=== PATIENT | male | born 1950 | race African-American/Black ===

== ENCOUNTER 2016-06-22 07:46 | Emergency (ER) | payer OTHER, MEDICAID ==
[~2016-06-22] VITALS: Ht 175.3 cm; Wt 75.0 kg
[~2016-06-22 07:46] MED LIST: ADVAI100I PO; ALBU8I INH; ASPI81CH3 PO; FOLI1 PO; JANU50TA5 PO; LANTUS2P SC; MVI PO; PROT40TA PO; SIMV40 PO; THIA100T PO
[2016-06-22 07:48] VITALS: BP 148/78; PULSE 89; RESP 19; TEMP 97.5; O2SAT 97
[2016-06-22] MEDS ORDERED: SODIUM CHLOR 0.9% 1000 ML INJ 1,000 ML IV SCH (08:03)
[2016-06-22] MEDS ORDERED: ROXI15TA9 PO (08:07)
[2016-06-22] MEDS ORDERED: IPRASOL INH (08:07)
[2016-06-22] MEDS ORDERED: JANU50TA4 PO (08:07)
[2016-06-22] MEDS ORDERED: ZOLO50TA PO (08:07)
[2016-06-22] MEDS ORDERED: PANT20TA2 PO (08:07)
[2016-06-22] MEDS ORDERED: CIAL5TAB PO (08:07)
[2016-06-22] MEDS ORDERED: EXENINJ SQ (08:07)
[2016-06-22] MEDS ORDERED: FLUT1SPR5 EACH NARE (08:07)
[2016-06-22] MEDS ORDERED: ALBUAER3 INH (08:07)
--- NOTE | 2016-06-22 08:10 | PD ---
HPI Chief Complaint: Abdominal Pain Time Seen by Provider: 07:56 Travel History International Travel<30 days: No Contact w/Intl Traveler<30days: No Traveled to known affect area: No History of Present Illness HPI 66yo M with PMH of IDDM, chronic pancreatitis, former ETOH abuse, emphysema presents to the ED with c/o abdominal pain for 3 days. Pain is constant, periumbilical and epigastric. +NBNB vomiting. Last BM yesterday. Denies any fever, chest pain, sob, black stool, urinary complaints. Pt is on morphine for chronic pain but did not take it for days. Pt also did not take her insulin for 2 days because he does not feel like injecting himself. Pt was hospitalized in 09/2015 for DKA and YANCI. 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) Cancer: No Cardiac Catheterization: Yes Cardiovascular Problems: Yes High Cholesterol: No Chemotherapy: No Chest Pain: Yes (anibal states that he some times has chest pain) Congestive Heart Failure: No COPD: Yes Cerebrovascular Accident: No Diabetes: Yes Patient Takes Glucophage: No Diminished Hearing: No Endocrine: Yes Gastrointestinal Disorders: Yes (PANCREATITIS) GERD: Yes Glaucoma: No Genitourinary: Yes Headaches: No Hepatitis: No Hiatal Hernia: No Hypertension: Yes Immune Disorder: No Implanted Vascular Access Dvce: Yes Kidney Stones: Yes Musculoskeletal: No Neurologic: No Psychiatric: No Reproductive: No Respiratory: Yes Immunizations Current: Yes Migraines: No Myocardial Infarction: No Pancreatitis: Yes Pneumonia: Yes Radiation Therapy: No Renal Failure: Yes Seizures: No Sickle Cell Disease: No Sleep Apnea: No Thyroid Disease: No Ulcer: No PNEUMOCCOCAL Vaccine (Year): 2 Past Surgical History Abdominal Surgery: Yes (Gallbladder removed 1996. repair for same surgery) AICD: No Arteriovenous Shunt: No Body Medical Devices: PACEMAKER Cardiac Surgery: Yes (Pace maker 1996) Cholecystectomy: Yes Ear Surgery: No Endocrine Surgery: No Eye Surgery: No Genitourinary Surgery: No Gynecologic Surgery: No Insulin Pump: No Joint Replacement: No Neurologic Surgery: Yes (LAMINECTOMY L4/5) Oral Surgery: No Pacemaker: Yes (Biotronik) Thoracic Surgery: No Other Surgery: Yes (HAND SURGERY -RIGHT TENDON REPAIR) Social History Alcohol Use: Yes (STATES QUIT) Tobacco Use: No (QUIT 2011) Substance Use: Yes (Cocaine, pt states that last time used is unknown) Allergies-Medications (Allergen,Severity, Reaction): Coded Allergies: MRI PRECAUTION (Verified Adverse Reaction, Severe, PACEMAKER, 06/22/16) PT HAS PACEMAKER PER NURSE JAYLENE/HEMANT *MDRO Multi-Drug Resistant Organism (Verified Adverse Reaction, Unknown, ) MRSA PCR (nares) negative - 10/04/15 & 10/07/15 Cleared per Infection Control MRSA (blood and urine) - 06/2012 Reported Meds & Prescriptions Reported Meds & Active Scripts Active Reported Roxicodone (Oxycodone HCl) 15 Mg Tab 15 Mg PO Q8H PRN Zoloft (Sertraline HCl) 50 Mg Tab 50 Mg PO DAILY Bydureon Inj (Exenatide) 2 Mg Vial 2 Mg SQ Q7D Flonase Allergy Relief Nasal [place] (Fluticasone Nasal [place]) 50 Mcg/Act [place] 50 Mcg EACH NARE BID Duoneb (Ipratropium-Albuterol Neb) 0.5-2.5 Mg/3 Ml Neb 1 Nebule INH Q4HR NEB Pantoprazole (Pantoprazole Sodium) 20 Mg Tab 20 Mg PO DAILY Proair Hfa 8.5 GM Inh (Albuterol Sulfate) 90 Mcg/Act Aer 2 Puff INH Q4-6H PRN 108 mcg/actuation Janumet (Sitagliptin-Metformin) 50-500 Mg Tab 1 Tab PO BID Cialis (Tadalafil) 5 Mg Tab 5 Mg PO DAILY Do not exceed 1 dose/day. Review of Systems Except as stated in HPI: all other systems reviewed are Neg Physical Exam Narrative GENERAL: 66yo M not in distress. SKIN: Warm and dry. HEAD: Atraumatic. Normocephalic. NECK: Trachea midline. No JVD. CARDIOVASCULAR: Regular rate and rhythm. No murmur appreciated. RESPIRATORY: No accessory muscle use. Clear to auscultation. Breath sounds equal bilaterally. GASTROINTESTINAL: Abdomen soft, Mild periumbilical ttp. No rebound tenderness or guarding. Midline surgical scar noted. MUSCULOSKELETAL: No obvious deformities. No clubbing. No cyanosis. No edema. NEUROLOGICAL: Awake and alert. No obvious cranial nerve deficits. Motor grossly within normal limits. Normal speech. PSYCHIATRIC: Appropriate mood and affect; insight and judgment normal. Data Data Last Documented VS Vital Signs Date Time Temp Pulse Resp B/P Pulse Ox O2 Delivery O2 Flow Rate FiO2 06/22/16 14:06 71 18 119/74 98 Room Air 06/22/16 07:48 97.5 Orders Complete Blood Count With Diff (06/22/16 08:03) Comprehensive Metabolic Panel (06/22/16 08:03) Lipase (06/22/16 08:03) Prothrombin Time / Inr (Pt) (06/22/16 08:03) Act Partial Throm Time (Ptt) (06/22/16 08:03) Urinalysis - C+S If Indicated (06/22/16 08:03) Iv Access Insert/Monitor (06/22/16 08:03) Ecg Monitoring (06/22/16 08:03) Oximetry (06/22/16 08:03) Ondansetron Inj (Zofran Inj) (06/22/16 08:15) Sodium Chlor 0.9% 1000 Ml Inj (Ns 1000 M (06/22/16 08:03) Sodium Chloride 0.9% Flush (Ns Flush) (06/22/16 08:15) Electrocardiogram (06/22/16 08:03) Beta Hydroxybutyrate (Acetone) (06/22/16 08:03) Magnesium (Mg) (06/22/16 08:05) Chest, Single Ap (06/22/16 ) Troponin I (06/22/16 08:10) Ct Abd/Pel W Iv Contrast(Rout) (06/22/16 ) Consult Vascular Access Team (06/22/16 ) Vascular Poc Ultrasound (06/22/16 ) Sodium Chlor 0.9% 1000 Ml Inj (Ns 1000 M (06/22/16 13:00) Insulin Human Regular Inj (Novolin R Inj (06/22/16 13:00) Iohexol 350 Inj (Omnipaque 350 Inj) (06/22/16 12:55) Ketorolac Inj (Toradol Inj) (06/22/16 13:00) Morphine Inj (Morphine Inj) (06/22/16 13:45) Blood Glucose (06/22/16 13:39) Labs Laboratory Tests Test 06/22/16 06/22/16 06/22/16 08:10 09:41 11:23 White Blood Count 8.4 TH/MM3 Red Blood Count 5.36 MIL/MM3 Hemoglobin 17.1 GM/DL Hematocrit 49.7 % Mean Corpuscular Volume 92.7 FL Mean Corpuscular Hemoglobin 31.9 PG Mean Corpuscular Hemoglobin 34.4 % Concent Red Cell Distribution Width 12.5 % Platelet Count 177 TH/MM3 Mean Platelet Volume 10.2 FL Neutrophils (%) (Auto) 49.2 % Lymphocytes (%) (Auto) 34.4 % Monocytes (%) (Auto) 11.6 % Eosinophils (%) (Auto) 4.3 % Basophils (%) (Auto) 0.5 % Neutrophils # (Auto) 4.1 TH/MM3 Lymphocytes # (Auto) 2.9 TH/MM3 Monocytes # (Auto) 1.0 TH/MM3 Eosinophils # (Auto) 0.4 TH/MM3 Basophils # (Auto) 0.0 TH/MM3 CBC Comment AUTO DIFF Differential Comment AUTO DIFF CONFIRMED Platelet Estimate NORMAL Platelet Morphology Comment NORMAL Prothrombin Time 10.6 SEC Prothromb Time International 1.0 RATIO Ratio Activated Partial 25.3 SEC Thromboplast Time Urine Color YELLOW Urine Turbidity CLEAR Urine pH 5.5 Urine Specific [place] 1.030 Urine Protein NEG mg/dL Urine Glucose (UA) 1000 mg/dL Urine Ketones NEG mg/dL Urine Occult Blood NEG Urine Nitrite NEG Urine Bilirubin NEG Urine Urobilinogen LESS THAN 2.0 MG/DL Urine Leukocyte Esterase NEG Urine RBC 1 /hpf Urine WBC 3 /hpf Urine Squamous Epithelial <1 /hpf Cells Microscopic Urinalysis Comment CULT NOT INDICATED Sodium Level 134 MEQ/L Potassium Level 4.2 MEQ/L Chloride Level 100 MEQ/L Carbon Dioxide Level 26.2 MEQ/L Anion Gap 8 MEQ/L Blood Urea Nitrogen 15 MG/DL Creatinine 1.33 MG/DL Estimat Glomerular Filtration 65 ML/MIN Rate Random Glucose 372 MG/DL Calcium Level 8.3 MG/DL Magnesium Level 1.8 MG/DL Total Bilirubin 0.8 MG/DL Aspartate Amino Transf 8 U/L (AST/SGOT) Alanine Aminotransferase 12 U/L (ALT/SGPT) Alkaline Phosphatase 92 U/L Troponin I LESS THAN 0.02 NG/ML Total Protein 6.7 GM/DL Albumin 3.3 GM/DL Lipase 316 U/L B-Hydroxybutyrate 0.39 MMOL/L [facility] Medical Decision Making Medical Screen Exam Complete: Yes Emergency Medical Condition: Yes Interpretation(s) EKG: NSR 84bpm. LAD. No ST segment elevation or depression. Differential Diagnosis Acute on chronic pancreatitis vs. colitis vs. gastritis vs. DKA vs. electrolyte abnormalities vs. UTI Narrative Course 66yo M with abdominal pain and chronic pancreatitis. Pt is not in distress and has not been compliant with medications. States he has his insulin at home. Labs reviewed, no leukocytosis. Creatinine mildly elevated at 1.33. Glucose is elevated at 372. No increased anion gap. K: 4.2. Troponin negative. Lipase 316. b-Hydroxybutrate normal. UA negative. Pt given NS IVF x2 and zofran and toradol. Pt is no longer nauseous, tolerating PO. Given 5 units of regular insulin. CXR negative. CTa/p showed dilatation of pancreatic duct measuring up to 7-8mm increase from 6mm from prior. Discussed with GI Dr. Miner and states this is progression of his chronic pancreatitis and he can follow up as outpatient. Pt still with some pain, morphine 2mg IV given with improvement of pain and return precautions given. Repeat blood glucose is 250. Diagnosis Primary Impression: Chronic pancreatitis Qualified Code: K86.0 - Alcohol-induced chronic pancreatitis Patient Instructions: General Instructions Departure Forms: Tests/Procedures Additional Instructions: Please follow up with GI as outpatient in 3-7 days. Return to the ED if symptoms worsen. Please take your insulin at home. Med/Other Pt SpecificInfo: No Change to Meds Disposition: 01 DISCHARGE HOME Condition: Stable Amarilys Topete DO Jun 22, 2016 08:10
[2016-06-22] MEDS ORDERED: ONDANSETRON HCL 4 MG/2 ML VIAL IVP ONE (08:15)
[2016-06-22] MEDS ORDERED: SODIUM CHLORIDE 0.9% FLUSH 5 ML FLUSH IVF PRN (08:15)
[2016-06-22 08:49] LABS: AUTOMATED NEUTROPHIL # 4.1 TH/MM3 (1.8-7.7); BASOPHIL % 0.5 % (0.0-2.0); EOSINOPHIL # 0.4 TH/MM3 (0-0.4); EOSINOPHIL % 4.3 % (0.0-4.0); HEMATOCRIT 49.7 % (39.0-51.0); LYMPH % 34.4 % (9.0-44.0); LYMPHOCYTE # 2.9 TH/MM3 (1.0-4.8); MEAN CELL VOLUME 92.7 FL (80.0-100.0); MEAN CORPUSCULAR HEMOGLOBIN 31.9 PG (27.0-34.0); MEAN CORPUSCULAR HGB CONC 34.4 % (32.0-36.0); MONO % 11.6 % (0.0-8.0); NEUT % 49.2 % (16.0-70.0); PLATELET COUNT 177 TH/MM3 (150-450); RED BLOOD COUNT 5.36 MIL/MM3 (4.50-5.90); RED CELL DISTRIBUTION WIDTH 12.5 % (11.6-17.2); WHITE BLOOD COUNT 8.4 TH/MM3 (4.0-11.0)
[2016-06-22 08:50] LABS: HEMO FLAGS AUTO DIFF
[2016-06-22 09:19] LABS: PLATELET ESTIMATE SMEAR NORMAL (NORMAL); SCAN/DIFF AUTO DIFF CONFIRMED
[2016-06-22 09:20] LABS: PLATELET MORPHOLOGY NORMAL (NORMAL)
--- NOTE | 2016-06-22 09:28 | RADRPT ---
EXAM DATE/TIME: 06/22/2016 08:11 [facility] COMPARISON: CHEST SINGLE AP, October 06, 2015, 11:47. INDICATIONS: Short of breath, pain in upper abdomen MEDICAL HISTORY: Chronic obstructive pulmonary disease. Diabetes mellitus type II. Cardiovascular disease. Pancrea titis SURGICAL HISTORY: Pacemaker. Cholecystectomy. ENCOUNTER: Initial ACUITY: 1 day PAIN SCORE: 0/10 LOCATION: Bilateral chest FINDINGS: A left subclavian dual lead pacemaker has its tip is in the right atrium and right ventricle. There is no pneumothorax. Bibasilar fibrotic scarring is stable. The pulmonary vascular pattern is normal . The heart and mediastinal structures are normal. The lungs are clear without acute focal pulmonar y infiltrate. CONCLUSION: 1. No acute focal pulmonary infiltrate or pulmonary vascular congestion. 2. Bibasilar fibrotic scarring. Kennedy Henry MD on June 22, 2016 at 9:11 Board Certified Radiologist. This report was verified electronically.
[2016-06-22 09:59] LABS: BLOOD, URINE NEG (NEG); GLUCOSE,URINE 1000 mg/dL (NEG); KETONE, URINE NEG (NEG); NITRITE,URINE NEG (NEG); PH, URINE 5.5 (5.0-8.5); SQUAMOUS EPITHELIAL CELL URINE <1 /hpf (0-5); URINE COLOR YELLOW (YELLW/STRAW)
[2016-06-22 10:11] LABS: APTT (PATIENT) 25.3 SEC (24.3-30.1); PROTHROMBIN TIME - PATIENT 10.6 SEC (9.8-11.6)
[2016-06-22 10:24] LABS: COMMENT (UR) CULT NOT INDICATED; CULTURE IF INDICATED CULT NOT INDICATED
[2016-06-22 11:00] VITALS: BP 99/67; PULSE 83; RESP 20; O2SAT 97
[2016-06-22 11:55] LABS: ALT (GPT) 12 U/L (12-78); ANION GAP 8 MEQ/L (5-15); AST (GOT) 8 U/L (15-37); BICARBONATE 26.2 MEQ/L (21.0-32.0); BLOOD UREA NITROGEN 15 MG/DL (7-18); CHLORIDE 100 MEQ/L (98-107); GLOMERULAR FILTRATION RATE 65 ML/MIN (>89); POTASSIUM 4.2 MEQ/L (3.5-5.1); SODIUM (NA) 134 MEQ/L (136-145)
[2016-06-22 11:57] LABS: ALKALINE PHOSPHATASE 92 U/L (45-117); BETA-HYDROXYBUTYRATE 0.39 MMOL/L (0.00-0.39); TOTAL BILIRUBIN ADULT 0.8 MG/DL (0.2-1.0)
[2016-06-22 12:43] VITALS: BP 101/64; PULSE 85; RESP 18; O2SAT 97
[2016-06-22] MEDS ORDERED: IOHEXOL 350 MG/ML 10 ML VIAL (for RAD DIAG) IV ONE (12:55)
[2016-06-22] MEDS ORDERED: INSULIN HUMAN REGULAR 1,000 UNITS/10 ML VIAL SQ ONE (13:00)
[2016-06-22] MEDS ORDERED: KETOROLAC TROMETHAMINE 30 MG/ML (IVP) VIAL IV PUSH ONE (13:00)
[2016-06-22] MEDS ORDERED: SODIUM CHLOR 0.9% 1000 ML INJ 1,000 ML IV ONE (13:00)
--- NOTE | 2016-06-22 13:07 | RADRPT ---
EXAM DATE/TIME: 06/22/2016 12:47 [facility] COMPARISON: CT ABDOMEN & PELVIS W CONTRAST, October 10, 2015, 19:29. INDICATIONS : Epigastric pain, prior history of pancreatitis IV CONTRAST: 90 cc Omnipaque 350 (iohexol) IV ORAL CONTRAST: No oral contrast ingested. RADIATION DOSE: 6.19 CTDIvol (mGy) MEDICAL HISTORY : Hypertension. Diabetes mellitus type 1. Chronic obstructive pulmonary disease. SURGICAL HISTORY : Cholecystectomy. ENCOUNTER: Initial ACUITY: 1 day PAIN SCALE: 5/10 LOCATION: epigastric TECHNIQUE: Volumetric scanning of the abdomen and pelvis was performed. Using automated exposure control and ad justment of the mA and/or kV according to patient size, radiation dose was kept as low as reasonably achievable to obtain optimal diagnostic quality images. FINDINGS: LOWER LUNGS: Chronic scarring is present at the lung bases. LIVER: Homogeneous density without lesion. The patient is again noted to be status post cholecystectomy. Pne umobilia remains in the left lobe. There is diffuse fatty infiltration with no focal mass. SPLEEN: Normal size without lesion. PANCREAS: The pancreatic duct is dilated measuring up to 7-8 mm in greatest diameter. On the prior study this m easured approximately 6 mm in diameter. There is no distinct focal pancreatic mass or inflammatory ch chapin. The pancreas is stable in size. There is a small calcification in the pancreatic head. KIDNEYS: Normal in size and shape. There is no mass, stone or hydronephrosis. ADRENAL GLANDS: Within normal limits. VASCULAR: There is no aortic aneurysm. BOWEL/MESENTERY: The stomach, small bowel, and colon demonstrate no acute abnormality. There is no free intraperitone al air or fluid. There is a normal appendix. ABDOMINAL WALL: Within normal limits. RETROPERITONEUM: There is no lymphadenopathy. BLADDER: No wall thickening or mass. REPRODUCTIVE: Within normal limits. INGUINAL: There is no lymphadenopathy or hernia. MUSCULOSKELETAL: Within normal limits for patient age. CONCLUSION: 1. Dilatation of the pancreatic duct measuring up to 7-8 mm which is increased in size compared to e prior study. There is no distinct pancreatic mass. There is a small calcification which may be rela jose to chronic pancreatitis. There is no acute acute inflammatory change. 2. Status post cholecystectomy with no evidence of biliary obstruction. Pneumobilia remains in the le ft lobe. 3. Fatty infiltration of the liver. 4. Unremarkable bowel gas pattern. Rodolfo Tom MD on June 22, 2016 at 12:58 Board Certified Radiologist. This report was verified electronically.
[2016-06-22] MEDS ORDERED: MORPHINE SULFATE 4 MG/ML INJ IV PUSH ONE (13:45)
[2016-06-22 14:06] VITALS: BP 119/74; PULSE 71; RESP 18; O2SAT 98
[2016-06-22 15:32] VITALS: RESP 18
--- NOTE | 2016-06-22 17:25 | EKG ---
Date Performed: 06/22/2016 Time Performed: 08:13:03 PTAGE: 66 years EKG: Sinus rhythm MARKED LEFT AXIS DEVIATION Since previous tracing, no significant change noted ABNORMAL ECG PREVIOUS TRACING : 10/04/2015 10.48 DOCTOR: Aston Slade Interpretating Date/Time 06/22/2016 17:23:16
== END 2016-06-22 15:38 | disposition home or self-care (01) ==
LOC: NEPE 07:46
DX: K86.1 Other chronic pancreatitis (principal); J45.909 Unspecified asthma, uncomplicated; J44.9 Chronic obstructive pulmonary disease, unspecified; E11.9 Type 2 diabetes mellitus without complications; K21.9 Gastro-esophageal reflux disease without esophagitis; I10 Essential (primary) hypertension; R94.31 Abnormal electrocardiogram [ECG] [EKG]; Z79.4 Long term (current) use of insulin; Z87.442 Personal history of urinary calculi; Z95.0 Presence of cardiac pacemaker
CPT/HCPCS: 71010; 74177; 80053; 81001; 82010; 83690; 83735; 84484; 85025; 85610; 85730; 93005; 96361; 96372; 96374; 96375; 99284; J1815; J1885; J2270; J2405; J7030; Q9967

== ENCOUNTER 2016-11-11 12:27 | Emergency (ER) | payer OTHER, MEDICAID ==
[~2016-11-11] VITALS: Ht 175.3 cm; Wt 70.0 kg
[~2016-11-11 12:27] MED LIST changes: -ADVAI100I PO; -ALBU8I INH; +ALBUAER3 INH; -ASPI81CH3 PO; +CIAL5TAB PO; +EXENINJ SQ; +FLUT1SPR5 EACH NARE; -FOLI1 PO; +IPRASOL INH; +JANU50TA4 PO; -JANU50TA5 PO; -LANTUS2P SC; -MVI PO; +PANT20TA2 PO; -PROT40TA PO; +ROXI15TA9 PO; -SIMV40 PO; -THIA100T PO; +ZOLO50TA PO
[2016-11-11 12:29] VITALS: BP 156/96; PULSE 90; RESP 18; TEMP 98.4; O2SAT 98
[2016-11-11 12:48] VITALS: BP 155/93; PULSE 93; RESP 14; TEMP 98.4
[2016-11-11] MEDS ORDERED: SODIUM CHLOR 0.9% 1000 ML INJ 1,000 ML IV SCH ×2 (12:51→14:28)
--- NOTE | 2016-11-11 12:55 | PD ---
HPI Chief Complaint: Abdominal Pain Time Seen by Provider: 12:45 Travel History International Travel<30 days: No Contact w/Intl Traveler<30days: No Traveled to known affect area: No History of Present Illness HPI This is a 66 year old male with a history of recurrent pancreatitis who presents for evaluation of epigastric abdominal pain. He reports that 5 days ago he went on a drinking binge for a birthday alliance party. He reports that the next day developed epigastric abdominal pain. The pain is a burning sensation which is constant, consistent with previous episodes of pancreatitis. He reports occasional intermittent vomiting. He has been tolerating oral food, for example this morning he ate conn, eggs and grits. He denies any fevers, diarrhea, upper respiratory symptoms, chest pain or shortness of breath, rash, flank pain, testicular or scrotal pain. He has no other complaints. 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) Cancer: No Cardiac Catheterization: Yes Cardiovascular Problems: Yes High Cholesterol: No Chemotherapy: No Chest Pain: Yes (anibal states that he some times has chest pain) Congestive Heart Failure: No COPD: Yes Cerebrovascular Accident: No Diabetes: Yes Diminished Hearing: No Endocrine: Yes Gastrointestinal Disorders: Yes (PANCREATITIS) GERD: Yes Glaucoma: No Genitourinary: Yes Headaches: No Hepatitis: No Hiatal Hernia: No Hypertension: Yes Immune Disorder: No Implanted Vascular Access Dvce: Yes Kidney Stones: Yes Musculoskeletal: No Neurologic: No Psychiatric: No Reproductive: No Respiratory: Yes Immunizations Current: Yes Migraines: No Myocardial Infarction: No Pancreatitis: Yes Pneumonia: Yes Radiation Therapy: No Renal Failure: Yes Seizures: No Sickle Cell Disease: No Sleep Apnea: No Thyroid Disease: No Ulcer: No PNEUMOCCOCAL Vaccine (Year): 2 Past Surgical History Abdominal Surgery: Yes (Gallbladder removed 1996. repair for same surgery) AICD: No Arteriovenous Shunt: No Body Medical Devices: PACEMAKER Cardiac Surgery: Yes (Pace maker 1996) Cholecystectomy: Yes Ear Surgery: No Endocrine Surgery: No Eye Surgery: No Genitourinary Surgery: No Gynecologic Surgery: No Insulin Pump: No Joint Replacement: No Neurologic Surgery: Yes (LAMINECTOMY L4/5) Oral Surgery: No Pacemaker: Yes (Biotronik) Thoracic Surgery: No Other Surgery: Yes (HAND SURGERY -RIGHT TENDON REPAIR) Social History Alcohol Use: Yes (STATES QUIT) Tobacco Use: No (QUIT 2011) Substance Use: Yes (Cocaine, pt states that last time used is unknown) Allergies-Medications (Allergen,Severity, Reaction): Coded Allergies: MRI PRECAUTION (Verified Adverse Reaction, Severe, PACEMAKER, 11/11/16) PT HAS PACEMAKER PER NURSE JAYLENE/HEMANT *MDRO Multi-Drug Resistant Organism (Verified Adverse Reaction, Unknown, ) MRSA PCR (nares) negative - 10/04/15 & 10/07/15 Cleared per Infection Control MRSA (blood and urine) - 06/2012 Reported Meds & Prescriptions Reported Meds & Active Scripts Active Zofran Odt (Ondansetron Odt) 4 Mg Tab 4 Mg SL Q6HR PRN Reported Roxicodone (Oxycodone HCl) 15 Mg Tab 15 Mg PO Q8H PRN Flonase Nasal [place] (Fluticasone Nasal [place]) 50 Mcg/Act [place] 50 Mcg EACH NARE BID Duoneb (Ipratropium-Albuterol Neb) 0.5-2.5 Mg/3 Ml Neb 1 Nebule INH Q4HR NEB Pantoprazole (Pantoprazole Sodium) 20 Mg Tab 20 Mg PO DAILY Proair Hfa 8.5 GM Inh (Albuterol Sulfate) 90 Mcg/Act Aer 2 Puff INH Q4-6H PRN 108 mcg/actuation Janumet (Sitagliptin-Metformin) 50-500 Mg Tab 1 Tab PO BID Cialis (Tadalafil) 5 Mg Tab 5 Mg PO DAILY Do not exceed 1 dose/day. Review of Systems Except as stated in HPI: all other systems reviewed are Neg Physical Exam Narrative GENERAL: Well-developed well-nourished male in no acute distress, ambulatory in the ED. SKIN: Warm and dry. HEAD: Atraumatic. Normocephalic. EYES: Pupils equal and round. No scleral icterus. No injection or drainage. ENT: No nasal bleeding or discharge. Mucous membranes pink and moist. NECK: Trachea midline. No JVD. CARDIOVASCULAR: Regular rate and rhythm. No murmur appreciated. RESPIRATORY: No accessory muscle use. Clear to auscultation. Breath sounds equal bilaterally. GASTROINTESTINAL: Abdomen soft, mild epigastric tenderness without guarding. No CVA tenderness. MUSCULOSKELETAL: No obvious deformities. No edema. NEUROLOGICAL: Awake and alert. No obvious cranial nerve deficits. Motor grossly within normal limits. Normal speech. PSYCHIATRIC: Appropriate mood and affect; insight and judgment normal. Data Data Last Documented VS Vital Signs Date Time Temp Pulse Resp B/P Pulse Ox O2 Delivery O2 Flow Rate FiO2 11/11/16 12:48 98.4 93 14 155/93 Room Air 11/11/16 12:29 98 Orders Complete Blood Count With Diff (11/11/16 12:51) Comprehensive Metabolic Panel (11/11/16 12:51) Lipase (11/11/16 12:51) Urinalysis - C+S If Indicated (11/11/16 12:51) Iv Access Insert/Monitor (11/11/16 12:51) Morphine Inj (Morphine Inj) (11/11/16 13:00) Ondansetron Inj (Zofran Inj) (11/11/16 13:00) Sodium Chlor 0.9% 1000 Ml Inj (Ns 1000 M (11/11/16 12:51) Sodium Chlor 0.9% 1000 Ml Inj (Ns 1000 M (11/11/16 14:28) Morphine Inj (Morphine Inj) (11/11/16 14:30) Labs Laboratory Tests Test 11/11/16 11/11/16 11/11/16 12:55 13:46 14:35 White Blood Count 7.5 TH/MM3 Red Blood Count 5.18 MIL/MM3 Hemoglobin 16.5 GM/DL Hematocrit 48.3 % Mean Corpuscular Volume 93.3 FL Mean Corpuscular Hemoglobin 31.8 PG Mean Corpuscular Hemoglobin 34.1 % Concent Red Cell Distribution Width 12.4 % Platelet Count 177 TH/MM3 Mean Platelet Volume 9.2 FL Neutrophils (%) (Auto) 64.4 % Lymphocytes (%) (Auto) 21.3 % Monocytes (%) (Auto) 11.9 % Eosinophils (%) (Auto) 2.1 % Basophils (%) (Auto) 0.3 % Neutrophils # (Auto) 4.8 TH/MM3 Lymphocytes # (Auto) 1.6 TH/MM3 Monocytes # (Auto) 0.9 TH/MM3 Eosinophils # (Auto) 0.2 TH/MM3 Basophils # (Auto) 0.0 TH/MM3 CBC Comment DIFF FINAL Differential Comment Urine Color YELLOW Urine Turbidity CLEAR Urine pH 7.5 Urine Specific [place] 1.015 Urine Protein TRACE mg/dL Urine Glucose (UA) 1000 mg/dL Urine Ketones NEG mg/dL Urine Occult Blood NEG Urine Nitrite NEG Urine Bilirubin NEG Urine Urobilinogen 2.0 MG/DL Urine Leukocyte Esterase NEG Urine RBC LESS THAN 1 /hpf Urine WBC 1 /hpf Urine Squamous Epithelial <1 /hpf Cells Urine Transitional Epithelial <1 /hpf Cells Microscopic Urinalysis Comment CULT NOT INDICATED Sodium Level 138 MEQ/L Potassium Level 3.9 MEQ/L Chloride Level 102 MEQ/L Carbon Dioxide Level 28.8 MEQ/L Anion Gap 7 MEQ/L Blood Urea Nitrogen 9 MG/DL Creatinine 1.06 MG/DL Estimat Glomerular Filtration 85 ML/MIN Rate Random Glucose 213 MG/DL Calcium Level 8.3 MG/DL Total Bilirubin 1.2 MG/DL Aspartate Amino Transf 17 U/L (AST/SGOT) Alanine Aminotransferase 19 U/L (ALT/SGPT) Alkaline Phosphatase 103 U/L Total Protein 7.9 GM/DL Albumin 3.3 GM/DL Lipase 521 U/L MDM Medical Decision Making Medical Screen Exam Complete: Yes Emergency Medical Condition: Yes Medical Record Reviewed: Yes Differential Diagnosis Acute exacerbation of chronic pancreatitis, pancreatic hemorrhage, abscess, gastritis, perforated viscus, AAA Narrative Course 66-year-old male with history of frequent exacerbations of alcohol-induced pancreatitis presents for evaluation of 4 days of epigastric abdominal pain which started after a drinking binge. His pain is consistent with previous episodes of pancreatitis. He has been seen here multiple times in the past with similar pain. On examination he has mild epigastric tenderness to palpation. Plan is for basic lab work, IV fluids, morphine, Zofran. Lab work is been reviewed. The lipase is mildly elevated in the mid 500s. He feels improvement after the second dose of IV fluids and morphine. He is stable for discharge. Diagnosis Primary Impression: Pancreatitis Qualified Code: K85.20 - Alcohol-induced acute pancreatitis, unspecified complication status Additional Instructions: Liquid diet over the next 3-4 days. Zofran for nausea. Avoid alcohol use. Follow-up with primary care physician. Return for any emergent medical conditions. Med/Other Pt SpecificInfo: Prescription(s) given Scripts Ondansetron Odt (Zofran Odt)4 Mg Tab4 Mg SL Q6HR PRN (Nausea/Vomiting) #20 TAB Ref 0 Prov:Raghavendra Johnson MD 11/11/16 Disposition: 01 DISCHARGE HOME Condition: Stable Leo Goodwin Nov 11, 2016 12:55
[2016-11-11] MEDS ORDERED: MORPHINE SULFATE 4 MG/ML INJ IV PUSH ONE ×2 (13:00→14:30)
[2016-11-11] MEDS ORDERED: ONDANSETRON HCL 4 MG/2 ML VIAL IVP ONE (13:00)
[2016-11-11 13:21] LABS: AUTOMATED NEUTROPHIL # 4.8 TH/MM3 (1.8-7.7); BASOPHIL % 0.3 % (0.0-2.0); EOSINOPHIL # 0.2 TH/MM3 (0-0.4); EOSINOPHIL % 2.1 % (0.0-4.0); HEMATOCRIT 48.3 % (39.0-51.0); HEMO FLAGS DIFF FINAL; LYMPH % 21.3 % (9.0-44.0); LYMPHOCYTE # 1.6 TH/MM3 (1.0-4.8); MEAN CELL VOLUME 93.3 FL (80.0-100.0); MEAN CORPUSCULAR HEMOGLOBIN 31.8 PG (27.0-34.0); MEAN CORPUSCULAR HGB CONC 34.1 % (32.0-36.0); MONO % 11.9 % (0.0-8.0); NEUT % 64.4 % (16.0-70.0); PLATELET COUNT 177 TH/MM3 (150-450); RED BLOOD COUNT 5.18 MIL/MM3 (4.50-5.90); RED CELL DISTRIBUTION WIDTH 12.4 % (11.6-17.2); WHITE BLOOD COUNT 7.5 TH/MM3 (4.0-11.0)
[2016-11-11 13:41] LABS: ALKALINE PHOSPHATASE 103 U/L (45-117); TOTAL BILIRUBIN ADULT 1.2 MG/DL (0.2-1.0)
[2016-11-11 14:02] LABS: BLOOD, URINE NEG (NEG); GLUCOSE,URINE 1000 mg/dL (NEG); KETONE, URINE NEG (NEG); NITRITE,URINE NEG (NEG); PH, URINE 7.5 (5.0-8.5); SQUAMOUS EPITHELIAL CELL URINE <1 /hpf (0-5); TRANSITIONAL EPI CELLS, URINE <1 /hpf; URINE COLOR YELLOW (YELLW/STRAW)
[2016-11-11 14:03] LABS: COMMENT (UR) CULT NOT INDICATED; CULTURE IF INDICATED CULT NOT INDICATED
[2016-11-11 15:12] LABS: ALT (GPT) 19 U/L (12-78); ANION GAP 7 MEQ/L (5-15); AST (GOT) 17 U/L (15-37); BICARBONATE 28.8 MEQ/L (21.0-32.0); BLOOD UREA NITROGEN 9 MG/DL (7-18); CHLORIDE 102 MEQ/L (98-107); GLOMERULAR FILTRATION RATE 85 ML/MIN (>89); POTASSIUM 3.9 MEQ/L (3.5-5.1); SODIUM (NA) 138 MEQ/L (136-145)
[2016-11-11] MEDS ORDERED: ZOFR4TAB3 SL (15:19)
== END 2016-11-11 17:22 | disposition home or self-care (01) ==
LOC: NEPE 12:27
DX: K85.20 Alcohol induced acute pancreatitis without necrosis or infection (principal); I10 Essential (primary) hypertension; K21.9 Gastro-esophageal reflux disease without esophagitis; E11.9 Type 2 diabetes mellitus without complications; J44.9 Chronic obstructive pulmonary disease, unspecified; F41.9 Anxiety disorder, unspecified; F32.9 Major depressive disorder, single episode, unspecified; J45.909 Unspecified asthma, uncomplicated; Z87.442 Personal history of urinary calculi
CPT/HCPCS: 80053; 81001; 83690; 85025; 96361; 96374; 96375; 96376; 99284; J2270; J2405; J7030

== ENCOUNTER 2016-12-12 11:47 | Inpatient (IN) | payer OTHER, MEDICARE ==
[~2016-12-12] VITALS: Ht 175.3 cm; Wt 72.2 kg
[~2016-12-12 11:47] MED LIST changes: -EXENINJ SQ; +ZOFR4TAB3 SL; -ZOLO50TA PO
[2016-12-12 11:57] VITALS: BP 157/100; PULSE 65; RESP 23; TEMP 98.3; O2SAT 100
[2016-12-12] MEDS ORDERED: SODIUM CHLOR 0.9% 1000 ML INJ 1,000 ML IV SCH (12:11)
--- NOTE | 2016-12-12 12:14 | PD ---
HPI Chief Complaint: Abdominal Pain Time Seen by Provider: 12:05 Travel History International Travel<30 days: No Contact w/Intl Traveler<30days: No Traveled to known affect area: No History of Present Illness HPI 66-year-old male presents for evaluation of epigastric abdominal pain. Symptoms started yesterday evening after drinking 4 beers. The pain is a sharp pain, constant, associated with some nausea and vomiting this morning. The pain is consistent with previous episodes of pancreatitis. He denies chest pain , fevers or chills, flank pain, dysuria. He has no other complaints at this time. 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) Cancer: No Cardiac Catheterization: Yes Cardiovascular Problems: Yes (PACER) High Cholesterol: No Chemotherapy: No Chest Pain: Yes (gonzaloen states that he some times has chest pain) Congestive Heart Failure: No COPD: Yes Cerebrovascular Accident: No Diabetes: Yes (TYPE II ) Patient Takes Glucophage: Yes (PT STATES HE TAKES A PILL FOR HIS TYPE II DIABETIS ) Diminished Hearing: No Endocrine: Yes Gastrointestinal Disorders: Yes (PANCREATITIS) GERD: Yes Glaucoma: No Genitourinary: Yes Headaches: No Hepatitis: No Hiatal Hernia: No Heparin Induced Thrombocytopen: No Hypertension: Yes Immune Disorder: No Implanted Vascular Access Dvce: Yes Kidney Stones: Yes Musculoskeletal: No Neurologic: No Psychiatric: No Reproductive: No Respiratory: Yes Immunizations Current: Yes Migraines: No Myocardial Infarction: No Pancreatitis: Yes Pneumonia: Yes Radiation Therapy: No Renal Failure: Yes Seizures: No Sickle Cell Disease: No Sleep Apnea: No Thyroid Disease: No Ulcer: No PNEUMOCCOCAL Vaccine (Year): 2 Past Surgical History Abdominal Surgery: Yes (Gallbladder removed 1996. repair for same surgery) AICD: No Arteriovenous Shunt: No Body Medical Devices: PACEMAKER Cardiac Surgery: Yes (Pace maker 1996) Cholecystectomy: Yes Ear Surgery: No Endocrine Surgery: No Eye Surgery: No Genitourinary Surgery: No Gynecologic Surgery: No Insulin Pump: No Joint Replacement: No Neurologic Surgery: Yes (LAMINECTOMY L4/5) Oral Surgery: No Pacemaker: Yes (Biotronik) Thoracic Surgery: No Other Surgery: Yes (HAND SURGERY -RIGHT TENDON REPAIR) Social History Alcohol Use: Yes (STATES QUIT) Tobacco Use: No (QUIT 2011) Substance Use: Yes (Cocaine, pt states that last time used is unknown) Allergies-Medications (Allergen,Severity, Reaction): Coded Allergies: MRI PRECAUTION (Verified Adverse Reaction, Severe, PACEMAKER, 11/11/16) PT HAS PACEMAKER PER NURSE JAYLENE/HEMANT *MDRO Multi-Drug Resistant Organism (Verified Adverse Reaction, Unknown, ) MRSA PCR (nares) negative - 10/04/15 & 10/07/15 Cleared per Infection Control MRSA (blood and urine) - 06/2012 Reported Meds & Prescriptions Reported Meds & Active Scripts Active Zofran Odt (Ondansetron Odt) 4 Mg Tab 4 Mg SL Q6HR PRN Reported Roxicodone (Oxycodone HCl) 15 Mg Tab 15 Mg PO Q8H PRN Flonase Nasal [place] (Fluticasone Nasal [place]) 50 Mcg/Act [place] 50 Mcg EACH NARE BID Duoneb (Ipratropium-Albuterol Neb) 0.5-2.5 Mg/3 Ml Neb 1 Nebule INH Q4HR NEB Pantoprazole (Pantoprazole Sodium) 20 Mg Tab 20 Mg PO DAILY Proair Hfa 8.5 GM Inh (Albuterol Sulfate) 90 Mcg/Act Aer 2 Puff INH Q4-6H PRN 108 mcg/actuation Janumet (Sitagliptin-Metformin) 50-500 Mg Tab 1 Tab PO BID Cialis (Tadalafil) 5 Mg Tab 5 Mg PO DAILY Do not exceed 1 dose/day. Review of Systems Except as stated in HPI: all other systems reviewed are Neg Physical Exam Narrative GENERAL: Well-developed well-nourished male who appears uncomfortable on initial examination SKIN: Warm and dry. HEAD: Atraumatic. Normocephalic. EYES: Pupils equal and round. No scleral icterus. No injection or drainage. ENT: No nasal bleeding or discharge. Mucous membranes pink and moist. NECK: Trachea midline. No JVD. CARDIOVASCULAR: Regular rate and rhythm. No murmur appreciated. RESPIRATORY: No accessory muscle use. Clear to auscultation. Breath sounds equal bilaterally. GASTROINTESTINAL: Abdomen soft, tender to palpation in the epigastrium without guarding MUSCULOSKELETAL: No obvious deformities. No edema. NEUROLOGICAL: Awake and alert. No obvious cranial nerve deficits. Motor grossly within normal limits. Normal speech. PSYCHIATRIC: Appropriate mood and affect; insight and judgment normal. Data Data Last Documented VS Vital Signs Date Time Temp Pulse Resp B/P Pulse Ox O2 Delivery O2 Flow Rate FiO2 12/12/16 12:22 98 12/12/16 11:57 98.3 65 23 157/100 Orders Complete Blood Count With Diff (12/12/16 12:11) Comprehensive Metabolic Panel (12/12/16 12:11) Lipase (12/12/16 12:11) Iv Access Insert/Monitor (12/12/16 12:11) Ecg Monitoring (12/12/16 12:11) Oximetry (12/12/16 12:11) Morphine Inj (Morphine Inj) (12/12/16 12:15) Ondansetron Inj (Zofran Inj) (12/12/16 12:15) Sodium Chlor 0.9% 1000 Ml Inj (Ns 1000 M (12/12/16 12:11) Sodium Chloride 0.9% Flush (Ns Flush) (12/12/16 12:15) Electrocardiogram (12/12/16 12:11) Creatine Kinase (Cpk) (12/12/16 12:11) Troponin I (12/12/16 12:11) Vascular Access Team Consult/P PRN (12/12/16 12:57) Potassium Chloride (Kcl) (12/12/16 14:15) Labs Laboratory Tests Test 12/12/16 13:15 White Blood Count 5.9 TH/MM3 Red Blood Count 4.59 MIL/MM3 Hemoglobin 14.8 GM/DL Hematocrit 42.8 % Mean Corpuscular Volume 93.4 FL Mean Corpuscular Hemoglobin 32.2 PG Mean Corpuscular Hemoglobin 34.4 % Concent Red Cell Distribution Width 12.3 % Platelet Count 144 TH/MM3 Mean Platelet Volume 8.6 FL Neutrophils (%) (Auto) 66.7 % Lymphocytes (%) (Auto) 21.7 % Monocytes (%) (Auto) 10.7 % Eosinophils (%) (Auto) 0.5 % Basophils (%) (Auto) 0.4 % Neutrophils # (Auto) 4.0 TH/MM3 Lymphocytes # (Auto) 1.3 TH/MM3 Monocytes # (Auto) 0.6 TH/MM3 Eosinophils # (Auto) 0.0 TH/MM3 Basophils # (Auto) 0.0 TH/MM3 CBC Comment DIFF FINAL Differential Comment Sodium Level 139 MEQ/L Potassium Level 3.4 MEQ/L Chloride Level 100 MEQ/L Carbon Dioxide Level 27.3 MEQ/L Anion Gap 12 MEQ/L Blood Urea Nitrogen 13 MG/DL Creatinine 1.29 MG/DL Estimat Glomerular Filtration 68 ML/MIN Rate Random Glucose 292 MG/DL Calcium Level 8.1 MG/DL Total Bilirubin 1.2 MG/DL Aspartate Amino Transf 31 U/L (AST/SGOT) Alanine Aminotransferase 17 U/L (ALT/SGPT) Alkaline Phosphatase 76 U/L Total Creatine Kinase 225 U/L Troponin I LESS THAN 0.02 NG/ML Total Protein 6.5 GM/DL Albumin 3.2 GM/DL Lipase 4577 U/L MDM Medical Decision Making Medical Screen Exam Complete: Yes Emergency Medical Condition: Yes Medical Record Reviewed: Yes Differential Diagnosis Pancreatitis, acute coronary syndrome, aortic dissection, cholecystitis, ascending cholangitis, mesenteric ischemia, colitis, bowel obstruction Narrative Course 66-year-old male presents with epigastric abdominal pain, nausea and vomiting started yesterday evening after drinking beer. He has been seen here several times in the past for similar symptoms, diagnosed with pancreatitis, this feels similar. Plan is for basic lab work, EKG, ECG monitor and pulse oximetry. He will be given IV fluid, Zofran and morphine. Upon reexamination he continues to have significant pain. His lipase is 4500 which is much higher than any of his previous visits. At this point; be to admit the patient for pain control, hydration. Discussed with Dr. Valles who is agreeable. Diagnosis Primary Impression: Acute pancreatitis Qualified Code: K85.20 - Alcohol-induced acute pancreatitis, unspecified complication status Admitting Information Admitting Physician Requests: it Leo Goodwin Dec 12, 2016 12:14
[2016-12-12] MEDS ORDERED: ONDANSETRON HCL 4 MG/2 ML VIAL IVP ONE (12:15)
[2016-12-12] MEDS ORDERED: SODIUM CHLORIDE 0.9% FLUSH 10 ML FLUSH IV FLUSH PRN ×3 (12:15→14:30)
[2016-12-12] MEDS ORDERED: MORPHINE SULFATE 4 MG/ML INJ IV PUSH ONE ×2 (12:15→14:30)
[2016-12-12 12:22] VITALS: O2SAT 98
[2016-12-12 13:33] LABS: BASOPHIL % 0.4 % (0.0-2.0); EOSINOPHIL % 0.5 % (0.0-4.0); HEMATOCRIT 42.8 % (39.0-51.0); HEMO FLAGS DIFF FINAL; LYMPH % 21.7 % (9.0-44.0); LYMPHOCYTE # 1.3 TH/MM3 (1.0-4.8); MEAN CELL VOLUME 93.4 FL (80.0-100.0); MEAN CORPUSCULAR HEMOGLOBIN 32.2 PG (27.0-34.0); MEAN CORPUSCULAR HGB CONC 34.4 % (32.0-36.0); MONO % 10.7 % (0.0-8.0); NEUT % 66.7 % (16.0-70.0); PLATELET COUNT 144 TH/MM3 (150-450); RED BLOOD COUNT 4.59 MIL/MM3 (4.50-5.90); RED CELL DISTRIBUTION WIDTH 12.3 % (11.6-17.2); WHITE BLOOD COUNT 5.9 TH/MM3 (4.0-11.0)
[2016-12-12 13:51] LABS: ALKALINE PHOSPHATASE 76 U/L (45-117); CREATINE KINASE 225 U/L (39-308); TOTAL BILIRUBIN ADULT 1.2 MG/DL (0.2-1.0)
[2016-12-12 13:54] LABS: ALT (GPT) 17 U/L (12-78); ANION GAP 12 MEQ/L (5-15); AST (GOT) 31 U/L (15-37); BICARBONATE 27.3 MEQ/L (21.0-32.0); BLOOD UREA NITROGEN 13 MG/DL (7-18); CHLORIDE 100 MEQ/L (98-107); GLOMERULAR FILTRATION RATE 68 ML/MIN (>89); POTASSIUM 3.4 MEQ/L (3.5-5.1); SODIUM (NA) 139 MEQ/L (136-145)
[2016-12-12] MEDS ORDERED: POTASSIUM CHLORIDE 20 MEQ CONTROLLED RELEASE TAB PO ONE (14:15)
[2016-12-12] MEDS ORDERED: BISACODYL 10 MG SUPP RECTAL PRN (14:30)
[2016-12-12] MEDS ORDERED: LACTULOSE SYRUP 20 GM/30 ML CUP PO PRN (14:30)
[2016-12-12] MEDS ORDERED: ACETAMINOPHEN/HYDROcodone 325 MG/5 MG TAB PO PRN (14:30)
[2016-12-12] MEDS ORDERED: ACETAMINOPHEN 325 MG TAB PO PRN (14:30)
[2016-12-12] MEDS ORDERED: FLUMAZENIL 0.5 MG/5 ML VIAL IV PUSH PRN (14:30)
[2016-12-12] MEDS ORDERED: NALOXONE HCL 0.4 MG/ML AMP IV PRN (14:30)
[2016-12-12] MEDS ORDERED: ACETAMINOPHEN/HYDROcodone 325 MG/10 MG TAB PO PRN (14:30)
[2016-12-12] MEDS ORDERED: LORazepam 2 MG TAB PO PRN (14:30)
[2016-12-12] MEDS ORDERED: MAGNESIUM HYDROXIDE SUSP 30 ML CUP PO PRN (14:30)
[2016-12-12] MEDS ORDERED: SENNOSIDES 8.6 MG TAB PO PRN (14:30)
[2016-12-12] MEDS ORDERED: LORazepam 2 MG/ML VIAL IV PUSH PRN ×4 (14:30)
[2016-12-12] MEDS ORDERED: LORazepam 1 MG TAB PO PRN (14:30)
--- NOTE | 2016-12-12 15:07 | HHI.HP ---
[facility] Primary Care Physician VERO Rolon Admission Diagnosis acute pancreatitis Diagnoses: Travel History International Travel<30 Days: No Contact w/Intl Traveler <30 Da: No Traveled to Known Affected Are: No History of Present Illness Mr. Whitehead is a 66 year old male. He has a history of alcohol abuse in the past, but has recently only been using alcohol occasionally. He has a past history of pancreatitis, which has motivated him to drink less. He was at a birthday [employer] and had a few drinks of alcohol yesterday. Starting last night he has been having abdominal pain and nausea/vomiting. He was concerned as it felt like pancreatitis, and indeed he has pancreatitis on testing today. Blood sugars are elevated also and potassium is low. No other complaints. No fevers. No diarrhea. Review of Systems Constitutional: DENIES: Fever, Chills, Change in appetite Endocrine: DENIES: Heat/cold intolerance Eyes: DENIES: Blurred vision, Eye pain Ears, nose, mouth, throat: DENIES: Hearing loss, Vertigo, Throat pain Respiratory: DENIES: Cough, Wheezing, Sputum production Cardiovascular: DENIES: Chest pain, Palpitations, Syncope Gastrointestinal: COMPLAINS OF: Abdominal pain, Nausea, Vomiting Musculoskeletal: DENIES: Joint pain, Muscle aches, Stiffness Integumentary: DENIES: Abnormal pigmentation Hematologic/lymphatic: DENIES: Bruising Immunologic/allergic: DENIES: Eczema Neurologic: DENIES: Abnormal gait Psychiatric: DENIES: Anxiety, Confusion, Hallucinations Past Family Social History Past Medical History DM2 COPD CKD3 HTN Chronic Pancreatitis Chronic Back Pain Hx of Bradycardia Past Surgical History Lumbar Spine surgery Cholecystectomy Right hand laceration repair Reported Medications Reported Meds & Active Scripts Active Zofran Odt (Ondansetron Odt) 4 Mg Tab 4 Mg SL Q6HR PRN Reported Roxicodone (Oxycodone HCl) 15 Mg Tab 15 Mg PO Q8H PRN Flonase Nasal [place] (Fluticasone Nasal [place]) 50 Mcg/Act [place] 50 Mcg EACH NARE BID Duoneb (Ipratropium-Albuterol Neb) 0.5-2.5 Mg/3 Ml Neb 1 Nebule INH Q4HR NEB Pantoprazole (Pantoprazole Sodium) 20 Mg Tab 20 Mg PO DAILY Proair Hfa 8.5 GM Inh (Albuterol Sulfate) 90 Mcg/Act Aer 2 Puff INH Q4-6H PRN 108 mcg/actuation Janumet (Sitagliptin-Metformin) 50-500 Mg Tab 1 Tab PO BID Cialis (Tadalafil) 5 Mg Tab 5 Mg PO DAILY Do not exceed 1 dose/day. Allergies: Coded Allergies: MRI PRECAUTION (Verified Adverse Reaction, Severe, PACEMAKER, 11/11/16) PT HAS PACEMAKER PER NURSE JAYLENE/HEMANT *MDRO Multi-Drug Resistant Organism (Verified Adverse Reaction, Unknown, ) MRSA PCR (nares) negative - 10/04/15 & 10/07/15 Cleared per Infection Control MRSA (blood and urine) - 06/2012 Family History DM2 in both parents HTN and COPD in mother Social History Past history of smoking, no smoking for 10 years Past history of alcohol abuse, presently drinks occasionally No drug abuse Physical Exam Vital Signs Vital Signs Date Time Temp Pulse Resp B/P Pulse Ox O2 Delivery O2 Flow Rate FiO2 12/12/16 12:22 98 12/12/16 11:57 98.3 65 23 157/100 100 Physical Exam GENERAL: NAD, A&Ox3 SKIN: Warm and dry. HEAD: Normocephalic. EYES: No scleral icterus. No injection or drainage. NECK: Supple, trachea midline. No JVD or lymphadenopathy. CARDIOVASCULAR: Regular rate and rhythm without murmurs, gallops, or rubs. RESPIRATORY: Breath sounds equal bilaterally. No accessory muscle use. GASTROINTESTINAL: Abdomen soft. Tenderness at upper abdomen. MUSCULOSKELETAL: No cyanosis, or edema. BACK: Nontender without obvious deformity. No CVA tenderness. Laboratory Laboratory Tests Test 12/12/16 13:15 White Blood Count 5.9 Red Blood Count 4.59 Hemoglobin 14.8 Hematocrit 42.8 Mean Corpuscular Volume 93.4 Mean Corpuscular Hemoglobin 32.2 Mean Corpuscular Hemoglobin 34.4 Concent Red Cell Distribution Width 12.3 Platelet Count 144 Mean Platelet Volume 8.6 Neutrophils (%) (Auto) 66.7 Lymphocytes (%) (Auto) 21.7 Monocytes (%) (Auto) 10.7 Eosinophils (%) (Auto) 0.5 Basophils (%) (Auto) 0.4 Neutrophils # (Auto) 4.0 Lymphocytes # (Auto) 1.3 Monocytes # (Auto) 0.6 Eosinophils # (Auto) 0.0 Basophils # (Auto) 0.0 CBC Comment DIFF FINAL Differential Comment Sodium Level 139 Potassium Level 3.4 Chloride Level 100 Carbon Dioxide Level 27.3 Anion Gap 12 Blood Urea Nitrogen 13 Creatinine 1.29 Estimat Glomerular Filtration 68 Rate Random Glucose 292 Calcium Level 8.1 Total Bilirubin 1.2 Aspartate Amino Transf 31 (AST/SGOT) Alanine Aminotransferase 17 (ALT/SGPT) Alkaline Phosphatase 76 Total Creatine Kinase 225 Troponin I LESS THAN 0.02 Total Protein 6.5 Albumin 3.2 Lipase 4577 Result Diagram: 12/12/16 1315 12/12/16 1315 Assessment and Plan Problem List: (1) Acute pancreatitis ICD Code: K85.90 Status: Acute (2) Chronic pancreatitis ICD Code: K86.1 Status: Acute Assessment and Plan Assessment and Plan 66 year old male admitted with acute pancreatitis Acute Pancreatitis Hx of Chronic Pancreatitis IV Hydration with NS at 150ml/hr PRN pain treatments Follow lipase level monitor vital signs Follow for fevers DM2 Hyperglycemia Follow blood sugars Diabetic Diet Insulin Sliding Scale COPD No exacerbation Follow clinically CKD3 Follow renal function IV Hydration HTN Continue baseline treatments Follow blood pressures Chronic Back Pain Narcotics are continued Hx of Bradycardia Follow on telemetry DVT Prophylaxis Lovenox Discharge Planning Needs improvement in pancreatitis prior to discharge Physician Certification 2 Midnight Certification Type: Admission for Inpatient Services Order for Inpatient Services The services are ordered in accordance with Medicare regulations or non- Medicare payer requirements, as applicable. In the case of services not specified as inpatient-only, they are appropriately provided as inpatient services in accordance with the 2-midnight benchmark. Estimated LOS (days): 3 days is the estimated time the patient will need to remain in the hospital, assuming treatment plan goals are met and no additional complications. Post-Hospital Plan: Home Problem Qualifiers (1) Acute pancreatitis: Qualified Code: K85.20 - Alcohol-induced acute pancreatitis, unspecified complication status Lonnie Valles MD Dec 12, 2016 15:07
[2016-12-12] MEDS ORDERED: ONDANSETRON ODT 4 MG TAB SL PRN (15:15)
[2016-12-12] MEDS ORDERED: DEXTROSE 50% IN WATER 50 ML VIAL(D50) IV PRN (15:15)
[2016-12-12] MEDS ORDERED: MORPHINE SULFATE 8 MG/ML INJ IV PUSH ONE (15:15)
[2016-12-12] MEDS ORDERED: GLUCAGON 1 MG/ML VIAL OTHER PRN (15:15)
[2016-12-12] MEDS ORDERED: ALBUTEROL SULFATE 90 MCG/ACT HFA 8 GM INHALER INH PRN (15:15)
[2016-12-12] MEDS: SODIUM CHLOR 0.9% 1000 ML INJ 1,000 ML IV SCH ×2 (15:20→21:25)
[2016-12-12] MEDS: INSULIN ASPART SUPPLEMENTAL SCALE SQ SCH ×2 (17:20→20:31)
[2016-12-12 17:32] VITALS: BP 151/95; PULSE 60; RESP 19; O2SAT 96
[2016-12-12 18:10] VITALS: BP 197/113; PULSE 62; RESP 20; TEMP 96.9; O2SAT 99
[2016-12-12] MEDS: HYDROmorphone HCL PF 1 MG/ML VIAL IV PUSH PRN ×2 (18:14→22:59)
[2016-12-12] MEDS: cloNIDine HCL 0.1 MG TAB PO PRN (18:48)
[2016-12-12 20:00] VITALS: BP 186/99; PULSE 61; PULSE 73; RESP 22; TEMP 96.4; O2SAT 98
[2016-12-12] MEDS: MORPHINE SULFATE 8 MG/ML INJ IV PUSH PRN (20:15)
[2016-12-12] MEDS: SODIUM CHLORIDE 0.9% FLUSH 10 ML FLUSH IV FLUSH SCH ×2 (20:16)
[2016-12-12] MEDS: DOCUSATE SODIUM 50 MG/SENNA 8.6 MG TAB PO SCH (20:17)
[2016-12-12] MEDS: RESP: ALBUTEROL 2.5 MG/IPRATROPIUM 0.5 MG NEB (SCH) INH (22:11)
[2016-12-13] VITALS (10 sets, daily range): BP systolic 133–164; BP diastolic 79–102; PULSE 61–85; RESP 16–21; TEMP 96–98.1; O2SAT 94–97
[2016-12-13] MEDS: ONDANSETRON HCL 4 MG/2 ML VIAL IVP PRN ×2 (00:28→08:01)
[2016-12-13] MEDS: RESP: ALBUTEROL 2.5 MG/IPRATROPIUM 0.5 MG NEB (SCH) INH ×4 (00:37→23:19)
[2016-12-13] MEDS: MORPHINE SULFATE 8 MG/ML INJ IV PUSH PRN ×4 (01:05→20:23)
[2016-12-13] MEDS: SODIUM CHLOR 0.9% 1000 ML INJ 1,000 ML IV SCH ×3 (04:00→20:23)
[2016-12-13] MEDS: HYDROmorphone HCL PF 1 MG/ML VIAL IV PUSH PRN ×3 (04:01→10:09)
[2016-12-13] MEDS: cloNIDine HCL 0.1 MG TAB PO PRN ×3 (04:05→16:43)
[2016-12-13] MEDS: INSULIN ASPART SUPPLEMENTAL SCALE SQ SCH ×4 (06:06→20:28)
[2016-12-13 07:05] LABS: AUTOMATED NEUTROPHIL # 8.8 TH/MM3 (1.8-7.7); BASOPHIL % 0.2 % (0.0-2.0); EOSINOPHIL % 0.1 % (0.0-4.0); HEMATOCRIT 42.6 % (39.0-51.0); HEMO FLAGS DIFF FINAL; LYMPH % 7.5 % (9.0-44.0); LYMPHOCYTE # 0.8 TH/MM3 (1.0-4.8); MEAN CELL VOLUME 93.5 FL (80.0-100.0); MEAN CORPUSCULAR HEMOGLOBIN 33.1 PG (27.0-34.0); MEAN CORPUSCULAR HGB CONC 35.4 % (32.0-36.0); MONO % 7.6 % (0.0-8.0); NEUT % 84.6 % (16.0-70.0); PLATELET COUNT 107 TH/MM3 (150-450); RED BLOOD COUNT 4.56 MIL/MM3 (4.50-5.90); RED CELL DISTRIBUTION WIDTH 12.3 % (11.6-17.2); WHITE BLOOD COUNT 10.4 TH/MM3 (4.0-11.0)
[2016-12-13 07:32] LABS: BICARBONATE 25.3 MEQ/L (21.0-32.0); POTASSIUM 3.4 MEQ/L (3.5-5.1)
[2016-12-13 07:37] LABS: CALCIUM-PROTEIN CORRECTED 7.8 MG/DL (8.5-10.1); TOTAL BILIRUBIN ADULT 2.3 MG/DL (0.2-1.0)
[2016-12-13] MEDS: DOCUSATE SODIUM 50 MG/SENNA 8.6 MG TAB PO SCH ×2 (08:00→20:23)
[2016-12-13] MEDS: ENOXAPARIN SODIUM 40 MG/0.4 ML SYRINGE SQ SCH (08:00)
[2016-12-13] MEDS: PANTOPRAZOLE SOD 20 MG DELAYED RELEASE TAB PO SCH (08:00)
--- NOTE | 2016-12-13 08:57 | HHI.PR ---
Subjective Remarks Follow-up for acute pancreatitis secondary to alcoholism Patient stated that he continues to have abdominal pain but that has improved. Continues to feel nauseous and he stated that he had episodes of emesis last night with fluid intake. Otherwise he remains afebrile. Objective Vitals Vital Signs Date Time Temp Pulse Resp B/P Pulse Ox O2 Delivery O2 Flow Rate FiO2 12/13/16 08:00 96.5 62 16 164/102 94 12/13/16 06:33 79 146/96 12/13/16 04:00 83 12/13/16 04:00 96.7 71 21 163/97 95 12/13/16 00:00 96.6 78 19 155/91 94 12/13/16 00:00 85 12/12/16 20:00 96.4 61 22 186/99 98 12/12/16 20:00 73 12/12/16 18:49 18 12/12/16 18:10 96.9 62 20 197/113 99 12/12/16 17:32 60 19 151/95 96 Room Air 12/12/16 12:22 98 12/12/16 11:57 98.3 65 23 157/100 100 I/O 12/12/16 12/12/16 12/12/16 12/13/16 12/13/16 12/13/16 06:59 14:59 22:59 06:59 14:59 22:59 Intake Total 1430 ml 1227 ml Output Total 200 ml Balance 1430 ml 1027 ml Intake Oral 480 ml 240 ml IV Total 950 ml 987 ml Output Urine Total 200 ml # Voids 1 Result Diagram: 12/13/1643 12/13/1643 Objective Remarks GENERAL: in NAD SKIN: Warm and dry. HEAD: Normocephalic. EYES: No scleral icterus. No injection or drainage. NECK: Supple, trachea midline. No JVD or lymphadenopathy. CARDIOVASCULAR: Regular rate and rhythm without murmurs, gallops, or rubs. RESPIRATORY: Breath sounds equal bilaterally. No accessory muscle use. GASTROINTESTINAL: Abdomen soft, + TTP in epigastric area. nondistended. Negative for any peritoneal signs. Medications and IVs Current Medications Morphine Sulfate (Morphine Inj) 4 mg ONCE ONCE IV PUSH Last administered on t 13:00; Start 12/12/16 at 12:15; Stop 12/12/16 at 12:16; Status DC Ondansetron HCl 4 mg 4 mg ONCE ONCE IVP Last administered on 12/12/16 13:00; Start 12/12/16 at 12:15; Stop 12/12/16 at 12:16; Status DC Sodium Chloride (NS 1000 ml Inj) 1,000 ml @ 1,000 mls/hr Q1H IV Last administered on 12/12/16 13:00; Start 12/12/16 at 12:11; Stop 12/12/16 at 13:10 ; Status DC Sodium Chloride (NS Flush) 2 ml UNSCH PRN IV FLUSH FLUSH AFTER USING IV ACCESS ; Start 12/12/16 at 12:15 Potassium Chloride (KCl) 20 meq ONCE ONCE PO Last administered on 12/12/16 14 :15; Start 12/12/16 at 14:15; Stop 12/12/16 at 14:16; Status DC Morphine Sulfate 4 mg 4 mg ONCE ONCE IV PUSH Last administered on 12/12/16 15 :20; Start 12/12/16 at 14:30; Stop 12/12/16 at 14:31; Status DC Sodium Chloride (NS 1000 ml Inj) 1,000 ml @ 150 mls/hr Q6H40M IV Last administered on 12/13/16 04:00; Start 12/12/16 at 14:28 Sodium Chloride (NS Flush) 2 ml UNSCH PRN IV FLUSH FLUSH AFTER USING IV ACCESS ; Start 12/12/16 at 14:30 Sodium Chloride (NS Flush) 2 ml BID IV FLUSH Last administered on 12/12/16 20: 16; Start 12/12/16 at 21:00 Ondansetron HCl (Zofran Inj) 4 mg Q6H PRN IVP NAUSEA OR VOMITING Last administered on 12/13/16 08:01; Start 12/12/16 at 14:30 Acetaminophen (Tylenol) 650 mg Q6H PRN PO PAIN SCALE 1 TO 2; Start 12/12/16 at 14:30 Acetaminophen/ Hydrocodone Bitart ([place] 5-325 Mg) 1 tab Q4H PRN PO PAIN SCALE 3 TO 5; Start 12/12/16 at 14:30; Stop 12/12/16 at 14:52; Status DC Acetaminophen/ Hydrocodone Bitart ([place] 10-325 Mg) 1 tab Q4H PRN PO PAIN SCALE 6 TO 10; Start 12/12/16 at 14:30; Stop 12/12/16 at 14:52; Status DC Naloxone HCl (Narcan Inj) 0.4 mg UNSCH PRN IV SEE LABEL COMMENTS; Start at 14:30 Senna/Docusate Sodium ([place]-Colace) 1 tab BID PO Last administered on t 08:00; Start 12/12/16 at 21:00 Magnesium Hydroxide (Milk Of Magnesia Liq) 30 ml Q12H PRN PO MILD - MODERATE CONSTIPATION; Start 12/12/16 at 14:30 Sennosides (Senokot) 17.2 mg Q12H PRN PO MODERATE - SEVERE CONSTIPATION; Start 12/12/16 at 14:30 Bisacodyl (Dulcolax Supp) 10 mg DAILY PRN RECTAL SEVERE CONSITIPATION; Start at 14:30 Lactulose (Lactulose Liq) 30 ml DAILY PRN PO SEVERE CONSITIPATION; Start at 14:30 Sodium Chloride (NS Flush) 2 ml UNSCH PRN IV FLUSH FLUSH AFTER USING IV ACCESS ; Start 12/12/16 at 14:30 Sodium Chloride (NS Flush) 2 ml BID IV FLUSH ; Start 12/12/16 at 21:00 Folic Acid (Folate) 1 mg DAILY PO ; Start 12/13/16 at 09:00; Stop 12/18/16 at 08: 59 Thiamine HCl (Vitamin B1) 100 mg DAILY PO ; Start 12/13/16 at 09:00 Multivitamins/ Minerals Therapeutic (Theragran M Tab) 1 tab DAILY PO ; Start at 09:00; Stop 12/18/16 at 08:59 Flumazenil (Romazicon Inj) 0.2 mg Q1M PRN IV PUSH SEE LABEL COMMENTS; Start at 14:30 Lorazepam (Ativan) 1 mg Q4H PRN PO CIWA 8 - 10; Start 12/12/16 at 14:30 Lorazepam (Ativan Inj) 1 mg Q4H PRN IV PUSH CIWA 8 - 10; Start 12/12/16 at 14: 30 Lorazepam (Ativan) 2 mg Q2H PRN PO CIWA 11-14; Start 12/12/16 at 14:30 Lorazepam (Ativan Inj) 2 mg Q2H PRN IV PUSH CIWA 11-14; Start 12/12/16 at 14:30 Lorazepam (Ativan Inj) 2 mg Q1H PRN IV PUSH CIWA 15-20; Start 12/12/16 at 14:30 Lorazepam (Ativan Inj) 2 mg Q15M PRN IV PUSH CIWA > 20; Start 12/12/16 at 14:30 Morphine Sulfate (Morphine Inj) 5 mg Q4H PRN IV PUSH Pain 3 to 10 Last administered on 12/13/16 08:21; Start 12/12/16 at 15:00 Hydromorphone HCl (Dilaudid Pf Inj) 1 mg Q4H PRN IV PUSH Breakthrough Pain Last administered on 12/13/16 06:00; Start 12/12/16 at 15:00 Dextrose (D50w (Vial) Inj) 50 ml UNSCH PRN IV HYPOGLYCEMIA-SEE COMMENTS; Start 12/12/16 at 15:15 Glucagon (Glucagon Inj) 1 mg UNSCH PRN OTHER HYPOGLYCEMIA-SEE COMMENTS; Start 12/12/16 at 15:15 Insulin Aspart (NovoLOG SUPPLEMENTAL SCALE) 1 ACHS SLIDING SCALE SQ Last administered on 12/13/16 06:06; Start 12/12/16 at 16:00 Enoxaparin Sodium (Lovenox Inj) 40 mg Q24H SQ Last administered on 12/13/16 08 :00; Start 12/13/16 at 09:00 Albuterol Sulfate (Proair Hfa Inh) 2 puff Q4HR PRN INH SHORTNESS OF BREATH; Start 12/12/16 at 15:15 Albuterol/ Ipratropium (Duoneb Neb) 1 ampule Q8HR NEB INH Last administered on 12/13/16 08:12; Start 12/12/16 at 22:00 Ondansetron HCl (Zofran Odt) 4 mg Q6HR PRN SL Nausea/Vomiting; Start 12/12/16 at 15:15 Pantoprazole Sodium (Protonix) 20 mg DAILY PO Last administered on 12/13/16 08 :00; Start 12/13/16 at 09:00 Non-Formulary Medication 5 mg DAILY PO ERECTILE DYSFUNCTION; Start 12/13/16 at 09:00; Stop 12/13/16 at 09:00; Status DC Clonidine (Catapres) 0.1 mg Q6H PRN PO SBP>160, DBP>90 Last administered on t 04:05; Start 12/12/16 at 15:15 Morphine Sulfate (Morphine Inj) 5 mg ONCE ONCE IV PUSH ; Start 12/12/16 at 15: 15; Stop 12/12/16 at 15:16; Status DC Pneumococcal Polyvalent Vaccine (Pneumovax-23 Inj) 25 mcg ONCE ONCE IM ; Start 12/13/16 at 10:00; Stop 12/13/16 at 10:01; Status Cancel A/P Problem List: (1) Acute pancreatitis ICD Code: K85.90 Status: Acute (2) Chronic pancreatitis ICD Code: K86.1 Status: Acute Assessment and Plan 66 year old male admitted with acute pancreatitis Acute Pancreatitis secondary to alcoholism Hx of Chronic Pancreatitis Patient continued to be symptomatic but has improved. Continue with supportive care with antiemetics, IV fluids, and pain control. Encourage patient not to drink alcohol anymore. DM2 Patient on insulin sliding scale. COPD No exacerbation Follow clinically HTN Continue with home medication. Chronic Back Pain Narcotics are continued Hx of Bradycardia Follow on telemetry DVT Prophylaxis Lovenox Discharge Planning Patient continues to be symptomatic so will need to continue with supportive care. Problem Qualifiers (1) Acute pancreatitis: Qualified Code: K85.20 - Alcohol-induced acute pancreatitis, unspecified complication status Laura Marmolejo MD Dec 13, 2016 08:57
[2016-12-13] MEDS: SODIUM CHLORIDE 0.9% FLUSH 10 ML FLUSH IV FLUSH SCH ×4 (09:00→20:23)
[2016-12-13] MEDS ORDERED: NON-FORMULARY DRUG (Tadalafil (Cialis) 5 MG) PO SCH (09:00)
[2016-12-13] MEDS ORDERED: PNEUMOCOCCAL POLYVALENT INJ 25 MCG/0.5 ML SYR IM ONE (10:00)
[2016-12-13] MEDS: MULTIVITAMINS/MINERALS THERAPEUTIC TAB PO SCH (10:08)
[2016-12-13] MEDS: THIAMINE HCL 100 MG TAB PO SCH (10:09)
[2016-12-13] MEDS: FOLIC ACID 1 MG TAB PO SCH (10:09)
--- NOTE | 2016-12-13 14:11 | EKG ---
Date Performed: 12/12/2016 Time Performed: 12:00:03 PTAGE: 66 years EKG: Sinus rhythm WITH OCCASIONAL SUPRAVENTRICULAR PREMATURE COMPLEXES BORDERLINE LEFT AXIS DEVIATION NONSPECIFIC T-WA VE ABNORMALITY BORDERLINE ECG Compared to prior tracing no significant change PREVIOUS TRACING : 06/22/2016 08.13 DOCTOR: Martin Tomas Interpretating Date/Time 12/13/2016 14:10:21
[2016-12-13] MEDS: amLODIPine BESYLATE 5 MG TAB PO SCH (14:13)
[2016-12-14] VITALS: BP 142/86; PULSE 75; PULSE 76; RESP 18; TEMP 98.5; O2SAT 95
[2016-12-14] MEDS: MORPHINE SULFATE 8 MG/ML INJ IV PUSH PRN ×2 (00:40→05:46)
[2016-12-14] MEDS: SODIUM CHLOR 0.9% 1000 ML INJ 1,000 ML IV SCH ×2 (00:40→05:16)
[2016-12-14 04:00] VITALS: BP 138/79; PULSE 59; PULSE 73; RESP 16; TEMP 98.1; O2SAT 93
[2016-12-14] MEDS: INSULIN ASPART SUPPLEMENTAL SCALE SQ SCH ×2 (05:50→11:50)
[2016-12-14] MEDS: RESP: ALBUTEROL 2.5 MG/IPRATROPIUM 0.5 MG NEB (SCH) INH (07:49)
[2016-12-14 08:00] VITALS: BP 125/70; PULSE 71; PULSE 79; RESP 18; TEMP 97.9; O2SAT 96
[2016-12-14] MEDS: SODIUM CHLORIDE 0.9% FLUSH 10 ML FLUSH IV FLUSH SCH ×2 (08:46→09:09)
[2016-12-14] MEDS: PANTOPRAZOLE SOD 20 MG DELAYED RELEASE TAB PO SCH (09:08)
[2016-12-14] MEDS: MULTIVITAMINS/MINERALS THERAPEUTIC TAB PO SCH (09:08)
[2016-12-14] MEDS: FOLIC ACID 1 MG TAB PO SCH (09:08)
[2016-12-14] MEDS: THIAMINE HCL 100 MG TAB PO SCH (09:08)
[2016-12-14] MEDS: DOCUSATE SODIUM 50 MG/SENNA 8.6 MG TAB PO SCH (09:09)
[2016-12-14] MEDS: ENOXAPARIN SODIUM 40 MG/0.4 ML SYRINGE SQ SCH (09:09)
[2016-12-14] MEDS: amLODIPine BESYLATE 5 MG TAB PO SCH (09:09)
[2016-12-14] MEDS: HYDROmorphone HCL PF 1 MG/ML VIAL IV PUSH PRN (09:13)
[2016-12-14] MEDS ORDERED: ACETAMINOPHEN/HYDROcodone 325 MG/7.5 MG TAB PO PRN (09:15)
[2016-12-14] MEDS ORDERED: ACETAMINOPHEN/HYDROcodone 325 MG/5 MG TAB PO PRN (09:15)
--- NOTE | 2016-12-14 09:19 | HHI.PR ---
Subjective Remarks Patient tells me that his abdominal pain is a 5 out of 10. He ordered some fruits, yogurt, banana for breakfast and hoping he can eat it and keep it down. Apparently last night he ate some salmon and broccoli and that made him throw up. He is afraid to go home and then has to come back to worsening pain. However, he is hopeful that he can go home soon. Objective Vitals Vital Signs Date Time Temp Pulse Resp B/P Pulse Ox O2 Delivery O2 Flow Rate FiO2 12/14/16 04:00 59 12/14/16 04:00 98.1 73 16 138/79 93 12/14/16 00:00 75 12/14/16 00:00 98.5 76 18 142/86 95 12/13/16 20:00 72 12/13/16 20:00 98.1 73 18 133/79 97 12/13/16 16:11 65 12/13/16 16:00 75 18 148/102 95 12/13/16 12:35 18 12/13/16 12:02 64 12/13/16 12:00 96.0 61 16 164/98 97 12/13/16 10:45 18 I/O 12/13/16 12/13/16 12/13/16 12/14/16 12/14/16 12/14/16 07:00 15:00 23:00 07:00 15:00 23:00 Intake Total 1227 ml 540 ml 2457 ml 1900 ml Output Total 200 ml 500 ml 400 ml 800 ml Balance 1027 ml 40 ml 2057 ml 1100 ml Intake Oral 240 ml 540 ml 120 ml 900 ml IV Total 987 ml 2337 ml 1000 ml Output Urine Total 200 ml 500 ml 400 ml 800 ml # Voids 2 # Bowel Movements 0 Result Diagram: 12/13/16 0643 12/13/16 0643 Objective Remarks GENERAL: Sitting up in bed and appears comfortable SKIN: Warm and dry. HEAD: Normocephalic. EYES: Extraocular motion intact.. NECK: Supple, trachea midline. CARDIOVASCULAR: Regular rate and rhythm without murmurs RESPIRATORY: Breath sounds equal bilaterally. No accessory muscle use. GASTROINTESTINAL: Abdomen soft, some discomfort with deep palpation in epigastric area. nondistended. Negative for any peritoneal signs. A/P Problem List: (1) Acute pancreatitis ICD Code: K85.90 Status: Acute (2) Chronic pancreatitis ICD Code: K86.1 Status: Acute Assessment and Plan Acute Pancreatitis secondary to alcoholism Hx of Chronic Pancreatitis Patient continued to be symptomatic but has improved. Ordering breakfast. Feels hungry. Continue with supportive care with antiemetics, IV fluids, and pain control. DC IV morphine and Dilaudid and will switch to pills. Encourage patient not to drink alcohol anymore. He states he will quit drinking. DM2 Patient on insulin sliding scale. COPD No exacerbation Follow clinically HTN Continue with home medication. Chronic Back Pain Narcotics are continued Hx of Bradycardia Follow on telemetry DVT Prophylaxis Lovenox Discharge Planning If patient tolerating breakfast and lunch and pain is better controlled with pills, will discharge later today. Problem Qualifiers (1) Acute pancreatitis: Qualified Code: K85.20 - Alcohol-induced acute pancreatitis, unspecified complication status Yamilex Vinson MD Dec 14, 2016 09:19
[2016-12-14] MEDS ORDERED: HYDR-3580 PO (09:20)
[2016-12-14 12:00] VITALS: BP 134/79; PULSE 70; RESP 18; TEMP 97.7; O2SAT 97
[2016-12-14 12:08] VITALS: PULSE 86
== END 2016-12-14 14:13 | disposition home or self-care (01) | DRG 440 ==
LOC: NEPC 11:47 → NEDA 14:30 → HOCB 17:58
PROVIDERS: ADMIT Hospitalist; ATTEND Hospitalist
DX: K85.20 Alcohol induced acute pancreatitis without necrosis or infection (principal); E11.22 Type 2 diabetes mellitus with diabetic chronic kidney disease; J44.9 Chronic obstructive pulmonary disease, unspecified; N18.3 Chronic kidney disease, stage 3 (moderate); I12.9 Hypertensive chronic kidney disease with stage 1 through stage 4 chronic kidney disease, or unspecified chronic kidney disease; F32.9 Major depressive disorder, single episode, unspecified; F41.9 Anxiety disorder, unspecified; E11.65 Type 2 diabetes mellitus with hyperglycemia; Z79.84 Long term (current) use of oral hypoglycemic drugs; K21.9 Gastro-esophageal reflux disease without esophagitis; Z87.442 Personal history of urinary calculi; Z95.0 Presence of cardiac pacemaker; K86.1 Other chronic pancreatitis; G89.29 Other chronic pain; Z87.891 Personal history of nicotine dependence; F10.20 Alcohol dependence, uncomplicated
CPT/HCPCS: 80053; 82550; 82948; 83690; 84484; 85025; 93005; 94640; 94664; 96374; 96375; J1170; J1650; J1815; J2270; J2405; J7030

== ENCOUNTER → 2017-04-01 | Outpatient (CLI) | payer OTHER ==
[~2017-04-01] MED LIST changes: +ASPI81TA23 PO; +CHLORHEXIDINE GLUCONATE 2 % 1 PACK (2 CLOTHS) TOPICAL PRN; +CLON0.1T PO; +DILA8TAB4 PO; +LACTATED RINGER'S 1000 ML IV PRN; +LANTINJ SQ; +LIDOCAINE HCL 1% PF 5 ML SYRINGE OTHER ONE; +LISI-515 PO; +METO10TA PO; +METOPROLOL TARTRATE 25 MG TAB PO PRN; +POVIDONE IODINE 5% (ANTISEPSIS KIT) 4 APPLICATIONS EACH NARE PRN; +PROPOFOL 200 MG/20 ML AMP IV ONE; -ROXI15TA9 PO; +SODIUM CHLORID 0.9% 500 ML IV PRN; -ZOFR4TAB3 SL
[2017-04-01 11:50] VITALS: BP 147/80; PULSE 80; RESP 16; TEMP 97; O2SAT 97
== END ==
LOC: PHSDC 07:54
PROVIDERS: ATTEND Internal Medicine Gastroenterology
DX: Z12.11 Encounter for screening for malignant neoplasm of colon (principal); K57.30 Diverticulosis of large intestine without perforation or abscess without bleeding; K64.8 Other hemorrhoids; K86.1 Other chronic pancreatitis; K29.50 Unspecified chronic gastritis without bleeding; K21.0 Gastro-esophageal reflux disease with esophagitis; I10 Essential (primary) hypertension; E11.9 Type 2 diabetes mellitus without complications; Z95.0 Presence of cardiac pacemaker
CPT/HCPCS: 00810; 43242; 45378; 82948; 88305; 88312; J7120; 43259

== ENCOUNTER 2017-09-04 20:59 | Emergency (ER) | payer MEDICAID, OTHER ==
[~2017-09-04] VITALS: Ht 175.3 cm; Wt 75.0 kg
[~2017-09-04 20:59] MED LIST changes: -CHLORHEXIDINE GLUCONATE 2 % 1 PACK (2 CLOTHS) TOPICAL PRN; -LACTATED RINGER'S 1000 ML IV PRN; -LIDOCAINE HCL 1% PF 5 ML SYRINGE OTHER ONE; -METO10TA PO; -METOPROLOL TARTRATE 25 MG TAB PO PRN; -PANT20TA2 PO; -POVIDONE IODINE 5% (ANTISEPSIS KIT) 4 APPLICATIONS EACH NARE PRN; -PROPOFOL 200 MG/20 ML AMP IV ONE; -SODIUM CHLORID 0.9% 500 ML IV PRN
[2017-09-04 21:07] VITALS: BP 112/70; PULSE 102; RESP 16; TEMP 97.9; O2SAT 98
[2017-09-04] MEDS ORDERED: SODIUM CHLOR 0.9% 1000 ML INJ 1,000 ML IV SCH ×2 (21:40→23:02)
--- NOTE | 2017-09-04 21:44 | PD ---
HPI Chief Complaint: Diabetic Time Seen by Provider: 21:25 Travel History International Travel<30 days: No Contact w/Intl Traveler<30days: No Traveled to known affect area: No History of Present Illness HPI 67-year-old male with history of type 2 diabetes presents for evaluation of elevated blood sugar and abdominal pain. He reports that 3 days ago he went to a birthday constitution party and admits to some cocaine use. He has not been checking his blood sugar since then. Today he did check his blood sugar and it was elevated at 566. He has not been using his prescribed Lantus, Janumet or bydurion for the past 3 days. He reports polyuria and polydipsia. He reports abdominal pain which started this morning. He describes it as a sharp periumbilical pain which is constant with associated nausea and decreased energy level. He reports that he has not had normal bowel movements. He denies dysuria, testicular scrotal pain, flank pain, chest pain or shortness of breath. He reports a history of cholecystectomy and per chart review he has been seen here several times in the past with pancreatitis. He has no other complaints at this time. 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) Cancer: No Cardiac Catheterization: Yes Cardiovascular Problems: Yes (PACER) High Cholesterol: No Chemotherapy: No Chest Pain: Yes (anibal states that he some times has chest pain) Congestive Heart Failure: No COPD: Yes Cerebrovascular Accident: No Diabetes: Yes Diminished Hearing: No Endocrine: Yes Gastrointestinal Disorders: Yes (PANCREATITIS) GERD: Yes Glaucoma: No Genitourinary: No Headaches: No Hepatitis: No Hiatal Hernia: No Heparin Induced Thrombocytopen: No Hypertension: Yes Immune Disorder: No Implanted Vascular Access Dvce: Yes Kidney Stones: Yes Musculoskeletal: Yes (OA, L4-L5 HERNIATED DISC REMOVED) Neurologic: No Psychiatric: No Reproductive: No Respiratory: Yes Immunizations Current: Yes Migraines: No Myocardial Infarction: No Pancreatitis: Yes Pneumonia: Yes Radiation Therapy: No Renal Failure: Yes Seizures: No Sickle Cell Disease: No Sleep Apnea: No Thyroid Disease: No Ulcer: No PNEUMOCCOCAL Vaccine (Year): 2 Past Surgical History Abdominal Surgery: Yes (Gallbladder removed 1996) AICD: No Arteriovenous Shunt: No Body Medical Devices: PACEMAKER, Cardiac Surgery: Yes (Pace maker 1996) Cholecystectomy: Yes Ear Surgery: No Endocrine Surgery: No Eye Surgery: No Genitourinary Surgery: No Gynecologic Surgery: No Insulin Pump: No Joint Replacement: No Neurologic Surgery: Yes (LAMINECTOMY L4/5) Oral Surgery: No Pacemaker: Yes (Biotronik ) Thoracic Surgery: No Other Surgery: Yes (HAND SURGERY -RIGHT TENDON REPAIR) Social History Alcohol Use: Yes (STATES QUIT) Tobacco Use: No (QUIT 2011) Substance Use: No Allergies-Medications (Allergen,Severity, Reaction): Coded Allergies: No Known Drug Allergies (Verified Allergy, Unknown, 09/04/17) MRI PRECAUTION (Verified Adverse Reaction, Severe, PACEMAKER, 03/31/17) PT HAS PACEMAKER PER NURSE JAYLENE/HEMANT *[facility] Multi-Drug Resistant Organism (Verified Adverse Reaction, Unknown, Cleared - 10/07/15, 03/31/17) MRSA PCR (nares) negative - 10/04/15 & 10/07/15 Cleared per Infection Control MRSA (blood and urine) - 06/2012 Reported Meds & Prescriptions Reported Meds & Active Scripts Active Reported Aspirin EC (Aspirin) 81 Mg Tabdr 81 Mg PO DAILY Dilaudid (Hydromorphone HCl) 8 Mg Tab 8 Mg PO TID PRN Lantus Solostar Pen Inj (Insulin Glargine) 300 Unit/3 Ml Pen 24 Units SQ BID Lisinopril 20 Mg Tab 20 Mg PO BID Clonidine (Clonidine HCl) 0.1 Mg Tab 0.1 Mg PO DAILY Flonase Nasal [place] (Fluticasone Nasal [place]) 50 Mcg/Act [place] 50 Mcg EACH NARE BID Duoneb (Ipratropium-Albuterol Neb) 0.5-2.5 Mg/3 Ml Neb 1 Nebule INH Q4HR NEB Proair Hfa 8.5 GM Inh (Albuterol Sulfate) 90 Mcg/Act Aer 2 Puff INH Q4-6H PRN 108 mcg/actuation Janumet (Sitagliptin-Metformin) 50-500 Mg Tab 1 Tab PO BID Cialis (Tadalafil) 5 Mg Tab 5 Mg PO DAILY Do not exceed 1 dose/day. Review of Systems Except as stated in HPI: all other systems reviewed are Neg Physical Exam Narrative GENERAL: Well-developed well-nourished male in no acute distress. SKIN: Warm and dry. HEAD: Atraumatic. Normocephalic. EYES: Pupils equal and round. No scleral icterus. No injection or drainage. ENT: No nasal bleeding or discharge. Mucous membranes pink and moist. NECK: Trachea midline. No JVD. CARDIOVASCULAR: Regular rate and rhythm. No murmur appreciated. RESPIRATORY: No accessory muscle use. Clear to auscultation. Breath sounds equal bilaterally. GASTROINTESTINAL: Abdomen soft, there is mild generalized tenderness without guarding. There is a midline abdominal scar noted. MUSCULOSKELETAL: No obvious deformities. No clubbing. No cyanosis. No edema. NEUROLOGICAL: Awake and alert. No obvious cranial nerve deficits. Motor grossly within normal limits. Normal speech. PSYCHIATRIC: Appropriate mood and affect; insight and judgment normal. Data Data Last Documented VS Vital Signs Date Time Temp Pulse Resp B/P (MAP) Pulse Ox O2 Delivery O2 Flow Rate FiO2 09/05/17 02:10 89 161/90 (113) 96 09/04/17 21:07 97.9 16 Room Air Orders Orders Complete Blood Count With Diff (09/04/17 21:40) Comprehensive Metabolic Panel (09/04/17 21:40) Lipase (09/04/17 21:40) Urinalysis - C+S If Indicated (09/04/17 21:40) Iv Access Insert/Monitor (09/04/17 21:40) Ecg Monitoring (09/04/17 21:40) Oximetry (09/04/17 21:40) Ondansetron Inj (Zofran Inj) (09/04/17 21:45) Sodium Chlor 0.9% 1000 Ml Inj (Ns 1000 M (09/04/17 21:40) Sodium Chloride 0.9% Flush (Ns Flush) (09/04/17 21:45) Electrocardiogram (09/04/17 21:40) Blood Glucose (09/04/17 21:40) Beta Hydroxybutyrate (Acetone) (09/04/17 21:40) Insulin Human Regular Inj (Novolin R Inj (09/04/17 22:45) Morphine Inj (Morphine Inj) (09/04/17 23:00) Sodium Chlor 0.9% 1000 Ml Inj (Ns 1000 M (09/04/17 23:02) Ct Abd/Pel W/O Iv Contrast (09/04/17 21:40) Blood Glucose (09/05/17 01:33) Ed Discharge Order (09/05/17 02:45) Labs Laboratory Tests Test 09/04/17 21:55 White Blood Count 6.7 TH/MM3 Red Blood Count 5.82 MIL/MM3 Hemoglobin 17.8 GM/DL Hematocrit 52.3 % Mean Corpuscular Volume 89.8 FL Mean Corpuscular Hemoglobin 30.5 PG Mean Corpuscular Hemoglobin Concent 34.0 % Red Cell Distribution Width 13.3 % Platelet Count 146 TH/MM3 Mean Platelet Volume 10.2 FL Neutrophils (%) (Auto) 62.0 % Lymphocytes (%) (Auto) 25.4 % Monocytes (%) (Auto) 9.3 % Eosinophils (%) (Auto) 2.6 % Basophils (%) (Auto) 0.7 % Neutrophils # (Auto) 4.2 TH/MM3 Lymphocytes # (Auto) 1.7 TH/MM3 Monocytes # (Auto) 0.6 TH/MM3 Eosinophils # (Auto) 0.2 TH/MM3 Basophils # (Auto) 0.0 TH/MM3 CBC Comment DIFF FINAL Differential Comment Urine Color LIGHT-YELLOW Urine Turbidity CLEAR Urine pH 5.5 Urine Specific [place] 1.026 Urine Protein NEG mg/dL Urine Glucose (UA) 1000 mg/dL Urine Ketones NEG mg/dL Urine Occult Blood NEG Urine Nitrite NEG Urine Bilirubin NEG Urine Urobilinogen LESS THAN 2.0 MG/DL Urine Leukocyte Esterase NEG Urine WBC 1 /hpf Microscopic Urinalysis Comment CULT NOT INDICATED Blood Urea Nitrogen 29 MG/DL Creatinine 1.84 MG/DL Random Glucose 570 MG/DL Total Protein 8.3 GM/DL Albumin 3.9 GM/DL Calcium Level 8.8 MG/DL Alkaline Phosphatase 106 U/L Aspartate Amino Transf (AST/SGOT) 11 U/L Alanine Aminotransferase (ALT/SGPT) 12 U/L Total Bilirubin 0.7 MG/DL Sodium Level 129 MEQ/L Potassium Level 4.9 MEQ/L Chloride Level 95 MEQ/L Carbon Dioxide Level 23.9 MEQ/L Anion Gap 10 MEQ/L Estimat Glomerular Filtration Rate 45 ML/MIN Lipase 436 U/L B-Hydroxybutyrate 0.15 MMOL/L MDM Medical Decision Making Medical Screen Exam Complete: Yes Emergency Medical Condition: Yes Medical Record Reviewed: Yes Differential Diagnosis Medication noncompliance, hyperglycemia, DKA, pancreatitis, colitis, diverticulitis Narrative Course Patient was placed on ECG monitoring and pulse oximetry. 12-lead EKG was obtained revealing sinus rhythm with rate of 89, lab work, urinalysis, CT abdomen and pelvis has been ordered. CBC reveals a hemoglobin of 7.8, platelet count 146 otherwise unremarkable. CMP reveals a glucose of 570, GFR of 45, pseudohyponatremia with a sodium of 129 , chloride 95, beta hydroxybutyrate is 0.15, anion gap is normal. Urinalysis reveals glucose 1000. The patient will be given insulin bolus. At the end of my shift the patient was signed out to Dr. Soares pending CT imaging and lipase. IV morphine administered. Additional liter fluid bolus administered. Leo Goodwin Sep 04, 2017 21:44
[2017-09-04] MEDS ORDERED: ONDANSETRON HCL 4 MG/2 ML VIAL IVP ONE (21:45)
[2017-09-04] MEDS: SODIUM CHLORIDE 0.9% FLUSH 10 ML FLUSH IV FLUSH PRN ×2 (22:06→22:59)
[2017-09-04 22:11] LABS: AUTOMATED NEUTROPHIL # 4.2 TH/MM3 (1.8-7.7); BASOPHIL % 0.7 % (0.0-2.0); EOSINOPHIL # 0.2 TH/MM3 (0-0.4); EOSINOPHIL % 2.6 % (0.0-4.0); HEMATOCRIT 52.3 % (39.0-51.0); HEMOGLOBIN 17.8 GM/DL (13.0-17.0); LYMPH % 25.4 % (9.0-44.0); LYMPHOCYTE # 1.7 TH/MM3 (1.0-4.8); MEAN CELL VOLUME 89.8 FL (80.0-100.0); MEAN CORPUSCULAR HEMOGLOBIN 30.5 PG (27.0-34.0); MEAN PLATELET VOLUME 10.2 FL (7.0-11.0); MONO % 9.3 % (0.0-8.0); MONOCYTE # 0.6 TH/MM3 (0-0.9); PLATELET COUNT 146 TH/MM3 (150-450); RED BLOOD COUNT 5.82 MIL/MM3 (4.50-5.90); RED CELL DISTRIBUTION WIDTH 13.3 % (11.6-17.2); WHITE BLOOD COUNT 6.7 TH/MM3 (4.0-11.0)
[2017-09-04 22:13] LABS: BILIRUBIN, URINE NEG (NEG); BLOOD, URINE NEG (NEG); GLUCOSE,URINE 1000 mg/dL (NEG); KETONE, URINE NEG (NEG); NITRITE,URINE NEG (NEG); PH, URINE 5.5 (5.0-8.5); URINE COLOR LIGHT-YELLOW (YELLW/STRAW); URINE LEUKOCYTE ESTERASE NEG (NEG)
[2017-09-04 22:30] LABS: ALBUMIN 3.9 GM/DL (3.4-5.0); ALKALINE PHOSPHATASE 106 U/L (45-117); ALT (GPT) 12 U/L (12-78); AST (GOT) 11 U/L (15-37); BICARBONATE 23.9 MEQ/L (21.0-32.0); BLOOD UREA NITROGEN 29 MG/DL (7-18); CALCIUM 8.8 MG/DL (8.5-10.1); CHLORIDE 95 MEQ/L (98-107); CREATININE 1.84 MG/DL (0.60-1.30); GLOMERULAR FILTRATION RATE 45 ML/MIN (>89); SODIUM (NA) 129 MEQ/L (136-145); TOTAL BILIRUBIN ADULT 0.7 MG/DL (0.2-1.0); TOTAL PROTEIN 8.3 GM/DL (6.4-8.2)
[2017-09-04 22:32] LABS: GLUCOSE,RANDOM 570 MG/DL (74-106)
[2017-09-04] MEDS ORDERED: INSULIN HUMAN REGULAR 1,000 UNITS/10 ML VIAL IV PUSH ONE (22:45)
[2017-09-04] MEDS ORDERED: MORPHINE SULFATE 4 MG/ML INJ IV PUSH ONE (23:00)
--- NOTE | 2017-09-05 00:35 | RADRPT ---
EXAM DATE/TIME: 09/05/2017 00:20 [facility] COMPARISON: CT ABDOMEN & PELVIS W CONTRAST, June 22, 2016, 12:47. INDICATIONS : Abdomen pain past 2 days. ORAL CONTRAST: No oral contrast ingested. RADIATION DOSE: 6.93 CTDIvol (mGy) MEDICAL HISTORY : Cardiovascular disease. Hypertension. Diabetes mellitus type 2.Pancreatitis COPD Renal failure SURGICAL HISTORY : Cholecystectomy. Pacemaker.Discectomy, lumbar. ENCOUNTER: Initial ACUITY: 2 days PAIN SCALE: 6/10 LOCATION: Bilateral abdomen TECHNIQUE: Volumetric scanning of the abdomen and pelvis was performed. Using automated exposure control and ad justment of the mA and/or kV according to patient size, radiation dose was kept as low as reasonably achievable to obtain optimal diagnostic quality images. DICOM format image data is available electro nically for review and comparison. FINDINGS: Compare June 22, 2016. There is basilar pulmonary fibrosis with some traction bronchiectasis. Find ings have progressed slightly since June 2016. Pacer lead tip in right ventricle. Upper abdomen again reveals cholecystectomy. Stable pneumobilia. No acute findings in the spleen, candice ma adrenals or pancreas. There is dilatation of the pancreatic duct to about 7 mm similar to prior ex amination. His previous bowel anastomosis. No obstruction. Extensive colonic diverticulosis without evidence for diverticulitis. CONCLUSION: 1. Slight progression in basilar pulmonary fibrosis since June 2016. Traction bronchiectasis pres ent. 2. Previous bowel anastomosis without obstruction, free fluid or free air. Extensive colonic diverticulosis. Previous cholecystectomy with pneumobilia, stable. Stable pancreatic ductal dilatation to about 7 mm. Richard Angeles MD on September 05, 2017 at 0:27 Board Certified Radiologist. This report was verified electronically.
--- NOTE | 2017-09-05 01:39 | PD ---
Data Data Last Documented VS Vital Signs Date Time Temp Pulse Resp B/P (MAP) Pulse Ox O2 Delivery O2 Flow Rate FiO2 09/05/17 02:10 89 161/90 (113) 96 09/04/17 21:07 97.9 16 Room Air Orders Orders Complete Blood Count With Diff (09/04/17 21:40) Comprehensive Metabolic Panel (09/04/17 21:40) Lipase (09/04/17 21:40) Urinalysis - C+S If Indicated (09/04/17 21:40) Iv Access Insert/Monitor (09/04/17 21:40) Ecg Monitoring (09/04/17 21:40) Oximetry (09/04/17 21:40) Ondansetron Inj (Zofran Inj) (09/04/17 21:45) Sodium Chlor 0.9% 1000 Ml Inj (Ns 1000 M (09/04/17 21:40) Sodium Chloride 0.9% Flush (Ns Flush) (09/04/17 21:45) Electrocardiogram (09/04/17 21:40) Blood Glucose (09/04/17 21:40) Beta Hydroxybutyrate (Acetone) (09/04/17 21:40) Insulin Human Regular Inj (Novolin R Inj (09/04/17 22:45) Morphine Inj (Morphine Inj) (09/04/17 23:00) Sodium Chlor 0.9% 1000 Ml Inj (Ns 1000 M (09/04/17 23:02) Ct Abd/Pel W/O Iv Contrast (09/04/17 21:40) Blood Glucose (09/05/17 01:33) Ed Discharge Order (09/05/17 02:45) Labs Laboratory Tests Test 09/04/17 21:55 White Blood Count 6.7 TH/MM3 Red Blood Count 5.82 MIL/MM3 Hemoglobin 17.8 GM/DL Hematocrit 52.3 % Mean Corpuscular Volume 89.8 FL Mean Corpuscular Hemoglobin 30.5 PG Mean Corpuscular Hemoglobin Concent 34.0 % Red Cell Distribution Width 13.3 % Platelet Count 146 TH/MM3 Mean Platelet Volume 10.2 FL Neutrophils (%) (Auto) 62.0 % Lymphocytes (%) (Auto) 25.4 % Monocytes (%) (Auto) 9.3 % Eosinophils (%) (Auto) 2.6 % Basophils (%) (Auto) 0.7 % Neutrophils # (Auto) 4.2 TH/MM3 Lymphocytes # (Auto) 1.7 TH/MM3 Monocytes # (Auto) 0.6 TH/MM3 Eosinophils # (Auto) 0.2 TH/MM3 Basophils # (Auto) 0.0 TH/MM3 CBC Comment DIFF FINAL Differential Comment Urine Color LIGHT-YELLOW Urine Turbidity CLEAR Urine pH 5.5 Urine Specific [place] 1.026 Urine Protein NEG mg/dL Urine Glucose (UA) 1000 mg/dL Urine Ketones NEG mg/dL Urine Occult Blood NEG Urine Nitrite NEG Urine Bilirubin NEG Urine Urobilinogen LESS THAN 2.0 MG/DL Urine Leukocyte Esterase NEG Urine WBC 1 /hpf Microscopic Urinalysis Comment CULT NOT INDICATED Blood Urea Nitrogen 29 MG/DL Creatinine 1.84 MG/DL Random Glucose 570 MG/DL Total Protein 8.3 GM/DL Albumin 3.9 GM/DL Calcium Level 8.8 MG/DL Alkaline Phosphatase 106 U/L Aspartate Amino Transf (AST/SGOT) 11 U/L Alanine Aminotransferase (ALT/SGPT) 12 U/L Total Bilirubin 0.7 MG/DL Sodium Level 129 MEQ/L Potassium Level 4.9 MEQ/L Chloride Level 95 MEQ/L Carbon Dioxide Level 23.9 MEQ/L Anion Gap 10 MEQ/L Estimat Glomerular Filtration Rate 45 ML/MIN Lipase 436 U/L B-Hydroxybutyrate 0.15 MMOL/L [facility] Medical Record Reviewed: Yes Supervised Visit with EREN: No Interpretation(s) Last Impressions Abdomen/Pelvis CT 09/04/17 2140 Signed Impressions: Service Date/Time: Tuesday, September 05, 2017 00:20 - CONCLUSION: 1. Slight progression in basilar pulmonary fibrosis since June 2016. Traction bronchiectasis present. 2. Previous bowel anastomosis without obstruction, free fluid or free air. Extensive colonic diverticulosis. Previous cholecystectomy with pneumobilia, stable. Stable pancreatic ductal dilatation to about 7 mm. Richard Angeles MD Differential Diagnosis DKA, versus hyperglycemic hyperosmolality, versus poorly controlled blood sugar related to medication noncompliance Narrative Course During the course of the patient's emergency department visit, the patient's history, examination, and differential diagnosis were reviewed with the patient. The patient was placed on a cardiac/vascular sonographer with oximetry and frequent blood pressure monitoring. The patient had IV access obtained and blood work sent for analysis. The patient's case was checked out to me by Leo, the physician assistant golf coach at the conclusion of his shift. The patient was pending CT scan reading and lipase result. The patient had presented with a history of celebrating a birthday recently and medication noncompliance with an elevated blood sugar prior to arrival. The patient was initially provided normal saline IV fluids. The patient was given morphine for pain, Zofran for nausea. The patient was given insulin for improvement of his blood sugar. These medications were ordered to be administered by Leo the physician assistant golf coach. The patient's laboratory studies were reviewed and remarkable for white count of 6.7, hemoglobin 17.8, platelets 146 with 9.3- monocytes, CMP is remarkable for sodium of 129, chloride 95, BUN 29, creatinine 1.84, glucose 570, AST 11, total protein 8.3, lipase 436, improved compared to her prior level of 1364 on December 13, 2016, beta hydroxybutyrate 0.15, urinalysis showed 1000 glucose otherwise unremarkable. Radiology studies were reviewed and remarkable for a CT scan of the abdomen and pelvis that showed slight progression and basilar pulmonary fibrosis since June 2016, traction bronchiectasis present, previous bowel anastomosis without obstruction, free fluid, or free air. Extensive colonic diverticulosis. Previous cholecystectomy with pneumobilia that is stable, stable pancreatic ductal dilatation to about 7 mm. There is no suggestion of pancreatitis on CT. The patient's repeat blood sugar was 322. The patient was given in total 2 L of normal saline IV fluids. The patient is encouraged to take his medications as previously prescribed. The patient is resting comfortably and feels better, is alert and in no distress. The patient's results and examination findings were discussed with the patient. The repeat examination is unremarkable and benign. The history, exam, diagnostic testing, and current condition do not suggest any significant pathology to warrant further testing, continued ED treatment, admission, or surgical evaluation at this point. The vital signs have been stable. The patient does not have uncontrollable pain, intractable vomiting, or other significant symptoms. The patient's condition is stable and appropriate for discharge. The patient will pursue further outpatient evaluation with a primary care physician or other designated or consulting physician as indicated in the discharge instructions. The patient expressed understanding and was agreeable with this plan. Diagnosis Primary Impression: Hyperglycemia due to type 2 diabetes mellitus Qualified Codes: E11.65 - Type 2 diabetes mellitus with hyperglycemia; Z79.4 - snf (current) use of insulin Additional Impression: Noncompliance with medication regimen Referrals: Primary Care Physician 2 days Patient Instructions: Diabetic Hyperglycemia (ED), General Instructions Med/Other Pt SpecificInfo: No Change to Meds Disposition: 01 DISCHARGE HOME Condition: Stable Ju Soares MD Sep 05, 2017 01:39
[2017-09-05 02:10] VITALS: BP 161/90
--- NOTE | 2017-09-06 00:18 | EKG ---
Date Performed: 09/04/2017 Time Performed: 22:04:15 PTAGE: 67 years EKG: Sinus rhythm MARKED LEFT AXIS DEVIATION NONSPECIFIC T-WAVE ABNORMALITY ABNORMAL ECG Since the PREVIOUS TRACING , no significant change noted DOCTOR: Praveen Gonzales Interpretating Date/Time 09/06/2017 00:16:33
== END 2017-09-05 02:10 | disposition home or self-care (01) ==
LOC: NEPC 20:59
DX: E11.65 Type 2 diabetes mellitus with hyperglycemia (principal); R10.9 Unspecified abdominal pain; R94.31 Abnormal electrocardiogram [ECG] [EKG]; R00.1 Bradycardia, unspecified; J84.10 Pulmonary fibrosis, unspecified; J44.9 Chronic obstructive pulmonary disease, unspecified; K21.9 Gastro-esophageal reflux disease without esophagitis; I10 Essential (primary) hypertension; Z79.4 Long term (current) use of insulin; Z87.442 Personal history of urinary calculi; Z95.0 Presence of cardiac pacemaker; Z90.49 Acquired absence of other specified parts of digestive tract; Z87.891 Personal history of nicotine dependence; Z91.14 Patient's other noncompliance with medication regimen
CPT/HCPCS: 74176; 80053; 81001; 82010; 83690; 85025; 93005; 96361; 96374; 96375; 99285; J1815; J2270; J2405; J7030

== ENCOUNTER 2017-10-04 07:35 | Inpatient (IN) | payer OTHER, MEDICARE ==
[~2017-10-04] VITALS: Ht 175.3 cm; Wt 71.0 kg
[2017-10-04] VITALS (17 sets, daily range): BP systolic 105–144; BP diastolic 66–92; PULSE 79–114; RESP 16–28; TEMP 98.6–98.7; O2SAT 92–100
[2017-10-04] MEDS ORDERED: SODIUM CHLOR 0.9% 1000 ML INJ 1,000 ML IV SCH (07:57)
--- NOTE | 2017-10-04 07:58 | PD ---
HPI Chief Complaint: Respiratory Symptoms Time Seen by Provider: 07:45 Travel History International Travel<30 days: No Contact w/Intl Traveler<30days: No Traveled to known affect area: No History of Present Illness HPI Patient is a 67-year-old male with history of hypertension, hyperlipidemia, diabetes, asthma, COPD, pacemaker, pancreatitis, presents the emergency room for evaluation of chest pain and shortness of breath. Patient reports that he has chronic pain, reports that yesterday around noontime, he was at his pain management doctor began to have right sided chest pain with shortness of breath. Patient reports that chest pain feels like a sharp and stabbing sensation along with a pressure to his chest, reports that chest pain is located to the right side of his chest.. Patient reports that nothing makes pain better or worse. Patient denies any diaphoresis, denies any nausea or vomiting with this. Patient denies any cough or congestion. Patient reports that he does see a nuclear medicine chief technologist which is Dr. Sharda Maddox, his pulmonary doctor is Dr. Min. Patient denies any history of cardiac stents 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) Cancer: No Cardiac Catheterization: Yes Cardiovascular Problems: Yes (PACER) High Cholesterol: No Chemotherapy: No Chest Pain: Yes (gonzaloen states that he some times has chest pain) Congestive Heart Failure: No COPD: Yes Cerebrovascular Accident: No Diabetes: Yes Diminished Hearing: No Endocrine: Yes Gastrointestinal Disorders: Yes (PANCREATITIS) GERD: Yes Glaucoma: No Genitourinary: No Headaches: No Hepatitis: No Hiatal Hernia: No Heparin Induced Thrombocytopen: No Hypertension: Yes Immune Disorder: No Implanted Vascular Access Dvce: Yes Kidney Stones: Yes Musculoskeletal: Yes (OA, L4-L5 HERNIATED DISC REMOVED) Neurologic: No Psychiatric: No Reproductive: No Respiratory: Yes Immunizations Current: Yes Migraines: No Myocardial Infarction: No Pancreatitis: Yes Pneumonia: Yes Radiation Therapy: No Renal Failure: Yes Seizures: No Sickle Cell Disease: No Sleep Apnea: No Thyroid Disease: No Ulcer: No PNEUMOCCOCAL Vaccine (Year): 2 Past Surgical History Abdominal Surgery: Yes (Gallbladder removed 1996) AICD: No Arteriovenous Shunt: No Body Medical Devices: PACEMAKER, Cardiac Surgery: Yes (Pace maker 1996) Cholecystectomy: Yes Ear Surgery: No Endocrine Surgery: No Eye Surgery: No Genitourinary Surgery: No Gynecologic Surgery: No Insulin Pump: No Joint Replacement: No Neurologic Surgery: Yes (LAMINECTOMY L4/5) Oral Surgery: No Pacemaker: Yes (Biotronik ) Thoracic Surgery: No Other Surgery: Yes (HAND SURGERY -RIGHT TENDON REPAIR) Social History Alcohol Use: Yes (STATES QUIT) Tobacco Use: No (QUIT 2011) Substance Use: No Allergies-Medications (Allergen,Severity, Reaction): Coded Allergies: No Known Drug Allergies (Verified Allergy, Unknown, 10/04/17) MRI PRECAUTION (Verified Adverse Reaction, Severe, PACEMAKER, 10/04/17) PT HAS PACEMAKER PER NURSE JAYLENE/HEMANT *[facility] Multi-Drug Resistant Organism (Verified Adverse Reaction, Unknown, Cleared - 10/07/15, 10/04/17) MRSA PCR (nares) negative - 10/04/15 & 10/07/15 Cleared per Infection Control MRSA (blood and urine) - 06/2012 Reported Meds & Prescriptions Reported Meds & Active Scripts Active Reported Roxicodone (Oxycodone HCl) 15 Mg Tab 15 Mg PO Q8H PRN Zoloft (Sertraline HCl) 50 Mg Tab 50 Mg PO DAILY Bydureon Pen Inj (Exenatide) 2 Mg Pfpen 2 Mg SQ Q7D Pantoprazole (Pantoprazole Sodium) 20 Mg Tab 20 Mg PO DAILY Proair Hfa 8.5 GM Inh (Albuterol Sulfate) 90 Mcg/Act Aer 1 Puff INH Q4H PRN 108 mcg/actuation Clonidine (Clonidine HCl) 0.2 Mg Tab 0.05 Tab PO DAILY Ativan (Lorazepam) 0.5 Mg Tab 0.5 Mg PO Q8H PRN Reglan (Metoclopramide HCl) 10 Mg Tab 10 Mg PO DAILY Creon (Amylase/Lipase/Protease) 12,000-38,000-60,000 Units Cap 1 Cap PO TIDPC Aspirin EC (Aspirin) 81 Mg Tabdr 81 Mg PO DAILY Lisinopril 20 Mg Tab 20 Mg PO BID Duoneb (Ipratropium-Albuterol Neb) 0.5-2.5 Mg/3 Ml Neb 1 Nebule INH Q4HR NEB Proair Hfa 8.5 GM Inh (Albuterol Sulfate) 90 Mcg/Act Aer 2 Puff INH Q4-6H PRN 108 mcg/actuation Janumet (Sitagliptin-Metformin) 50-500 Mg Tab 1 Tab PO BID Cialis (Tadalafil) 5 Mg Tab 5 Mg PO DAILY Do not exceed 1 dose/day. Review of Systems General / Constitutional: No: Fever Eyes: No: Visual changes HENT: No: Headaches Cardiovascular: Positive: Chest Pain or Discomfort, Tachycardia, No: Diaphoresis Respiratory: Positive: Shortness of Breath, Wheezing Gastrointestinal: No: Abdominal Pain Genitourinary: No: Dysuria Musculoskeletal: No: Pain Skin: No Rash Neurologic: No: Weakness Psychiatric: No: Depression Endocrine: No: Polydipsia Hematologic/Lymphatic: No: Easy Bruising Physical Exam Narrative GENERAL: Moderate distress SKIN: Focused skin assessment warm/dry. HEAD: Atraumatic. Normocephalic. EYES: Pupils equal and round. No scleral icterus. No injection or drainage. ENT: No nasal bleeding or discharge. Mucous membranes pink and moist. NECK: Trachea midline. No JVD. CARDIOVASCULAR: Tachycardia. No murmur appreciated. RESPIRATORY: No accessory muscle use. Clear to auscultation. Breath sounds equal bilaterally. GASTROINTESTINAL: Abdomen soft, non-tender, nondistended. Hepatic and splenic margins not palpable. MUSCULOSKELETAL: No obvious deformities. No clubbing. No cyanosis. No edema. NEUROLOGICAL: Awake and alert. No obvious cranial nerve deficits. Motor grossly within normal limits. Normal speech. PSYCHIATRIC: Appropriate mood and affect; insight and judgment normal. Data Data Last Documented VS Vital Signs Date Time Temp Pulse Resp B/P (MAP) Pulse Ox O2 Delivery O2 Flow Rate FiO2 10/04/17 10:22 98 Nasal Cannula 2.00 10/04/17 10:00 97 20 105/66 (79) 10/04/17 07:37 98.7 Orders Orders Electrocardiogram (10/04/17 07:53) B-Type Natriuretic Peptide (10/04/17 07:53) Ckmb (Isoenzyme) Profile (10/04/17 07:53) Complete Blood Count With Diff (10/04/17 07:53) Comprehensive Metabolic Panel (10/04/17 07:53) D-Dimer (10/04/17 07:53) Magnesium (Mg) (10/04/17 07:53) Prothrombin Time / Inr (Pt) (10/04/17 07:53) Act Partial Throm Time (Ptt) (10/04/17 07:53) Troponin I (10/04/17 07:53) Lipase (10/04/17 07:53) Ecg Monitoring (10/04/17 07:53) Bilateral Bp Monitoring (10/04/17 07:53) Iv Access Insert/Monitor (10/04/17 07:53) Oximetry (10/04/17 07:53) Aspirin Chew (Aspirin Chew) (10/04/17 08:00) Sodium Chloride 0.9% Flush (Ns Flush) (10/04/17 08:00) Nitroglycerin Sl (Nitrostat Sl) (10/04/17 08:00) Chest, Pa & Lat (10/04/17 07:53) Drug Screen, Random Urine (10/04/17 07:57) Sodium Chlor 0.9% 1000 Ml Inj (Ns 1000 M (10/04/17 07:57) Vascular Access Team Consult/P PRN (10/04/17 08:20) Vascular Poc Ultrasound (10/04/17 ) Sepsis Workup Initiated (10/04/17 ) Lactic Acid Sepsis Protocol (10/04/17 09:48) Influenzae A/B Antigen (10/04/17 09:48) Blood Culture (10/04/17 09:48) Ventilation & Perfusion Scan (10/04/17 ) Us Leg Venous Doppler Bilat (10/04/17 ) Sodium Chlor 0.9% 1000 Ml Inj (Ns 1000 M (10/04/17 10:00) Ceftriaxone Inj (Rocephin Inj) (10/04/17 10:00) Azithromycin Inj (Zithromax Inj) (10/04/17 10:00) Sodium Chlor 0.9% 250 Ml Inj (Ns 250 Ml (10/04/17 10:00) Insulin Human Regular Inj (Novolin R Inj (10/04/17 10:00) Arterial Blood Gas (Abg) (10/04/17 ) Blood Glucose (10/04/17 10:06) Blood Glucose (10/04/17 11:06) Admit Order (Ed Use Only) (10/04/17 12:01) Labs Laboratory Tests Test 10/04/17 08:45 10/04/17 10:06 10/04/17 10:07 White Blood Count 15.4 TH/MM3 Red Blood Count 5.05 MIL/MM3 Hemoglobin 15.2 GM/DL Hematocrit 45.3 % Mean Corpuscular Volume 89.8 FL Mean Corpuscular Hemoglobin 30.1 PG Mean Corpuscular Hemoglobin Concent 33.6 % Red Cell Distribution Width 13.2 % Platelet Count 173 TH/MM3 Mean Platelet Volume 9.4 FL Neutrophils (%) (Auto) 87.8 % Lymphocytes (%) (Auto) 3.9 % Monocytes (%) (Auto) 7.9 % Eosinophils (%) (Auto) 0.0 % Basophils (%) (Auto) 0.4 % Neutrophils # (Auto) 13.5 TH/MM3 Lymphocytes # (Auto) 0.6 TH/MM3 Monocytes # (Auto) 1.2 TH/MM3 Eosinophils # (Auto) 0.0 TH/MM3 Basophils # (Auto) 0.1 TH/MM3 CBC Comment AUTO DIFF Differential Total Cells Counted 100 Neutrophils % (Manual) 75 % Band Neutrophils % 15 % Lymphocytes % 2 % Monocytes % 8 % Neutrophils # (Manual) 13.9 TH/MM3 Differential Comment FINAL DIFF MANUAL Toxic Vacuolation PRESENT Platelet Estimate NORMAL Platelet Morphology Comment NORMAL Prothrombin Time 10.6 SEC Prothromb Time International Ratio 1.0 RATIO Activated Partial Thromboplast Time 27.5 SEC D-Dimer Quantitative (PE/DVT) 2.28 MG/L FEU Blood Urea Nitrogen 21 MG/DL Creatinine 1.99 MG/DL Random Glucose 495 MG/DL Total Protein 8.1 GM/DL Albumin 3.8 GM/DL Calcium Level 9.7 MG/DL Magnesium Level 1.5 MG/DL Alkaline Phosphatase 115 U/L Aspartate Amino Transf (AST/SGOT) 11 U/L Alanine Aminotransferase (ALT/SGPT) 18 U/L Total Bilirubin 1.9 MG/DL Sodium Level 130 MEQ/L Potassium Level 4.4 MEQ/L Chloride Level 91 MEQ/L Carbon Dioxide Level 24.2 MEQ/L Anion Gap 15 MEQ/L Estimat Glomerular Filtration Rate 41 ML/MIN Total Creatine Kinase 74 U/L Troponin I LESS THAN 0.02 NG/ML B-Type Natriuretic Peptide 7 PG/ML Lipase 330 U/L Lactic Acid Level 4.1 mmol/L Blood Gas Puncture Site RT RADIAL Blood Gas Patient Temperature 98.6 Blood Gas HCO3 22 mmol/L Blood Gas Base Excess -2.0 mmol/L Blood Gas Oxygen Saturation 87 % Arterial Blood pH 7.41 Arterial Blood Partial Pressure CO2 35 mmHg Arterial Blood Partial Pressure O2 59 mmHG Arterial Blood Oxygen Content 16.9 Vol % Arterial Blood Carboxyhemoglobin 1.8 % Arterial Blood Methemoglobin 0.7 % Blood Gas Hemoglobin 13.9 G/DL Oxygen Delivery Device ROOM AIR Blood Gas Inspired Oxygen 21 % [facility] Medical Decision Making Medical Screen Exam Complete: Yes Emergency Medical Condition: Yes Medical Record Reviewed: Yes Interpretation(s) EKG at 0750: Sinus tach at 111bpm, qt/qtc: 314/379, no acute st or t wave changes Vital Signs Date Time Temp Pulse Resp B/P (MAP) Pulse Ox O2 Delivery O2 Flow Rate FiO2 10/04/17 07:37 98.7 112 26 120/77 (91) 92 Differential Diagnosis ACS, arrhythmia, pneumonia, PE, COPD, pneumothorax Narrative Course Patient is a 67-year-old male who presents the emergency room with complaints of chest pain or shortness of breath which has been ongoing and persistent since 12 PM yesterday afternoon. During the course of the patients emergency department visit, the patients history, examination, and differential diagnosis were reviewed with the patient. The patient was placed on a grocery checker with oximetry and frequent blood pressure monitoring. The patient had an IV access obtained and blood work sent for analysis. The patient was initially provided 162 mg of aspirin as well as sublingual nitroglycerin. The patients laboratory studies were reviewed and remarkable for CBC & BMP Diagram 10/04/17 08:45 Total Protein 8.1, Albumin 3.8, Calcium Level 9.7, Magnesium Level 1.5, Alkaline Phosphatase 115, Aspartate Amino Transf (AST/SGOT) 11 L, Alanine Aminotransferase (ALT/SGPT) 18, Total Bilirubin 1.9 H Radiology studies were reviewed and remarkable for Last Impressions Chest X-Ray 10/04/17 0753 Signed Impressions: CONCLUSION: No acute abnormality or significant interval change Patient with a white blood cell count of 15.4, patient with a bandemia with band neutrophils of 15%, patient is tachycardic with increased respiratory rate with pulse ox 92% on room air -blood cultures ordered including lactic acid. Given patient's bandemia and patient's cardiopulmonary complaints, will start patient on azithromycin as well as Rocephin for presumed. Patient was given is 30 cc/kg bolus of fluids. Patient's blood sugar is 495, will give 8 units of subq insulin. Patient's d-dimer is elevated at 2.28 -patient's BUN/creatinine is elevated -I cannot perform a CTA to rule out PE, a VQ scan as well as Doppler ultrasound was ordered Patient will require admission to the hospital at this time. Lactate 4.1 patient septic, septic workup was initiated - IVF as well as antibiotics have been administered Last Impressions Chest X-Ray 10/04/17 0753 Signed Impressions: CONCLUSION: No acute abnormality or significant interval change Lower Extremity Ultrasound 10/04/17 0000 Signed Impressions: CONCLUSION: VQ scan pending Case reviewed with Dr. Decker who accepts pt to service Critical Care Narrative Aggregate critical care time was 30 minutes. Time to perform other separately billable procedures was not included in the critical care time. My time did not include minutes spent treating any other patients simultaneously or on activities that did not directly contribute to the patient's treatment. The services I provided to this patient were to treat and/or prevent clinically significant deterioration that could result in: , decompensation, deterioration I provided critical care services requiring my management, as noted below: Chart data review, documentation time, medication orders and management, vital sign assessments/reviewing monitor data, ordering and reviewing lab tests, ordering and interpreting/reviewing x-rays and diagnostic studies, care of the patient and discussion of the patient with the admitting physicians. Sepsis Criteria SIRS Criteria (2 or more): Heart rate over 90, RR > 20 or PaCO2 < 32, WBC > 69619, < 4000 or > 10% bands Criteria Outcome: Meets SIRS criteria Diagnosis Primary Impression: Sepsis Qualified Codes: A41.9 - Sepsis, unspecified organism Additional Impressions: Hyperglycemia Hypoxia Admitting Information Admitting Physician Requests: Sherry Norman DO October 04, 2017 07:58
[2017-10-04] MEDS ORDERED: ASPIRIN 81 MG CHEW TAB PO ONE (08:00)
[2017-10-04] MEDS ORDERED: CREON12 PO (08:04)
[2017-10-04] MEDS ORDERED: EXEN1INJ SQ (08:04)
[2017-10-04] MEDS ORDERED: CLON0.2T PO (08:04)
[2017-10-04] MEDS ORDERED: ZOLO50TA PO (08:04)
[2017-10-04] MEDS ORDERED: PANT20TA2 PO (08:04)
[2017-10-04] MEDS ORDERED: ALBUAER3 INH (08:04)
[2017-10-04] MEDS ORDERED: ROXI15TA9 PO (08:04)
[2017-10-04] MEDS ORDERED: LORA-392 PO (08:04)
[2017-10-04] MEDS ORDERED: REGL10TA5 PO (08:04)
[2017-10-04] MEDS: NITROGLYCERIN 0.4 MG SL 25 TABS/BTL SL SCH ×2 (08:10→08:29)
[2017-10-04 09:00] LABS: AUTOMATED NEUTROPHIL # 13.5 TH/MM3 (1.8-7.7); BASOPHIL # 0.1 TH/MM3 (0-0.2); BASOPHIL % 0.4 % (0.0-2.0); HEMATOCRIT 45.3 % (39.0-51.0); HEMOGLOBIN 15.2 GM/DL (13.0-17.0); LYMPH % 3.9 % (9.0-44.0); LYMPHOCYTE # 0.6 TH/MM3 (1.0-4.8); MEAN CELL VOLUME 89.8 FL (80.0-100.0); MEAN CORPUSCULAR HEMOGLOBIN 30.1 PG (27.0-34.0); MEAN CORPUSCULAR HGB CONC 33.6 % (32.0-36.0); MEAN PLATELET VOLUME 9.4 FL (7.0-11.0); MONO % 7.9 % (0.0-8.0); MONOCYTE # 1.2 TH/MM3 (0-0.9); NEUT % 87.8 % (16.0-70.0); PLATELET COUNT 173 TH/MM3 (150-450); RED BLOOD COUNT 5.05 MIL/MM3 (4.50-5.90); RED CELL DISTRIBUTION WIDTH 13.2 % (11.6-17.2); WHITE BLOOD COUNT 15.4 TH/MM3 (4.0-11.0)
--- NOTE | 2017-10-04 09:14 | RADRPT ---
EXAM DATE: 10/04/2017 8:57 AM EDT AGE/SEX: 67 years / Male INDICATIONS: Cough, congestion, and chest pain. CLINICAL DATA: This is the patient's initial encounter. Patient reports that signs and symptoms have been present for 2 days and indicates a pain score of 4/10. MEDICAL/SURGICAL HISTORY: None. Pacemaker. COMPARISON: [facility] [place], CHEST PA & LAT, 10/09/2015. . FINDINGS: Redemonstration of diffuse chronic interstitial prominence. Persistent fibrosis primarily in the left lower lung zone. No new focal pleural or parenchymal opacities are noted. Cardiomediastin al contours are stable with stable dual lead pacemaker in place. Bony thorax is intact. . CONCLUSION: No acute abnormality or significant interval change Electronically signed by: Dylon Pitts MD 10/04/2017 9:12 AM EDT
[2017-10-04 09:16] LABS: PROTHROMBIN TIME - PATIENT 10.6 SEC (9.8-11.6)
[2017-10-04 09:18] LABS: D-DIMER 2.28 MG/L FEU (0.00-0.50)
[2017-10-04 09:22] LABS: ALBUMIN 3.8 GM/DL (3.4-5.0); ALKALINE PHOSPHATASE 115 U/L (45-117); ALT (GPT) 18 U/L (12-78); AST (GOT) 11 U/L (15-37); BICARBONATE 24.2 MEQ/L (21.0-32.0); BLOOD UREA NITROGEN 21 MG/DL (7-18); CALCIUM 9.7 MG/DL (8.5-10.1); CHLORIDE 91 MEQ/L (98-107); CREATININE 1.99 MG/DL (0.60-1.30); GLOMERULAR FILTRATION RATE 41 ML/MIN (>89); MAGNESIUM 1.5 MG/DL (1.5-2.5); SODIUM (NA) 130 MEQ/L (136-145); TOTAL BILIRUBIN ADULT 1.9 MG/DL (0.2-1.0); TOTAL PROTEIN 8.1 GM/DL (6.4-8.2); TROPONIN I LESS THAN 0.02 NG/ML (0.02-0.05)
[2017-10-04 09:25] LABS: GLUCOSE,RANDOM 495 MG/DL (74-106)
[2017-10-04 09:37] LABS: BANDS 15 % (0-6); LYMPHOCYTES 2 % (9-44); MONOCYTES 8 % (0-8); NEUTROPHIL # MANUAL DIFF 13.9 TH/MM3 (1.8-7.7); POLYS (SEG NEUTROPHILS) 75 % (16-70); TOXIC VACUOLATION PRESENT (NONE SEEN)
[2017-10-04] MEDS ORDERED: SODIUM CHLOR 0.9% 250 ML INJ 250 ML IV ONE (10:00)
[2017-10-04] MEDS ORDERED: AZITHROMYCIN INJ 500 MG in SODIUM CHLOR 0.9% 250 ML INJ 250 ML IV ONE (10:00)
[2017-10-04] MEDS ORDERED: cefTRIAXone INJ 1,000 MG in SODIUM CHLORIDE 0.9% INJ 100 ML IV ONE (10:00)
[2017-10-04] MEDS ORDERED: SODIUM CHLOR 0.9% 1000 ML INJ 1,000 ML IV ONE (10:00)
[2017-10-04] MEDS ORDERED: INSULIN HUMAN REGULAR 1,000 UNITS/10 ML VIAL SQ ONE (10:00)
--- NOTE | 2017-10-04 11:09 | RADRPT ---
EXAM DATE: 10/04/2017 11:03 AM EDT AGE/SEX: 67 years / Male INDICATIONS: Bilateral leg pain. CLINICAL DATA: This is the patient's initial encounter. Patient reports that signs and symptoms have been present for 1 day and indicates a pain score of 8/10. MEDICAL/SURGICAL HISTORY: Hypertension. Chronic obstructive pulmonary disease. Gastroesophage al reflux disease. Bradycardia. Pneumonia. Pancreatitis. Renal failure. Kidney stones. Diabetes.Meth icillin-resistant Staph Aureus. Cholecystectomy. Laminectomy L4/5. Pacemaker implanted. Cardiac cath eterization. Circumcision. right hand tendon repair. COMPARISON: [facility] [place], US LEG BILATERAL VENOUS DOPPLER, 08/17/2012. . TECHNIQUE: Venous ultrasound of both lower extremities was performed from the inguinal ligament to t he proximal calf. Real-time, color Doppler and spectral tracing, compression and augmentation techni ques were used. FINDINGS: Right Leg: There is normal compressibility of the deep venous system from the inguinal region to the proximal calf. No echogenic clot is seen in the lumen of the common femoral, femoral, popliteal, an d posterior tibial veins. There is a normal response of the venous system to proximal and distal aug mentation and respiration. Left Leg: There is normal compressibility of the deep venous system from the inguinal region to the proximal calf. No echogenic clot is seen in the lumen of the common femoral, femoral, popliteal, and posterior tibial veins. There is a normal response of the venous system to proximal and distal augm entation and respiration. CONCLUSION: 1. No evidence of DVT. Electronically signed by: Armando Pérez MD 10/04/2017 11:08 AM EDT
[2017-10-04 11:31] LABS: LACTIC ACID SEPSIS PROTOCOL 4.1 mmol/L (0.4-2.0)
--- NOTE | 2017-10-04 12:23 | HHI.HP ---
[facility] Primary [facility] Physician Edmund Meyers DO Admission Diagnosis Sepsis, hypoxia, chest pain Diagnoses: (1) Sepsis Diagnosis: Principal Chief Complaint: shortness of breath Travel History International Travel<30 Days: No Contact w/Intl Traveler <30 Da: No Traveled to Known Affected Are: No Sepsis Criteria SIRS Criteria (2 or more): Heart rate over 90, WBC > 99000, < 4000 or > 10% bands Sepsis Criteria (SIRS+source): Infect source susp/known Severe Sepsis (+one): Lactate >2 Criteria Outcome: Meets sepsis criteria History of Present Illness patient is a 67 y/o male with history of COPD, diabetes mellitus,hypertension, chronic pancreatitis, who presented to ER with sob. he says that his sob started two days ago. this was associated with dry cough. he's not sure if he had any fever at home. he says that he used his inhalers at home with no significant improvement. he has some upper abdominal pain which he says is worse with the cough. he says that his blood sugar is in 300 range at home. Review of Systems Constitutional: DENIES: Fever, Weight loss, Chills, Night Sweats Eyes: DENIES: Blurred vision, Diplopia, Vision loss, Double Vision Ears, nose, mouth, throat: DENIES: Tinnitus, Vertigo, Throat pain, Epistaxis Respiratory: COMPLAINS OF: Cough, Shortness of breath, DENIES: Apneas, Snoring , Wheezing, Hemoptysis, Sputum production Cardiovascular: DENIES: Chest pain, Palpitations, Syncope, Dyspnea on Exertion , PND, Lower Extremity Edema, Orthopnea, Claudication Gastrointestinal: DENIES: Abdominal pain, Black stools, Bloody stools, Constipation, Diarrhea, Nausea, Vomiting, Difficulty Swallowing, Anorexia Genitourinary: DENIES: Urinary frequency, Urgency, Hematuria, Dysuria Musculoskeletal: DENIES: Joint pain, Muscle aches, Stiffness, Joint Swelling Integumentary: DENIES: Rash Neurologic: DENIES: Abnormal gait, Headache, Localized weakness, Paresthesias, Seizures, Speech Problems, Tremor, Poor Balance Psychiatric: DENIES: Anxiety, Confusion, Mood changes, Depression, Hallucinations, Agitation, Suicidal Ideation, Homicidal Ideation, Delusions Past Family Social History Past Medical History DM2 COPD CKD3 HTN Chronic Pancreatitis Chronic Back Pain Hx of Bradycardia Past Surgical History Past Surgical History Lumbar Spine surgery Cholecystectomy Right hand laceration repair Reported Medications Reported Medications Reported Meds & Active Scripts Active Zofran Odt (Ondansetron Odt) 4 Mg Tab 4 Mg SL Q6HR PRN Reported Roxicodone (Oxycodone HCl) 15 Mg Tab 15 Mg PO Q8H PRN Flonase Nasal [place] (Fluticasone Nasal [place]) 50 Mcg/Act [place] 50 Mcg EACH NARE BID Duoneb (Ipratropium-Albuterol Neb) 0.5-2.5 Mg/3 Ml Neb 1 Nebule INH Q4HR NEB Pantoprazole (Pantoprazole Sodium) 20 Mg Tab 20 Mg PO DAILY Proair Hfa 8.5 GM Inh (Albuterol Sulfate) 90 Mcg/Act Aer 2 Puff INH Q4-6H PRN 108 mcg/actuation Janumet (Sitagliptin-Metformin) 50-500 Mg Tab 1 Tab PO BID Cialis (Tadalafil) 5 Mg Tab 5 Mg PO DAILY Do not exceed 1 dose/day. Allergies: Coded Allergies: No Known Drug Allergies (Verified Allergy, Unknown, 10/04/17) MRI PRECAUTION (Verified Adverse Reaction, Severe, PACEMAKER, 10/04/17) PT HAS PACEMAKER PER NURSE JAYLENE/HEMANT *MDRO Multi-Drug Resistant Organism (Verified Adverse Reaction, Unknown, Cleared - 10/07/15, 10/04/17) MRSA PCR (nares) negative - 10/04/15 & 10/07/15 Cleared per Infection Control MRSA (blood and urine) - 06/2012 Active Ordered Medications Inpatient Medications Aspirin (Aspirin Chew) 162 mg ONCE ONCE PO Last administered on 10/04/17at 08: 09; Start 10/04/17 at 08:00; Stop 10/04/17 at 08:01; Status DC Azithromycin 500 mg/Sodium Chloride 250 ml @ 250 mls/hr ONCE ONCE IV Last administered on 10/04/17at 10:30; Start 10/04/17 at 10:00; Stop 10/04/17 at 10:59 ; Status DC Ceftriaxone Sodium 1000 mg/ Sodium Chloride 100 ml @ 200 mls/hr ONCE ONCE IV Last administered on 10/04/17at 09:56; Start 10/04/17 at 10:00; Stop 10/04/17 at 10:29; Status DC Insulin Human Regular (NovoLIN R INJ) 8 units ONCE ONCE SQ Last administered on 10/04/17at 10:04; Start 10/04/17 at 10:00; Stop 10/04/17 at 10:03; Status DC Nitroglycerin (Nitrostat Sl) 0.4 mg Q5M SL Last administered on 10/04/17at 08:29 ; Start 10/04/17 at 08:00; Stop 10/04/17 at 08:11; Status DC Oxycodone HCl (Roxicodone) 15 mg Q8H PRN PO PAIN 4-10; Start 10/04/17 at 12:15 Sodium Chloride 250 ml @ 250 mls/hr BOLUS ONCE IV Last administered on at 10:05; Start 10/04/17 at 10:00; Stop 10/04/17 at 10:59; Status DC Sodium Chloride (NS Flush) 2 ml UNSCH PRN IVF FLUSH AFTER USING IV ACCESS; Start 10/04/17 at 08:00 Social History ex-smoker. Physical Exam Vital Signs Vital Signs Date Time Temp Pulse Resp B/P (MAP) Pulse Ox O2 Delivery O2 Flow Rate FiO2 10/04/17 10:22 98 Nasal Cannula 2.00 10/04/17 10:00 97 20 105/66 (79) 94 Room Air 10/04/17 08:18 114 28 144/72 (96) 97 Room Air 10/04/17 07:37 98.7 112 26 120/77 (91) 92 Physical Exam GENERAL: with some sob/ on oxygen via N/C. SKIN: No rashes, ecchymoses or lesions. Cool and dry. HEAD: Atraumatic. Normocephalic. No temporal or scalp tenderness. EYES: Pupils equal round and reactive. Extraocular motions intact. No scleral icterus. No injection or drainage. ENT: Nose without bleeding, purulent drainage or septal hematoma. Throat without erythema, tonsillar hypertrophy or exudate. Uvula midline. Airway patent. NECK: Trachea midline. No JVD or lymphadenopathy. Supple, nontender, no meningeal signs. CARDIOVASCULAR: Regular rate and rhythm without murmurs, gallops, or rubs. RESPIRATORY: bilateral wheezing/ diminished air entry in bases. GASTROINTESTINAL: Abdomen soft, non-tender, nondistended. No hepato-splenomegaly , or palpable masses. No guarding. MUSCULOSKELETAL: Extremities without clubbing, cyanosis, or edema. No joint tenderness, effusion, or edema noted. No calf tenderness. Negative Homans sign bilaterally. NEUROLOGICAL: Awake and alert. Cranial nerves II through XII intact. Motor and sensory grossly within normal limits. Five out of 5 muscle strength in all muscle groups. Normal speech. Laboratory Laboratory Tests Test 10/04/17 08:45 10/04/17 10:06 10/04/17 10:07 White Blood Count 15.4 Red Blood Count 5.05 Hemoglobin 15.2 Hematocrit 45.3 Mean Corpuscular Volume 89.8 Mean Corpuscular Hemoglobin 30.1 Mean Corpuscular Hemoglobin Concent 33.6 Red Cell Distribution Width 13.2 Platelet Count 173 Mean Platelet Volume 9.4 Neutrophils (%) (Auto) 87.8 Lymphocytes (%) (Auto) 3.9 Monocytes (%) (Auto) 7.9 Eosinophils (%) (Auto) 0.0 Basophils (%) (Auto) 0.4 Neutrophils # (Auto) 13.5 Lymphocytes # (Auto) 0.6 Monocytes # (Auto) 1.2 Eosinophils # (Auto) 0.0 Basophils # (Auto) 0.1 CBC Comment AUTO DIFF Differential Total Cells Counted 100 Neutrophils % (Manual) 75 Band Neutrophils % 15 Lymphocytes % 2 Monocytes % 8 Neutrophils # (Manual) 13.9 Differential Comment FINAL DIFF MANUAL Toxic Vacuolation PRESENT Platelet Estimate NORMAL Platelet Morphology Comment NORMAL Prothrombin Time 10.6 Prothromb Time International Ratio 1.0 Activated Partial Thromboplast Time 27.5 D-Dimer Quantitative (PE/DVT) 2.28 Blood Urea Nitrogen 21 Creatinine 1.99 Random Glucose 495 Total Protein 8.1 Albumin 3.8 Calcium Level 9.7 Magnesium Level 1.5 Alkaline Phosphatase 115 Aspartate Amino Transf (AST/SGOT) 11 Alanine Aminotransferase (ALT/SGPT) 18 Total Bilirubin 1.9 Sodium Level 130 Potassium Level 4.4 Chloride Level 91 Carbon Dioxide Level 24.2 Anion Gap 15 Estimat Glomerular Filtration Rate 41 Total Creatine Kinase 74 Troponin I LESS THAN 0.02 B-Type Natriuretic Peptide 7 Lipase 330 Lactic Acid Level 4.1 Blood Gas Puncture Site RT RADIAL Blood Gas Patient Temperature 98.6 Blood Gas HCO3 22 Blood Gas Base Excess -2.0 Blood Gas Oxygen Saturation 87 Arterial Blood pH 7.41 Arterial Blood Partial Pressure CO2 35 Arterial Blood Partial Pressure O2 59 Arterial Blood Oxygen Content 16.9 Arterial Blood Carboxyhemoglobin 1.8 Arterial Blood Methemoglobin 0.7 Blood Gas Hemoglobin 13.9 Oxygen Delivery Device ROOM AIR Blood Gas Inspired Oxygen 21 Date/Time Source Procedure Growth Status 10/04/17 10:06 Blood Peripheral Aerobic Blood Culture Pending Received 10/04/17 10:06 Blood Peripheral Anaerobic Blood Culture Pending Received 10/04/17 10:00 Nasal Aspirate Influenza Types A,B Antigen (BOBBI) - Final NEGATIVE FOR FLU A AND B ANTIGEN.... Complete Result Diagram: 10/04/17 0845 10/04/17 0845 Imaging Last Impressions Chest X-Ray 10/04/17 0753 Signed Impressions: CONCLUSION: No acute abnormality or significant interval change Lower Extremity Ultrasound 10/04/17 0000 Signed Impressions: CONCLUSION: Caprini VTE Risk Assessment Caprini VTE Risk Assessment: Mod/High Risk (score >= 2) Caprini Risk Assessment Model Point Value = 1 Point Value = 2 Point Value = 3 Point Value = 5 Age 41-60 Minor surgery BMI > 25 kg/m2 Swollen legs Varicose veins or History of unexplained or recurrent spontaneous Oral contraceptives or hormone replacement Sepsis (< 1 month) Serious lung disease, including pneumonia (< 1 month) Abnormal pulmonary function Acute myocardial infarction Congestive heart failure (< 1 month) History of inflammatory bowel disease Medical patient at bed rest Age 61-74 Arthroscopic surgery Major open surgery (> 45 min) Laparoscopic surgery (> 45 min) Malignancy Confined to bed (> 72 hours) Immobilizing plaster cast Central venous access Age >= 75 History of VTE Family history of VTE Factor V Leiden Prothrombin [id number] Lupus anticoagulant Anticardiolipin antibodies Elevated serum homocysteine Heparin-induced thrombocytopenia Other congenital or acquired thrombophilia Stroke (< 1 month) Elective arthroplasty Hip, pelvis, or leg fracture Acute spinal cord injury (< 1 month) Prophylaxis Regimen Total Risk Factor Score Risk Level Prophylaxis Regimen 0-1 Low Early ambulation 2 Moderate Order ONE of the following: *Sequential Compression Device (SCD) *Heparin 5000 units SQ BID 3-4 Higher Order ONE of the following medications: *Heparin 5000 units SQ TID *Enoxaparin/Lovenox 40 mg SQ daily (WT < 150 kg, CrCl > 30 mL/min) *Enoxaparin/Lovenox 30 mg SQ daily (WT < 150 kg, CrCl > 10-29 mL/min) *Enoxaparin/Lovenox 30 mg SQ BID (WT < 150 kg, CrCl > 30 mL/min) AND/OR *Sequential Compression Device (SCD) 5 or more Highest Order ONE of the following medications: *Heparin 5000 units SQ TID (Preferred with Epidurals) *Enoxaparin/Lovenox 40 mg SQ daily (WT < 150 kg, CrCl > 30 mL/min) *Enoxaparin/Lovenox 30 mg SQ daily (WT < 150 kg, CrCl > 10-29 mL/min) *Enoxaparin/Lovenox 30 mg SQ BID (WT < 150 kg, CrCl > 30 mL/min) AND *Sequential Compression Device (SCD) Assessment and Plan Assessment and Plan A/P - acute hypoxemic respiratory failure due to COPD exacerbation/ possible pneumonia keep on oxygen to keep O2 sat >90%- continue with neb treatment; scheduled and prn.start on IV steroids. V/Q scan pending. -severe sepsis- suspect pneumonia continue with IV antibiotics- follow the cultures. -diabetes mellitus; uncontrolled- start on levemir and accu-check with SSI. -hypertension; hold clonidine- continue lisinopril. -CKD- will monitor the renal function. -chronic pancreatitis/ chronic back pain; resume home meds. -DVT prophylaxis with subq heparin Discussed Condition With ER physician and the patient/ RN. Physician Certification 2 Midnight Certification Type: Admission for Inpatient Services Order for Inpatient Services The services are ordered in accordance with Medicare regulations or non- Medicare payer requirements, as applicable. In the case of services not specified as inpatient-only, they are appropriately provided as inpatient services in accordance with the 2-midnight benchmark. Estimated LOS (days): 2 days is the estimated time the patient will need to remain in the hospital, assuming treatment plan goals are met and no additional complications. Post-Hospital Plan: Home Problem Qualifiers (1) Sepsis: Qualified Codes: A41.9 - Sepsis, unspecified organism Lyndsay Lopez MD October 04, 2017 12:23
[2017-10-04] MEDS ORDERED: GLUCAGON 1 MG/ML VIAL OTHER PRN (12:30)
[2017-10-04] MEDS ORDERED: PILL SPLITTER OTHER PRN (12:30)
[2017-10-04] MEDS ORDERED: DEXTROSE 50% IN WATER 50 ML VIAL(D50) IV PUSH PRN (12:30)
--- NOTE | 2017-10-04 12:46 | RADRPT ---
EXAM DATE: 10/04/2017 12:38 PM EDT AGE/SEX: 67 years / Male INDICATIONS: Dyspnea. CLINICAL DATA: This is the patient's initial encounter. Patient reports that signs and symptoms have been present for 1 day and indicates a pain score of 0/10. MEDICAL/SURGICAL HISTORY: Hypertension. Chronic obstructive pulmonary disease. Gastroesophage al reflux disease. Ex-smoker. Pacemaker. Hysterectomy. Cardiac catherization. COMPARISON: No prior [facility] exams available for comparison. DOSE: 1.2 mCi Tc99m DTPA aerosol 8.4 mCi Tc99m MAA IV TECHNIQUE: Following five minutes of tidal breathing of DTPA aerosol, planar images of the lungs wer e performed in eight projections. The patient was then injected with MAA, and eight-view perfusion s can was performed. FINDINGS: There is a patchy uptake of tracer activity throughout both lung pitt on the ventilation portion of the examination. This suggests airspace disease. The perfusion lung scan demonstrates a homogenous pattern of uptake in both lungs. No segmental or s ubsegmental defects are seen. CONCLUSION: 1. Low probability for PE. 2. Patchy uptake of tracer activity on the ventilation study suggestive of airspace disease. Electronically signed by: Armando Pérez MD 10/04/2017 12:44 PM EDT
[2017-10-04] MEDS ORDERED: ACETAMINOPHEN 325 MG TAB PO PRN (13:30)
[2017-10-04] MEDS: RESP: ALBUTEROL 1.25 MG/3 ML NEB (PRN) NEB (13:58)
[2017-10-04] MEDS: RESP: ALBUTEROL 2.5 MG/IPRATROPIUM 0.5 MG NEB (SCH) NEB ×2 (16:18→19:39)
[2017-10-04] MEDS: methylPREDNISolone SOD SUCC 40 MG/1 ML VIAL IV PUSH SCH ×2 (16:19→20:33)
[2017-10-04] MEDS: LIPASE/PROTEASE/AMYLASE (12,000/38,000/60,000) CAP PO SCH ×2 (16:19→18:01)
[2017-10-04] MEDS: ONDANSETRON ODT 4 MG TAB PO PRN (16:58)
[2017-10-04] MEDS: INSULIN ASPART SUPPLEMENTAL SCALE SQ SCH ×2 (17:00→20:39)
--- NOTE | 2017-10-04 17:01 | EKG ---
Date Performed: 10/04/2017 Time Performed: 07:50:50 PTAGE: 67 years EKG: SINUS TACHYCARDIA POSSIBLE LEFT ATRIAL ENLARGEMENT MARKED LEFT AXIS DEVIATION NONSPECIFIC T -WAVE ABNORMALITY ABNORMAL ECG PREVIOUS TRACING : 09/04/2017 22.04 Since the previous tracing, no significant change noted DOCTOR: Carlos Domínguez Interpretating Date/Time 10/04/2017 16:59:51
[2017-10-04] MEDS ORDERED: MORPHINE SULFATE 4 MG/ML INJ IV PRN (18:30)
[2017-10-04] MEDS: guaiFENesin SOLUTION 200 MG/10 ML CUP PO PRN (20:31)
[2017-10-04] MEDS: SODIUM CHLORIDE 0.9% FLUSH 10 ML FLUSH IVF PRN (20:33)
[2017-10-04] MEDS: HEPARIN SODIUM - SQ 10,000 UNITS/ML VIAL SQ SCH (20:33)
[2017-10-04] MEDS ORDERED: INSULIN DETEMIR 100 UNITS/ML VIAL SQ SCH (21:00)
[2017-10-05] VITALS (26 sets, daily range): BP systolic 116–139; BP diastolic 75–88; PULSE 82–104; RESP 16–24; TEMP 97.6–98.3; O2SAT 95–98
[2017-10-05] MEDS: RESP: ALBUTEROL 2.5 MG/IPRATROPIUM 0.5 MG NEB (SCH) NEB ×7 (00:14→22:53)
[2017-10-05] MEDS: guaiFENesin SOLUTION 200 MG/10 ML CUP PO PRN ×3 (00:47→20:17)
[2017-10-05] MEDS: methylPREDNISolone SOD SUCC 40 MG/1 ML VIAL IV PUSH SCH (06:33)
[2017-10-05 07:45] LABS: AUTOMATED NEUTROPHIL # 16.2 TH/MM3 (1.8-7.7); BASOPHIL % 0.3 % (0.0-2.0); HEMATOCRIT 40.7 % (39.0-51.0); HEMOGLOBIN 13.6 GM/DL (13.0-17.0); LYMPH % 4.1 % (9.0-44.0); LYMPHOCYTE # 0.7 TH/MM3 (1.0-4.8); MEAN CORPUSCULAR HEMOGLOBIN 30.4 PG (27.0-34.0); MEAN CORPUSCULAR HGB CONC 33.4 % (32.0-36.0); MEAN PLATELET VOLUME 9.8 FL (7.0-11.0); MONO % 3.5 % (0.0-8.0); MONOCYTE # 0.6 TH/MM3 (0-0.9); NEUT % 92.1 % (16.0-70.0); PLATELET COUNT 141 TH/MM3 (150-450); RED BLOOD COUNT 4.47 MIL/MM3 (4.50-5.90); RED CELL DISTRIBUTION WIDTH 13.2 % (11.6-17.2); WHITE BLOOD COUNT 17.6 TH/MM3 (4.0-11.0)
[2017-10-05] MEDS: INSULIN ASPART SUPPLEMENTAL SCALE SQ SCH ×2 (08:00→12:00)
[2017-10-05 08:58] LABS: BICARBONATE 23.7 MEQ/L (21.0-32.0); CALCIUM 8.7 MG/DL (8.5-10.1); CREATININE 1.29 MG/DL (0.60-1.30)
[2017-10-05] MEDS ORDERED: cefTRIAXone INJ 1,000 MG in SODIUM CHLORIDE 0.9% INJ 100 ML IV SCH (09:00)
[2017-10-05] MEDS: LIPASE/PROTEASE/AMYLASE (12,000/38,000/60,000) CAP PO SCH ×3 (09:45→17:39)
[2017-10-05] MEDS: METOCLOPRAMIDE HCL 10 MG TAB PO SCH (09:46)
[2017-10-05] MEDS: PANTOPRAZOLE SOD 20 MG DELAYED RELEASE TAB PO SCH (09:46)
[2017-10-05] MEDS: SERTRALINE HCL 50 MG TAB PO SCH (09:46)
[2017-10-05] MEDS: LISINOPRIL 10 MG TAB PO SCH (09:46)
[2017-10-05] MEDS: ASPIRIN EC 81 MG TABEC PO SCH (09:46)
[2017-10-05] MEDS: HEPARIN SODIUM - SQ 10,000 UNITS/ML VIAL SQ SCH ×2 (09:47→20:17)
[2017-10-05] MEDS ORDERED: VANCOMYCIN INJ 1,000 MG in SODIUM CHLOR 0.9% 250 ML INJ 250 ML IV SCH (10:00)
[2017-10-05] MEDS ORDERED: Vancomycin Consult Pharmacy 1 EA OTHER SCH (10:00)
[2017-10-05] MEDS ORDERED: AZITHROMYCIN INJ 500 MG in SODIUM CHLOR 0.9% 250 ML INJ 250 ML IV SCH (10:00)
--- NOTE | 2017-10-05 10:12 | HHI.PR ---
Subjective Remarks feeling much better now bringing up sputum- did not look at the color- discussed with staff to send specimen good po no nausea no abdominal pain, no diarrhea no urinary symptoms up on the chair Objective Vitals Vital Signs Date Time Temp Pulse Resp B/P (MAP) Pulse Ox O2 Delivery O2 Flow Rate FiO2 10/05/17 07:27 98 Nasal Cannula 2.00 10/05/17 07:00 97.9 90 24 139/88 (105) 95 10/05/17 04:42 88 10/05/17 03:42 95 Nasal Cannula 2.00 10/05/17 02:45 82 10/05/17 01:53 16 10/05/17 01:00 82 10/05/17 00:44 98.3 91 20 138/86 (103) 96 116/75 (89) 10/05/17 00:15 95 Nasal Cannula 2.00 10/05/17 00:00 85 10/05/17 00:00 88 10/04/17 23:00 79 10/04/17 22:00 85 10/04/17 21:00 91 10/04/17 20:55 16 10/04/17 20:10 91 10/04/17 20:00 94 10/04/17 19:54 96 16 141/80 (100) 96 10/04/17 19:51 100 Nasal Cannula 2.00 10/04/17 19:00 96 10/04/17 18:00 95 10/04/17 17:00 105 10/04/17 16:00 102 10/04/17 15:00 100 10/04/17 15:00 98.6 99 24 139/92 (108) 93 10/04/17 13:19 10/04/17 13:00 94 20 132/78 (96) 94 Nasal Cannula 2.00 10/04/17 10:22 98 Nasal Cannula 2.00 I/O 10/04/17 10/04/17 10/04/17 10/05/17 10/05/17 10/05/17 07:00 15:00 23:00 07:00 15:00 23:00 Intake Total 1100 ml 480 ml Output Total 620 ml 1300 ml Balance 1100 ml -140 ml -1300 ml Intake Oral 480 ml IV Total 1100 ml Output Urine Total 620 ml 1300 ml Result Diagram: 10/05/1752210/05/17522 Imaging Last Impressions Chest X-Ray 10/04/17 0753 Signed Impressions: CONCLUSION: No acute abnormality or significant interval change Lung Scan-VQ Nuclear Medicine 10/04/17 0000 Signed Impressions: CONCLUSION: Lower Extremity Ultrasound 10/04/17 0000 Signed Impressions: CONCLUSION: Objective Remarks awake and alert, no acute distress anicteric no nuchal rigidity lungs + rales left base, no wheezes regular rhtyhm abdomen-soft good bwoel sounds extremities no edema neuro exam- non focal A/P Problem List: (1) Sepsis ICD Code: A41.9 - Sepsis, unspecified organism Status: Acute Assessment and Plan 67 years old male Gram Positive Severe sepsis secodnary to clinical Pneumonia - start IV Vancomycin - continue on current antibiotics - ID consult for recommendation - repeat blood cultures - no skin lesions/thorpe- no history of IVDU- admits to smoking cocaine - ff CBC- expect WBC to be high - on steroids Acute hypoxemic respiratory failure due to COPD exacerbation- improved clinically - heavy smoker in the past - lungs- no wheezes, + rales left base keep on oxygen to keep O2 sat >90%- continue with neb treatment; scheduled V/Q scan negative - change to po steroids- prednisone 20 mg po bid cotninue home inhalers - diabetes mellitus; uncontrolled- - expect to be high on steroids start on levemir - increase dose to bid - change to medium sliding scale Novolog -while here and accu-check with SSI. nd adjust- expect to be high on steroids( at home was on lantus bid) hypertension History fo AICD in place ; hold clonidine- continue lisinopril. Acute kidney injury on top CKD- - continue Fluids 75 cc/hr -ff creatinine- trending down History of chornic pancreatitis- on creon and reglan daily History of AICD chronic pancreatitis/ chronic back pain; resume home meds. -DVT prophylaxis with subq heparin d/w patient Problem Qualifiers (1) Sepsis: Qualified Codes: A41.9 - Sepsis, unspecified organism Abner Gonzales MD October 05, 2017 10:12
[2017-10-05] MEDS ORDERED: VANCOMYCIN INJ 1,250 MG in SODIUM CHLOR 0.9% 250 ML INJ 250 ML IV SCH (12:00)
[2017-10-05 13:07] LABS: BILIRUBIN, URINE NEG (NEG); BLOOD, URINE NEG (NEG); GLUCOSE,URINE 1000 mg/dL (NEG); KETONE, URINE NEG (NEG); NITRITE,URINE NEG (NEG); PH, URINE 5.5 (5.0-8.5); URINE COLOR YELLOW (YELLW/STRAW); URINE LEUKOCYTE ESTERASE NEG (NEG)
[2017-10-05] MEDS ORDERED: GLUCAGON 1 MG/ML VIAL OTHER PRN (13:45)
[2017-10-05] MEDS ORDERED: DEXTROSE 50% IN WATER 50 ML VIAL(D50) IV PUSH PRN (13:45)
[2017-10-05] MEDS: SODIUM CHLOR 0.9% 1000 ML INJ 1,000 ML IV SCH ×2 (14:31→23:53)
[2017-10-05] MEDS: INSULIN NovoLIN REGULAR SUPPLEMENTAL SCALE SQ SCH ×2 (17:30→20:22)
--- NOTE | 2017-10-05 18:04 | PD.ID.CON ---
History of Present Illness Service ID Consult Requested By Dr Gonzales Reason for Consult GPC bacteremia Primary Care Physician Edmund Meyers, Diagnoses: History of Present Illness Patient is a 67-year-old male with history of hypertension, hyperlipidemia, diabetes, asthma, COPD, pacemaker, pancreatitis, presents the emergency room for evaluation of chest pain and shortness of breath. Pt was admitted with sharp chest pain, cough and blood sugar of 300 Pt has leukocytosis of 15-17 K and bandemia of 15% Bacteremia 4/4 with Gram positive cocci, ID'd as GBS He was started on broad spectrum abx He has a pacemaker put in 10 yrs ago co chest pain, pleuritic, + cough Review of Systems Except as stated in HPI: all other systems reviewed are Neg Past Family Social History Allergies: Coded Allergies: No Known Drug Allergies (Verified Allergy, Unknown, 10/04/17) MRI PRECAUTION (Verified Adverse Reaction, Severe, PACEMAKER, 10/04/17) PT HAS PACEMAKER PER NURSE JAYLENE/HEMANT *MDRO Multi-Drug Resistant Organism (Verified Adverse Reaction, Unknown, Cleared - 10/07/15, 10/04/17) MRSA PCR (nares) negative - 10/04/15 & 10/07/15 Cleared per Infection Control MRSA (blood and urine) - 06/2012 Past Medical History DM2 COPD CKD3 HTN Chronic Pancreatitis Chronic Back Pain Hx of Bradycardia Past Surgical History Past Surgical History Past Surgical History Lumbar Spine surgery Cholecystectomy Right hand laceration repair Active Ordered Medications Medications where reviewed in EMR Antibiotics Include: vanco CFTX azithro Family History reviewed Social History ex-smoker. Physical Exam Vital Signs Vital Signs Date Time Temp Pulse Resp B/P (MAP) Pulse Ox O2 Delivery O2 Flow Rate FiO2 10/05/17 16:00 86 10/05/17 15:00 84 10/05/17 15:00 97.7 97 22 132/83 (99) 96 10/05/17 14:00 97 10/05/17 13:00 104 10/05/17 12:00 93 10/05/17 11:00 97.6 93 24 122/86 (98) 96 10/05/17 11:00 92 10/05/17 10:00 86 10/05/17 09:00 90 10/05/17 08:00 94 10/05/17 07:27 98 Nasal Cannula 2.00 10/05/17 07:00 97.9 90 24 139/88 (105) 95 10/05/17 07:00 90 10/05/17 04:42 88 10/05/17 03:42 95 Nasal Cannula 2.00 10/05/17 02:45 82 10/05/17 01:53 16 10/05/17 01:00 82 10/05/17 00:44 98.3 91 20 138/86 (103) 96 116/75 (89) 10/05/17 00:15 95 Nasal Cannula 2.00 10/05/17 00:00 85 10/05/17 00:00 88 10/04/17 23:00 79 10/04/17 22:00 85 10/04/17 21:00 91 10/04/17 20:55 16 10/04/17 20:10 91 10/04/17 20:00 94 10/04/17 19:54 96 16 141/80 (100) 96 10/04/17 19:51 100 Nasal Cannula 2.00 10/04/17 19:00 96 10/04/17 18:00 95 Physical Exam CONSTITUTIONAL/GENERAL: This is an adequately nourished patient, in no apparent distress. TUBES/LINES/DRAINS: SKIN: No jaundice, rashes, or lesions. Skin temperature appropriate. Not diaphoretic. HEAD: Atraumatic. Normocephalic. EYES: Pupils equal and round and reactive. Extraocular motions intact. No scleral icterus. No injection or drainage. Fundi not examined. ENT: Hearing grossly normal. Nose without bleeding or purulent drainage. Throat without visible erythema, exudates, masses, or lesions. NECK: Trachea midline. Supple, nontender. No palpable thyroid enlargement or nodularity. CARDIOVASCULAR: Regular rate and rhythm without murmurs, gallops, or rubs. No JVD. Peripheral pulses symmetric. Pacer in place L chest RESPIRATORY/CHEST: Symmetric, unlabored respirations. Clear to auscultation. Breath sounds equal bilaterally. No wheezes, rales, or rhonchi. GASTROINTESTINAL: Abdomen soft, non-tender, nondistended. No hepato-splenomegaly , or palpable masses. No guarding. Bowel sounds present. GENITOURINARY: Without palpable bladder distension. MUSCULOSKELETAL: Extremities without clubbing, cyanosis, or edema. No joint tenderness or effusion noted. No calf tenderness. No mottling or clubbing. LYMPHATICS: No palpable cervical or supraclavicular adenopathy. NEUROLOGICAL: Awake and alert. Motor and sensory grossly within normal limits. Follows commands. Clear speech Moves all extremities. PSYCHIATRIC: No obvious anxiety/depression. no apparent hallucinations or other psychotic thought process. Laboratory Laboratory Tests Test 10/04/17 20:20 10/05/17 05:23 10/05/17 11:00 Lactic Acid Level 4.5 White Blood Count 17.6 Red Blood Count 4.47 Hemoglobin 13.6 Hematocrit 40.7 Mean Corpuscular Volume 91.0 Mean Corpuscular Hemoglobin 30.4 Mean Corpuscular Hemoglobin Concent 33.4 Red Cell Distribution Width 13.2 Platelet Count 141 Mean Platelet Volume 9.8 Neutrophils (%) (Auto) 92.1 Lymphocytes (%) (Auto) 4.1 Monocytes (%) (Auto) 3.5 Eosinophils (%) (Auto) 0.0 Basophils (%) (Auto) 0.3 Neutrophils # (Auto) 16.2 Lymphocytes # (Auto) 0.7 Monocytes # (Auto) 0.6 Eosinophils # (Auto) 0.0 Basophils # (Auto) 0.0 CBC Comment DIFF FINAL Differential Comment Blood Urea Nitrogen 20 Creatinine 1.29 Random Glucose 345 Calcium Level 8.7 Sodium Level 133 Potassium Level 4.5 Chloride Level 97 Carbon Dioxide Level 23.7 Anion Gap 12 Estimat Glomerular Filtration Rate 67 Urine Color YELLOW Urine Turbidity CLEAR Urine pH 5.5 Urine Specific Wheeler 1.024 Urine Protein NEG Urine Glucose (UA) 1000 Urine Ketones NEG Urine Occult Blood NEG Urine Nitrite NEG Urine Bilirubin NEG Urine Urobilinogen LESS THAN 2.0 Urine Leukocyte Esterase NEG Urine WBC LESS THAN 1 Microscopic Urinalysis Comment CULT NOT INDICATED Date/Time Source Procedure Growth Status 10/04/17 10:06 Blood Peripheral Aerobic Blood Culture - Preliminary Gram Positive Cocci Resulted 10/04/17 10:06 Anaerobic Blood Culture - Preliminary Gram Positive Cocci Resulted 10/05/17 11:00 Sputum Expectorated Sputum Gram Stain - Final Resulted 10/05/17 11:00 Sputum Expectorated Sputum Sputum Culture Pending Resulted Result Diagram: 10/05/17 0523 10/05/17 0523 Imaging Last Impressions Chest X-Ray 10/04/17 8297 Signed Impressions: CONCLUSION: No acute abnormality or significant interval change Lung Scan-VQ Nuclear Medicine 10/04/17 0000 Signed Impressions: CONCLUSION: 1. Low probability for PE. 2. Patchy uptake of tracer activity on the ventilation study suggestive of air space disease. Lower Extremity Ultrasound 10/04/17 0000 Signed Impressions: CONCLUSION: 1. No evidence of DVT. Assessment and Plan Assessment and Plan HIgh grade GBS sepsis in the settings of pacemaker r/o pacer infection dc azithromycin cont CFTX 2 gm daily dc vancomycin repeat BC Cecilia Slade MD October 05, 2017 18:04
[2017-10-05] MEDS: predniSONE 20 MG TAB PO SCH (20:18)
[2017-10-05] MEDS: INSULIN DETEMIR 100 UNITS/ML VIAL SQ SCH (20:22)
[2017-10-05] MEDS: MELATONIN 5 MG TAB PO PRN (23:53)
[2017-10-06] VITALS (30 sets, daily range): BP systolic 123–144; BP diastolic 71–89; PULSE 72–94; RESP 16–20; TEMP 97.7–98.6; O2SAT 91–96
[2017-10-06] MEDS: guaiFENesin SOLUTION 200 MG/10 ML CUP PO PRN ×2 (03:24→21:48)
[2017-10-06] MEDS: RESP: ALBUTEROL 2.5 MG/IPRATROPIUM 0.5 MG NEB (SCH) NEB ×6 (04:14→23:49)
[2017-10-06 06:37] LABS: AUTOMATED NEUTROPHIL # 13.3 TH/MM3 (1.8-7.7); BASOPHIL % 0.1 % (0.0-2.0); HEMATOCRIT 38.3 % (39.0-51.0); HEMOGLOBIN 12.8 GM/DL (13.0-17.0); LYMPH % 4.3 % (9.0-44.0); LYMPHOCYTE # 0.6 TH/MM3 (1.0-4.8); MEAN CELL VOLUME 89.9 FL (80.0-100.0); MEAN CORPUSCULAR HGB CONC 33.3 % (32.0-36.0); MEAN PLATELET VOLUME 9.1 FL (7.0-11.0); MONO % 7.1 % (0.0-8.0); MONOCYTE # 1.1 TH/MM3 (0-0.9); NEUT % 88.5 % (16.0-70.0); PLATELET COUNT 132 TH/MM3 (150-450); RED BLOOD COUNT 4.26 MIL/MM3 (4.50-5.90); RED CELL DISTRIBUTION WIDTH 13.5 % (11.6-17.2); WHITE BLOOD COUNT 15.1 TH/MM3 (4.0-11.0)
[2017-10-06 07:16] LABS: ALBUMIN 2.8 GM/DL (3.4-5.0); ALKALINE PHOSPHATASE 100 U/L (45-117); ALT (GPT) 13 U/L (12-78); AST (GOT) 11 U/L (15-37); BICARBONATE 23.9 MEQ/L (21.0-32.0); BLOOD UREA NITROGEN 23 MG/DL (7-18); CALCIUM 8.2 MG/DL (8.5-10.1); CHLORIDE 100 MEQ/L (98-107); CREATININE 1.12 MG/DL (0.60-1.30); GLOMERULAR FILTRATION RATE 79 ML/MIN (>89); GLUCOSE,RANDOM 334 MG/DL (74-106); SODIUM (NA) 134 MEQ/L (136-145); TOTAL BILIRUBIN ADULT 0.4 MG/DL (0.2-1.0); TOTAL PROTEIN 6.5 GM/DL (6.4-8.2)
[2017-10-06] MEDS: INSULIN NovoLIN REGULAR SUPPLEMENTAL SCALE SQ SCH ×4 (08:50→22:02)
[2017-10-06] MEDS: ASPIRIN EC 81 MG TABEC PO SCH (08:52)
[2017-10-06] MEDS: HEPARIN SODIUM - SQ 10,000 UNITS/ML VIAL SQ SCH ×2 (08:52→21:52)
[2017-10-06] MEDS: METOCLOPRAMIDE HCL 10 MG TAB PO SCH (08:52)
[2017-10-06] MEDS: SERTRALINE HCL 50 MG TAB PO SCH (08:52)
[2017-10-06] MEDS: PANTOPRAZOLE SOD 20 MG DELAYED RELEASE TAB PO SCH (08:52)
[2017-10-06] MEDS: INSULIN DETEMIR 100 UNITS/ML VIAL SQ SCH ×2 (08:53→21:53)
[2017-10-06] MEDS: predniSONE 20 MG TAB PO SCH (08:53)
[2017-10-06] MEDS: LISINOPRIL 10 MG TAB PO SCH (08:53)
[2017-10-06] MEDS: LIPASE/PROTEASE/AMYLASE (12,000/38,000/60,000) CAP PO SCH ×3 (08:53→17:51)
[2017-10-06] MEDS ORDERED: cefTRIAXone INJ 2,000 MG in SODIUM CHLORIDE 0.9% INJ 100 ML IV SCH (09:00)
[2017-10-06] MEDS: cefTRIAXone INJ 2,000 MG in SODIUM CHLORIDE 0.9% INJ 100 ML IV SCH (09:21)
[2017-10-06] MEDS: SODIUM CHLOR 0.9% 1000 ML INJ 1,000 ML IV SCH ×2 (12:29→22:45)
--- NOTE | 2017-10-06 12:58 | HHI.PR ---
Subjective Remarks less sputum production no nausea or vomiting afebrile, no chills Objective Vitals Vital Signs Date Time Temp Pulse Resp B/P (MAP) Pulse Ox O2 Delivery O2 Flow Rate FiO2 10/06/17 11:00 79 10/06/17 11:00 97.7 82 20 126/83 (97) 96 10/06/17 10:00 84 10/06/17 09:00 84 10/06/17 08:00 74 10/06/17 07:54 95 21 10/06/17 07:28 98.0 76 18 126/84 (98) 93 10/06/17 07:00 72 10/06/17 06:00 74 10/06/17 05:00 76 10/06/17 04:00 98.3 80 16 137/89 (105) 92 10/06/17 04:00 74 10/06/17 03:00 80 10/06/17 02:00 94 10/06/17 01:00 84 10/06/17 00:00 98.6 91 17 123/71 (88) 91 10/06/17 00:00 86 10/05/17 23:00 84 10/05/17 22:00 86 10/05/17 21:05 96 Nasal Cannula 2.00 10/05/17 21:00 92 10/05/17 20:00 101 10/05/17 20:00 98.1 86 16 133/81 (98) 97 10/05/17 19:00 82 10/05/17 18:00 84 10/05/17 17:00 82 10/05/17 16:00 86 10/05/17 15:00 84 10/05/17 15:00 97.7 97 22 132/83 (99) 96 10/05/17 14:00 97 10/05/17 13:00 104 I/O 10/05/17 10/05/17 10/05/17 10/06/17 10/06/17 10/06/17 07:00 15:00 23:00 07:00 15:00 23:00 Intake Total 1424 ml 680 ml Output Total 1300 ml 550 ml 625 ml Balance -1300 ml 874 ml 55 ml Intake Oral 1424 ml 680 ml Output Urine Total 1300 ml 550 ml 625 ml # Voids 4 Result Diagram: 10/06/17 0616 10/06/17 0616 Imaging Last Impressions Chest X-Ray 10/04/17 0753 Signed Impressions: CONCLUSION: No acute abnormality or significant interval change Lung Scan-VQ Nuclear Medicine 10/04/17 0000 Signed Impressions: CONCLUSION: 1. Low probability for PE. 2. Patchy uptake of tracer activity on the ventilation study suggestive of air space disease. Lower Extremity Ultrasound 10/04/17 0000 Signed Impressions: CONCLUSION: 1. No evidence of DVT. Objective Remarks awake and alert, no acute distress anicteric no nuchal rigidity lungs + rales left base, no wheezes on exam regular rhythm abdomen-soft good bowel sounds extremities no edema neuro exam- non focal A/P Problem List: (1) Sepsis ICD Code: A41.9 - Sepsis, unspecified organism Status: Acute Assessment and Plan 67 years old male Gram Positive Severe sepsis secondary to clinical Pneumonia- - started on Ceftriaxone 2 gm daily 10/05 - ID ff - repeat blood cultures to ensure clearance - no skin lesions/thorpe- no history of IVDU- admits to smoking cocaine - ff CBC- expect WBC to be high - on steroids Acute hypoxemic respiratory failure due to COPD exacerbation- improved clinically - heavy smoker in the past - lungs- no wheezes, + rales left base keep on oxygen to keep O2 sat >90%- continue with neb treatment; scheduled V/Q scan negative - change to po steroids- prednisone 20 mg po bid- taper off cotninue home inhalers - diabetes mellitus; uncontrolled- - expect to be high on steroids start on levemir - increase dose to bid - change to medium sliding scale Novolog -while here and accu-check with SSI. nd adjust- expect to be high on steroids( at home was on lantus bid) hypertension History of AICD - hold clonidine- continue lisinopril. Acute kidney injury on top CKD- - continue Fluids 75 cc/hr -ff creatinine- trending down History of chornic pancreatitis- on creon and reglan daily chronic pancreatitis/ chronic back pain; resume home meds. -DVT prophylaxis with subq heparin d/w patient - up and ambualting Problem Qualifiers (1) Sepsis: Qualified Codes: A41.9 - Sepsis, unspecified organism Abner Gonzales MD October 06, 2017 12:58
[2017-10-06] MEDS ORDERED: Vancomycin Consult Pharmacy 1 EA OTHER SCH (14:15)
[2017-10-06 17:18] LABS: HEMOGLOBIN A1C 11.7 % (4.3-6.0)
[2017-10-06] MEDS: VANCOMYCIN INJ 1,250 MG in SODIUM CHLOR 0.9% 250 ML INJ 250 ML IV SCH (17:52)
[2017-10-06] MEDS: predniSONE 10 MG TAB PO SCH (21:48)
[2017-10-06] MEDS: MELATONIN 5 MG TAB PO PRN (21:49)
[2017-10-07] VITALS (25 sets, daily range): BP systolic 134–154; BP diastolic 78–94; PULSE 63–90; RESP 16–30; TEMP 97.7–98.3; O2SAT 93–98
[2017-10-07] MEDS: RESP: ALBUTEROL 2.5 MG/IPRATROPIUM 0.5 MG NEB (SCH) NEB ×6 (03:18→23:59)
[2017-10-07] MEDS: VANCOMYCIN INJ 1,250 MG in SODIUM CHLOR 0.9% 250 ML INJ 250 ML IV SCH ×2 (05:00→17:36)
[2017-10-07] MEDS: INSULIN NovoLIN REGULAR SUPPLEMENTAL SCALE SQ SCH ×4 (08:00→20:24)
--- NOTE | 2017-10-07 08:00 | HHI.PR ---
Subjective Remarks states cough sputum less productive and loose complains of epigastric discomfort no nausea or vomiting Objective Vitals Vital Signs Date Time Temp Pulse Resp B/P (MAP) Pulse Ox O2 Delivery O2 Flow Rate FiO2 10/07/17 07:46 94 21 10/07/17 07:15 97.7 64 30 149/94 (112) 96 10/07/17 04:28 77 16 142/78 (99) 93 10/07/17 04:24 72 10/07/17 03:00 72 10/07/17 02:00 68 10/07/17 01:00 76 10/07/17 00:00 80 10/07/17 00:00 80 10/06/17 23:00 82 10/06/17 22:00 82 10/06/17 21:45 98.5 84 18 144/83 (103) 95 10/06/17 21:00 84 10/06/17 20:00 80 10/06/17 20:00 86 10/06/17 19:43 95 10/06/17 19:00 76 10/06/17 18:00 80 10/06/17 17:00 80 10/06/17 16:00 84 10/06/17 15:30 95 10/06/17 15:25 97.7 80 18 128/78 (95) 95 10/06/17 15:00 82 10/06/17 14:00 86 10/06/17 13:00 80 10/06/17 12:00 82 10/06/17 11:00 79 10/06/17 11:00 97.7 82 20 126/83 (97) 96 10/06/17 10:00 84 10/06/17 09:00 84 10/06/17 08:00 74 I/O 10/06/17 10/06/17 10/06/17 10/07/17 10/07/17 10/07/17 07:00 15:00 23:00 07:00 15:00 23:00 Intake Total 680 ml 680 ml 240 ml Output Total 625 ml 1360 ml 875 ml Balance 55 ml -680 ml -635 ml Intake Oral 680 ml 680 ml 240 ml Output Urine Total 625 ml 1360 ml 875 ml Result Diagram: 10/06/17 0616 10/06/17 0616 Imaging Last Impressions Chest X-Ray 10/04/17 0753 Signed Impressions: CONCLUSION: No acute abnormality or significant interval change Lung Scan-VQ Nuclear Medicine 10/04/17 0000 Signed Impressions: CONCLUSION: 1. Low probability for PE. 2. Patchy uptake of tracer activity on the ventilation study suggestive of air space disease. Lower Extremity Ultrasound 10/04/17 0000 Signed Impressions: CONCLUSION: 1. No evidence of DVT. Objective Remarks awake and alert, no acute distress anicteric no nuchal rigidity lungs + rales left base, no wheezes on exam, regular rhythm abdomen-soft good bowel sounds, + mild epigastric tenderness extremities no edema neuro exam- non focal A/P Problem List: (1) Sepsis ICD Code: A41.9 - Sepsis, unspecified organism Status: Acute Assessment and Plan 67 years old male Group B strep sepsis secondary to clinical Pneumonia-- sputum MRSA - started on Ceftriaxone 2 gm daily 10/05 - Vancomycin added 10/06 - ID ff - repeat blood cultures - ff - no skin lesions/thorpe- no history of IVDU- admits to smoking cocaine - ff CBC- expect WBC to be high - on steroids Acute hypoxemic respiratory failure due to COPD exacerbation- improved clinically - heavy smoker in the past - lungs- no wheezes, + rales left base keep on oxygen to keep O2 sat >90%- continue with neb treatment; scheduled V/Q scan negative - change to po steroids- prednisone 20 mg po bid- taper off - continue home inhalers - diabetes mellitus; uncontrolled-a1C 11.7 - expect to be high on steroids start on levemir - increase dose to bid 20 - medium sliding scale Novolog -while here and accu-check with SSI. nd adjust- expect to be high on steroids( at home was on lantus bid) - continue to adjust hypertension History of AICD -continue lisinopril- increase to 20 mg daily. some elevated readings- - clonidine prn Acute kidney injury on top CKD- - continue Fluids 75 cc/hr -ff creatinine- trending down History of chronic pancreatitis- now with epigastric discopmfort- check lipase on creon and reglan daily chronic back pain; resume home meds. -DVT prophylaxis with subq heparin d/w patient - up and increase activity Problem Qualifiers (1) Sepsis: Qualified Codes: A41.9 - Sepsis, unspecified organism Abner Gonzales MD October 07, 2017 08:00
[2017-10-07] MEDS ORDERED: cloNIDine HCL 0.1 MG TAB PO PRN (08:15)
[2017-10-07] MEDS: LIPASE/PROTEASE/AMYLASE (12,000/38,000/60,000) CAP PO SCH ×3 (09:55→17:34)
[2017-10-07] MEDS: predniSONE 10 MG TAB PO SCH ×2 (09:55→20:12)
[2017-10-07] MEDS: SERTRALINE HCL 50 MG TAB PO SCH (09:55)
[2017-10-07] MEDS: HEPARIN SODIUM - SQ 10,000 UNITS/ML VIAL SQ SCH ×2 (09:56→20:12)
[2017-10-07] MEDS: cefTRIAXone INJ 2,000 MG in SODIUM CHLORIDE 0.9% INJ 100 ML IV SCH (09:57)
[2017-10-07] MEDS: ASPIRIN EC 81 MG TABEC PO SCH (09:57)
[2017-10-07] MEDS: METOCLOPRAMIDE HCL 10 MG TAB PO SCH (09:57)
[2017-10-07] MEDS: INSULIN DETEMIR 100 UNITS/ML VIAL SQ SCH ×2 (09:57→20:12)
[2017-10-07] MEDS: LISINOPRIL 20 MG TAB PO SCH (09:58)
[2017-10-07] MEDS: PANTOPRAZOLE SOD 20 MG DELAYED RELEASE TAB PO SCH (09:58)
[2017-10-07 12:31] LABS: AUTOMATED NEUTROPHIL # 6.9 TH/MM3 (1.8-7.7); BASOPHIL % 0.2 % (0.0-2.0); EOSINOPHIL # 0.1 TH/MM3 (0-0.4); EOSINOPHIL % 0.8 % (0.0-4.0); HEMOGLOBIN 13.1 GM/DL (13.0-17.0); LYMPH % 14.6 % (9.0-44.0); LYMPHOCYTE # 1.3 TH/MM3 (1.0-4.8); MEAN CELL VOLUME 90.1 FL (80.0-100.0); MEAN CORPUSCULAR HEMOGLOBIN 29.4 PG (27.0-34.0); MEAN CORPUSCULAR HGB CONC 32.7 % (32.0-36.0); MEAN PLATELET VOLUME 9.1 FL (7.0-11.0); MONO % 9.4 % (0.0-8.0); MONOCYTE # 0.9 TH/MM3 (0-0.9); PLATELET COUNT 155 TH/MM3 (150-450); RED BLOOD COUNT 4.44 MIL/MM3 (4.50-5.90); RED CELL DISTRIBUTION WIDTH 13.6 % (11.6-17.2); WHITE BLOOD COUNT 9.2 TH/MM3 (4.0-11.0)
[2017-10-07 12:53] LABS: BICARBONATE 23.6 MEQ/L (21.0-32.0); CALCIUM 8.1 MG/DL (8.5-10.1); CREATININE 1.01 MG/DL (0.60-1.30)
[2017-10-07] MEDS: TIOTROPIUM BROMIDE 18 MCG INH INH SCH (13:47)
[2017-10-07] MEDS: SODIUM CHLOR 0.9% 1000 ML INJ 1,000 ML IV SCH ×2 (13:51→17:35)
[2017-10-07] MEDS ORDERED: PHARMACY ORDERED LAB ONE (17:45)
[2017-10-08] VITALS (25 sets, daily range): BP systolic 129–161; BP diastolic 79–97; PULSE 60–82; RESP 20–24; TEMP 96.9–98.4; O2SAT 95–99
[2017-10-08] MEDS: MELATONIN 5 MG TAB PO PRN ×2 (01:35→20:13)
[2017-10-08] MEDS: guaiFENesin SOLUTION 200 MG/10 ML CUP PO PRN ×3 (01:36→20:29)
[2017-10-08] MEDS: LORazepam 0.5 MG TAB PO PRN ×2 (01:36→20:13)
[2017-10-08] MEDS: RESP: ALBUTEROL 2.5 MG/IPRATROPIUM 0.5 MG NEB (SCH) NEB ×3 (03:42→11:40)
[2017-10-08] MEDS ORDERED: PHARMACY ORDERED LAB ONE (04:45)
[2017-10-08] MEDS: VANCOMYCIN INJ 1,250 MG in SODIUM CHLOR 0.9% 250 ML INJ 250 ML IV SCH ×2 (05:33→17:26)
[2017-10-08] MEDS: INSULIN NovoLIN REGULAR SUPPLEMENTAL SCALE SQ SCH ×4 (08:00→20:29)
[2017-10-08] MEDS: INSULIN DETEMIR 100 UNITS/ML VIAL SQ SCH ×2 (10:30→20:28)
[2017-10-08] MEDS: HEPARIN SODIUM - SQ 10,000 UNITS/ML VIAL SQ SCH ×2 (10:32→20:13)
[2017-10-08] MEDS: PANTOPRAZOLE SOD 20 MG DELAYED RELEASE TAB PO SCH (10:33)
[2017-10-08] MEDS: LIPASE/PROTEASE/AMYLASE (12,000/38,000/60,000) CAP PO SCH ×3 (10:33→17:26)
[2017-10-08] MEDS: SERTRALINE HCL 50 MG TAB PO SCH (10:34)
[2017-10-08] MEDS: METOCLOPRAMIDE HCL 10 MG TAB PO SCH (10:34)
[2017-10-08] MEDS: ASPIRIN EC 81 MG TABEC PO SCH (10:34)
[2017-10-08] MEDS: LISINOPRIL 20 MG TAB PO SCH (10:34)
[2017-10-08] MEDS: predniSONE 10 MG TAB PO SCH (10:34)
[2017-10-08] MEDS: TIOTROPIUM BROMIDE 18 MCG INH INH SCH (10:35)
--- NOTE | 2017-10-08 11:13 | HHI.PR ---
Subjective Remarks patient bringing up thick sputum greenish breathing better no diarrhea Objective Vitals Vital Signs Date Time Temp Pulse Resp B/P (MAP) Pulse Ox O2 Delivery O2 Flow Rate FiO2 10/08/17 06:00 63 10/08/17 05:00 66 10/08/17 04:00 72 10/08/17 04:00 98.2 72 22 141/79 (99) 95 10/08/17 03:00 69 10/08/17 02:00 71 10/08/17 01:00 68 10/08/17 00:00 Room Air 10/08/17 00:00 74 10/08/17 00:00 98.4 70 22 147/88 (107) 95 10/07/17 23:00 63 10/07/17 22:00 68 10/07/17 21:00 79 10/07/17 20:58 95 21 10/07/17 20:00 98.3 77 20 154/91 (112) 96 10/07/17 20:00 72 10/07/17 18:00 90 10/07/17 17:00 82 10/07/17 16:00 64 10/07/17 15:00 97.7 64 24 143/89 (107) 98 10/07/17 15:00 82 10/07/17 14:00 76 10/07/17 13:00 76 10/07/17 12:00 72 I/O 10/07/17 10/07/17 10/07/17 10/08/17 10/08/17 10/08/17 07:00 15:00 23:00 07:00 15:00 23:00 Intake Total 240 ml 740 ml 480 ml Output Total 875 ml 880 ml 900 ml Balance -635 ml -140 ml -420 ml Intake Oral 240 ml 740 ml 480 ml Output Urine Total 875 ml 880 ml 900 ml # Bowel Movements 1 Result Diagram: 10/07/17 1210 10/07/17 1210 Imaging Last Impressions Chest X-Ray 10/04/17 8723 Signed Impressions: CONCLUSION: No acute abnormality or significant interval change Lung Scan-VQ Nuclear Medicine 10/04/17 0000 Signed Impressions: CONCLUSION: 1. Low probability for PE. 2. Patchy uptake of tracer activity on the ventilation study suggestive of air space disease. Lower Extremity Ultrasound 10/04/17 0000 Signed Impressions: CONCLUSION: 1. No evidence of DVT. Objective Remarks awake and alert, no acute distress anicteric no nuchal rigidity lungs + rales left base- improved , no wheezes on exam, no rhonchi regular rhythm abdomen-soft good bowel sounds, nontender extremities no edema neuro exam- non focal A/P Problem List: (1) Sepsis ICD Code: A41.9 - Sepsis, unspecified organism Status: Acute Assessment and Plan 67 years old male Group B strept sepsis secondary to clinical Pneumonia-- sputum MRSA - started on Ceftriaxone 2 gm daily 10/05 - Vancomycin added 10/06 - ID ff - repeat blood cultures - negative so far- ff - no skin lesions/thorpe- no history of IVDU- admits to smoking cocaine - ff CBC- expect WBC to be high - on steroids Acute hypoxemic respiratory failure due to COPD exacerbation- improved clinically - heavy smoker in the past - lungs- no wheezes, + rales left base keep on oxygen to keep O2 sat >90%- continue with neb treatment; scheduled V/Q scan negative - change to po steroids- prednisone 20 mg po bid- taper off - decreasd to once daily tstarting today 10/08 - continue home inhalers - diabetes mellitus; uncontrolled-a1C 11.7 - expect to be high on steroids start on levemir - increase dose to bid 20 - medium sliding scale Novolog -while here and accu-check with SSI. nd adjust- expect to be high on steroids( at home was on lantus bid) - continue to adjust hypertension History of AICD - continue lisinopril- increase to 20 mg daily. some elevated readings- Clonidine prn Acute kidney injury on top CKD- Improved - continue Fluids 75 cc/hr- DC -ff creatinine- improved- will monitor off fluids- patient states good po intake History of chronic pancreatitis- on creon and reglan daily chronic back pain; resume home meds. -DVT prophylaxis with subq heparin d/w patient - up and increase activity Problem Qualifiers (1) Sepsis: Qualified Codes: A41.9 - Sepsis, unspecified organism Abner Gonzales MD October 08, 2017 11:13
--- NOTE | 2017-10-08 11:21 | HHI.IDPN ---
Subjective Subjective Remarks pt has no fever no c/o 2 D echo results are P Antibiotics CFTX vanco Allergies: Coded Allergies: No Known Drug Allergies (Verified Allergy, Unknown, 10/04/17) MRI PRECAUTION (Verified Adverse Reaction, Severe, PACEMAKER, 10/04/17) PT HAS PACEMAKER PER NURSE JAYLENE/HEMANT *[facility] Multi-Drug Resistant Organism (Verified Adverse Reaction, Unknown, Cleared - 10/07/15, 10/04/17) MRSA PCR (nares) negative - 10/04/15 & 10/07/15 Cleared per Infection Control MRSA (blood and urine) - 06/2012 Objective . Vital Signs Date Time Temp Pulse Resp B/P (MAP) Pulse Ox O2 Delivery O2 Flow Rate FiO2 10/08/17 06:00 63 10/08/17 05:00 66 10/08/17 04:00 72 10/08/17 04:00 98.2 72 22 141/79 (99) 95 10/08/17 03:00 69 10/08/17 02:00 71 10/08/17 01:00 68 10/08/17 00:00 Room Air 10/08/17 00:00 74 10/08/17 00:00 98.4 70 22 147/88 (107) 95 10/07/17 23:00 63 10/07/17 22:00 68 10/07/17 21:00 79 10/07/17 20:58 95 21 10/07/17 20:00 98.3 77 20 154/91 (112) 96 10/07/17 20:00 72 10/07/17 18:00 90 10/07/17 17:00 82 10/07/17 16:00 64 10/07/17 15:00 97.7 64 24 143/89 (107) 98 10/07/17 15:00 82 10/07/17 14:00 76 10/07/17 13:00 76 10/07/17 12:00 72 10/07/17 11:00 86 10/07/17 11:00 90 10/07/17 11:00 97.7 76 22 134/83 (100) 96 . Laboratory Tests Test 10/07/17 12:10 White Blood Count 9.2 TH/MM3 Red Blood Count 4.44 MIL/MM3 Hemoglobin 13.1 GM/DL Hematocrit 40.0 % Mean Corpuscular Volume 90.1 FL Mean Corpuscular Hemoglobin 29.4 PG Mean Corpuscular Hemoglobin Concent 32.7 % Red Cell Distribution Width 13.6 % Platelet Count 155 TH/MM3 Mean Platelet Volume 9.1 FL Neutrophils (%) (Auto) 75.0 % Lymphocytes (%) (Auto) 14.6 % Monocytes (%) (Auto) 9.4 % Eosinophils (%) (Auto) 0.8 % Basophils (%) (Auto) 0.2 % Neutrophils # (Auto) 6.9 TH/MM3 Lymphocytes # (Auto) 1.3 TH/MM3 Monocytes # (Auto) 0.9 TH/MM3 Eosinophils # (Auto) 0.1 TH/MM3 Basophils # (Auto) 0.0 TH/MM3 CBC Comment DIFF FINAL Differential Comment Laboratory Tests Test 10/07/17 12:10 Blood Urea Nitrogen 16 MG/DL Creatinine 1.01 MG/DL Random Glucose 273 MG/DL Calcium Level 8.1 MG/DL Sodium Level 135 MEQ/L Potassium Level 3.8 MEQ/L Chloride Level 101 MEQ/L Carbon Dioxide Level 23.6 MEQ/L Anion Gap 10 MEQ/L Estimat Glomerular Filtration Rate 89 ML/MIN Lipase 137 U/L Microbiology Date/Time Source Procedure Growth Status 10/06/17 07:10 Blood Peripheral Aerobic Blood Culture - Preliminary NO GROWTH IN 1 DAY Resulted 10/06/17 07:10 Blood Peripheral Anaerobic Blood Culture - Preliminary NO GROWTH IN 1 DAY Resulted 10/06/17 06:16 Blood Peripheral Aerobic Blood Culture - Preliminary NO GROWTH IN 1 DAY Resulted 10/06/17 06:16 Blood Peripheral Anaerobic Blood Culture - Preliminary NO GROWTH IN 1 DAY Resulted 10/05/17 11:00 Sputum Expectorated Sputum Gram Stain - Final Complete 10/05/17 11:00 Sputum Culture - Final S. Aureus Mrsa Complete Imaging Last Impressions Chest X-Ray 10/04/17 0753 Signed Impressions: CONCLUSION: No acute abnormality or significant interval change Lung Scan-VQ Nuclear Medicine 10/04/17 0000 Signed Impressions: CONCLUSION: 1. Low probability for PE. 2. Patchy uptake of tracer activity on the ventilation study suggestive of air space disease. Lower Extremity Ultrasound 10/04/17 0000 Signed Impressions: CONCLUSION: 1. No evidence of DVT. Physical Exam CONSTITUTIONAL/GENERAL: This is an adequately nourished patient, in no apparent distress. TUBES/LINES/DRAINS: SKIN: No jaundice, rashes, or lesions. Skin temperature appropriate. Not diaphoretic. CARDIOVASCULAR: Regular rate and rhythm without murmurs, gallops, or rubs. No JVD. Peripheral pulses symmetric. Pacer in place L chest RESPIRATORY/CHEST: Symmetric, unlabored respirations. Clear to auscultation. Breath sounds equal bilaterally. No wheezes, rales, or rhonchi. GASTROINTESTINAL: Abdomen soft, non-tender, nondistended. No hepato-splenomegaly , or palpable masses. No guarding. Bowel sounds present. MUSCULOSKELETAL: Extremities without clubbing, cyanosis, or edema. No joint tenderness or effusion noted. No calf tenderness. No mottling or clubbing. NEUROLOGICAL: Awake and alert. Motor and sensory grossly within normal limits. Follows commands. Clear speech Moves all extremities. PSYCHIATRIC: No obvious anxiety/depression. no apparent hallucinations or other psychotic thought process. Assessment & Plan Remarks HIgh grade GBS sepsis in the settings of pacemaker r/o pacer infection ? PNA - CXR likely to reflect IPF - MRSA in sputum - / colonised cont CFTX 2 gm daily cont vancomycin repeat BC awaiting [address] [facility] [address] chest cardiology consult - Cecilia Bonilla MD October 08, 2017 11:21
[2017-10-08] MEDS: cefTRIAXone INJ 2,000 MG in SODIUM CHLORIDE 0.9% INJ 100 ML IV SCH (11:57)
[2017-10-08] MEDS: RESP: ALBUTEROL 1.25 MG/3 ML NEB (PRN) NEB ×2 (16:36→21:16)
--- NOTE | 2017-10-08 23:40 | RADRPT ---
EXAM DATE: 10/08/2017 11:30 PM EDT AGE/SEX: 67 years / Male INDICATIONS: Evaluate for pneumonia. CLINICAL DATA: This is the patient's initial encounter. Patient reports that signs and symptoms have been present for 1 day and indicates a pain score of 0/10. MEDICAL/SURGICAL HISTORY: Cardiovascular disease. Pancreatitis. Renal failure, chronic. Diabetes Cholecystectomy. RADIATION DOSE: 8.19 CTDI (mGy) COMPARISON: [facility], CT CHEST W/O CONTRAST, 01/26/2017. . TECHNIQUE: Multiple contiguous axial images were obtained through the chest without contrast. Image s were obtained in suspended respiration using multiple row detector helical technique. Using automa jose exposure control and adjustment of the mA and/or kV according to patient size, radiation dose was kept as low as reasonably achievable to obtain optimal diagnostic quality images. FINDINGS: Mild chronic emphysema and interstitial changes are again noted. There is mild bibasilar consolidatio n and very small bilateral pleural effusions. No evidence of a pneumonic infiltrate. The 1 cm nodule in the right middle lobe is unchanged. Scattered calcified pleural plaques are unchanged. Prominent caliber thoracic aorta with the descending portion measuring approximately 4.1 cm. This is stable. No abrupt caliber changes are demonstrated. Atherosclerosis again noted. There is mild bivent ricular enlargement of the heart. Patient has a cardiac pacer. No acute bony abnormality demonstrated. CONCLUSION: 1. Trace compressive/dependent atelectasis of both bases and tiny bilateral pleural effusions. A sli ght degree of failure is conceivable. No pneumonic infiltrate demonstrated. 2. Mild emphysema and mild chronic interstitial changes are again noted. Stable, benign nodule in th e right mid lung. 3. Stable diffuse prominent caliber of the thoracic aorta up to 4.1 cm. Electronically signed by: Lester Weiss MD 10/08/2017 11:39 PM EDT
[2017-10-09] VITALS (24 sets, daily range): BP systolic 138–159; BP diastolic 83–96; PULSE 60–87; RESP 18–26; TEMP 97.6–98.7; O2SAT 95–97
[2017-10-09] MEDS: VANCOMYCIN INJ 1,250 MG in SODIUM CHLOR 0.9% 250 ML INJ 250 ML IV SCH ×2 (04:42→18:11)
[2017-10-09] MEDS: LIPASE/PROTEASE/AMYLASE (12,000/38,000/60,000) CAP PO SCH ×3 (10:26→18:12)
[2017-10-09] MEDS: cefTRIAXone INJ 2,000 MG in SODIUM CHLORIDE 0.9% INJ 100 ML IV SCH (10:26)
[2017-10-09] MEDS: ASPIRIN EC 81 MG TABEC PO SCH (10:27)
[2017-10-09] MEDS: SERTRALINE HCL 50 MG TAB PO SCH (10:27)
[2017-10-09] MEDS: LISINOPRIL 20 MG TAB PO SCH ×2 (10:27→20:15)
[2017-10-09] MEDS: PANTOPRAZOLE SOD 20 MG DELAYED RELEASE TAB PO SCH (10:27)
[2017-10-09] MEDS: HEPARIN SODIUM - SQ 10,000 UNITS/ML VIAL SQ SCH ×2 (10:28→20:16)
[2017-10-09] MEDS: TIOTROPIUM BROMIDE 18 MCG INH INH SCH (10:28)
[2017-10-09] MEDS: predniSONE 10 MG TAB PO SCH (10:29)
[2017-10-09] MEDS: METOCLOPRAMIDE HCL 10 MG TAB PO SCH (10:29)
--- NOTE | 2017-10-09 10:29 | HHI.PR ---
Subjective Remarks no complains of pain, shortness of breath, chest pain/abdominal pain Had a good BM last evening BS better- 180, 190 Objective Vitals Vital Signs Date Time Temp Pulse Resp B/P (MAP) Pulse Ox O2 Delivery O2 Flow Rate FiO2 10/09/17 08:25 97.7 79 24 151/96 (114) 95 10/09/17 06:00 69 10/09/17 05:00 65 10/09/17 04:00 98.7 66 18 159/94 (115) 97 10/09/17 04:00 Nasal Cannula 2.00 10/09/17 04:00 66 10/09/17 03:00 69 10/09/17 02:00 70 10/09/17 01:00 71 10/09/17 00:00 65 10/09/17 00:00 Nasal Cannula 2.00 10/09/17 00:00 98.3 65 20 138/95 (109) 97 10/08/17 23:00 68 10/08/17 22:00 67 10/08/17 21:22 99 21 10/08/17 21:00 73 10/08/17 20:00 70 10/08/17 20:00 98.0 70 22 145/93 (110) 96 10/08/17 20:00 Nasal Cannula 2.00 10/08/17 18:00 76 10/08/17 17:00 76 10/08/17 16:00 97.7 60 24 139/83 (101) 96 10/08/17 16:00 60 10/08/17 15:00 64 10/08/17 14:00 74 10/08/17 13:00 82 10/08/17 12:00 76 10/08/17 12:00 96.9 76 24 129/87 (101) 96 10/08/17 11:15 95 10/08/17 11:00 60 I/O 10/08/17 10/08/17 10/08/17 10/09/17 10/09/17 10/09/17 07:00 15:00 23:00 07:00 15:00 23:00 Intake Total 480 ml 600 ml 480 ml Output Total 900 ml 750 ml 800 ml Balance -420 ml -150 ml -320 ml Intake Oral 480 ml 600 ml 480 ml Output Urine Total 900 ml 750 ml 800 ml # Bowel Movements 1 0 0 Result Diagram: 10/07/17 1210 10/07/17 1210 Imaging Last Impressions Chest CT 10/08/17 0000 Signed Impressions: CONCLUSION: 1. Trace compressive/dependent atelectasis of both bases and tiny bilateral pl eural effusions. A slight degree of failure is conceivable. No pneumonic infilt rate demonstrated. 2. Mild emphysema and mild chronic interstitial changes are again noted. Stabl e, benign nodule in the right mid lung. 3. Stable diffuse prominent caliber of the thoracic aorta up to 4.1 cm. Chest X-Ray 10/04/17 0753 Signed Impressions: CONCLUSION: No acute abnormality or significant interval change Lung Scan-VQ Nuclear Medicine 10/04/17 0000 Signed Impressions: CONCLUSION: 1. Low probability for PE. 2. Patchy uptake of tracer activity on the ventilation study suggestive of air space disease. Lower Extremity Ultrasound 10/04/17 0000 Signed Impressions: CONCLUSION: 1. No evidence of DVT. Objective Remarks awake and alert, no acute distress anicteric no nuchal rigidity lungs no rales , no wheezes on exam, no rhonchi regular rhythm abdomen-soft good bowel sounds, nontender extremities no edema neuro exam- non focal A/P Problem List: (1) Sepsis ICD Code: A41.9 - Sepsis, unspecified organism Status: Acute Assessment and Plan 67 years old male Group B strep sepsis secondary to clinical Pneumonia-- sputum MRSA - started on Ceftriaxone 2 gm daily 10/05 - Vancomycin added 10/06 - ID ff - repeat blood cultures - negative so far- ff - no skin lesions/thorpe- denies history of IVDU- admits to smoking cocaine - ff CBC- expect WBC to be high - on steroids echo pending - may need ANNALISE Acute hypoxemic respiratory failure due to COPD exacerbation- improved clinically - heavy smoker in the past - lungs- no wheezes, + rales left base keep on oxygen to keep O2 sat >90%- continue with neb treatment; scheduled V/Q scan negative - change to po steroids- prednisone 20 mg po bid- taper off - decreased to once daily starting today 10/08 - continue home inhalers - diabetes mellitus; uncontrolled-a1C 11.7 - expect to be high on steroids start on levemir - increase dose to bid 20 - medium sliding scale Novolog -while here and accu-check with SSI. nd adjust- expect to be high on steroids( at home was on lantus bid) - continue to adjust hypertension History of AICD - continue lisinopril- increase to 20 mg daily. Increae to 20 mg po bid (now states he was on 40 mg po bid) Clonidine prn Acute kidney injury on top CKD- Improved - off IVF -ff creatinine- improved- will monitor off fluids- patient states good po intake History of chronic pancreatitis- on creon and reglan daily chronic back pain; resume home meds. -DVT prophylaxis with subq heparin d/w patient - up and increase activity Problem Qualifiers (1) Sepsis: Qualified Codes: A41.9 - Sepsis, unspecified organism Abner Gonzales MD October 09, 2017 10:29
[2017-10-09] MEDS: INSULIN DETEMIR 100 UNITS/ML VIAL SQ SCH ×2 (10:30→20:16)
[2017-10-09] MEDS: INSULIN NovoLIN REGULAR SUPPLEMENTAL SCALE SQ SCH ×4 (11:36→20:17)
--- NOTE | 2017-10-09 17:53 | ECHRPT ---
Indication: Bacteremia CONCLUSIONS Normal left ventricular size. Mild concentric left ventricular hypertrophy. The left ventricular systolic function is mildly reduced with an estimated ejection fraction in the range of 45- 50%. A pacemaker wire is noted. There is a pacemaker wire present in the right atrial cavity. [id number] mitral valve regurgitation. There is moderate to severe tricuspid valve regurgitation. The estimated pulmonary arterial pressure is 52.8 mmHg. Mild pulmonary valve regurgitation. BP: / HR: 61 Rhythm: Sinus MEASUREMENTS (Male / Female) Normal Values Technical Quality:Fair 2D ECHO LV Diastolic Diameter PLAX 4.8 cm 4.2 - 5.9 / 3.9 - 5.3 cm LV Systolic Diameter PLAX 4.0 cm IVS Diastolic Thickness 1.2 cm 0.6 - 1.0 / 0.6 - 0.9 cm LVPW Diastolic Thickness 0.8 cm 0.6 - 1.0 / 0.6 - 0.9 cm LV Relative Wall Thickness 0.4 RV Internal Dim ED PLAX 3.0 cm LA Systolic Diameter LX 2.8 cm 3.0 - 4.0 / 2.7 - 3.8 cm DOPPLER TR Peak Velocity 327.0 cm/s TR Peak Gradient 42.8 mmHg Right Atrial Pressure 10.0 mmHg Pulmonary Artery Systolic Pressu 52.8 mmHg Right Ventricular Systolic Press 52.8 mmHg FINDINGS LEFT VENTRICLE Normal left ventricular size. Mild concentric left ventricular hypertrophy. The left ventricular systolic function is mildly reduced with an estimated ejection fraction in the range of 45- 50%. RIGHT VENTRICLE A pacemaker wire is noted. RIGHT ATRIUM There is a pacemaker wire present in the right atrial cavity. MITRAL VALVE [id number] mitral valve regurgitation. AORTIC VALVE Trileaflet aortic valve. No aortic valve stenosis or regurgitation. TRICUSPID VALVE Structurally normal tricuspid valve. There is moderate to severe tricuspid valve regurgitation. The estimated pulmonary arterial pressure is 52.8 mmHg. PULMONARY VALVE Mild pulmonary valve regurgitation. Jan Herrera MD, FACC (Electronically Signed) Final Date:09 Oct 2017 17:52
[2017-10-09] MEDS: MELATONIN 5 MG TAB PO PRN (20:15)
[2017-10-09 20:27] LABS: BICARBONATE 28.7 MEQ/L (21.0-32.0); CALCIUM 9.2 MG/DL (8.5-10.1); CREATININE 1.24 MG/DL (0.60-1.30)
[2017-10-09] MEDS: guaiFENesin SOLUTION 200 MG/10 ML CUP PO PRN (20:27)
[2017-10-10] VITALS (28 sets, daily range): BP systolic 110–144; BP diastolic 72–96; PULSE 60–98; RESP 16–20; TEMP 98–98.7; O2SAT 96–98
[2017-10-10] MEDS: VANCOMYCIN INJ 1,250 MG in SODIUM CHLOR 0.9% 250 ML INJ 250 ML IV SCH (05:05)
[2017-10-10] MEDS: INSULIN NovoLIN REGULAR SUPPLEMENTAL SCALE SQ SCH ×4 (08:00→21:12)
[2017-10-10] MEDS: PANTOPRAZOLE SOD 20 MG DELAYED RELEASE TAB PO SCH (08:34)
[2017-10-10] MEDS: LIPASE/PROTEASE/AMYLASE (12,000/38,000/60,000) CAP PO SCH ×3 (08:34→18:29)
[2017-10-10] MEDS: predniSONE 10 MG TAB PO SCH (08:34)
[2017-10-10] MEDS: ASPIRIN EC 81 MG TABEC PO SCH (08:34)
[2017-10-10] MEDS: SERTRALINE HCL 50 MG TAB PO SCH (08:35)
[2017-10-10] MEDS: SODIUM POLYSTYRENE SULFONATE SUSP 15 GM/60 ML CUP PO SCH ×2 (08:35→11:32)
[2017-10-10] MEDS: METOCLOPRAMIDE HCL 10 MG TAB PO SCH (08:36)
[2017-10-10] MEDS: HEPARIN SODIUM - SQ 10,000 UNITS/ML VIAL SQ SCH ×2 (08:36→21:13)
[2017-10-10] MEDS: TIOTROPIUM BROMIDE 18 MCG INH INH SCH (08:36)
[2017-10-10] MEDS: LISINOPRIL 20 MG TAB PO SCH (09:00)
[2017-10-10] MEDS: INSULIN DETEMIR 100 UNITS/ML VIAL SQ SCH ×2 (09:00→21:12)
[2017-10-10] MEDS: cefTRIAXone INJ 2,000 MG in SODIUM CHLORIDE 0.9% INJ 100 ML IV SCH (11:32)
--- NOTE | 2017-10-10 15:15 | HHI.IDPN ---
Subjective Subjective Remarks pt has no fever c/o R pleuritic CP CT w/o e/o PNA 2 D echo results w/o e/o endocarditis Antibiotics CFTX Allergies: Coded Allergies: No Known Drug Allergies (Verified Allergy, Unknown, 10/04/17) MRI PRECAUTION (Verified Adverse Reaction, Severe, PACEMAKER, 10/04/17) PT HAS PACEMAKER PER NURSE JAYLENE/HEMANT *[facility] Multi-Drug Resistant Organism (Verified Adverse Reaction, Unknown, Cleared - 10/07/15, 10/04/17) MRSA PCR (nares) negative - 10/04/15 & 10/07/15 Cleared per Infection Control MRSA (blood and urine) - 06/2012 Objective . Vital Signs Date Time Temp Pulse Resp B/P (MAP) Pulse Ox O2 Delivery O2 Flow Rate FiO2 10/10/17 10:00 18 10/10/17 06:00 62 10/10/17 05:00 66 10/10/17 04:00 63 10/10/17 03:52 Room Air 10/10/17 03:52 98.4 66 18 122/81 (95) 96 10/10/17 03:00 64 10/10/17 02:00 61 10/10/17 01:00 60 10/10/17 00:00 98.2 65 18 144/96 (112) 98 10/10/17 00:00 65 10/10/17 00:00 Room Air 10/09/17 23:00 63 10/09/17 22:00 69 10/09/17 21:00 76 10/09/17 20:00 80 10/09/17 20:00 98.6 80 18 140/83 (102) 97 10/09/17 20:00 Room Air 10/09/17 18:00 86 10/09/17 17:00 76 10/09/17 16:00 84 . Laboratory Tests Test 10/09/17 19:36 Blood Urea Nitrogen 18 MG/DL Creatinine 1.24 MG/DL Random Glucose 252 MG/DL Calcium Level 9.2 MG/DL Sodium Level 130 MEQ/L Potassium Level 5.8 MEQ/L Chloride Level 95 MEQ/L Carbon Dioxide Level 28.7 MEQ/L Anion Gap 6 MEQ/L Estimat Glomerular Filtration Rate 70 ML/MIN Imaging Last Impressions Chest CT 10/08/17 0000 Signed Impressions: CONCLUSION: 1. Trace compressive/dependent atelectasis of both bases and tiny bilateral pl eural effusions. A slight degree of failure is conceivable. No pneumonic infilt rate demonstrated. 2. Mild emphysema and mild chronic interstitial changes are again noted. Stabl e, benign nodule in the right mid lung. 3. Stable diffuse prominent caliber of the thoracic aorta up to 4.1 cm. Chest X-Ray 10/04/17 0753 Signed Impressions: CONCLUSION: No acute abnormality or significant interval change Lung Scan-VQ Nuclear Medicine 10/04/17 0000 Signed Impressions: CONCLUSION: 1. Low probability for PE. 2. Patchy uptake of tracer activity on the ventilation study suggestive of air space disease. Lower Extremity Ultrasound 10/04/17 0000 Signed Impressions: CONCLUSION: 1. No evidence of DVT. Physical Exam CONSTITUTIONAL/GENERAL: This is an adequately nourished patient, in no apparent distress. TUBES/LINES/DRAINS: SKIN: No jaundice, rashes, or lesions. Skin temperature appropriate. Not diaphoretic. CARDIOVASCULAR: Regular rate and rhythm without murmurs, gallops, or rubs. No JVD. Peripheral pulses symmetric. Pacer in place L chest RESPIRATORY/CHEST: Symmetric, unlabored respirations. Clear to auscultation. Breath sounds equal bilaterally. No wheezes, rales, or rhonchi. GASTROINTESTINAL: Abdomen soft, non-tender, nondistended. No hepato-splenomegaly , or palpable masses. No guarding. Bowel sounds present. MUSCULOSKELETAL: Extremities without clubbing, cyanosis, or edema. No joint tenderness or effusion noted. No calf tenderness. No mottling or clubbing. NEUROLOGICAL: Awake and alert. Motor and sensory grossly within normal limits. Follows commands. Clear speech Moves all extremities. PSYCHIATRIC: No obvious anxiety/depression. no apparent hallucinations or other psychotic thought process. 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
--- NOTE | 2017-10-10 16:29 | HHI.PR ---
Subjective Remarks afebrile minimal cough, no shortness of breath no abdominal pain/chest pain complains Objective Vitals Vital Signs Date Time Temp Pulse Resp B/P (MAP) Pulse Ox O2 Delivery O2 Flow Rate FiO2 10/10/17 10:00 18 10/10/17 06:00 62 10/10/17 05:00 66 10/10/17 04:00 63 10/10/17 03:52 Room Air 10/10/17 03:52 98.4 66 18 122/81 (95) 96 10/10/17 03:00 64 10/10/17 02:00 61 10/10/17 01:00 60 10/10/17 00:00 98.2 65 18 144/96 (112) 98 10/10/17 00:00 65 10/10/17 00:00 Room Air 10/09/17 23:00 63 10/09/17 22:00 69 10/09/17 21:00 76 10/09/17 20:00 80 10/09/17 20:00 98.6 80 18 140/83 (102) 97 10/09/17 20:00 Room Air 10/09/17 18:00 86 10/09/17 17:00 76 I/O 10/09/17 10/09/17 10/09/17 10/10/17 10/10/17 10/10/17 07:00 15:00 23:00 07:00 15:00 23:00 Intake Total 480 ml 800 ml 480 ml Output Total 800 ml 1470 ml 1300 ml Balance -320 ml -670 ml -820 ml Intake Oral 480 ml 700 ml 480 ml IV Total 100 ml Output Urine Total 800 ml 1470 ml 1300 ml # Bowel Movements 0 1 0 Result Diagram: 10/07/17 1210 10/09/17 1936 Imaging Last Impressions Chest CT 10/08/17 0000 Signed Impressions: CONCLUSION: 1. Trace compressive/dependent atelectasis of both bases and tiny bilateral pl eural effusions. A slight degree of failure is conceivable. No pneumonic infilt rate demonstrated. 2. Mild emphysema and mild chronic interstitial changes are again noted. Stabl e, benign nodule in the right mid lung. 3. Stable diffuse prominent caliber of the thoracic aorta up to 4.1 cm. Chest X-Ray 10/04/17 0753 Signed Impressions: CONCLUSION: No acute abnormality or significant interval change Lung Scan-VQ Nuclear Medicine 10/04/17 0000 Signed Impressions: CONCLUSION: 1. Low probability for PE. 2. Patchy uptake of tracer activity on the ventilation study suggestive of air space disease. Lower Extremity Ultrasound 10/04/17 0000 Signed Impressions: CONCLUSION: 1. No evidence of DVT. Objective Remarks awake and alert, no acute distress anicteric no nuchal rigidity lungs no rales , no wheezes on exam, no rhonchi regular rhythm abdomen-soft good bowel sounds, nontender extremities no edema neuro exam- non focal A/P Problem List: (1) Sepsis ICD Code: A41.9 - Sepsis, unspecified organism Status: Acute Assessment and Plan 67 years old male Group B Stres sepsis secondary to clinical Pneumonia-- sputum MRSA - started on Ceftriaxone 2 gm daily 10/05 - Vancomycin added 10/06 - ID ff - repeat blood cultures - negative so far- x 4 days - no skin lesions/[place]- denies history of IVDU- admits to smoking cocaine - ff CBC- expect WBC to be high - on steroids - echo unremarkable - Cardiology consult for ANNALISE- per ID recommendations - patient also has a PM placed in 2004- per patient he followed with Dr. Maddox Acute hypoxemic respiratory failure due to COPD exacerbation- improved clinically - heavy smoker in the past - lungs- no wheezes, + rales left base keep on oxygen to keep O2 sat >90%- continue with neb treatment; scheduled V/Q scan negative - change to po steroids- prednisone taper. DC prednisone today - continue home inhalers hypertension History of AICD - on lisinopril 20 mg po bid states he was on 40 mg po bid as OP- - will DC with elevated Potassium - Clonidine prn - consider restarting at a lower dose once K improved or use CCB- amlodipine diabetes mellitus; uncontrolled-a1C 11.7 - expect to be high on steroids- completed course today 10/10 started on levemir - increased dose to 24 untis bid 24 - continue to adjust and monitor - medium sliding scale Novolog - monitor - Prednisone- DC today 10/10 - reinforced diabetes education Acute kidney injury on top CKD- Improved - off IVF - patient with good po intake Hyperkalemia- on BMP today 10/10 - patient on Lisinorpil 20 mg po bid (home was on 40 mg po bid) - HOld Lisinopril - restart at a lower dose if K level improved or switch to amlodipine for HTN if K is going to be an chronic problem - given kayexalate 30 gm po x 2 - NS 50 cc/hr - 500 cc - BMP in am History of chronic pancreatitis- on creon and reglan daily chronic back pain; resume home meds. -DVT prophylaxis with subq heparin d/w patient - up and increase activity Problem Qualifiers (1) Sepsis: Qualified Codes: A41.9 - Sepsis, unspecified organism Abner Gonzales MD October 10, 2017 16:29
[2017-10-10] MEDS ORDERED: SODIUM CHLORID 0.9% 500 ML INJ 500 ML IV SCH (16:45)
[2017-10-11] VITALS (29 sets, daily range): BP systolic 121–137; BP diastolic 81–95; PULSE 72–96; RESP 16–22; TEMP 97.2–98.4; O2SAT 93–98
[2017-10-11] MEDS: LORazepam 0.5 MG TAB PO PRN (03:12)
[2017-10-11 06:54] LABS: BICARBONATE 31.3 MEQ/L (21.0-32.0); CALCIUM 8.6 MG/DL (8.5-10.1); CREATININE 1.16 MG/DL (0.60-1.30)
[2017-10-11] MEDS ORDERED: LISINOPRIL 20 MG TAB PO SCH (09:00)
[2017-10-11] MEDS: INSULIN NovoLIN REGULAR SUPPLEMENTAL SCALE SQ SCH ×4 (09:33→20:29)
[2017-10-11] MEDS: PANTOPRAZOLE SOD 20 MG DELAYED RELEASE TAB PO SCH (09:34)
[2017-10-11] MEDS: INSULIN DETEMIR 100 UNITS/ML VIAL SQ SCH ×2 (09:34→20:28)
[2017-10-11] MEDS: LIPASE/PROTEASE/AMYLASE (12,000/38,000/60,000) CAP PO SCH ×3 (09:34→18:34)
[2017-10-11] MEDS: METOCLOPRAMIDE HCL 10 MG TAB PO SCH (09:34)
[2017-10-11] MEDS: ASPIRIN EC 81 MG TABEC PO SCH (09:34)
[2017-10-11] MEDS: SERTRALINE HCL 50 MG TAB PO SCH (09:34)
[2017-10-11] MEDS: SODIUM CHLORIDE 0.9% FLUSH 10 ML FLUSH IVF PRN (09:34)
[2017-10-11] MEDS: TIOTROPIUM BROMIDE 18 MCG INH INH SCH (09:35)
[2017-10-11] MEDS: HEPARIN SODIUM - SQ 10,000 UNITS/ML VIAL SQ SCH ×2 (09:35→20:28)
[2017-10-11] MEDS: cefTRIAXone INJ 2,000 MG in SODIUM CHLORIDE 0.9% INJ 100 ML IV SCH (09:36)
--- NOTE | 2017-10-11 11:38 | HHI.PR ---
Subjective Remarks We will consult content administrator cardiology for ANNALISE since has not seen Dr. Maddox in a very long time and she states that he is not her patient Await cardiac evaluation for ANNALISE Discussed with patient and RN Patient has already ate today so no procedures would be done until tomorrow at the earliest Objective Vitals Vital Signs Date Time Temp Pulse Resp B/P (MAP) Pulse Ox O2 Delivery O2 Flow Rate FiO2 10/11/17 07:15 96 Room Air 10/11/17 07:15 96 10/11/17 07:00 97.8 80 22 134/87 (103) 93 10/11/17 06:00 76 10/11/17 05:00 78 10/11/17 04:56 20 10/11/17 04:00 90 10/11/17 03:48 98.4 84 20 137/81 (99) 94 10/11/17 03:00 82 10/11/17 02:00 76 10/11/17 01:00 78 10/11/17 00:00 83 10/10/17 23:32 98.7 78 20 115/84 (94) 96 10/10/17 23:32 78 10/10/17 22:00 82 10/10/17 21:00 86 10/10/17 20:00 98.6 76 20 132/88 (103) 97 10/10/17 20:00 78 10/10/17 19:00 Room Air 10/10/17 19:00 91 10/10/17 18:00 78 10/10/17 17:00 84 10/10/17 16:00 84 10/10/17 15:15 98.7 89 16 114/72 (86) 97 10/10/17 15:00 87 10/10/17 14:00 98 10/10/17 13:00 98 10/10/17 12:00 70 I/O 10/10/17 10/10/17 10/10/17 10/11/17 10/11/17 10/11/17 07:00 15:00 23:00 07:00 15:00 23:00 Intake Total 480 ml 1440 ml 680 ml Output Total 1300 ml 1200 ml 1450 ml Balance -820 ml 240 ml -770 ml Intake Oral 480 ml 1440 ml 680 ml Output Urine Total 1300 ml 1200 ml 1450 ml # Bowel Movements 0 0 Result Diagram: 10/07/17 1210 10/11/17 0519 Other Results Laboratory Tests Test 10/09/17 19:36 10/11/17 05:19 Blood Urea Nitrogen 18 MG/DL 23 MG/DL Creatinine 1.24 MG/DL 1.16 MG/DL Random Glucose 252 MG/DL 120 MG/DL Calcium Level 9.2 MG/DL 8.6 MG/DL Sodium Level 130 MEQ/L 136 MEQ/L Potassium Level 5.8 MEQ/L 3.9 MEQ/L Chloride Level 95 MEQ/L 95 MEQ/L Carbon Dioxide Level 28.7 MEQ/L 31.3 MEQ/L Anion Gap 6 MEQ/L 10 MEQ/L Estimat Glomerular Filtration Rate 70 ML/MIN 76 ML/MIN Imaging Last Impressions Chest CT 10/08/17 0000 Signed Impressions: CONCLUSION: 1. Trace compressive/dependent atelectasis of both bases and tiny bilateral pl eural effusions. A slight degree of failure is conceivable. No pneumonic infilt rate demonstrated. 2. Mild emphysema and mild chronic interstitial changes are again noted. Stabl e, benign nodule in the right mid lung. 3. Stable diffuse prominent caliber of the thoracic aorta up to 4.1 cm. Chest X-Ray 10/04/17 0753 Signed Impressions: CONCLUSION: No acute abnormality or significant interval change Lung Scan-V Nuclear Medicine 10/04/17 0000 Signed Impressions: CONCLUSION: 1. Low probability for PE. 2. Patchy uptake of tracer activity on the ventilation study suggestive of air space disease. Lower Extremity Ultrasound 10/04/17 0000 Signed Impressions: CONCLUSION: 1. No evidence of DVT. Objective Remarks GENERAL: Awake alert and oriented 3 talkative and cooperative SKIN: Warm and dry. HEAD: Atraumatic. Normocephalic. EYES: Pupils equal and round. No scleral icterus. No injection or drainage. Extraocular muscles intact ENT: No nasal bleeding or discharge. Mucous membranes pink and moist. Tongue is midline NECK: Trachea midline. No JVD. Supple CARDIOVASCULAR: Regular rate and rhythm. S1-S2 no S3 or S4 RESPIRATORY: No accessory muscle use. Few scattered rhonchi. Breath sounds equal bilaterally. GASTROINTESTINAL: Abdomen soft, non-tender, nondistended. Hepatic and splenic margins not palpable. MUSCULOSKELETAL: Extremities without clubbing, cyanosis, or edema. No obvious deformities. NEUROLOGICAL: Awake and alert. No obvious cranial nerve deficits. Motor grossly within normal limits. Five out of 5 muscle strength in the arms and legs. Normal speech. PSYCHIATRIC: Appropriate mood and affect; insight and judgment normal. Medications and IVs Current Medications Aspirin (Aspirin Chew) 162 mg ONCE ONCE PO Last administered on 10/04/17 08: 09; Start 10/04/17 at 08:00; Stop 10/04/17 at 08:01; Status DC Sodium Chloride (NS Flush) 2 ml UNSCH PRN IVF FLUSH AFTER USING IV ACCESS Last administered on 10/11/17at 09:34; Start 10/04/17 at 08:00 Nitroglycerin (Nitrostat Sl) 0.4 mg Q5M SL Last administered on 10/04/17at 08:29 ; Start 10/04/17 at 08:00; Stop 10/04/17 at 08:11; Status DC Sodium Chloride 1,000 ml @ 1,000 mls/hr Q1H IV Last administered on 10/04/17at 08:50; Start 10/04/17 at 07:57; Stop 10/04/17 at 08:56; Status DC Sodium Chloride 1,000 ml @ 999 mls/hr BOLUS ONCE IV Last administered on 10/04at 09:57; Start 10/04/17 at 10:00; Stop 10/04/17 at 11:00; Status DC Ceftriaxone Sodium 1000 mg/ Sodium Chloride 100 ml @ 200 mls/hr ONCE ONCE IV Last administered on 10/04/17at 09:56; Start 10/04/17 at 10:00; Stop 10/04/17 at 10:29; Status DC Azithromycin 500 mg/Sodium Chloride 250 ml @ 250 mls/hr ONCE ONCE IV Last administered on 10/04/17at 10:30; Start 10/04/17 at 10:00; Stop 10/04/17 at 10:59 ; Status DC Sodium Chloride 250 ml @ 250 mls/hr BOLUS ONCE IV Last administered on at 10:05; Start 10/04/17 at 10:00; Stop 10/04/17 at 10:59; Status DC Insulin Human Regular (NovoLIN R INJ) 8 units ONCE ONCE SQ Last administered on 10/04/17at 10:04; Start 10/04/17 at 10:00; Stop 10/04/17 at 10:03; Status DC Oxycodone HCl (Roxicodone) 15 mg Q8H PRN PO PAIN 4-10; Start 10/04/17 at 12:15 ; Stop 10/04/17 at 12:25; Status DC Dextrose (D50w (Vial) Inj) 50 ml UNSCH PRN IV PUSH HYPOGLYCEMIA-SEE COMMENTS; Start 10/04/17 at 12:30; Stop 10/07/17 at 08:36; Status DC Glucagon (Glucagon Inj) 1 mg UNSCH PRN OTHER HYPOGLYCEMIA-SEE COMMENTS; Start 10/04/17 at 12:30; Stop 10/07/17 at 08:36; Status DC Insulin Aspart (NovoLOG SUPPLEMENTAL SCALE) 1 ACHS SLIDING SCALE SQ Last administered on 10/05/17at 12:00; Start 10/04/17 at 17:00; Stop 10/05/17 at 13:46 ; Status DC Aspirin (Ecotrin Ec) 81 mg DAILY PO Last administered on 10/11/17at 09:34; Start 10/05/17 at 09:00 Lorazepam (Ativan) 0.5 mg Q8H PRN PO ANXIETY AND/OR AGITATION Last administered on 10/11/17at 03:12; Start 10/04/17 at 12:30 Metoclopramide HCl (Reglan) 10 mg DAILY PO Last administered on 10/11/17at 09:34 ; Start 10/05/17 at 09:00 Amylase/Lipase/ Protease (Creon 12-38-60) 1 cap TIDPC PO Last administered on at 09:34; Start 10/04/17 at 13:30 Pantoprazole Sodium (Protonix) 20 mg DAILY PO Last administered on 10/11/17at 09 :34; Start 10/05/17 at 09:00 Sertraline HCl (Zoloft) 50 mg DAILY PO Last administered on 10/11/17at 09:34; Start 10/05/17 at 09:00 Oxycodone HCl (Roxicodone) 15 mg Q8H PRN PO PAIN 4-10; Start 10/04/17 at 12:30 ; Stop 10/04/17 at 12:30; Status DC Miscellaneous (Pill Splitter) 1 ea UNSCH PRN OTHER SEE LABEL COMMENTS; Start at 12:30 Oxycodone HCl (Roxicodone) 15 mg Q8H PRN PO PAIN 4-10 Last administered on 10/11 03:56; Start 10/04/17 at 12:30 Albuterol/ Ipratropium (Duoneb Neb) 1 ampule Q4HR NEB NEB Last administered on 10/08/17at 03:42; Start 10/04/17 at 16:00; Stop 10/08/17 at 15:59; Status DC Albuterol Sulfate (Albuterol Neb) 1.25 mg Q2HR NEB PRN NEB SHORTNESS OF BREATH Last administered on 10/08/17at 21:16; Start 10/04/17 at 12:45 Methylprednisolone Sodium Succinate (SoluMEDROL INJ) 40 mg Q8HR IV PUSH Last administered on 10/05/17at 06:33; Start 10/04/17 at 14:00; Stop 10/05/17 at 10:16 ; Status DC Insulin Detemir (Levemir Inj) 15 units HS SQ Last administered on 10/04/17at 20: 33; Start 10/04/17 at 21:00; Stop 10/05/17 at 13:46; Status DC Heparin Sodium (Porcine) (Heparin Inj) 5,000 units Q12HR SQ Last administered on 10/11/17at 09:35; Start 10/04/17 at 21:00 Lisinopril (Prinivil) 10 mg DAILY PO Last administered on 10/06/17at 08:53; Start 10/05/17 at 09:00; Stop 10/07/17 at 08:07; Status DC Ceftriaxone Sodium 1000 mg/ Sodium Chloride 100 ml @ 200 mls/hr Q24H IV Last administered on 10/05/17at 09:45; Start 10/05/17 at 09:00; Stop 10/05/17 at 19:58 ; Status DC Azithromycin 500 mg/Sodium Chloride 250 ml @ 250 mls/hr Q24H IV Last administered on 10/05/17at 12:01; Start 10/05/17 at 10:00; Stop 10/05/17 at 19:58 ; Status DC Acetaminophen (Tylenol) 650 mg Q4H PRN PO FEVER/PAIN 1-3; Start 10/04/17 at 13: 30 Ondansetron HCl (Zofran Odt) 4 mg Q8HR PRN PO NAUSEA Last administered on 10/04at 16:58; Start 10/04/17 at 13:30 Guaifenesin (Robitussin Liq) 200 mg Q4H PRN PO COUGH Last administered on at 20:27; Start 10/04/17 at 18:30 Morphine Sulfate (Morphine Inj) 2 mg Q4H PRN IV SEE LABEL COMMENTS Last administered on 10/04/17at 20:32; Start 10/04/17 at 18:30; Stop 10/05/17 at 10:23 ; Status DC Vancomycin HCl 1000 mg/Sodium Chloride 250 ml @ 250 mls/hr Q12H IV ; Start at 10:00; Status UNV Pharmacy Profile Note 0 ml @ 0 mls/hr UNSCH OTHER ; Start 10/05/17 at 10:00; Stop 10/05/17 at 19:58; Status DC Prednisone (Deltasone) 20 mg BID PO Last administered on 10/06/17at 08:53; Start 10/05/17 at 21:00; Stop 10/06/17 at 13:03; Status DC Sodium Chloride 1,000 ml @ 84 mls/hr [id number] IV Last administered on at 17:35; Start 10/05/17 at 11:00; Stop 10/08/17 at 11:17; Status DC Vancomycin HCl 1250 mg/Sodium Chloride 262.5 ml @ 250 mls/hr Q18H IV Last administered on 10/05/17at 13:38; Start 10/05/17 at 12:00; Stop 10/05/17 at 19:58 ; Status DC Morphine Sulfate (Morphine Inj) 0.5 mg Q4H PRN IV BREAKTHROUGH PAIN; Start at 10:30 Melatonin (Melatonin) 5 mg HS PRN PO sleep aid Last administered on 10/09/17at 20:15; Start 10/05/17 at 21:00 Miscellaneous Information ([facility] Ordered Lab Info) [id number] LAB TO BE DRAWN:VANCOMY... ONCE ONCE .XX ; Start 10/07/17 at 17:45; Stop 10/07/17 at 17:45; Status DC Insulin Detemir (Levemir Inj) 15 units BID SQ Last administered on 10/06/17at 08 :53; Start 10/05/17 at 21:00; Stop 10/06/17 at 13:01; Status DC Dextrose (D50w (Vial) Inj) 50 ml UNSCH PRN IV PUSH HYPOGLYCEMIA-SEE COMMENTS; Start 10/05/17 at 13:45 Glucagon (Glucagon Inj) 1 mg UNSCH PRN OTHER HYPOGLYCEMIA-SEE COMMENTS; Start 10/05/17 at 13:45 Insulin Human Regular (NovoLIN R SUPPLEMENTAL SCALE) 1 ACHS SLIDING SCALE SQ Last administered on 10/11/17at 09:33; Start 10/05/17 at 17:00 Ceftriaxone Sodium 2000 mg/ Sodium Chloride 100 ml @ 200 mls/hr Q24H IV ; Start 10/06/17 at 09:00; Stop 10/06/17 at 09:07; Status DC Ceftriaxone Sodium 2000 mg/ Sodium Chloride 100 ml @ 200 mls/hr Q24H IV Last administered on 10/11/17at 09:36; Start 10/06/17 at 10:00 Insulin Detemir (Levemir Inj) 20 units BID SQ Last administered on 10/10/17at 09 :00; Start 10/06/17 at 21:00; Stop 10/10/17 at 17:17; Status DC Prednisone (Deltasone) 10 mg BID PO Last administered on 10/08/17at 10:34; Start 10/06/17 at 21:00; Stop 10/08/17 at 11:15; Status DC Pharmacy Profile Note 0 ml @ 0 mls/hr UNSCH OTHER ; Start 10/06/17 at 14:15; Stop 10/10/17 at 11:24; Status DC Vancomycin HCl 1250 mg/Sodium Chloride 262.5 ml @ 250 mls/hr Q12H IV Last administered on 10/10/17at 05:05; Start 10/06/17 at 17:00; Stop 10/10/17 at 11:24 ; Status DC Miscellaneous Information ([facility] Ordered Lab Info) SPECIFIC LAB TO BE DRAWN:VANCOMYCIN TROUGH DATE TO... ONCE ONCE .XX Last administered on at 05:00; Start 10/08/17 at 04:45; Stop 10/08/17 at 04:46; Status DC Tiotropium [place] (Spiriva Inh) 18 mcg DAILY INH Last administered on at 09:35; Start 10/07/17 at 09:30 Clonidine (Catapres) 0.1 mg Q6H PRN PO SBP>160, DBP>90; Start 10/07/17 at 08:15 Lisinopril (Prinivil) 20 mg DAILY PO Last administered on 10/09/17at 10:27; Start 10/07/17 at 09:00; Stop 10/09/17 at 10:36; Status DC Prednisone (Deltasone) 10 mg DAILY PO Last administered on 10/10/17at 08:34; Start 10/09/17 at 09:00; Stop 10/10/17 at 17:03; Status DC Lisinopril (Prinivil) 20 mg BID PO Last administered on 10/09/17at 20:15; Start 10/09/17 at 21:00; Stop 10/10/17 at 16:31; Status DC Sodium Polystyrene Sulfonate (Kayexalate Liq) 15 gm QID PO Last administered on 10/10/17at 11:32; Start 10/10/17 at 09:00; Stop 10/10/17 at 17:11; Status DC Lisinopril (Prinivil) 20 mg DAILY PO ; Start 10/11/17 at 09:00; Status Cancel Sodium Chloride 500 ml @ 50 mls/hr Q10H IV Last administered on 10/10/17at 16: 45; Start 10/10/17 at 16:45; Stop 10/11/17 at 02:44; Status DC Insulin Detemir (Levemir Inj) 24 units BID SQ Last administered on 10/11/17at 09 :34; Start 10/10/17 at 21:00 A/P Problem List: (1) Sepsis ICD Code: A41.9 - Sepsis, unspecified organism Status: Acute Assessment and Plan Assessment and Plan 67 years old male Group B Stres sepsis secondary to clinical Pneumonia-- sputum MRSA - started on Ceftriaxone 2 gm daily 10/05 - Vancomycin added 10/06 - ID ff - repeat blood cultures - negative so far- x 4 days - no skin lesions/[place]- denies history of IVDU- admits to smoking cocaine - ff CBC- expect WBC to be high - on steroids - echo unremarkable - Cardiology consult for ANNALISE- per ID recommendations - patient also has a PM placed in 2004- per patient has not followed with Dr. Maddox in a very long time we will consult on-call for ANNALISE Acute hypoxemic respiratory failure due to COPD exacerbation- improved clinically - heavy smoker in the past - lungs- no wheezes, + rales left base keep on oxygen to keep O2 sat >90%- continue with neb treatment; scheduled V/Q scan negative - change to po steroids- prednisone taper. DC prednisone today - continue home inhalers hypertension History of AICD - on lisinopril 20 mg po bid states he was on 40 mg po bid as OP- - will DC with elevated Potassium - Clonidine prn - consider restarting at a lower dose once K improved or use CCB- amlodipine diabetes mellitus; uncontrolled-a1C 11.7 - expect to be high on steroids- completed course today 10/10 started on levemir - increased dose to 24 untis bid 24 - continue to adjust and monitor - medium sliding scale Novolog - monitor - Prednisone- DC today 10/10 - reinforced diabetes education Acute kidney injury on top CKD- Improved - off IVF - patient with good po intake Hyperkalemia- on BMP today 10/10 - patient on Lisinorpil 20 mg po bid (home was on 40 mg po bid) - HOld Lisinopril - restart at a lower dose if K level improved or switch to amlodipine for HTN if K is going to be an chronic problem - given kayexalate 30 gm po x 2 - NS 50 cc/hr - 500 cc - BMP in am History of chronic pancreatitis- on creon and reglan daily chronic back pain; resume home meds. -DVT prophylaxis with subq heparin d/w patient - up and increase activity Discharge Planning Pending ID clearance and cardiac Problem Qualifiers (1) Sepsis: Qualified Codes: A41.9 - Sepsis, unspecified organism Rahat Vitale DO October 11, 2017 11:38
--- NOTE | 2017-10-11 14:36 | MB ---
cc: Praveen Gonzales DO DATE: 10/11/2017 REASON FOR CONSULTATION: Consideration of ANNALISE. HISTORY OF PRESENT ILLNESS: Tyrese Whitehead is a pleasant 68-year-old male who previously saw Dr. Maddox a number of years ago, but has not been seen recently, and presented to [facility] on 10/04/2017 due to shortness of breath with a cough. He states that the shortness of breath had been coming on a little more significant. It did not seem to be associated with anything. He just felt like he could not catch his breath when he was taking a deep breath. He would get a sharp, stabbing sensation on his right side when he would take a deep breath. Nothing seemed to make it worse other than taking the deep breath. Nothing seemed to make it better and so he presented to the hospital. Troponins were checked and were negative. He had an elevated white count and blood cultures were checked and he ended up with 4 aerobic bottles of Group B Beta Strep. Infectious Disease asked that I see him for consideration of ANNALISE as he does have a history of a pacemaker with Group B Strep noted in his blood. In seeing him, he states that he has no chest pain, shortness of breath, fevers or chills. PAST MEDICAL HISTORY: 1. Diabetes mellitus. 2. Chronic obstructive pulmonary disease. 3. Chronic kidney disease, stage III. 4. Hypertension. 5. Chronic pancreatitis. 6. Chronic back pain. 7. History of bradycardia. PAST SURGICAL HISTORY: 1. Biotronik Cylos pacemaker (serial #[id number], placed 04/08/2010 for symptomatic bradycardia). 3. Incision and drainage of metacarpophalangeal joint and repair of extensor tendon of right finger (09/29/2014). 4. Cardiac catheterization (06/05/2015): Left main normal, LAD normal, left circumflex and 3 obtuse marginals normal, RCA small but dominant with no significant disease. 5. Lumbar spine surgery. 6. Cholecystectomy. ALLERGIES: NO KNOWN DRUG ALLERGIES. MEDICATIONS: 1. DuoNeb every 4 hours as needed for shortness of breath. 2. ProAir 2 puffs every 4-6 hours as needed for shortness of breath. 3. Clonidine 0.05 mg daily. 4. Cialis 5 mg daily. 5. Lisinopril 20 mg b.i.d. 6. Aspirin 81 mg daily. 7. Roxicodone 15 mg every 8 hours as needed for pain. 8. Zoloft 50 mg daily. 9. Ativan 0.5 mg every 8 hours as needed for anxiety. 10. Creon 1 cap t.i.d. 11. Protonix 20 mg daily. 12. Reglan 10 mg daily. 13. Janumet 50/500 b.i.d. 14. Bydureon 2 mg weekly. FAMILY HISTORY: Denies premature coronary artery disease or sudden cardiac within the family. SOCIAL HISTORY: The patient is a previous smoker, but quit around 10 years ago. Denies alcohol abuse. Originally denies drug abuse, but states that he did use cocaine at a democr[employer] with a friend recently. He snorts cocaine, but states that this was a rare occasion even though in his previous hospitalizations he has been positive for cocaine on each drug test. REVIEW OF SYSTEMS: Fourteen systems were reviewed including osteopathic pertinent positives and negatives above, otherwise negative. PHYSICAL EXAMINATION: VITAL SIGNS: Temperature 97.2, heart rate 76, blood pressure 122/89, respirations 18, pulse oximetry 95% on room air. GENERAL: The patient appears well in no acute distress, alert, awake and oriented x3. HEENT: Extraocular muscles intact. Mucous membranes moist. NECK: Supple. No JVD at 45 degrees. No carotid bruits heard bilaterally. Carotid upstroke is brisk in nature. HEART: Regular rate and rhythm. Positive first and second heart sounds with no noted murmurs, gallops or rubs. LUNGS: Clear to auscultation bilaterally. No wheezes, rales or rhonchi. ABDOMEN: Soft, nontender, nondistended. No organomegaly noted. EXTREMITIES: Show no clubbing, cyanosis or edema. Femoral and distal pulses are intact bilaterally. NEUROLOGIC: No focal deficits. SKIN: Warm, dry and intact. OSTEOPATHIC: No kyphoscoliosis, lordosis or paraspinal tender points. LABORATORY DATA: Hemoglobin 13.1, hematocrit 40.0, platelets 155. Potassium 3.9, BUN 23, creatinine 1.16. Troponin negative x2. Electrocardiogram (10/04/2017 at 07:50): Sinus tachycardia, possible left atrial enlargement, nonspecific ST-T wave changes. ASSESSMENT: 1. Group B Streptococcus bacteremia. 2. Possible pneumonia with sputum positive for methicillin-resistant staphylococcus aureus. 3. Hypoxemic respiratory failure. 4. Hypertension. 5. History of pacemaker placed for bradycardia. 6. Atypical chest pain. 7. Stable thoracic descending aneurysm of 4.1 cm. 8. Cocaine abuse. 9. Remote tobacco abuse. RECOMMENDATIONS: 1. Mr. Whitehead appears to have presented with bacteremia with 4 positive bottles of Group B Strep. As this is higher risk for endocarditis, especially with his pacemaker, I agree with infectious disease that a ANNALISE should be done. 2. We will plan to keep him n.p.o. after midnight and plan for a possible procedure tomorrow. 3. He did present with chest pain, but overall, this was atypical in presentation, troponins have been negative and believed to be more towards due to his pneumonia. 4. He has had a pacemaker placed for previous history of bradycardia. Unsure the last time this has been evaluated, but at this time shows no dysfunction and this can be followed up in the outpatient setting. 5. Further recommendations will be made based on hospital course. Thank you for allowing me to see Tyrese Whitehead. If there are any questions, please do not hesitate to call. DO CHERYL Brambila/NADEEM , 01:52 PM , 02:35 PM
[2017-10-12] VITALS (30 sets, daily range): BP systolic 119–139; BP diastolic 73–90; PULSE 64–96; RESP 16–18; TEMP 97.4–98.4; O2SAT 96–98
[2017-10-12 06:33] LABS: AUTOMATED NEUTROPHIL # 4.9 TH/MM3 (1.8-7.7); BASOPHIL % 0.4 % (0.0-2.0); EOSINOPHIL # 0.6 TH/MM3 (0-0.4); EOSINOPHIL % 6.2 % (0.0-4.0); HEMATOCRIT 48.2 % (39.0-51.0); HEMOGLOBIN 16.2 GM/DL (13.0-17.0); LYMPH % 30.6 % (9.0-44.0); LYMPHOCYTE # 3.1 TH/MM3 (1.0-4.8); MEAN CELL VOLUME 89.9 FL (80.0-100.0); MEAN CORPUSCULAR HEMOGLOBIN 30.3 PG (27.0-34.0); MEAN CORPUSCULAR HGB CONC 33.7 % (32.0-36.0); MEAN PLATELET VOLUME 8.8 FL (7.0-11.0); MONO % 14.3 % (0.0-8.0); MONOCYTE # 1.5 TH/MM3 (0-0.9); NEUT % 48.5 % (16.0-70.0); PLATELET COUNT 267 TH/MM3 (150-450); RED BLOOD COUNT 5.36 MIL/MM3 (4.50-5.90); RED CELL DISTRIBUTION WIDTH 13.5 % (11.6-17.2); WHITE BLOOD COUNT 10.2 TH/MM3 (4.0-11.0)
[2017-10-12 06:56] LABS: ALBUMIN 3.5 GM/DL (3.4-5.0); AST (GOT) 24 U/L (15-37); BICARBONATE 30.7 MEQ/L (21.0-32.0); BLOOD UREA NITROGEN 19 MG/DL (7-18); CALCIUM 9.5 MG/DL (8.5-10.1); CHLORIDE 93 MEQ/L (98-107); CREATININE 1.12 MG/DL (0.60-1.30); GLOMERULAR FILTRATION RATE 79 ML/MIN (>89); GLUCOSE,RANDOM 77 MG/DL (74-106); SODIUM (NA) 134 MEQ/L (136-145)
[2017-10-12 07:09] LABS: ALKALINE PHOSPHATASE 114 U/L (45-117); ALT (GPT) 29 U/L (12-78); PHOSPHORUS 3.6 MG/DL (2.5-4.9); TOTAL BILIRUBIN ADULT 0.6 MG/DL (0.2-1.0); TOTAL PROTEIN 8.2 GM/DL (6.4-8.2)
[2017-10-12] MEDS: INSULIN NovoLIN REGULAR SUPPLEMENTAL SCALE SQ SCH ×4 (08:00→20:34)
[2017-10-12] MEDS: INSULIN DETEMIR 100 UNITS/ML VIAL SQ SCH ×2 (09:00→20:31)
[2017-10-12] MEDS: TIOTROPIUM BROMIDE 18 MCG INH INH SCH (11:49)
[2017-10-12] MEDS: LIPASE/PROTEASE/AMYLASE (12,000/38,000/60,000) CAP PO SCH ×3 (11:49→17:33)
[2017-10-12] MEDS: METOCLOPRAMIDE HCL 10 MG TAB PO SCH (11:50)
[2017-10-12] MEDS: HEPARIN SODIUM - SQ 10,000 UNITS/ML VIAL SQ SCH ×2 (11:50→20:31)
[2017-10-12] MEDS: SERTRALINE HCL 50 MG TAB PO SCH (11:50)
[2017-10-12] MEDS: ASPIRIN EC 81 MG TABEC PO SCH (11:50)
[2017-10-12] MEDS: PANTOPRAZOLE SOD 20 MG DELAYED RELEASE TAB PO SCH (11:50)
[2017-10-12] MEDS: cefTRIAXone INJ 2,000 MG in SODIUM CHLORIDE 0.9% INJ 100 ML IV SCH (11:55)
--- NOTE | 2017-10-12 15:46 | HHI.PR ---
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 Maddox in a very long time and she states that he is not her patient Await cardiac evaluation for ANNALISE Discussed with patient and RN Patient has already ate today so no procedures would be done until tomorrow at the earliest 10-12 HAD ANNALISE POSITIVE FOR ENDOCARDITIS WILL NEED ANTIBIOTICS AND WILL NEED PACEMAKER REMOVED PER DISCUSSION WITH ID AND CARDIOLOGY DW RN AND PT AND CM ANTIBIOTICS PER ID Objective Vitals Vital Signs Date Time Temp Pulse Resp B/P (MAP) Pulse Ox O2 Delivery O2 Flow Rate FiO2 10/12/17 12:28 97.8 69 18 126/84 (98) 96 10/12/17 08:50 97.6 86 16 126/73 (90) 96 10/12/17 08:50 96 Room Air 10/12/17 08:00 84 10/12/17 07:00 65 10/12/17 06:00 76 10/12/17 05:00 78 10/12/17 04:01 65 10/12/17 04:00 97.7 65 18 119/89 (99) 98 10/12/17 03:00 67 10/12/17 02:00 70 10/12/17 01:00 76 10/12/17 00:23 97.4 64 18 136/90 (105) 98 10/12/17 00:11 64 10/11/17 22:00 76 10/11/17 21:27 96 10/11/17 21:00 72 10/11/17 20:27 97.7 74 16 121/82 (95) 97 10/11/17 20:25 76 10/11/17 20:00 96 Room Air 10/11/17 19:00 76 10/11/17 18:00 78 10/11/17 17:00 78 10/11/17 16:00 76 I/O 10/11/17 10/11/17 10/11/17 10/12/17 10/12/17 10/12/17 07:00 15:00 23:00 07:00 15:00 23:00 Intake Total 680 ml 100 ml 700 ml 240 ml Output Total 1450 ml 1720 ml 850 ml Balance -770 ml 100 ml -1020 ml -610 ml Intake Oral 680 ml 700 ml 240 ml IV Total 100 ml Output Urine Total 1450 ml 1720 ml 850 ml # Bowel Movements 0 Result Diagram: 10/12/17 0507 10/12/17 0501 Other Results Laboratory Tests Test 10/09/17 19:36 10/11/17 05:19 10/12/17 05:01 10/12/17 05:07 Blood Urea Nitrogen 18 MG/DL 23 MG/DL 19 MG/DL Creatinine 1.24 MG/DL 1.16 MG/DL 1.12 MG/DL Random Glucose 252 MG/DL 120 MG/DL 77 MG/DL Calcium Level 9.2 MG/DL 8.6 MG/DL 9.5 MG/DL Sodium Level 130 MEQ/L 136 MEQ/L 134 MEQ/L Potassium Level 5.8 MEQ/L 3.9 MEQ/L 4.1 MEQ/L Chloride Level 95 MEQ/L 95 MEQ/L 93 MEQ/L Carbon Dioxide Level 28.7 MEQ/L 31.3 MEQ/L 30.7 MEQ/L Anion Gap 6 MEQ/L 10 MEQ/L 10 MEQ/L Estimat Glomerular Filtration Rate 70 ML/MIN 76 ML/MIN 79 ML/MIN Total Protein 8.2 GM/DL Albumin 3.5 GM/DL Phosphorus Level 3.6 MG/DL Magnesium Level 2.0 MG/DL Alkaline Phosphatase 114 U/L Aspartate Amino Transf (AST/SGOT) 24 U/L Alanine Aminotransferase (ALT/SGPT) 29 U/L Total Bilirubin 0.6 MG/DL Free Thyroxine 1.40 NG/DL Thyroid Stimulating Hormone 3rd Gen 3.260 uIU/ML White Blood Count 10.2 TH/MM3 Red Blood Count 5.36 MIL/MM3 Hemoglobin 16.2 GM/DL Hematocrit 48.2 % Mean Corpuscular Volume 89.9 FL Mean Corpuscular Hemoglobin 30.3 PG Mean Corpuscular Hemoglobin Concent 33.7 % Red Cell Distribution Width 13.5 % Platelet Count 267 TH/MM3 Mean Platelet Volume 8.8 FL Neutrophils (%) (Auto) 48.5 % Lymphocytes (%) (Auto) 30.6 % Monocytes (%) (Auto) 14.3 % Eosinophils (%) (Auto) 6.2 % Basophils (%) (Auto) 0.4 % Neutrophils # (Auto) 4.9 TH/MM3 Lymphocytes # (Auto) 3.1 TH/MM3 Monocytes # (Auto) 1.5 TH/MM3 Eosinophils # (Auto) 0.6 TH/MM3 Basophils # (Auto) 0.0 TH/MM3 CBC Comment DIFF FINAL Differential Comment Imaging Last Impressions Chest CT 10/08/17 0000 Signed Impressions: CONCLUSION: 1. Trace compressive/dependent atelectasis of both bases and tiny bilateral pl eural effusions. A slight degree of failure is conceivable. No pneumonic infilt rate demonstrated. 2. Mild emphysema and mild chronic interstitial changes are again noted. Stabl e, benign nodule in the right mid lung. 3. Stable diffuse prominent caliber of the thoracic aorta up to 4.1 cm. Chest X-Ray 10/04/17 0753 Signed Impressions: CONCLUSION: No acute abnormality or significant interval change Lung Scan-VQ Nuclear Medicine 10/04/17 0000 Signed Impressions: CONCLUSION: 1. Low probability for PE. 2. Patchy uptake of tracer activity on the ventilation study suggestive of air space disease. Lower Extremity Ultrasound 10/04/17 0000 Signed Impressions: CONCLUSION: 1. No evidence of DVT. Objective Remarks GENERAL: Awake alert and oriented 3 talkative and cooperative SKIN: Warm and dry. HEAD: Atraumatic. Normocephalic. EYES: Pupils equal and round. No scleral icterus. No injection or drainage. Extraocular muscles intact ENT: No nasal bleeding or discharge. Mucous membranes pink and moist. Tongue is midline NECK: Trachea midline. No JVD. Supple CARDIOVASCULAR: Regular rate and rhythm. S1-S2 no S3 or S4 RESPIRATORY: No accessory muscle use. Few scattered rhonchi. Breath sounds equal bilaterally. GASTROINTESTINAL: Abdomen soft, non-tender, nondistended. Hepatic and splenic margins not palpable. MUSCULOSKELETAL: Extremities without clubbing, cyanosis, or edema. No obvious deformities. NEUROLOGICAL: Awake and alert. No obvious cranial nerve deficits. Motor grossly within normal limits. Five out of 5 muscle strength in the arms and legs. Normal speech. PSYCHIATRIC: Appropriate mood and affect; insight and judgment normal. Procedures ANNALISE 10-12 SHOWED ENDOCARDITIS Medications and IVs Current Medications Aspirin (Aspirin Chew) 162 mg ONCE ONCE PO Last administered on 10/04/17at 08: 09; Start 10/04/17 at 08:00; Stop 10/04/17 at 08:01; Status DC Sodium Chloride (NS Flush) 2 ml UNSCH PRN IVF FLUSH AFTER USING IV ACCESS Last administered on 10/11/17at 09:34; Start 10/04/17 at 08:00 Nitroglycerin (Nitrostat Sl) 0.4 mg Q5M SL Last administered on 10/04/17at 08:29 ; Start 10/04/17 at 08:00; Stop 10/04/17 at 08:11; Status DC Sodium Chloride 1,000 ml @ 1,000 mls/hr Q1H IV Last administered on 10/04/17at 08:50; Start 10/04/17 at 07:57; Stop 10/04/17 at 08:56; Status DC Sodium Chloride 1,000 ml @ 999 mls/hr BOLUS ONCE IV Last administered on 10/04at 09:57; Start 10/04/17 at 10:00; Stop 10/04/17 at 11:00; Status DC Ceftriaxone Sodium 1000 mg/ Sodium Chloride 100 ml @ 200 mls/hr ONCE ONCE IV Last administered on 10/04/17at 09:56; Start 10/04/17 at 10:00; Stop 10/04/17 at 10:29; Status DC Azithromycin 500 mg/Sodium Chloride 250 ml @ 250 mls/hr ONCE ONCE IV Last administered on 10/04/17at 10:30; Start 10/04/17 at 10:00; Stop 10/04/17 at 10:59 ; Status DC Sodium Chloride 250 ml @ 250 mls/hr BOLUS ONCE IV Last administered on at 10:05; Start 10/04/17 at 10:00; Stop 10/04/17 at 10:59; Status DC Insulin Human Regular (NovoLIN R INJ) 8 units ONCE ONCE SQ Last administered on 10/04/17at 10:04; Start 10/04/17 at 10:00; Stop 10/04/17 at 10:03; Status DC Oxycodone HCl (Roxicodone) 15 mg Q8H PRN PO PAIN 4-10; Start 10/04/17 at 12:15 ; Stop 10/04/17 at 12:25; Status DC Dextrose (D50w (Vial) Inj) 50 ml UNSCH PRN IV PUSH HYPOGLYCEMIA-SEE COMMENTS; Start 10/04/17 at 12:30; Stop 10/07/17 at 08:36; Status DC Glucagon (Glucagon Inj) 1 mg UNSCH PRN OTHER HYPOGLYCEMIA-SEE COMMENTS; Start 10/04/17 at 12:30; Stop 10/07/17 at 08:36; Status DC Insulin Aspart (NovoLOG SUPPLEMENTAL SCALE) 1 ACHS SLIDING SCALE SQ Last administered on 10/05/17at 12:00; Start 10/04/17 at 17:00; Stop 10/05/17 at 13:46 ; Status DC Aspirin (Ecotrin Ec) 81 mg DAILY PO Last administered on 10/12/17 11:50; Start 10/05/17 at 09:00 Lorazepam (Ativan) 0.5 mg Q8H PRN PO ANXIETY AND/OR AGITATION Last administered on 10/11/17 03:12; Start 10/04/17 at 12:30 Metoclopramide HCl (Reglan) 10 mg DAILY PO Last administered on 10/12/17 11:50 ; Start 10/05/17 at 09:00 Amylase/Lipase/ Protease (Creon 12-38-60) 1 cap TIDPC PO Last administered on 15:26; Start 10/04/17 at 13:30 Pantoprazole Sodium (Protonix) 20 mg DAILY PO Last administered on 10/12/17 11 :50; Start 10/05/17 at 09:00 Sertraline HCl (Zoloft) 50 mg DAILY PO Last administered on 10/12/17 11:50; Start 10/05/17 at 09:00 Oxycodone HCl (Roxicodone) 15 mg Q8H PRN PO PAIN 4-10; Start 10/04/17 at 12:30 ; Stop 10/04/17 at 12:30; Status DC Miscellaneous (Pill Splitter) 1 ea UNSCH PRN OTHER SEE LABEL COMMENTS; Start at 12:30 Oxycodone HCl (Roxicodone) 15 mg Q8H PRN PO PAIN 4-10 Last administered on 10/11at 20:40; Start 10/04/17 at 12:30 Albuterol/ Ipratropium (Duoneb Neb) 1 ampule Q4HR NEB NEB Last administered on 10/08/17at 03:42; Start 10/04/17 at 16:00; Stop 10/08/17 at 15:59; Status DC Albuterol Sulfate (Albuterol Neb) 1.25 mg Q2HR NEB PRN NEB SHORTNESS OF BREATH Last administered on 10/08/17at 21:16; Start 10/04/17 at 12:45 Methylprednisolone Sodium Succinate (SoluMEDROL INJ) 40 mg Q8HR IV PUSH Last administered on 10/05/17 06:33; Start 10/04/17 at 14:00; Stop 10/05/17 at 10:16 ; Status DC Insulin Detemir (Levemir Inj) 15 units HS SQ Last administered on 10/04/17at 20: 33; Start 10/04/17 at 21:00; Stop 10/05/17 at 13:46; Status DC Heparin Sodium (Porcine) (Heparin Inj) 5,000 units Q12HR SQ Last administered on 10/12/17 11:50; Start 10/04/17 at 21:00 Lisinopril (Prinivil) 10 mg DAILY PO Last administered on 10/06/17at 08:53; Start 10/05/17 at 09:00; Stop 10/07/17 at 08:07; Status DC Ceftriaxone Sodium 1000 mg/ Sodium Chloride 100 ml @ 200 mls/hr Q24H IV Last administered on 10/05/17at 09:45; Start 10/05/17 at 09:00; Stop 10/05/17 at 19:58 ; Status DC Azithromycin 500 mg/Sodium Chloride 250 ml @ 250 mls/hr Q24H IV Last administered on 10/05/17at 12:01; Start 10/05/17 at 10:00; Stop 10/05/17 at 19:58 ; Status DC Acetaminophen (Tylenol) 650 mg Q4H PRN PO FEVER/PAIN 1-3; Start 10/04/17 at 13: 30 Ondansetron HCl (Zofran Odt) 4 mg Q8HR PRN PO NAUSEA Last administered on 10/04at 16:58; Start 10/04/17 at 13:30 Guaifenesin (Robitussin Liq) 200 mg Q4H PRN PO COUGH Last administered on 20:27; Start 10/04/17 at 18:30 Morphine Sulfate (Morphine Inj) 2 mg Q4H PRN IV SEE LABEL COMMENTS Last administered on 10/04/17at 20:32; Start 10/04/17 at 18:30; Stop 10/05/17 at 10:23 ; Status DC Vancomycin HCl 1000 mg/Sodium Chloride 250 ml @ 250 mls/hr Q12H IV ; Start at 10:00; Status UNV Pharmacy Profile Note 0 ml @ 0 mls/hr UNSCH OTHER ; Start 10/05/17 at 10:00; Stop 10/05/17 at 19:58; Status DC Prednisone (Deltasone) 20 mg BID PO Last administered on 10/06/17at 08:53; Start 10/05/17 at 21:00; Stop 10/06/17 at 13:03; Status DC Sodium Chloride 1,000 ml @ 84 mls/hr [id number] IV Last administered on at 17:35; Start 10/05/17 at 11:00; Stop 10/08/17 at 11:17; Status DC Vancomycin HCl 1250 mg/Sodium Chloride 262.5 ml @ 250 mls/hr Q18H IV Last administered on 10/05/17at 13:38; Start 10/05/17 at 12:00; Stop 10/05/17 at 19:58 ; Status DC Morphine Sulfate (Morphine Inj) 0.5 mg Q4H PRN IV BREAKTHROUGH PAIN; Start at 10:30 Melatonin (Melatonin) 5 mg HS PRN PO sleep aid Last administered on 10/09/17at 20:15; Start 10/05/17 at 21:00 Miscellaneous Information ([facility] Ordered Lab Info) [id number] LAB TO BE DRAWN:VANCOMY... ONCE ONCE .XX ; Start 10/07/17 at 17:45; Stop 10/07/17 at 17:45; Status DC Insulin Detemir (Levemir Inj) 15 units BID SQ Last administered on 10/06/17at 08 :53; Start 10/05/17 at 21:00; Stop 10/06/17 at 13:01; Status DC Dextrose (D50w (Vial) Inj) 50 ml UNSCH PRN IV PUSH HYPOGLYCEMIA-SEE COMMENTS; Start 10/05/17 at 13:45 Glucagon (Glucagon Inj) 1 mg UNSCH PRN OTHER HYPOGLYCEMIA-SEE COMMENTS; Start 10/05/17 at 13:45 Insulin Human Regular (NovoLIN R SUPPLEMENTAL SCALE) 1 ACHS SLIDING SCALE SQ Last administered on 10/11/17at 20:29; Start 10/05/17 at 17:00 Ceftriaxone Sodium 2000 mg/ Sodium Chloride 100 ml @ 200 mls/hr Q24H IV ; Start 10/06/17 at 09:00; Stop 10/06/17 at 09:07; Status DC Ceftriaxone Sodium 2000 mg/ Sodium Chloride 100 ml @ 200 mls/hr Q24H IV Last administered on 10/12/17at 11:55; Start 10/06/17 at 10:00 Insulin Detemir (Levemir Inj) 20 units BID SQ Last administered on 10/10/17at 09 :00; Start 10/06/17 at 21:00; Stop 10/10/17 at 17:17; Status DC Prednisone (Deltasone) 10 mg BID PO Last administered on 10/08/17at 10:34; Start 10/06/17 at 21:00; Stop 10/08/17 at 11:15; Status DC Pharmacy Profile Note 0 ml @ 0 mls/hr UNSCH OTHER ; Start 10/06/17 at 14:15; Stop 10/10/17 at 11:24; Status DC Vancomycin HCl 1250 mg/Sodium Chloride 262.5 ml @ 250 mls/hr Q12H IV Last administered on 10/10/17at 05:05; Start 10/06/17 at 17:00; Stop 10/10/17 at 11:24 ; Status DC Miscellaneous Information ([facility] Ordered Lab Info) SPECIFIC LAB TO BE DRAWN:VANCOMYCIN TROUGH DATE TO... ONCE ONCE .XX Last administered on at 05:00; Start 10/08/17 at 04:45; Stop 10/08/17 at 04:46; Status DC Tiotropium Berino (Spiriva Inh) 18 mcg DAILY INH Last administered on at 11:49; Start 10/07/17 at 09:30 Clonidine (Catapres) 0.1 mg Q6H PRN PO SBP>160, DBP>90; Start 10/07/17 at 08:15 Lisinopril (Prinivil) 20 mg DAILY PO Last administered on 10/09/17at 10:27; Start 10/07/17 at 09:00; Stop 10/09/17 at 10:36; Status DC Prednisone (Deltasone) 10 mg DAILY PO Last administered on 10/10/17at 08:34; Start 10/09/17 at 09:00; Stop 10/10/17 at 17:03; Status DC Lisinopril (Prinivil) 20 mg BID PO Last administered on 10/09/17at 20:15; Start 10/09/17 at 21:00; Stop 10/10/17 at 16:31; Status DC Sodium Polystyrene Sulfonate (Kayexalate Liq) 15 gm QID PO Last administered on 10/10/17at 11:32; Start 10/10/17 at 09:00; Stop 10/10/17 at 17:11; Status DC Lisinopril (Prinivil) 20 mg DAILY PO ; Start 10/11/17 at 09:00; Status Cancel Sodium Chloride 500 ml @ 50 mls/hr Q10H IV Last administered on 10/10/17at 16: 45; Start 10/10/17 at 16:45; Stop 10/11/17 at 02:44; Status DC Insulin Detemir (Levemir Inj) 24 units BID SQ Last administered on 10/11/17at 20 :28; Start 10/10/17 at 21:00 A/P Problem List: (1) Sepsis ICD Code: A41.9 - Sepsis, unspecified organism Status: Acute Assessment and Plan Assessment and Plan 67 years old male Group B Strep sepsis secondary to clinical Pneumonia-- sputum MRSA - started on Ceftriaxone 2 gm daily 10/05 - Vancomycin added 10/06 - ID ff - repeat blood cultures - negative so far- x 4 days - no skin lesions/thorpe- denies history of IVDU- admits to smoking cocaine - ff CBC- expect WBC to be high - on steroids - echo unremarkable - Cardiology consult for ANNALISE- per ID recommendations - patient also has a PM placed in 2004- per patient has not followed with Dr. Maddox in a very long time we will consult on-call for ANNALISE -ANNALISE POSITIVE FOR ENDOCARDITIS-- NEEDS PACEMAKER/AICD REMOVED AND ANTIBIOTICS Acute hypoxemic respiratory failure due to COPD exacerbation- improved clinically - heavy smoker in the past - lungs- no wheezes, + rales left base keep on oxygen to keep O2 sat >90%- continue with neb treatment; scheduled V/Q scan negative - change to po steroids- prednisone taper. DC prednisone today - continue home inhalers hypertension History of AICD - on lisinopril 20 mg po bid states he was on 40 mg po bid as OP- - will DC with elevated Potassium - Clonidine prn - consider restarting at a lower dose once K improved or use CCB- amlodipine NEEDS AICD/PACEMAKER REMOVED diabetes mellitus; uncontrolled-a1C 11.7 - expect to be high on steroids- completed course today 10/10 started on levemir - increased dose to 24 untis bid 24 - continue to adjust and monitor - medium sliding scale Novolog - monitor - Prednisone- DC today 10/10 - reinforced diabetes education Acute kidney injury on top CKD- Improved - off IVF - patient with good po intake Hyperkalemia- on BMP today 10/10 - patient on Lisinorpil 20 mg po bid (home was on 40 mg po bid) - HOld Lisinopril - restart at a lower dose if K level improved or switch to amlodipine for HTN if K is going to be an chronic problem - given kayexalate 30 gm po x 2 - NS 50 cc/hr - 500 cc - BMP in am History of chronic pancreatitis- on creon and reglan daily chronic back pain; resume home meds. -DVT prophylaxis with subq heparin d/w patient - up and increase activity Discharge Planning Pending ID clearance and cardiac WILL NEED PACER/AICD REMOVED DUE TO MRSA AND ENDOCARDITIS Problem Qualifiers (1) Sepsis: Qualified Codes: A41.9 - Sepsis, unspecified organism Rahat Vitale DO October 12, 2017 15:46
--- NOTE | 2017-10-12 16:02 | PD.CARD.PN ---
Subjective Subjective Remarks No events overnight ANNALISE showing very small vegetation noted on aortic valve Objective Medications Current Medications Medications (Trade) Dose Ordered Sig/Ashanti Route Start Time Stop Time Status Last Admin (NS Flush) 2 ml UNSCH PRN IVF 10/04/17 08:00 10/11/17 09:34 (Ecotrin Ec) 81 mg DAILY PO 10/05/17 09:00 10/12/17 11:50 (Ativan) 0.5 mg Q8H PRN PO 10/04/17 12:30 10/11/17 03:12 (Reglan) 10 mg DAILY PO 10/05/17 09:00 10/12/17 11:50 (Creon 12-38-60) 1 cap TIDPC PO 10/04/17 13:30 10/12/17 15:26 (Protonix) 20 mg DAILY PO 10/05/17 09:00 10/12/17 11:50 (Zoloft) 50 mg DAILY PO 10/05/17 09:00 10/12/17 11:50 (Pill Splitter) 1 ea UNSCH PRN OTHER 10/04/17 12:30 (Roxicodone) 15 mg Q8H PRN PO 10/04/17 12:30 10/11/17 20:40 (Albuterol Neb) 1.25 mg Q2HR NEB PRN NEB 10/04/17 12:45 10/08/17 21:16 (Heparin Inj) 5,000 units Q12HR SQ 10/04/17 21:00 10/12/17 11:50 (Tylenol) 650 mg Q4H PRN PO 10/04/17 13:30 (Zofran Odt) 4 mg Q8HR PRN PO 10/04/17 13:30 10/04/17 16:58 (Robitussin Liq) 200 mg Q4H PRN PO 10/04/17 18:30 10/09/17 20:27 (Morphine Inj) 0.5 mg Q4H PRN IV 10/05/17 10:30 (Melatonin) 5 mg HS PRN PO 10/05/17 21:00 10/09/17 20:15 (D50w (Vial) Inj) 50 ml UNSCH PRN IV PUSH 10/05/17 13:45 (Glucagon Inj) 1 mg UNSCH PRN OTHER 10/05/17 13:45 (NovoLIN R SUPPLEMENTAL SCALE) 1 ACHS SLIDING SCALE SQ 10/05/17 17:00 10/11/17 20:29 Ceftriaxone Sodium 2000 mg/ Sodium Chloride 100 ml @ 200 mls/hr Q24H IV 10/06/17 10:00 10/12/17 11:55 (Spiriva Inh) 18 mcg DAILY INH 10/07/17 09:30 10/12/17 11:49 (Catapres) 0.1 mg Q6H PRN PO 10/07/17 08:15 (Levemir Inj) 24 units BID SQ 10/10/17 21:00 10/11/17 20:28 Vital Signs / I&O Vital Signs Date Time Temp Pulse Resp B/P (MAP) Pulse Ox O2 Delivery O2 Flow Rate FiO2 10/12/17 12:28 97.8 69 18 126/84 (98) 96 10/12/17 08:50 97.6 86 16 126/73 (90) 96 10/12/17 08:50 96 Room Air 10/12/17 08:00 84 10/12/17 07:00 65 10/12/17 06:00 76 10/12/17 05:00 78 10/12/17 04:01 65 10/12/17 04:00 97.7 65 18 119/89 (99) 98 10/12/17 03:00 67 10/12/17 02:00 70 10/12/17 01:00 76 10/12/17 00:23 97.4 64 18 136/90 (105) 98 10/12/17 00:11 64 10/11/17 22:00 76 10/11/17 21:27 96 10/11/17 21:00 72 10/11/17 20:27 97.7 74 16 121/82 (95) 97 10/11/17 20:25 76 10/11/17 20:00 96 Room Air 10/11/17 19:00 76 10/11/17 18:00 78 10/11/17 17:00 78 10/11/17 16:00 76 I/O 10/11/17 10/11/17 10/11/17 10/12/17 10/12/17 10/12/17 07:00 15:00 23:00 07:00 15:00 23:00 Intake Total 680 ml 100 ml 700 ml 240 ml Output Total 1450 ml 1720 ml 850 ml Balance -770 ml 100 ml -1020 ml -610 ml Intake Oral 680 ml 700 ml 240 ml IV Total 100 ml Output Urine Total 1450 ml 1720 ml 850 ml # Bowel Movements 0 Physical Exam GENERAL: NAD, AAOx3 SKIN: Warm and dry. HEAD: Atraumatic. Normocephalic. EYES: Pupils equal and round. No scleral icterus. No injection or drainage. ENT: No nasal bleeding or discharge. Mucous membranes pink and moist. NECK: Trachea midline. No JVD. CARDIOVASCULAR: Regular rate and rhythm. RESPIRATORY: No accessory muscle use. Clear to auscultation. Breath sounds equal bilaterally. GASTROINTESTINAL: Abdomen soft, non-tender, nondistended. Hepatic and splenic margins not palpable. MUSCULOSKELETAL: Extremities without clubbing, cyanosis, or edema. No obvious deformities. NEUROLOGICAL: Awake and alert. No obvious cranial nerve deficits. Motor grossly within normal limits. Five out of 5 muscle strength in the arms and legs. Normal speech. PSYCHIATRIC: Appropriate mood and affect; insight and judgment normal. Laboratory Laboratory Tests Test 10/12/17 05:01 10/12/17 05:07 Blood Urea Nitrogen 19 MG/DL Creatinine 1.12 MG/DL Random Glucose 77 MG/DL Total Protein 8.2 GM/DL Albumin 3.5 GM/DL Calcium Level 9.5 MG/DL Phosphorus Level 3.6 MG/DL Magnesium Level 2.0 MG/DL Alkaline Phosphatase 114 U/L Aspartate Amino Transf (AST/SGOT) 24 U/L Alanine Aminotransferase (ALT/SGPT) 29 U/L Total Bilirubin 0.6 MG/DL Sodium Level 134 MEQ/L Potassium Level 4.1 MEQ/L Chloride Level 93 MEQ/L Carbon Dioxide Level 30.7 MEQ/L Anion Gap 10 MEQ/L Estimat Glomerular Filtration Rate 79 ML/MIN Free Thyroxine 1.40 NG/DL Thyroid Stimulating Hormone 3rd Gen 3.260 uIU/ML White Blood Count 10.2 TH/MM3 Red Blood Count 5.36 MIL/MM3 Hemoglobin 16.2 GM/DL Hematocrit 48.2 % Mean Corpuscular Volume 89.9 FL Mean Corpuscular Hemoglobin 30.3 PG Mean Corpuscular Hemoglobin Concent 33.7 % Red Cell Distribution Width 13.5 % Platelet Count 267 TH/MM3 Mean Platelet Volume 8.8 FL Neutrophils (%) (Auto) 48.5 % Lymphocytes (%) (Auto) 30.6 % Monocytes (%) (Auto) 14.3 % Eosinophils (%) (Auto) 6.2 % Basophils (%) (Auto) 0.4 % Neutrophils # (Auto) 4.9 TH/MM3 Lymphocytes # (Auto) 3.1 TH/MM3 Monocytes # (Auto) 1.5 TH/MM3 Eosinophils # (Auto) 0.6 TH/MM3 Basophils # (Auto) 0.0 TH/MM3 CBC Comment DIFF FINAL Differential Comment Assessment and Plan Problem List: (1) Sepsis ICD Codes: A41.9 - Sepsis, unspecified organism Status: Acute (2) Polysubstance abuse ICD Codes: F19.10 - Other psychoactive substance abuse, uncomplicated Status: Acute (3) HTN (hypertension) ICD Codes: I10 - Hypertension Status: Chronic (4) DKA (diabetic ketoacidoses) ICD Codes: E13.10 - Other specified diabetes mellitus with ketoacidosis without coma Status: Acute (5) COPD (chronic obstructive pulmonary disease) ICD Codes: J44.9 - Chronic obstructive pulmonary disease Status: Chronic (6) Cocaine abuse ICD Codes: F14.10 - Cocaine abuse Status: Acute (7) Pacemaker ICD Codes: Z95.0 - Presence of cardiac pacemaker Status: Chronic Assessment and Plan 1) Bacteremia with Group B Strep ANNALISE showing very small vegetation noted on aortic valve No other vegetations noted 2) May need to have PPM removed, will discuss with ID/EP 3) Atypical CP Trops negative Possible due to his PNA 4) Cocaine cessation Problem Qualifiers (1) Sepsis: Qualified Codes: A41.9 - Sepsis, unspecified organism Praveen Gonzales DO October 12, 2017 16:02
[2017-10-12 16:27] LABS: HEMOGLOBIN A1C 11.7 % (4.3-6.0)
--- NOTE | 2017-10-12 19:07 | HHI.IDPN ---
Subjective Subjective Remarks afebrile ANNALISE showed small vegetation on aortic valve Antibiotics CFTX Allergies: Coded Allergies: No Known Drug Allergies (Verified Allergy, Unknown, 10/04/17) MRI PRECAUTION (Verified Adverse Reaction, Severe, PACEMAKER, 10/04/17) PT HAS PACEMAKER PER NURSE ARI *MDRO Multi-Drug Resistant Organism (Verified Adverse Reaction, Unknown, Cleared - 10/07/15, 10/04/17) MRSA PCR (nares) negative - 10/04/15 & 10/07/15 Cleared per Infection Control MRSA (blood and urine) - 06/2012 Objective . Vital Signs Date Time Temp Pulse Resp B/P (MAP) Pulse Ox O2 Delivery O2 Flow Rate FiO2 10/12/17 18:00 68 10/12/17 17:00 68 10/12/17 16:00 74 10/12/17 15:15 98.0 76 16 128/90 (103) 98 10/12/17 15:00 65 10/12/17 14:00 96 10/12/17 13:00 72 10/12/17 12:28 97.8 69 18 126/84 (98) 96 10/12/17 12:00 66 10/12/17 11:00 67 10/12/17 08:50 97.6 86 16 126/73 (90) 96 10/12/17 08:50 96 Room Air 10/12/17 08:00 84 10/12/17 07:00 65 10/12/17 06:00 76 10/12/17 05:00 78 10/12/17 04:01 65 10/12/17 04:00 97.7 65 18 119/89 (99) 98 10/12/17 03:00 67 10/12/17 02:00 70 10/12/17 01:00 76 10/12/17 00:23 97.4 64 18 136/90 (105) 98 10/12/17 00:11 64 10/11/17 22:00 76 10/11/17 21:27 96 10/11/17 21:00 72 10/11/17 20:27 97.7 74 16 121/82 (95) 97 10/11/17 20:25 76 10/11/17 20:00 96 Room Air 10/12/17 10/12/17 10/13/17 15:00 23:00 07:00 Intake Total 860 ml Output Total 1200 ml Balance -340 ml Intake Oral 860 ml Output Urine Total 1200 ml . Laboratory Tests Test 10/12/17 05:07 White Blood Count 10.2 TH/MM3 Red Blood Count 5.36 MIL/MM3 Hemoglobin 16.2 GM/DL Hematocrit 48.2 % Mean Corpuscular Volume 89.9 FL Mean Corpuscular Hemoglobin 30.3 PG Mean Corpuscular Hemoglobin Concent 33.7 % Red Cell Distribution Width 13.5 % Platelet Count 267 TH/MM3 Mean Platelet Volume 8.8 FL Neutrophils (%) (Auto) 48.5 % Lymphocytes (%) (Auto) 30.6 % Monocytes (%) (Auto) 14.3 % Eosinophils (%) (Auto) 6.2 % Basophils (%) (Auto) 0.4 % Neutrophils # (Auto) 4.9 TH/MM3 Lymphocytes # (Auto) 3.1 TH/MM3 Monocytes # (Auto) 1.5 TH/MM3 Eosinophils # (Auto) 0.6 TH/MM3 Basophils # (Auto) 0.0 TH/MM3 CBC Comment DIFF FINAL Differential Comment Laboratory Tests Test 10/11/17 05:19 10/12/17 05:01 Blood Urea Nitrogen 23 MG/DL 19 MG/DL Creatinine 1.16 MG/DL 1.12 MG/DL Random Glucose 120 MG/DL 77 MG/DL Calcium Level 8.6 MG/DL 9.5 MG/DL Sodium Level 136 MEQ/L 134 MEQ/L Potassium Level 3.9 MEQ/L 4.1 MEQ/L Chloride Level 95 MEQ/L 93 MEQ/L Carbon Dioxide Level 31.3 MEQ/L 30.7 MEQ/L Anion Gap 10 MEQ/L 10 MEQ/L Estimat Glomerular Filtration Rate 76 ML/MIN 79 ML/MIN Total Protein 8.2 GM/DL Albumin 3.5 GM/DL Phosphorus Level 3.6 MG/DL Magnesium Level 2.0 MG/DL Alkaline Phosphatase 114 U/L Aspartate Amino Transf (AST/SGOT) 24 U/L Alanine Aminotransferase (ALT/SGPT) 29 U/L Total Bilirubin 0.6 MG/DL Free Thyroxine 1.40 NG/DL Thyroid Stimulating Hormone 3rd Gen 3.260 uIU/ML Imaging Last Impressions Chest CT 10/08/17 0000 Signed Impressions: CONCLUSION: 1. Trace compressive/dependent atelectasis of both bases and tiny bilateral pl eural effusions. A slight degree of failure is conceivable. No pneumonic infilt rate demonstrated. 2. Mild emphysema and mild chronic interstitial changes are again noted. Stabl e, benign nodule in the right mid lung. 3. Stable diffuse prominent caliber of the thoracic aorta up to 4.1 cm. Chest X-Ray 10/04/17 0753 Signed Impressions: CONCLUSION: No acute abnormality or significant interval change Lung Scan-VQ Nuclear Medicine 10/04/17 0000 Signed Impressions: CONCLUSION: 1. Low probability for PE. 2. Patchy uptake of tracer activity on the ventilation study suggestive of air space disease. Lower Extremity Ultrasound 10/04/17 0000 Signed Impressions: CONCLUSION: 1. No evidence of DVT. Physical Exam CONSTITUTIONAL/GENERAL: This is an adequately nourished patient, in no apparent distress. TUBES/LINES/DRAINS: SKIN: No jaundice, rashes, or lesions. Skin temperature appropriate. Not diaphoretic. CARDIOVASCULAR: Regular rate and rhythm without murmurs, gallops, or rubs. No JVD. Peripheral pulses symmetric. Pacer in place L chest RESPIRATORY/CHEST: Symmetric, unlabored respirations. Clear to auscultation. Breath sounds equal bilaterally. No wheezes, rales, or rhonchi. GASTROINTESTINAL: Abdomen soft, non-tender, nondistended. No hepato-splenomegaly , or palpable masses. No guarding. Bowel sounds present. MUSCULOSKELETAL: Extremities without clubbing, cyanosis, or edema. No joint tenderness or effusion noted. No calf tenderness. No mottling or clubbing. NEUROLOGICAL: Awake and alert. Motor and sensory grossly within normal limits. Follows commands. Clear speech Moves all extremities. PSYCHIATRIC: No obvious anxiety/depression. no apparent hallucinations or other psychotic thought process. 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
[2017-10-13] VITALS (25 sets, daily range): BP systolic 129–149; BP diastolic 68–97; PULSE 62–83; RESP 14–20; TEMP 97.2–98.1; O2SAT 93–97
--- NOTE | 2017-10-13 00:03 | ECHRPT ---
Indication: BACTEREMIA CONCLUSIONS The left ventricular systolic function is mildly reduced with an estimated ejection fraction in the range of 45- 50%. Trace mitral valve regurgitation. Small mobile structure with extra-cardiac motion noted at the base of the non-coronary cusp, consist ent with a vegetation. Measures 0.4cm x 0.4cm. There is mild tricuspid valve regurgitation. BP: / HR: Rhythm: Sinus Technical Quality:Fair Medications Complications Proc. Components Anesthesia at bedside for sedation FINDINGS LEFT VENTRICLE Normal left ventricular size. The left ventricular systolic function is mildly reduced with an estimated ejection fraction in the range of 45- 50%. RIGHT VENTRICLE Grossly normal LEFT ATRIUM The left atrial size is normal. RIGHT ATRIUM The right atrial size is normal. ATRIAL APPENDAGES Normal left atrial appendage size with no evidence of thrombus formation. ATRIAL SEPTUM Normal atrial septal thickness. AORTA Descending aorta with no evidence of dissection MITRAL VALVE Structurally normal mitral valve. Trace mitral valve regurgitation. No mitral valve stenosis. AORTIC VALVE Trileaflet aortic valve. No aortic valve regurgitation. No aortic valve stenosis. Small mobile structure with extra-cardiac motion noted at the base of the non-coronary cusp, consist ent with a vegetation. Measures 0.4cm x 0.4cm TRICUSPID VALVE Structurally normal tricuspid valve. There is mild tricuspid valve regurgitation. No tricuspid valve stenosis. VESSELS The pulmonary valve is not well visualized. Praveen Gonzales DO (Electronically Signed) Final Date:13 Oct 2017 00:02
[2017-10-13] MEDS: MORPHINE SULFATE 4 MG/ML INJ IV PRN ×2 (00:10→08:43)
[2017-10-13] MEDS: MELATONIN 5 MG TAB PO PRN (00:44)
[2017-10-13] MEDS: guaiFENesin SOLUTION 200 MG/10 ML CUP PO PRN (05:38)
[2017-10-13 07:12] LABS: ALBUMIN 3.1 GM/DL (3.4-5.0); AST (GOT) 23 U/L (15-37); BICARBONATE 26.5 MEQ/L (21.0-32.0); BLOOD UREA NITROGEN 20 MG/DL (7-18); CALCIUM 9.1 MG/DL (8.5-10.1); CHLORIDE 96 MEQ/L (98-107); CREATININE 0.98 MG/DL (0.60-1.30); GLOMERULAR FILTRATION RATE 92 ML/MIN (>89); GLUCOSE,RANDOM 69 MG/DL (74-106); SODIUM (NA) 133 MEQ/L (136-145)
[2017-10-13 07:13] LABS: ALT (GPT) 30 U/L (12-78); PHOSPHORUS 3.6 MG/DL (2.5-4.9)
[2017-10-13 07:14] LABS: ALKALINE PHOSPHATASE 124 U/L (45-117); TOTAL BILIRUBIN ADULT 0.5 MG/DL (0.2-1.0); TOTAL PROTEIN 7.5 GM/DL (6.4-8.2)
[2017-10-13 07:15] LABS: AUTOMATED NEUTROPHIL # 4.4 TH/MM3 (1.8-7.7); BASOPHIL % 0.5 % (0.0-2.0); EOSINOPHIL # 0.4 TH/MM3 (0-0.4); EOSINOPHIL % 5.1 % (0.0-4.0); HEMATOCRIT 45.3 % (39.0-51.0); HEMOGLOBIN 15.3 GM/DL (13.0-17.0); LYMPH % 21.5 % (9.0-44.0); LYMPHOCYTE # 1.6 TH/MM3 (1.0-4.8); MEAN CORPUSCULAR HEMOGLOBIN 30.4 PG (27.0-34.0); MEAN CORPUSCULAR HGB CONC 33.8 % (32.0-36.0); MEAN PLATELET VOLUME 8.9 FL (7.0-11.0); MONO % 11.7 % (0.0-8.0); MONOCYTE # 0.8 TH/MM3 (0-0.9); NEUT % 61.2 % (16.0-70.0); PLATELET COUNT 242 TH/MM3 (150-450); RED BLOOD COUNT 5.04 MIL/MM3 (4.50-5.90); RED CELL DISTRIBUTION WIDTH 13.4 % (11.6-17.2); WHITE BLOOD COUNT 7.2 TH/MM3 (4.0-11.0)
[2017-10-13] MEDS: INSULIN NovoLIN REGULAR SUPPLEMENTAL SCALE SQ SCH ×4 (08:00→21:20)
[2017-10-13] MEDS: PANTOPRAZOLE SOD 20 MG DELAYED RELEASE TAB PO SCH (08:42)
[2017-10-13] MEDS: ASPIRIN EC 81 MG TABEC PO SCH (08:42)
[2017-10-13] MEDS: TIOTROPIUM BROMIDE 18 MCG INH INH SCH (08:42)
[2017-10-13] MEDS: LIPASE/PROTEASE/AMYLASE (12,000/38,000/60,000) CAP PO SCH ×3 (08:42→18:19)
[2017-10-13] MEDS: SERTRALINE HCL 50 MG TAB PO SCH (08:42)
[2017-10-13] MEDS: METOCLOPRAMIDE HCL 10 MG TAB PO SCH (08:43)
[2017-10-13] MEDS: HEPARIN SODIUM - SQ 10,000 UNITS/ML VIAL SQ SCH ×2 (08:43→21:19)
[2017-10-13] MEDS: INSULIN DETEMIR 100 UNITS/ML VIAL SQ SCH ×2 (08:44→21:20)
[2017-10-13] MEDS: cefTRIAXone INJ 2,000 MG in SODIUM CHLORIDE 0.9% INJ 100 ML IV SCH (10:06)
--- NOTE | 2017-10-13 11:04 | HHI.PR ---
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 Maddox in a very long time and she states that he is not her patient Await cardiac evaluation for ANNALISE Discussed with patient and RN Patient has already ate today so no procedures would be done until tomorrow at the earliest 10-12 HAD ANNALISE POSITIVE FOR ENDOCARDITIS WILL NEED ANTIBIOTICS AND WILL NEED PACEMAKER REMOVED PER DISCUSSION WITH ID AND CARDIOLOGY DW RN AND PT AND CM ANTIBIOTICS PER ID 10-13 PATIENT STATES HE IS TO HAVE AICD/PPM REMOVED TOMORROW DW RN AND PT AND CM CONTINUE ANTIBIOTICS FOR ENDOCARDITIS- WILL NEED DEVICE REMOVED AM LABS Objective Vitals Vital Signs Date Time Temp Pulse Resp B/P (MAP) Pulse Ox O2 Delivery O2 Flow Rate FiO2 10/13/17 10:00 74 10/13/17 09:49 14 10/13/17 09:00 76 10/13/17 08:07 97 10/13/17 08:05 97 Room Air 10/13/17 08:05 98.0 74 16 142/68 (92) 97 10/13/17 08:00 72 10/13/17 07:00 71 10/13/17 06:38 16 10/13/17 06:00 62 10/13/17 05:00 64 10/13/17 04:00 65 10/13/17 03:49 97.2 66 14 131/82 (98) 95 10/13/17 03:00 64 10/13/17 02:00 69 10/13/17 01:00 67 10/13/17 00:18 82 10/13/17 00:00 68 10/12/17 23:56 98.4 67 18 123/79 (94) 98 10/12/17 23:00 71 10/12/17 22:00 64 10/12/17 21:00 76 10/12/17 20:30 97 Nasal Cannula 1.00 10/12/17 20:16 98.4 69 18 139/89 (106) 97 10/12/17 20:00 68 10/12/17 19:36 97 21 10/12/17 19:00 78 10/12/17 18:00 68 10/12/17 17:00 68 10/12/17 16:00 74 10/12/17 15:15 98.0 76 16 128/90 (103) 98 10/12/17 15:00 65 10/12/17 14:00 96 10/12/17 13:00 72 10/12/17 12:28 97.8 69 18 126/84 (98) 96 10/12/17 12:00 66 I/O 10/12/17 10/12/17 10/12/17 10/13/17 10/13/17 10/13/17 07:00 15:00 23:00 07:00 15:00 23:00 Intake Total 240 ml 860 ml 820 ml 100 ml Output Total 850 ml 1200 ml Balance -610 ml -340 ml 820 ml 100 ml Intake Oral 240 ml 860 ml 720 ml IV Total 100 ml 100 ml Output Urine Total 850 ml 1200 ml # Voids 3 Result Diagram: 10/13/17 0528 10/13/17 0528 Other Results Laboratory Tests Test 10/11/17 05:19 10/12/17 05:01 10/12/17 05:07 10/13/17 05:28 Blood Urea Nitrogen 23 MG/DL 19 MG/DL 20 MG/DL Creatinine 1.16 MG/DL 1.12 MG/DL 0.98 MG/DL Random Glucose 120 MG/DL 77 MG/DL 69 MG/DL Calcium Level 8.6 MG/DL 9.5 MG/DL 9.1 MG/DL Sodium Level 136 MEQ/L 134 MEQ/L 133 MEQ/L Potassium Level 3.9 MEQ/L 4.1 MEQ/L 4.2 MEQ/L Chloride Level 95 MEQ/L 93 MEQ/L 96 MEQ/L Carbon Dioxide Level 31.3 MEQ/L 30.7 MEQ/L 26.5 MEQ/L Anion Gap 10 MEQ/L 10 MEQ/L 11 MEQ/L Estimat Glomerular Filtration Rate 76 ML/MIN 79 ML/MIN 92 ML/MIN Total Protein 8.2 GM/DL 7.5 GM/DL Albumin 3.5 GM/DL 3.1 GM/DL Phosphorus Level 3.6 MG/DL 3.6 MG/DL Magnesium Level 2.0 MG/DL 2.0 MG/DL Alkaline Phosphatase 114 U/L 124 U/L Aspartate Amino Transf (AST/SGOT) 24 U/L 23 U/L Alanine Aminotransferase (ALT/SGPT) 29 U/L 30 U/L Total Bilirubin 0.6 MG/DL 0.5 MG/DL Hemoglobin A1c 11.7 % Free Thyroxine 1.40 NG/DL Thyroid Stimulating Hormone 3rd Gen 3.260 uIU/ML White Blood Count 10.2 TH/MM3 7.2 TH/MM3 Red Blood Count 5.36 MIL/MM3 5.04 MIL/MM3 Hemoglobin 16.2 GM/DL 15.3 GM/DL Hematocrit 48.2 % 45.3 % Mean Corpuscular Volume 89.9 FL 90.0 FL Mean Corpuscular Hemoglobin 30.3 PG 30.4 PG Mean Corpuscular Hemoglobin Concent 33.7 % 33.8 % Red Cell Distribution Width 13.5 % 13.4 % Platelet Count 267 TH/MM3 242 TH/MM3 Mean Platelet Volume 8.8 FL 8.9 FL Neutrophils (%) (Auto) 48.5 % 61.2 % Lymphocytes (%) (Auto) 30.6 % 21.5 % Monocytes (%) (Auto) 14.3 % 11.7 % Eosinophils (%) (Auto) 6.2 % 5.1 % Basophils (%) (Auto) 0.4 % 0.5 % Neutrophils # (Auto) 4.9 TH/MM3 4.4 TH/MM3 Lymphocytes # (Auto) 3.1 TH/MM3 1.6 TH/MM3 Monocytes # (Auto) 1.5 TH/MM3 0.8 TH/MM3 Eosinophils # (Auto) 0.6 TH/MM3 0.4 TH/MM3 Basophils # (Auto) 0.0 TH/MM3 0.0 TH/MM3 CBC Comment DIFF FINAL DIFF FINAL Differential Comment Imaging Last Impressions Chest CT 10/08/17 Signed Impressions: CONCLUSION: 1. Trace compressive/dependent atelectasis of both bases and tiny bilateral pl eural effusions. A slight degree of failure is conceivable. No pneumonic infilt rate demonstrated. 2. Mild emphysema and mild chronic interstitial changes are again noted. Stabl e, benign nodule in the right mid lung. 3. Stable diffuse prominent caliber of the thoracic aorta up to 4.1 cm. Chest X-Ray 10/04/17 0753 Signed Impressions: CONCLUSION: No acute abnormality or significant interval change Lung Scan-VQ Nuclear Medicine 10/04/17 0000 Signed Impressions: CONCLUSION: 1. Low probability for PE. 2. Patchy uptake of tracer activity on the ventilation study suggestive of air space disease. Lower Extremity Ultrasound 10/04/17 Signed Impressions: CONCLUSION: 1. No evidence of DVT. Objective Remarks GENERAL: Awake alert and oriented 3 talkative and cooperative SKIN: Warm and dry. HEAD: Atraumatic. Normocephalic. EYES: Pupils equal and round. No scleral icterus. No injection or drainage. Extraocular muscles intact ENT: No nasal bleeding or discharge. Mucous membranes pink and moist. Tongue is midline NECK: Trachea midline. No JVD. Supple CARDIOVASCULAR: Regular rate and rhythm. S1-S2 no S3 or S4 RESPIRATORY: No accessory muscle use. Few scattered rhonchi. Breath sounds equal bilaterally. GASTROINTESTINAL: Abdomen soft, non-tender, nondistended. Hepatic and splenic margins not palpable. MUSCULOSKELETAL: Extremities without clubbing, cyanosis, or edema. No obvious deformities. NEUROLOGICAL: Awake and alert. No obvious cranial nerve deficits. Motor grossly within normal limits. Five out of 5 muscle strength in the arms and legs. Normal speech. PSYCHIATRIC: Appropriate mood and affect; insight and judgment normal. Procedures ANNALISE 10-12 SHOWED ENDOCARDITIS Medications and IVs Current Medications Aspirin (Aspirin Chew) 162 mg ONCE ONCE PO Last administered on 10/04/17 08: 09; Start 10/04/17 at 08:00; Stop 10/04/17 at 08:01; Status DC Sodium Chloride (NS Flush) 2 ml UNSCH PRN IVF FLUSH AFTER USING IV ACCESS Last administered on 10/11/17at 09:34; Start 10/04/17 at 08:00 Nitroglycerin (Nitrostat Sl) 0.4 mg Q5M SL Last administered on 10/04/17 08:29 ; Start 10/04/17 at 08:00; Stop 10/04/17 at 08:11; Status DC Sodium Chloride 1,000 ml @ 1,000 mls/hr Q1H IV Last administered on 10/04/17at 08:50; Start 10/04/17 at 07:57; Stop 10/04/17 at 08:56; Status DC Sodium Chloride 1,000 ml @ 999 mls/hr BOLUS ONCE IV Last administered on 10/04at 09:57; Start 10/04/17 at 10:00; Stop 10/04/17 at 11:00; Status DC Ceftriaxone Sodium 1000 mg/ Sodium Chloride 100 ml @ 200 mls/hr ONCE ONCE IV Last administered on 10/04/17 09:56; Start 10/04/17 at 10:00; Stop 10/04/17 at 10:29; Status DC Azithromycin 500 mg/Sodium Chloride 250 ml @ 250 mls/hr ONCE ONCE IV Last administered on 10/04/17at 10:30; Start 10/04/17 at 10:00; Stop 10/04/17 at 10:59 ; Status DC Sodium Chloride 250 ml @ 250 mls/hr BOLUS ONCE IV Last administered on at 10:05; Start 10/04/17 at 10:00; Stop 10/04/17 at 10:59; Status DC Insulin Human Regular (NovoLIN R INJ) 8 units ONCE ONCE SQ Last administered on 10/04/17at 10:04; Start 10/04/17 at 10:00; Stop 10/04/17 at 10:03; Status DC Oxycodone HCl (Roxicodone) 15 mg Q8H PRN PO PAIN 4-10; Start 10/04/17 at 12:15 ; Stop 10/04/17 at 12:25; Status DC Dextrose (D50w (Vial) Inj) 50 ml UNSCH PRN IV PUSH HYPOGLYCEMIA-SEE COMMENTS; Start 10/04/17 at 12:30; Stop 10/07/17 at 08:36; Status DC Glucagon (Glucagon Inj) 1 mg UNSCH PRN OTHER HYPOGLYCEMIA-SEE COMMENTS; Start 10/04/17 at 12:30; Stop 10/07/17 at 08:36; Status DC Insulin Aspart (NovoLOG SUPPLEMENTAL SCALE) 1 ACHS SLIDING SCALE SQ Last administered on 10/05/17at 12:00; Start 10/04/17 at 17:00; Stop 10/05/17 at 13:46 ; Status DC Aspirin (Ecotrin Ec) 81 mg DAILY PO Last administered on 10/13/17at 08:42; Start 10/05/17 at 09:00 Lorazepam (Ativan) 0.5 mg Q8H PRN PO ANXIETY AND/OR AGITATION Last administered on 10/11/17at 03:12; Start 10/04/17 at 12:30 Metoclopramide HCl (Reglan) 10 mg DAILY PO Last administered on 10/13/17at 08:43 ; Start 10/05/17 at 09:00 Amylase/Lipase/ Protease (Creon 12-38-60) 1 cap TIDPC PO Last administered on at 08:42; Start 10/04/17 at 13:30 Pantoprazole Sodium (Protonix) 20 mg DAILY PO Last administered on 10/13/17at 08 :42; Start 10/05/17 at 09:00 Sertraline HCl (Zoloft) 50 mg DAILY PO Last administered on 10/13/17at 08:42; Start 10/05/17 at 09:00 Oxycodone HCl (Roxicodone) 15 mg Q8H PRN PO PAIN 4-10; Start 10/04/17 at 12:30 ; Stop 10/04/17 at 12:30; Status DC Miscellaneous (Pill Splitter) 1 ea UNSCH PRN OTHER SEE LABEL COMMENTS; Start at 12:30 Oxycodone HCl (Roxicodone) 15 mg Q8H PRN PO PAIN 4-10 Last administered on 10/13at 05:31; Start 10/04/17 at 12:30 Albuterol/ Ipratropium (Duoneb Neb) 1 ampule Q4HR NEB NEB Last administered on 10/08/17at 03:42; Start 10/04/17 at 16:00; Stop 10/08/17 at 15:59; Status DC Albuterol Sulfate (Albuterol Neb) 1.25 mg Q2HR NEB PRN NEB SHORTNESS OF BREATH Last administered on 10/08/17at 21:16; Start 10/04/17 at 12:45 Methylprednisolone Sodium Succinate (SoluMEDROL INJ) 40 mg Q8HR IV PUSH Last administered on 10/05/17at 06:33; Start 10/04/17 at 14:00; Stop 10/05/17 at 10:16 ; Status DC Insulin Detemir (Levemir Inj) 15 units HS SQ Last administered on 10/04/17at 20: 33; Start 10/04/17 at 21:00; Stop 10/05/17 at 13:46; Status DC Heparin Sodium (Porcine) (Heparin Inj) 5,000 units Q12HR SQ Last administered on 10/13/17at 08:43; Start 10/04/17 at 21:00 Lisinopril (Prinivil) 10 mg DAILY PO Last administered on 10/06/17at 08:53; Start 10/05/17 at 09:00; Stop 10/07/17 at 08:07; Status DC Ceftriaxone Sodium 1000 mg/ Sodium Chloride 100 ml @ 200 mls/hr Q24H IV Last administered on 10/05/17at 09:45; Start 10/05/17 at 09:00; Stop 10/05/17 at 19:58 ; Status DC Azithromycin 500 mg/Sodium Chloride 250 ml @ 250 mls/hr Q24H IV Last administered on 10/05/17at 12:01; Start 10/05/17 at 10:00; Stop 10/05/17 at 19:58 ; Status DC Acetaminophen (Tylenol) 650 mg Q4H PRN PO FEVER/PAIN 1-3; Start 10/04/17 at 13: 30 Ondansetron HCl (Zofran Odt) 4 mg Q8HR PRN PO NAUSEA Last administered on 10/04at 16:58; Start 10/04/17 at 13:30 Guaifenesin (Robitussin Liq) 200 mg Q4H PRN PO COUGH Last administered on at 05:38; Start 10/04/17 at 18:30 Morphine Sulfate (Morphine Inj) 2 mg Q4H PRN IV SEE LABEL COMMENTS Last administered on 10/04/17at 20:32; Start 10/04/17 at 18:30; Stop 10/05/17 at 10:23 ; Status DC Vancomycin HCl 1000 mg/Sodium Chloride 250 ml @ 250 mls/hr Q12H IV ; Start at 10:00; Status UNV Pharmacy Profile Note 0 ml @ 0 mls/hr UNSCH OTHER ; Start 10/05/17 at 10:00; Stop 10/05/17 at 19:58; Status DC Prednisone (Deltasone) 20 mg BID PO Last administered on 10/06/17at 08:53; Start 10/05/17 at 21:00; Stop 10/06/17 at 13:03; Status DC Sodium Chloride 1,000 ml @ 84 mls/hr [id number] IV Last administered on at 17:35; Start 10/05/17 at 11:00; Stop 10/08/17 at 11:17; Status DC Vancomycin HCl 1250 mg/Sodium Chloride 262.5 ml @ 250 mls/hr Q18H IV Last administered on 10/05/17at 13:38; Start 10/05/17 at 12:00; Stop 10/05/17 at 19:58 ; Status DC Morphine Sulfate (Morphine Inj) 0.5 mg Q4H PRN IV BREAKTHROUGH PAIN Last administered on 10/13/17at 08:43; Start 10/05/17 at 10:30 Melatonin (Melatonin) 5 mg HS PRN PO sleep aid Last administered on 10/13/17at 00:44; Start 10/05/17 at 21:00 Miscellaneous Information ([facility] [place] [facility] Ordered Lab Info) [id number] LAB TO BE DRAWN:VANCOMY... ONCE ONCE .XX ; Start 10/07/17 at 17:45; Stop 10/07/17 at 17:45; Status DC Insulin Detemir (Levemir Inj) 15 units BID SQ Last administered on 10/06/17at 08 :53; Start 10/05/17 at 21:00; Stop 10/06/17 at 13:01; Status DC Dextrose (D50w (Vial) Inj) 50 ml UNSCH PRN IV PUSH HYPOGLYCEMIA-SEE COMMENTS; Start 10/05/17 at 13:45 Glucagon (Glucagon Inj) 1 mg UNSCH PRN OTHER HYPOGLYCEMIA-SEE COMMENTS; Start 10/05/17 at 13:45 Insulin Human Regular (NovoLIN R SUPPLEMENTAL SCALE) 1 ACHS SLIDING SCALE SQ Last administered on 10/12/17at 20:34; Start 10/05/17 at 17:00 Ceftriaxone Sodium 2000 mg/ Sodium Chloride 100 ml @ 200 mls/hr Q24H IV ; Start 10/06/17 at 09:00; Stop 10/06/17 at 09:07; Status DC Ceftriaxone Sodium 2000 mg/ Sodium Chloride 100 ml @ 200 mls/hr Q24H IV Last administered on 10/13/17at 10:06; Start 10/06/17 at 10:00 Insulin Detemir (Levemir Inj) 20 units BID SQ Last administered on 10/10/17at 09 :00; Start 10/06/17 at 21:00; Stop 10/10/17 at 17:17; Status DC Prednisone (Deltasone) 10 mg BID PO Last administered on 10/08/17at 10:34; Start 10/06/17 at 21:00; Stop 10/08/17 at 11:15; Status DC Pharmacy Profile Note 0 ml @ 0 mls/hr UNSCH OTHER ; Start 10/06/17 at 14:15; Stop 10/10/17 at 11:24; Status DC Vancomycin HCl 1250 mg/Sodium Chloride 262.5 ml @ 250 mls/hr Q12H IV Last administered on 10/10/17at 05:05; Start 10/06/17 at 17:00; Stop 10/10/17 at 11:24 ; Status DC Miscellaneous Information ([facility] [place] [facility] Ordered Lab Info) SPECIFIC LAB TO BE DRAWN:VANCOMYCIN TROUGH DATE TO... ONCE ONCE .XX Last administered on at 05:00; Start 10/08/17 at 04:45; Stop 10/08/17 at 04:46; Status DC Tiotropium [place] (Spiriva Inh) 18 mcg DAILY INH Last administered on at 08:42; Start 10/07/17 at 09:30 Clonidine (Catapres) 0.1 mg Q6H PRN PO SBP>160, DBP>90; Start 10/07/17 at 08:15 Lisinopril (Prinivil) 20 mg DAILY PO Last administered on 10/09/17at 10:27; Start 10/07/17 at 09:00; Stop 10/09/17 at 10:36; Status DC Prednisone (Deltasone) 10 mg DAILY PO Last administered on 10/10/17at 08:34; Start 10/09/17 at 09:00; Stop 10/10/17 at 17:03; Status DC Lisinopril (Prinivil) 20 mg BID PO Last administered on 10/09/17at 20:15; Start 10/09/17 at 21:00; Stop 10/10/17 at 16:31; Status DC Sodium Polystyrene Sulfonate (Kayexalate Liq) 15 gm QID PO Last administered on 10/10/17at 11:32; Start 10/10/17 at 09:00; Stop 10/10/17 at 17:11; Status DC Lisinopril (Prinivil) 20 mg DAILY PO ; Start 10/11/17 at 09:00; Status Cancel Sodium Chloride 500 ml @ 50 mls/hr Q10H IV Last administered on 10/10/17at 16: 45; Start 10/10/17 at 16:45; Stop 10/11/17 at 02:44; Status DC Insulin Detemir (Levemir Inj) 24 units BID SQ Last administered on 10/13/17at 08 :44; Start 10/10/17 at 21:00 A/P Problem List: (1) Sepsis ICD Code: A41.9 - Sepsis, unspecified organism Status: Acute Assessment and Plan Assessment and Plan 67 years old male Group B Strep sepsis secondary to clinical Pneumonia-- sputum MRSA - started on Ceftriaxone 2 gm daily 10/05 - Vancomycin added 10/06 - ID ff - repeat blood cultures - negative so far- x 4 days - no skin lesions/thorpe- denies history of IVDU- admits to smoking cocaine - ff CBC- expect WBC to be high - on steroids - echo unremarkable - Cardiology consult for ANNALISE- per ID recommendations - patient also has a PM placed in 2004- per patient has not followed with Dr. Maddox in a very long time we will consult on-call for ANNALISE -ANNALISE POSITIVE FOR ENDOCARDITIS-- NEEDS PACEMAKER/AICD REMOVED AND ANTIBIOTICS Acute hypoxemic respiratory failure due to COPD exacerbation- improved clinically - heavy smoker in the past - lungs- no wheezes, + rales left base keep on oxygen to keep O2 sat >90%- continue with neb treatment; scheduled V/Q scan negative - change to po steroids- prednisone taper. DC prednisone today - continue home inhalers hypertension History of AICD - on lisinopril 20 mg po bid states he was on 40 mg po bid as OP- - will DC with elevated Potassium - Clonidine prn - consider restarting at a lower dose once K improved or use CCB- amlodipine NEEDS AICD/PACEMAKER REMOVED diabetes mellitus; uncontrolled-a1C 11.7 - expect to be high on steroids- completed course today 10/10 started on levemir - increased dose to 24 untis bid 24 - continue to adjust and monitor - medium sliding scale Novolog - monitor - Prednisone- DC today 10/10 - reinforced diabetes education Acute kidney injury on top CKD- Improved - off IVF - patient with good po intake Hyperkalemia- on BMP today 10/10 - patient on Lisinorpil 20 mg po bid (home was on 40 mg po bid) - HOld Lisinopril - restart at a lower dose if K level improved or switch to amlodipine for HTN if K is going to be an chronic problem - given kayexalate 30 gm po x 2 - NS 50 cc/hr - 500 cc - BMP in am History of chronic pancreatitis- on creon and reglan daily chronic back pain; resume home meds. -DVT prophylaxis with subq heparin d/w patient - up and increase activity Discharge Planning Pending ID clearance and cardiac WILL NEED PACER/AICD REMOVED DUE TO MRSA AND ENDOCARDITIS Problem Qualifiers (1) Sepsis: Qualified Codes: A41.9 - Sepsis, unspecified organism Rahat Vitale DO October 13, 2017 11:04
[2017-10-13] MEDS ORDERED: CEFAZOLIN INJ 500 MG in SODIUM CHLORIDE 0.9% IRR BTL 500 ML IRRIGATION SCH (13:30)
[2017-10-13] MEDS ORDERED: SODIUM CHLORIDE 0.9% FLUSH 10 ML FLUSH IV FLUSH PRN (13:30)
[2017-10-13] MEDS ORDERED: CHLORHEXIDINE GLUCONATE 4% SOLN 120 ML BTL TOPICAL SCH (13:30)
[2017-10-13] MEDS ORDERED: ceFAZolin 2 GM PREMIX 50 ML IV SCH (13:30)
--- NOTE | 2017-10-13 13:35 | PD.CARD.PN ---
Subjective Subjective Remarks No events overnight ANNALISE showing very small vegetation noted on aortic valve Objective Medications Current Medications Medications (Trade) Dose Ordered Sig/[place] Route Start Time Stop Time Status Last Admin (NS Flush) 2 ml UNSCH PRN IVF 10/04/17 08:00 10/11/17 09:34 (Ecotrin Ec) 81 mg DAILY PO 10/05/17 09:00 10/13/17 08:42 (Ativan) 0.5 mg Q8H PRN PO 10/04/17 12:30 10/11/17 03:12 (Reglan) 10 mg DAILY PO 10/05/17 09:00 10/13/17 08:43 (Creon 12-38-60) 1 cap TIDPC PO 10/04/17 13:30 10/13/17 13:04 (Protonix) 20 mg DAILY PO 10/05/17 09:00 10/13/17 08:42 (Zoloft) 50 mg DAILY PO 10/05/17 09:00 10/13/17 08:42 (Pill Splitter) 1 ea UNSCH PRN OTHER 10/04/17 12:30 (Roxicodone) 15 mg Q8H PRN PO 10/04/17 12:30 10/13/17 05:31 (Albuterol Neb) 1.25 mg Q2HR NEB PRN NEB 10/04/17 12:45 10/08/17 21:16 (Heparin Inj) 5,000 units Q12HR SQ 10/04/17 21:00 10/13/17 08:43 (Tylenol) 650 mg Q4H PRN PO 10/04/17 13:30 (Zofran Odt) 4 mg Q8HR PRN PO 10/04/17 13:30 10/04/17 16:58 (Robitussin Liq) 200 mg Q4H PRN PO 10/04/17 18:30 10/13/17 05:38 (Morphine Inj) 0.5 mg Q4H PRN IV 10/05/17 10:30 10/13/17 08:43 (Melatonin) 5 mg HS PRN PO 10/05/17 21:00 10/13/17 00:44 (D50w (Vial) Inj) 50 ml UNSCH PRN IV PUSH 10/05/17 13:45 (Glucagon Inj) 1 mg UNSCH PRN OTHER 10/05/17 13:45 (NovoLIN R SUPPLEMENTAL SCALE) 1 ACHS SLIDING SCALE SQ 10/05/17 17:00 10/13/17 12:00 Ceftriaxone Sodium 2000 mg/ Sodium Chloride 100 ml @ 200 mls/hr Q24H IV 10/06/17 10:00 10/13/17 10:06 (Spiriva Inh) 18 mcg DAILY INH 10/07/17 09:30 10/13/17 08:42 (Catapres) 0.1 mg Q6H PRN PO 10/07/17 08:15 (Levemir Inj) 24 units BID SQ 10/10/17 21:00 10/13/17 08:44 (NS Flush) 2 ml BID IV FLUSH 10/13/17 21:00 UNV (NS Flush) 2 ml UNSCH PRN IV FLUSH 10/13/17 13:30 UNV Cefazolin Sodium 500 mg/Sodium Chloride 505 ml @ 0 mls/hr W[employer] M[employer]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 IRRIGATION 10/13/17 13:30 10/20/17 13:29 UNV Cefazolin Sodium/ Dextrose 50 ml @ 150 mls/hr W[employer] MILL OPERATOR IV 10/13/17 13:30 10/20/17 13:29 UNV (Hibiclens 4% Top Soln) 1 applic WIRE MILL OPERATOR TOPICAL 10/13/17 13:30 10/20/17 13:29 UNV Vital Signs / I&O Vital Signs Date Time Temp Pulse Resp B/P (MAP) Pulse Ox O2 Delivery O2 Flow Rate FiO2 10/13/17 13:23 97.6 83 14 129/85 (100) 93 10/13/17 10:00 74 10/13/17 09:49 14 10/13/17 09:00 76 10/13/17 08:07 97 10/13/17 08:05 97 Room Air 10/13/17 08:05 98.0 74 16 142/68 (92) 97 10/13/17 08:00 72 10/13/17 07:00 71 10/13/17 06:38 16 10/13/17 06:00 62 10/13/17 05:00 64 10/13/17 04:00 65 10/13/17 03:49 97.2 66 14 131/82 (98) 95 10/13/17 03:00 64 10/13/17 02:00 69 10/13/17 01:00 67 10/13/17 00:18 82 10/13/17 00:00 68 10/12/17 23:56 98.4 67 18 123/79 (94) 98 10/12/17 23:00 71 10/12/17 22:00 64 10/12/17 21:00 76 10/12/17 20:30 97 Nasal Cannula 1.00 10/12/17 20:16 98.4 69 18 139/89 (106) 97 10/12/17 20:00 68 10/12/17 19:36 97 21 10/12/17 19:00 78 10/12/17 18:00 68 10/12/17 17:00 68 10/12/17 16:00 74 10/12/17 15:15 98.0 76 16 128/90 (103) 98 10/12/17 15:00 65 10/12/17 14:00 96 I/O 10/12/17 10/12/17 10/12/17 10/13/17 10/13/17 10/13/17 07:00 15:00 23:00 07:00 15:00 23:00 Intake Total 240 ml 860 ml 820 ml 100 ml Output Total 850 ml 1200 ml Balance -610 ml -340 ml 820 ml 100 ml Intake Oral 240 ml 860 ml 720 ml IV Total 100 ml 100 ml Output Urine Total 850 ml 1200 ml # Voids 3 Physical Exam GENERAL: NAD, AAOx3 SKIN: Warm and dry. HEAD: Atraumatic. Normocephalic. EYES: Pupils equal and round. No scleral icterus. No injection or drainage. ENT: No nasal bleeding or discharge. Mucous membranes pink and moist. NECK: Trachea midline. No JVD. CARDIOVASCULAR: Regular rate and rhythm. RESPIRATORY: No accessory muscle use. Clear to auscultation. Breath sounds equal bilaterally. GASTROINTESTINAL: Abdomen soft, non-tender, nondistended. Hepatic and splenic margins not palpable. MUSCULOSKELETAL: Extremities without clubbing, cyanosis, or edema. No obvious deformities. NEUROLOGICAL: Awake and alert. No obvious cranial nerve deficits. Motor grossly within normal limits. Five out of 5 muscle strength in the arms and legs. Normal speech. PSYCHIATRIC: Appropriate mood and affect; insight and judgment normal. Laboratory Laboratory Tests Test 10/13/17 05:28 White Blood Count 7.2 TH/MM3 Red Blood Count 5.04 MIL/MM3 Hemoglobin 15.3 GM/DL Hematocrit 45.3 % Mean Corpuscular Volume 90.0 FL Mean Corpuscular Hemoglobin 30.4 PG Mean Corpuscular Hemoglobin Concent 33.8 % Red Cell Distribution Width 13.4 % Platelet Count 242 TH/MM3 Mean Platelet Volume 8.9 FL Neutrophils (%) (Auto) 61.2 % Lymphocytes (%) (Auto) 21.5 % Monocytes (%) (Auto) 11.7 % Eosinophils (%) (Auto) 5.1 % Basophils (%) (Auto) 0.5 % Neutrophils # (Auto) 4.4 TH/MM3 Lymphocytes # (Auto) 1.6 TH/MM3 Monocytes # (Auto) 0.8 TH/MM3 Eosinophils # (Auto) 0.4 TH/MM3 Basophils # (Auto) 0.0 TH/MM3 CBC Comment DIFF FINAL Differential Comment Blood Urea Nitrogen 20 MG/DL Creatinine 0.98 MG/DL Random Glucose 69 MG/DL Total Protein 7.5 GM/DL Albumin 3.1 GM/DL Calcium Level 9.1 MG/DL Phosphorus Level 3.6 MG/DL Magnesium Level 2.0 MG/DL Alkaline Phosphatase 124 U/L Aspartate Amino Transf (AST/SGOT) 23 U/L Alanine Aminotransferase (ALT/SGPT) 30 U/L Total Bilirubin 0.5 MG/DL Sodium Level 133 MEQ/L Potassium Level 4.2 MEQ/L Chloride Level 96 MEQ/L Carbon Dioxide Level 26.5 MEQ/L Anion Gap 11 MEQ/L Estimat Glomerular Filtration Rate 92 ML/MIN Assessment and Plan Problem List: (1) Sepsis ICD Codes: A41.9 - Sepsis, unspecified organism Status: Acute (2) Polysubstance abuse ICD Codes: F19.10 - Other psychoactive substance abuse, uncomplicated Status: Acute (3) HTN (hypertension) ICD Codes: I10 - Hypertension Status: Chronic (4) DKA (diabetic ketoacidoses) ICD Codes: E13.10 - Other specified diabetes mellitus with ketoacidosis without coma Status: Acute (5) COPD (chronic obstructive pulmonary disease) ICD Codes: J44.9 - Chronic obstructive pulmonary disease Status: Chronic (6) Cocaine abuse ICD Codes: F14.10 - Cocaine abuse Status: Acute (7) Pacemaker ICD Codes: Z95.0 - Presence of cardiac pacemaker Status: Chronic Assessment and Plan 1) Bacteremia with Group B Strep ANNALISE showing very small vegetation noted on aortic valve No other vegetations noted 2) PPM Interrogation showing intrinsic rhythm sinus 60-[address] Melchor, consideration of PPM removal tomorrow 3) Atypical CP Trops negative Possible due to his PNA 4) Cocaine cessation Problem Qualifiers (1) Sepsis: Qualified Codes: A41.9 - Sepsis, unspecified organism Praveen Gonzales DO October 13, 2017 13:35
--- NOTE | 2017-10-13 13:48 | MB ---
cc: Marge Lynn Cary H MD DATE: 10/13/2017 HISTORY OF PRESENT ILLNESS: A 68-year-old male presented to the [facility] emergency department with shortness of breath, also cough, felt like he could not catch his breath, hurt more when he took a deep breath. Troponins were apparently negative on arrival. White cell count and blood cultures were checked. He had 4/4 blood cultures, gram-positive cocci. White cell count was 15-17,000 with a bandemia of 15%. Blood sugar was also 300. He was initially started on broad spectrum antibiotics. He had a pacemaker put in 10 years ago. He denies having any generator change out. The patient underwent evaluation by Dr. Gonzales and underwent a transesophageal echocardiogram which showed a small, mobile structure with extra cardiac motion noted at the base of the noncoronary cusp consistent with vegetation measuring 0.4 x 0.4 cm. This was on the aortic valve. We were consulted for evaluation and removal of current pacemaker and epicardial leads. PAST MEDICAL HISTORY: Includes diabetes mellitus, COPD, chronic kidney disease stage III, hypertension, chronic pancreatitis, chronic back pain, history of bradycardia. PAST SURGICAL HISTORY: Include a Biotronik pacemaker placed in 2009 for symptomatic bradycardia. He has had I and D of metacarpophalangeal joint and repair of extensor tendon, right finger 2014, cardiac catheterization 2015, left main was normal. The left circ and 3 OMs were normal. RCA was small, but dominant with no significant disease. History of lumbar spine surgery, cholecystectomy. ALLERGIES: NO KNOWN ALLERGIES. HOME MEDICATIONS: Include: 1. DuoNebs. 2. ProAir. 3. Clonidine. 4. Cialis. 5. Lisinopril. 6. Aspirin. 7. Roxicodone. 8 Zoloft. 9. Ativan. 10. Creon capsules. 11. Protonix. 12. Reglan. 13. Janumet. 14. Bydureon. FAMILY HISTORY: No premature coronary artery disease or sudden . SOCIAL HISTORY: Smoked, but quit about 10 years ago. Denies any alcohol. He has used cocaine in the past, only snorts it. No IV drug use. Denies any marijuana use. REVIEW OF SYSTEMS: As above in the HPI. The 12 systems are unremarkable. PHYSICAL EXAMINATION: VITAL SIGNS: Blood pressure 140/60, heart rate of 76, temperature max 98. GENERAL: The patient is awake and alert in no acute distress. HEENT: Head is normocephalic, atraumatic. Pupils equal and reactive. Oral mucosa pink, moist. NECK: Supple. No JVD. CARDIOVASCULAR: Sounds S1, S2. No audible rubs, murmurs, or gallops. LUNGS: Clear to auscultation. No wheezes, rales or rhonchi. ABDOMEN: Slightly protuberant, soft, nontender, nondistended. No organomegaly noted. EXTREMITIES: No cyanosis, clubbing or edema. NEUROLOGIC: A and O x 3. No focal deficits. SKIN: Warm and dry, intact with no lesions or rashes. LABORATORY DATA: Shows hemoglobin 15, hematocrit of 45, white cell count of 7.2, platelet count of 242. Sodium 133, potassium 4.2, BUN of 20, creatinine 0.98, INR 1.0. Urinalysis is unremarkable. Tox screen showed positive for opiates, positive for cocaine. Micro showed group B beta strep. Sputum showed Staph MRSA. Chest CT, some atelectasis both bases with tiny small effusions, mild emphysema, mild chronic interstitial changes. IMPRESSION: This is a 68-year-old male with a history of pacemaker in situ, group B Streptococcus bacteremia, aortic valve endocarditis, consultation for pacemaker removal and epicardial leads. We will plan for surgery in the a.m. In the meantime, we will order type and cross. The patient has all other radiological exams available and will have 2 units available for surgery. Procedures, alternatives and risks discussed by Dr. Dana Melchor and the patient is agreeable to proceed. VERO Li MD JRT/STANLEY , 01:15 PM , 01:47 PM
[2017-10-13 17:10] LABS: PROTHROMBIN TIME - PATIENT 10.2 SEC (9.8-11.6)
[2017-10-13] MEDS: SODIUM CHLORIDE 0.9% FLUSH 10 ML FLUSH IV FLUSH SCH (21:19)
[2017-10-14] VITALS (16 sets, daily range): BP systolic 125–141; BP diastolic 74–91; PULSE 68–90; RESP 16–20; TEMP 97.9–98.5; O2SAT 96–98
[2017-10-14 06:54] LABS: AUTOMATED NEUTROPHIL # 4.4 TH/MM3 (1.8-7.7); BASOPHIL % 0.5 % (0.0-2.0); EOSINOPHIL # 0.2 TH/MM3 (0-0.4); EOSINOPHIL % 3.2 % (0.0-4.0); HEMATOCRIT 46.3 % (39.0-51.0); HEMOGLOBIN 15.8 GM/DL (13.0-17.0); LYMPH % 19.7 % (9.0-44.0); LYMPHOCYTE # 1.3 TH/MM3 (1.0-4.8); MEAN CELL VOLUME 89.2 FL (80.0-100.0); MEAN CORPUSCULAR HEMOGLOBIN 30.4 PG (27.0-34.0); MEAN CORPUSCULAR HGB CONC 34.1 % (32.0-36.0); MEAN PLATELET VOLUME 8.2 FL (7.0-11.0); MONO % 11.9 % (0.0-8.0); MONOCYTE # 0.8 TH/MM3 (0-0.9); NEUT % 64.7 % (16.0-70.0); PLATELET COUNT 257 TH/MM3 (150-450); RED BLOOD COUNT 5.19 MIL/MM3 (4.50-5.90); RED CELL DISTRIBUTION WIDTH 13.6 % (11.6-17.2); WHITE BLOOD COUNT 6.8 TH/MM3 (4.0-11.0)
[2017-10-14 07:04] LABS: ALBUMIN 3.2 GM/DL (3.4-5.0); ALT (GPT) 31 U/L (12-78); AST (GOT) 27 U/L (15-37); BICARBONATE 26.2 MEQ/L (21.0-32.0); BLOOD UREA NITROGEN 18 MG/DL (7-18); CALCIUM 8.8 MG/DL (8.5-10.1); CHLORIDE 94 MEQ/L (98-107); CREATININE 1.04 MG/DL (0.60-1.30); GLOMERULAR FILTRATION RATE 86 ML/MIN (>89); GLUCOSE,RANDOM 60 MG/DL (74-106); MAGNESIUM 2.1 MG/DL (1.5-2.5); PHOSPHORUS 3.6 MG/DL (2.5-4.9); SODIUM (NA) 132 MEQ/L (136-145)
[2017-10-14 07:06] LABS: ALKALINE PHOSPHATASE 141 U/L (45-117); TOTAL BILIRUBIN ADULT 0.6 MG/DL (0.2-1.0); TOTAL PROTEIN 8.1 GM/DL (6.4-8.2)
[2017-10-14] MEDS: INSULIN NovoLIN REGULAR SUPPLEMENTAL SCALE SQ SCH ×4 (08:00→20:41)
[2017-10-14] MEDS: SODIUM CHLORIDE 0.9% FLUSH 10 ML FLUSH IV FLUSH SCH ×2 (09:00→20:28)
[2017-10-14] MEDS: INSULIN DETEMIR 100 UNITS/ML VIAL SQ SCH ×2 (09:00→20:30)
[2017-10-14] MEDS: SERTRALINE HCL 50 MG TAB PO SCH (10:02)
[2017-10-14] MEDS: PANTOPRAZOLE SOD 20 MG DELAYED RELEASE TAB PO SCH (10:02)
[2017-10-14] MEDS: LIPASE/PROTEASE/AMYLASE (12,000/38,000/60,000) CAP PO SCH ×3 (10:02→18:30)
[2017-10-14] MEDS: ASPIRIN EC 81 MG TABEC PO SCH (10:02)
[2017-10-14] MEDS: TIOTROPIUM BROMIDE 18 MCG INH INH SCH (10:03)
[2017-10-14] MEDS: METOCLOPRAMIDE HCL 10 MG TAB PO SCH (10:03)
--- NOTE | 2017-10-14 11:00 | HHI.FF ---
Face to Face Verification Diagnosis: (1) HTN (hypertension) (2) Pacemaker (3) Pacemaker infection (4) COPD (chronic obstructive pulmonary disease) Home Health Nursing Order: Medication education-adverse effect Wound care and dressing changes Nursing assessment with vital signs Instructions: Thoracic Surgery patients Mandatory frequency Assess and evaluation, 2-3 x a week for one week Initial visit 1. Review post chest surgery instructions chest precautions, Activity, Elastic hose, Incision care, Driving, Incentive spirometry, Smoking, [place] , Work and other) 2. Need Betadine to paint incision 3. Medication reconciliation 4. Importance of follow up care/ check on appointments 5. Make calendar record temperature daily 6. When to call Home nurse, review instructions, phone list 7. Incentive Spirometry, demonstration Visit 1- Begin discharge instruction for patient family and/ or caregiver using teach back method- 1. Signs and symptoms of infection 2. Disease characteristics 3. Medicines and side effects 4. Foods and nutrition/ appetite 5. Infection control/ hand washing/ hygiene Visit 2- Continue teaching 1. Discharge instructions- include additional information on smoking cessation , Visit 3- Continue teaching- 1. Cough and deep breathing, incision monitoring. For any questions please call : / [facility] [phone] Incentive spirometry Q1 hr x 10, while awake, also use acapella device hourly whole Chest wall precautions: NO pushing or pulling, ( pt must use chest pillow support chest with all activities and with coughing Daily incision care: ok to shower ( 48hrs after chest tube removed) and then daily, no tub bath. Wash all incisions with liquid dial soap, clean wash cloth to each site, rinse and pat dry. Observe for any signs of infection, such as drainage which is dark yellow, stevens, green or foul smelling. Immediately report to the surgeon any drainage from the chest incision, or legs, and for any abnormal drainage from the chest tube sites. Notify surgeon if any temp > 101.5 degrees F. When specialty dressing removed/ or if you do not have one, continue to shower daily as above, then rinse and pat incision dry and paint with betadine daily x 5 days. Allow steri strips to fall off if you have any. Avoid lotions, creams, salves, oils, etc. for the first month For Dr. Melchor patients , please obtain PA & Lat CXR in 2 weeks, results to Dr. Melchor ( prescription will be given) ( ) (Tele: ) , F/U appointment: as per [place] instructions: PCP in 2 weeks, CV surgeon 2 weeks, [employer] Sales Representative 3-4 weeks For any questions regarding incisions/ dressing / meds / post op care or above Symptoms, Tuesday 8am-5pm Heart & Vascular Surgery Office ( Dr. Moya & Dr. Melchor), After Hours / Nights (5pm -8am) Weekends and Holidays Please call [facility] ([facility]) Charge Nurse I have seen patient Tyrese Whitehead on 10/14/17. My clinical findings support the need for the requested home health care services because: Deconditioned w/ increased weakness I certify that my clinical findings support that this patient is homebound because: Post-op weakness Marge Lynn Oct 14, 2017 11:00
[2017-10-14] MEDS: cefTRIAXone INJ 2,000 MG in SODIUM CHLORIDE 0.9% INJ 100 ML IV SCH (11:45)
--- NOTE | 2017-10-14 11:52 | PD.CARD.PN ---
Subjective Subjective Remarks No events overnight ANNALISE showing very small vegetation noted on aortic valve Objective Medications Current Medications Medications (Trade) Dose Ordered Sig/Ashanti Route Start Time Stop Time Status Last Admin (NS Flush) 2 ml UNSCH PRN IVF 10/04/17 08:00 10/11/17 09:34 (Ecotrin Ec) 81 mg DAILY PO 10/05/17 09:00 10/14/17 10:02 (Ativan) 0.5 mg Q8H PRN PO 10/04/17 12:30 10/11/17 03:12 (Reglan) 10 mg DAILY PO 10/05/17 09:00 10/14/17 10:03 (Creon 12-38-60) 1 cap TIDPC PO 10/04/17 13:30 10/14/17 10:02 (Protonix) 20 mg DAILY PO 10/05/17 09:00 10/14/17 10:02 (Zoloft) 50 mg DAILY PO 10/05/17 09:00 10/14/17 10:02 (Pill Splitter) 1 ea UNSCH PRN OTHER 10/04/17 12:30 (Roxicodone) 15 mg Q8H PRN PO 10/04/17 12:30 10/14/17 10:01 (Albuterol Neb) 1.25 mg Q2HR NEB PRN NEB 10/04/17 12:45 10/08/17 21:16 (Heparin Inj) 5,000 units Q12HR SQ 10/04/17 21:00 Future Hold 10/13/17 21:19 (Tylenol) 650 mg Q4H PRN PO 10/04/17 13:30 (Zofran Odt) 4 mg Q8HR PRN PO 10/04/17 13:30 10/04/17 16:58 (Robitussin Liq) 200 mg Q4H PRN PO 10/04/17 18:30 10/13/17 05:38 (Morphine Inj) 0.5 mg Q4H PRN IV 10/05/17 10:30 10/13/17 08:43 (Melatonin) 5 mg HS PRN PO 10/05/17 21:00 10/13/17 00:44 (D50w (Vial) Inj) 50 ml UNSCH PRN IV PUSH 10/05/17 13:45 10/14/17 10:05 (Glucagon Inj) 1 mg UNSCH PRN OTHER 10/05/17 13:45 (NovoLIN R SUPPLEMENTAL SCALE) 1 ACHS SLIDING SCALE SQ 10/05/17 17:00 10/13/17 21:20 Ceftriaxone Sodium 2000 mg/ Sodium Chloride 100 ml @ 200 mls/hr Q24H IV 10/06/17 10:00 10/14/17 11:45 (Spiriva Inh) 18 mcg DAILY INH 10/07/17 09:30 10/14/17 10:03 (Catapres) 0.1 mg Q6H PRN PO 10/07/17 08:15 (Levemir Inj) 24 units BID SQ 10/10/17 21:00 10/13/17 21:20 (NS Flush) 2 ml BID IV FLUSH 10/13/17 21:00 10/14/17 09:00 (NS Flush) 2 ml UNSCH PRN IV FLUSH 10/13/17 13:30 Cefazolin Sodium 500 mg/Sodium Chloride 505 ml @ 0 mls/hr MANGLE FEEDER IRRIGATION 10/13/17 13:30 10/20/17 13:29 Cefazolin Sodium/ Dextrose 50 ml @ 100 mls/hr MANGLE FE[employer]ER IV 10/13/17 13:30 10/20/17 13:29 (Hibiclens 4% Top Soln) 1 applic MANGLE FEEDER TOPICAL 10/13/17 13:30 10/20/17 13:29 Vital Signs / I&O Vital Signs Date Time Temp Pulse Resp B/P (MAP) Pulse Ox O2 Delivery O2 Flow Rate FiO2 10/14/17 07:50 98.0 72 16 125/74 (91) 98 10/14/17 07:30 96 Nasal Cannula 2.00 10/14/17 07:00 68 10/14/17 04:00 69 10/14/17 00:00 Room Air 21 10/14/17 00:00 97.9 78 18 141/87 (105) 97 10/14/17 00:00 71 10/13/17 23:23 16 10/13/17 19:00 98.1 78 20 143/92 (109) 96 10/13/17 19:00 72 10/13/17 19:00 Room Air 21 10/13/17 18:00 80 10/13/17 17:00 70 10/13/17 16:00 70 10/13/17 15:00 97.8 77 15 149/97 (114) 97 10/13/17 15:00 69 10/13/17 14:00 72 10/13/17 13:23 97.6 83 14 129/85 (100) 93 10/13/17 13:00 66 10/13/17 12:00 78 I/O 10/13/17 10/13/17 10/13/17 10/14/17 10/14/17 10/14/17 07:00 15:00 23:00 07:00 15:00 23:00 Intake Total 820 ml 100 ml 720 ml 330 ml Output Total 2000 ml 1675 ml Balance 820 ml 100 ml -1280 ml -1345 ml Intake Oral 720 ml 720 ml 330 ml IV Total 100 ml 100 ml Output Urine Total 2000 ml 1675 ml # Voids 3 Physical Exam GENERAL: NAD, AAOx3 SKIN: Warm and dry. HEAD: Atraumatic. Normocephalic. EYES: Pupils equal and round. No scleral icterus. No injection or drainage. ENT: No nasal bleeding or discharge. Mucous membranes pink and moist. NECK: Trachea midline. No JVD. CARDIOVASCULAR: Regular rate and rhythm. RESPIRATORY: No accessory muscle use. Clear to auscultation. Breath sounds equal bilaterally. GASTROINTESTINAL: Abdomen soft, non-tender, nondistended. Hepatic and splenic margins not palpable. MUSCULOSKELETAL: Extremities without clubbing, cyanosis, or edema. No obvious deformities. NEUROLOGICAL: Awake and alert. No obvious cranial nerve deficits. Motor grossly within normal limits. Five out of 5 muscle strength in the arms and legs. Normal speech. PSYCHIATRIC: Appropriate mood and affect; insight and judgment normal. Laboratory Laboratory Tests Test 10/13/17 16:34 10/14/17 05:31 10/14/17 05:36 Prothrombin Time 10.2 SEC 10.0 SEC Prothromb Time International Ratio 1.0 RATIO 1.0 RATIO White Blood Count 6.8 TH/MM3 Red Blood Count 5.19 MIL/MM3 Hemoglobin 15.8 GM/DL Hematocrit 46.3 % Mean Corpuscular Volume 89.2 FL Mean Corpuscular Hemoglobin 30.4 PG Mean Corpuscular Hemoglobin Concent 34.1 % Red Cell Distribution Width 13.6 % Platelet Count 257 TH/MM3 Mean Platelet Volume 8.2 FL Neutrophils (%) (Auto) 64.7 % Lymphocytes (%) (Auto) 19.7 % Monocytes (%) (Auto) 11.9 % Eosinophils (%) (Auto) 3.2 % Basophils (%) (Auto) 0.5 % Neutrophils # (Auto) 4.4 TH/MM3 Lymphocytes # (Auto) 1.3 TH/MM3 Monocytes # (Auto) 0.8 TH/MM3 Eosinophils # (Auto) 0.2 TH/MM3 Basophils # (Auto) 0.0 TH/MM3 CBC Comment DIFF FINAL Differential Comment Blood Urea Nitrogen 18 MG/DL Creatinine 1.04 MG/DL Random Glucose 60 MG/DL Total Protein 8.1 GM/DL Albumin 3.2 GM/DL Calcium Level 8.8 MG/DL Phosphorus Level 3.6 MG/DL Magnesium Level 2.1 MG/DL Alkaline Phosphatase 141 U/L Aspartate Amino Transf (AST/SGOT) 27 U/L Alanine Aminotransferase (ALT/SGPT) 31 U/L Total Bilirubin 0.6 MG/DL Sodium Level 132 MEQ/L Potassium Level 4.3 MEQ/L Chloride Level 94 MEQ/L Carbon Dioxide Level 26.2 MEQ/L Anion Gap 12 MEQ/L Estimat Glomerular Filtration Rate 86 ML/MIN Assessment and Plan Problem List: (1) Sepsis ICD Codes: A41.9 - Sepsis, unspecified organism Status: Acute (2) Polysubstance abuse ICD Codes: F19.10 - Other psychoactive substance abuse, uncomplicated Status: Acute (3) HTN (hypertension) ICD Codes: I10 - Hypertension Status: Chronic (4) DKA (diabetic ketoacidoses) ICD Codes: E13.10 - Other specified diabetes mellitus with ketoacidosis without coma Status: Acute (5) COPD (chronic obstructive pulmonary disease) ICD Codes: J44.9 - Chronic obstructive pulmonary disease Status: Chronic (6) Cocaine abuse ICD Codes: F14.10 - Cocaine abuse Status: Acute (7) Pacemaker ICD Codes: Z95.0 - Presence of cardiac pacemaker Status: Chronic Assessment and Plan 1) Bacteremia with Group B Strep ANNALISE showing very small vegetation noted on aortic valve No other vegetations noted 2) PPM Interrogation showing intrinsic rhythm sinus 60-[address] Melchor, PPM removal today No current need for PPM 3) Atypical CP Trops negative Possible due to his PNA 4) Cocaine cessation 5) Dr. Soares will be available PRN over the weekend Problem Qualifiers (1) Sepsis: Qualified Codes: A41.9 - Sepsis, unspecified organism Praveen Gonzales DO Oct 14, 2017 11:52
[2017-10-14] MEDS ORDERED: ceFAZolin 2 GM PREMIX 50 ML ONE (13:00)
[2017-10-14] MEDS ORDERED: BUPIVACAINE HCL PF 0.5% 10 ML VIAL ONE (13:00)
[2017-10-14] MEDS ORDERED: HEPARIN SODIUM - SQ 10,000 UNITS/ML VIAL ONE (13:01)
[2017-10-14] MEDS ORDERED: LIDOCAINE HCL 1% PF 30 ML VIAL ONE (13:06)
[2017-10-14] MEDS ORDERED: MIDAZOLAM HCL 2 MG/2 ML VIAL ONE (13:31)
[2017-10-14] MEDS ORDERED: fentaNYL CITRATE 250 MCG/5 ML AMP ONE (13:31)
--- NOTE | 2017-10-14 15:47 | HHI.PR ---
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 Maddox in a very long time and she states that he is not her patient Await cardiac evaluation for ANNALISE Discussed with patient and RN Patient has already ate today so no procedures would be done until tomorrow at the earliest 10-12 HAD ANNALISE POSITIVE FOR ENDOCARDITIS WILL NEED ANTIBIOTICS AND WILL NEED PACEMAKER REMOVED PER DISCUSSION WITH ID AND CARDIOLOGY DW RN AND PT AND CM ANTIBIOTICS PER ID 10-13 PATIENT STATES HE IS TO HAVE AICD/PPM REMOVED TOMORROW DW RN AND PT AND CM CONTINUE ANTIBIOTICS FOR ENDOCARDITIS- WILL NEED DEVICE REMOVED AM LABS 10-14 PATIENT TO HAVE PPM REMOVED TODAY WILL STILL NEED 6 WEEKS OF IV ANTIBIOTICS DW RN AND PT AND CM AND ID AND CVS AND CARDIOLOGY AM LABS Objective Vitals Vital Signs Date Time Temp Pulse Resp B/P (MAP) Pulse Ox O2 Delivery O2 Flow Rate FiO2 10/14/17 13:00 83 10/14/17 12:00 80 10/14/17 11:05 16 10/14/17 11:00 98.5 73 16 133/91 (105) 98 10/14/17 11:00 68 10/14/17 10:00 78 10/14/17 09:00 72 10/14/17 08:00 68 10/14/17 07:50 98.0 72 16 125/74 (91) 98 10/14/17 07:30 96 Nasal Cannula 2.00 10/14/17 07:00 68 10/14/17 04:00 69 10/14/17 00:00 Room Air 21 10/14/17 00:00 97.9 78 18 141/87 (105) 97 10/14/17 00:00 71 10/13/17 19:00 98.1 78 20 143/92 (109) 96 10/13/17 19:00 72 10/13/17 19:00 Room Air 21 10/13/17 18:00 80 10/13/17 17:00 70 10/13/17 16:00 70 I/O 10/13/17 10/13/17 10/13/17 10/14/17 10/14/17 10/14/17 07:00 15:00 23:00 07:00 15:00 23:00 Intake Total 820 ml 100 ml 720 ml 330 ml Output Total 2000 ml 1675 ml Balance 820 ml 100 ml -1280 ml -1345 ml Intake Oral 720 ml 720 ml 330 ml IV Total 100 ml 100 ml Output Urine Total 2000 ml 1675 ml # Voids 3 Result Diagram: 10/14/17 0531 10/14/17 0536 Other Results Laboratory Tests Test 10/12/17 05:01 10/12/17 05:07 10/13/17 05:28 10/13/17 16:34 Blood Urea Nitrogen 19 MG/DL 20 MG/DL Creatinine 1.12 MG/DL 0.98 MG/DL Random Glucose 77 MG/DL 69 MG/DL Total Protein 8.2 GM/DL 7.5 GM/DL Albumin 3.5 GM/DL 3.1 GM/DL Calcium Level 9.5 MG/DL 9.1 MG/DL Phosphorus Level 3.6 MG/DL 3.6 MG/DL Magnesium Level 2.0 MG/DL 2.0 MG/DL Alkaline Phosphatase 114 U/L 124 U/L Aspartate Amino Transf (AST/SGOT) 24 U/L 23 U/L Alanine Aminotransferase (ALT/SGPT) 29 U/L 30 U/L Total Bilirubin 0.6 MG/DL 0.5 MG/DL Sodium Level 134 MEQ/L 133 MEQ/L Potassium Level 4.1 MEQ/L 4.2 MEQ/L Chloride Level 93 MEQ/L 96 MEQ/L Carbon Dioxide Level 30.7 MEQ/L 26.5 MEQ/L Anion Gap 10 MEQ/L 11 MEQ/L Estimat Glomerular Filtration Rate 79 ML/MIN 92 ML/MIN Hemoglobin A1c 11.7 % Free Thyroxine 1.40 NG/DL Thyroid Stimulating Hormone 3rd Gen 3.260 uIU/ML White Blood Count 10.2 TH/MM3 7.2 TH/MM3 Red Blood Count 5.36 MIL/MM3 5.04 MIL/MM3 Hemoglobin 16.2 GM/DL 15.3 GM/DL Hematocrit 48.2 % 45.3 % Mean Corpuscular Volume 89.9 FL 90.0 FL Mean Corpuscular Hemoglobin 30.3 PG 30.4 PG Mean Corpuscular Hemoglobin Concent 33.7 % 33.8 % Red Cell Distribution Width 13.5 % 13.4 % Platelet Count 267 TH/MM3 242 TH/MM3 Mean Platelet Volume 8.8 FL 8.9 FL Neutrophils (%) (Auto) 48.5 % 61.2 % Lymphocytes (%) (Auto) 30.6 % 21.5 % Monocytes (%) (Auto) 14.3 % 11.7 % Eosinophils (%) (Auto) 6.2 % 5.1 % Basophils (%) (Auto) 0.4 % 0.5 % Neutrophils # (Auto) 4.9 TH/MM3 4.4 TH/MM3 Lymphocytes # (Auto) 3.1 TH/MM3 1.6 TH/MM3 Monocytes # (Auto) 1.5 TH/MM3 0.8 TH/MM3 Eosinophils # (Auto) 0.6 TH/MM3 0.4 TH/MM3 Basophils # (Auto) 0.0 TH/MM3 0.0 TH/MM3 CBC Comment DIFF FINAL DIFF FINAL Differential Comment Prothrombin Time 10.2 SEC Prothromb Time International Ratio 1.0 RATIO Test 10/14/17 05:31 10/14/17 05:36 White Blood Count 6.8 TH/MM3 Red Blood Count 5.19 MIL/MM3 Hemoglobin 15.8 GM/DL Hematocrit 46.3 % Mean Corpuscular Volume 89.2 FL Mean Corpuscular Hemoglobin 30.4 PG Mean Corpuscular Hemoglobin Concent 34.1 % Red Cell Distribution Width 13.6 % Platelet Count 257 TH/MM3 Mean Platelet Volume 8.2 FL Neutrophils (%) (Auto) 64.7 % Lymphocytes (%) (Auto) 19.7 % Monocytes (%) (Auto) 11.9 % Eosinophils (%) (Auto) 3.2 % Basophils (%) (Auto) 0.5 % Neutrophils # (Auto) 4.4 TH/MM3 Lymphocytes # (Auto) 1.3 TH/MM3 Monocytes # (Auto) 0.8 TH/MM3 Eosinophils # (Auto) 0.2 TH/MM3 Basophils # (Auto) 0.0 TH/MM3 CBC Comment DIFF FINAL Differential Comment Prothrombin Time 10.0 SEC Prothromb Time International Ratio 1.0 RATIO Blood Urea Nitrogen 18 MG/DL Creatinine 1.04 MG/DL Random Glucose 60 MG/DL Total Protein 8.1 GM/DL Albumin 3.2 GM/DL Calcium Level 8.8 MG/DL Phosphorus Level 3.6 MG/DL Magnesium Level 2.1 MG/DL Alkaline Phosphatase 141 U/L Aspartate Amino Transf (AST/SGOT) 27 U/L Alanine Aminotransferase (ALT/SGPT) 31 U/L Total Bilirubin 0.6 MG/DL Sodium Level 132 MEQ/L Potassium Level 4.3 MEQ/L Chloride Level 94 MEQ/L Carbon Dioxide Level 26.2 MEQ/L Anion Gap 12 MEQ/L Estimat Glomerular Filtration Rate 86 ML/MIN Imaging Last Impressions Chest CT 10/08/17 0000 Signed Impressions: CONCLUSION: 1. Trace compressive/dependent atelectasis of both bases and tiny bilateral pl eural effusions. A slight degree of failure is conceivable. No pneumonic infilt rate demonstrated. 2. Mild emphysema and mild chronic interstitial changes are again noted. Stabl e, benign nodule in the right mid lung. 3. Stable diffuse prominent caliber of the thoracic aorta up to 4.1 cm. Chest X-Ray 10/04/17 0753 Signed Impressions: CONCLUSION: No acute abnormality or significant interval change Lung Scan-VQ Nuclear Medicine 10/04/17 0000 Signed Impressions: CONCLUSION: 1. Low probability for PE. 2. Patchy uptake of tracer activity on the ventilation study suggestive of air space disease. Lower Extremity Ultrasound 10/04/17 0000 Signed Impressions: CONCLUSION: 1. No evidence of DVT. Objective Remarks GENERAL: Awake alert and oriented 3 talkative and cooperative SKIN: Warm and dry. HEAD: Atraumatic. Normocephalic. EYES: Pupils equal and round. No scleral icterus. No injection or drainage. Extraocular muscles intact ENT: No nasal bleeding or discharge. Mucous membranes pink and moist. Tongue is midline NECK: Trachea midline. No JVD. Supple CARDIOVASCULAR: Regular rate and rhythm. S1-S2 no S3 or S4 RESPIRATORY: No accessory muscle use. Few scattered rhonchi. Breath sounds equal bilaterally. GASTROINTESTINAL: Abdomen soft, non-tender, nondistended. Hepatic and splenic margins not palpable. MUSCULOSKELETAL: Extremities without clubbing, cyanosis, or edema. No obvious deformities. NEUROLOGICAL: Awake and alert. No obvious cranial nerve deficits. Motor grossly within normal limits. Five out of 5 muscle strength in the arms and legs. Normal speech. PSYCHIATRIC: Appropriate mood and affect; insight and judgment normal. Procedures ANNALISE 10-12 SHOWED ENDOCARDITIS Medications and IVs Laboratory Tests Test 10/12/17 05:01 10/12/17 05:07 10/13/17 05:28 10/13/17 16:34 Blood Urea Nitrogen 19 MG/DL (7-18) 20 MG/DL (7-18) Sodium Level 134 MEQ/L (136-145) 133 MEQ/L (136-145) Chloride Level 93 MEQ/L (98-107) 96 MEQ/L (98-107) Estimat Glomerular Filtration Rate 79 ML/MIN (>89) Hemoglobin A1c 11.7 % (4.3-6.0) Monocytes (%) (Auto) 14.3 % (0.0-8.0) 11.7 % (0.0-8.0) Eosinophils (%) (Auto) 6.2 % (0.0-4.0) 5.1 % (0.0-4.0) Monocytes # (Auto) 1.5 TH/MM3 (0-0.9) Eosinophils # (Auto) 0.6 TH/MM3 (0-0.4) Random Glucose 69 MG/DL (74-106) Albumin 3.1 GM/DL (3.4-5.0) Alkaline Phosphatase 124 U/L (45-117) Test 10/14/17 05:31 10/14/17 05:36 Monocytes (%) (Auto) 11.9 % (0.0-8.0) Random Glucose 60 MG/DL (74-106) Albumin 3.2 GM/DL (3.4-5.0) Alkaline Phosphatase 141 U/L (45-117) Sodium Level 132 MEQ/L (136-145) Chloride Level 94 MEQ/L (98-107) Estimat Glomerular Filtration Rate 86 ML/MIN (>89) A/P Problem List: (1) Sepsis ICD Code: A41.9 - Sepsis, unspecified organism Status: Acute Assessment and Plan Assessment and Plan 67 years old male Group B Strep sepsis secondary to clinical Pneumonia-- sputum MRSA - started on Ceftriaxone 2 gm daily 10/05 - Vancomycin added 10/06 - ID ff - repeat blood cultures - negative so far- x 4 days - no skin lesions/thorpe- denies history of IVDU- admits to smoking cocaine - ff CBC- expect WBC to be high - on steroids - echo unremarkable - Cardiology consult for ANNALISE- per ID recommendations - patient also has a PM placed in 2004- per patient has not followed with Dr. Maddox in a very long time we will consult on-call for ANNALISE -ANNALISE POSITIVE FOR ENDOCARDITIS-- NEEDS PACEMAKER/AICD REMOVED AND ANTIBIOTICS TO HAVE PPM/AICD REMOVED 6-1 Acute hypoxemic respiratory failure due to COPD exacerbation- improved clinically - heavy smoker in the past - lungs- no wheezes, + rales left base keep on oxygen to keep O2 sat >90%- continue with neb treatment; scheduled V/Q scan negative - change to po steroids- prednisone taper. DC prednisone today - continue home inhalers hypertension History of AICD - on lisinopril 20 mg po bid states he was on 40 mg po bid as OP- - will DC with elevated Potassium - Clonidine prn - consider restarting at a lower dose once K improved or use CCB- amlodipine NEEDS AICD/PACEMAKER REMOVED ON -1 diabetes mellitus; uncontrolled-a1C 11.7 - expect to be high on steroids- completed course today 10/10 started on levemir - increased dose to 24 untis bid 24 - continue to adjust and monitor - medium sliding scale Novolog - monitor - Prednisone- DC today 10/10 - reinforced diabetes education Acute kidney injury on top CKD- Improved - off IVF - patient with good po intake Hyperkalemia- on BMP today 10/10 - patient on Lisinorpil 20 mg po bid (home was on 40 mg po bid) - HOld Lisinopril - restart at a lower dose if K level improved or switch to amlodipine for HTN if K is going to be an chronic problem - given kayexalate 30 gm po x 2 - NS 50 cc/hr - 500 cc - BMP in am History of chronic pancreatitis- on creon and reglan daily chronic back pain; resume home meds. -DVT prophylaxis with subq heparin d/w patient - up and increase activity Discharge Planning Pending ID clearance and cardiac WILL NEED PACER/AICD REMOVED DUE TO MRSA AND ENDOCARDITIS Problem Qualifiers (1) Sepsis: Qualified Codes: A41.9 - Sepsis, unspecified organism Rahat Vitale DO Oct 14, 2017 15:47
--- NOTE | 2017-10-14 16:43 | PD.OP ---
cc: Dana Melchor MD; Larisa Gonzalesarmond Lobo DO Operative Report Date of Surgery: Oct 14, 2017 Preoperative Diagnosis: (1) Pacemaker infection (2) Sepsis Postoperative Diagnosis: same Procedure: Pulse generator removal and lead extraction of atrial and ventricular leads using [employer] laser. Capsulectomy Cultures Anesthesia: Dr. Mixon Surgeon: Dana Melchor Stock Digger(s): Shazia Dempsey, DONAL Operation and Findings: The patient was prepped and draped in the usual manner. A time out was performed. The prior pacemaker incision was opened sharply and electrocautery was used to isolate the lead and enter the pocket. Pocket cultures were obtained. The pulse generator was removed, and the leads were disconnected. The leads were completely isolated to their entry point toward the subclavian vein. A stylet was placed in the leads, and the leads were unscrewed. The ventricular lead could not be unscrewed. Both leads were tethered and fixed. EZ locking stylets were used in each lead and a rail was created after cutting the terminal from each lead. The [employer] laser was used to mobilize the lead to a point under the clavicle. At this point, a Tightrail mechanical device was used to free the both leads from its attachments near the clavicle. The laser sheath was used with an outer sheath for support to free the ventricular lead to its attachment in the RV. Upsizing to a 16 F device was necessary to mobilize and remove the lead from the RV distally. The atrial lead was somewhat frayed and a Cook Bulldog was used to create a rail. The 16 F sheath was used to mobilize the atrial lead and remove it. Both leads were completely removed. The capsule was excised using electrocautery and sent to pathology. The wound was irrigated with vancomycin solution and checked for hemostasis. The wound was closed in 2 layers and a dressing applied. Patient was transported to PACU in stable condition. Dnaa Melchor MD Oct 14, 2017 16:43
[2017-10-14] MEDS ORDERED: MAGNESIUM HYDROXIDE SUSP 30 ML CUP PO PRN (16:45)
[2017-10-14] MEDS ORDERED: DO NOT ADM ANY ANTICOAGULANT DRUGS PRN (17:30)
[2017-10-14] MEDS ORDERED: *morphine SULFATE 8 MG/ML PERIprocedure ONLY ONE (17:36)
[2017-10-14] MEDS ORDERED: ONDANSETRON HCL 4 MG/2 ML VIAL ONE (17:36)
--- NOTE | 2017-10-14 17:42 | RADRPT ---
EXAM DATE: 10/14/2017 5:39 PM EDT AGE/SEX: 67 years / Male INDICATIONS: Post pacemaker removal. CLINICAL DATA: This is the patient's initial encounter. Patient reports that signs and symptoms have been present for 1 day and indicates a pain score of Nonresponsive. MEDICAL/SURGICAL HISTORY: . Hypertension. Chronic obstructive pulmonary disease. Gastroesophag eal reflux disease. Bradycardia. Pneumonia. Pancreatitis. Renal failure. Kidney stones. Diabetes. Met hicillin-resistant Staph Aureus. . Laminectomy L4/5. Pacemaker implanted. Cardiac catheterization. Circumcision. Right hand tendon repair. COMPARISON: [facility] [place], CHEST SINGLE AP, 06/22/2016. . FINDINGS: There is a right jugular central venous catheter is in satisfactory position. The heart is normal in size. There are small bilateral effusions and mild diffuse interstitial prominence. There is no pneum othorax. The patient's transvenous pacer has been removed. The leads from the pacer are no longer identified. There are at least 2 leads which overlie the patient presumably these are outside the patient. CONCLUSION: No pneumothorax identified following removal of the patient's pacer. Electronically signed by: Lonnie Taylor MD 10/14/2017 5:41 PM EDT
[2017-10-14] MEDS ORDERED: PROPOFOL 200 MG/20 ML AMP IV ONE (18:01)
[2017-10-14] MEDS ORDERED: LIDOCAINE HCL 1% PF 5 ML SYRINGE OTHER ONE (18:01)
[2017-10-14] MEDS ORDERED: DEXAMETHASONE SOD PHOS 4 MG/ML VIAL IV ONE (18:01)
[2017-10-14] MEDS ORDERED: LACTATED RINGER'S 1000 ML INJ 1,000 ML IV ONE (18:01)
[2017-10-14] MEDS ORDERED: NEOSTIGMINE 5 MG/5 ML SYRINGE IV PUSH ONE (18:01)
[2017-10-14] MEDS ORDERED: PHENYLEPH/NS 1000 MCG/10 ML SYR IV ONE (18:01)
[2017-10-14] MEDS ORDERED: GLYCOPYRROLATE 1 MG/5 ML SYRINGE IV PUSH ONE (18:01)
[2017-10-14] MEDS ORDERED: ROCURONIUM INJ 50 MG/5 ML SYRINGE IV PUSH ONE (18:01)
[2017-10-14] MEDS ORDERED: ONDANSETRON HCL 4 MG/2 ML VIAL IV PUSH ONE (18:01)
[2017-10-14] MEDS ORDERED: ePHEDrine/NS 25 MG/5 ML SYRINGE IV ONE (18:01)
[2017-10-14] MEDS ORDERED: NORMOSOL R INJ 1,000 ML IV ONE (18:01)
[2017-10-14] MEDS: guaiFENesin SOLUTION 200 MG/10 ML CUP PO PRN (20:28)
[2017-10-14] MEDS: MELATONIN 5 MG TAB PO PRN (23:42)
[2017-10-14] MEDS: LORazepam 0.5 MG TAB PO PRN (23:42)
[2017-10-15] VITALS (26 sets, daily range): BP systolic 125–144; BP diastolic 78–89; PULSE 74–98; RESP 16–20; TEMP 98.1–98.8; O2SAT 93–98
[2017-10-15] MEDS ORDERED: VANCOMYCIN INJ 1,000 MG in SODIUM CHLOR 0.9% 250 ML INJ 250 ML IV ONE (05:00)
[2017-10-15] MEDS: ONDANSETRON ODT 4 MG TAB PO PRN (05:31)
[2017-10-15 05:33] LABS: AUTOMATED NEUTROPHIL # 12.3 TH/MM3 (1.8-7.7); BASOPHIL % 0.1 % (0.0-2.0); HEMATOCRIT 42.6 % (39.0-51.0); HEMOGLOBIN 14.3 GM/DL (13.0-17.0); MEAN CELL VOLUME 89.8 FL (80.0-100.0); MEAN CORPUSCULAR HEMOGLOBIN 30.2 PG (27.0-34.0); MEAN CORPUSCULAR HGB CONC 33.6 % (32.0-36.0); MEAN PLATELET VOLUME 8.4 FL (7.0-11.0); MONO % 6.2 % (0.0-8.0); MONOCYTE # 0.9 TH/MM3 (0-0.9); NEUT % 86.7 % (16.0-70.0); PLATELET COUNT 232 TH/MM3 (150-450); RED BLOOD COUNT 4.75 MIL/MM3 (4.50-5.90); RED CELL DISTRIBUTION WIDTH 13.4 % (11.6-17.2); WHITE BLOOD COUNT 14.2 TH/MM3 (4.0-11.0)
[2017-10-15 06:07] LABS: ALKALINE PHOSPHATASE 167 U/L (45-117); ALT (GPT) 31 U/L (12-78); AST (GOT) 24 U/L (15-37); BICARBONATE 26.7 MEQ/L (21.0-32.0); BLOOD UREA NITROGEN 22 MG/DL (7-18); CALCIUM 7.9 MG/DL (8.5-10.1); CHLORIDE 90 MEQ/L (98-107); CREATININE 1.33 MG/DL (0.60-1.30); GLOMERULAR FILTRATION RATE 65 ML/MIN (>89); GLUCOSE,RANDOM 226 MG/DL (74-106); PHOSPHORUS 1.9 MG/DL (2.5-4.9); SODIUM (NA) 127 MEQ/L (136-145); TOTAL BILIRUBIN ADULT 0.8 MG/DL (0.2-1.0); TOTAL PROTEIN 7.5 GM/DL (6.4-8.2)
[2017-10-15] MEDS ORDERED: DEXTROSE 50% IN WATER 50 ML VIAL(D50) IV PUSH ONE (06:30)
[2017-10-15] MEDS ORDERED: SODIUM CHLORID 0.9% 500 ML INJ 500 ML IV ONE (06:30)
[2017-10-15] MEDS ORDERED: ONDANSETRON ODT 4 MG TAB SL PRN (06:30)
[2017-10-15] MEDS ORDERED: INSULIN HUMAN REGULAR 1,000 UNITS/10 ML VIAL IV PUSH ONE (06:30)
[2017-10-15] MEDS ORDERED: CALCIUM GLUCONATE 10% 1 GM/10 ML VIAL IV PUSH ONE (06:30)
[2017-10-15] MEDS ORDERED: PROMETHAZINE INJ 25 MG/ML VIAL IM ONE (06:30)
[2017-10-15] MEDS ORDERED: SODIUM PHOSPHATE INJ 30 MMOL in SODIUM CHLOR 0.9% 250 ML INJ 250 ML IV ONE (06:30)
[2017-10-15] MEDS ORDERED: CALCIUM GLUCONATE INJ 1 GM in SODIUM CHLORIDE 0.9% INJ 100 ML IV ONE (07:15)
[2017-10-15] MEDS: INSULIN NovoLIN REGULAR SUPPLEMENTAL SCALE SQ SCH ×4 (07:58→21:02)
[2017-10-15] MEDS: LIPASE/PROTEASE/AMYLASE (12,000/38,000/60,000) CAP PO SCH ×3 (08:56→17:38)
[2017-10-15] MEDS: PANTOPRAZOLE SOD 20 MG DELAYED RELEASE TAB PO SCH (08:56)
[2017-10-15] MEDS: SERTRALINE HCL 50 MG TAB PO SCH (08:56)
[2017-10-15] MEDS: INSULIN DETEMIR 100 UNITS/ML VIAL SQ SCH ×2 (08:56→21:01)
[2017-10-15] MEDS: ASPIRIN EC 81 MG TABEC PO SCH (08:56)
[2017-10-15] MEDS: METOCLOPRAMIDE HCL 10 MG TAB PO SCH (08:56)
[2017-10-15] MEDS: SODIUM CHLORIDE 0.9% FLUSH 10 ML FLUSH IV FLUSH SCH ×2 (08:56→21:01)
[2017-10-15] MEDS: TIOTROPIUM BROMIDE 18 MCG INH INH SCH (08:57)
[2017-10-15] MEDS: cefTRIAXone INJ 2,000 MG in SODIUM CHLORIDE 0.9% INJ 100 ML IV SCH (10:00)
--- NOTE | 2017-10-15 12:14 | PD.CAR.PN ---
CVT Progress Note CVT: POD #: 1 Subjective/Hospital Course: No complaints today Objective: Vital Signs Date Time Temp Pulse Resp B/P (MAP) Pulse Ox O2 Delivery O2 Flow Rate FiO2 10/15/17 11:10 98.5 83 16 133/89 (104) 96 10/15/17 11:00 90 10/15/17 10:00 98 10/15/17 09:00 86 10/15/17 08:00 78 10/15/17 07:16 98 Nasal Cannula 2.00 10/15/17 07:16 81 10/15/17 07:16 98.2 82 18 144/85 (104) 98 10/15/17 06:00 89 10/15/17 05:00 74 10/15/17 04:00 75 10/15/17 04:00 Nasal Cannula 2.00 10/15/17 04:00 98.3 75 18 126/85 (99) 97 10/15/17 03:00 88 10/15/17 02:00 86 10/15/17 01:00 78 10/15/17 00:00 98.6 75 18 134/88 (103) 97 10/15/17 00:00 75 10/15/17 00:00 Nasal Cannula 2.00 10/14/17 23:00 78 10/14/17 22:00 90 10/14/17 21:32 97 Nasal Cannula 2.00 10/14/17 21:00 88 10/14/17 20:00 98.3 84 20 128/81 (97) 96 10/14/17 20:00 Nasal Cannula 2.00 10/14/17 20:00 84 10/14/17 18:00 98.1 77 18 135/81 (99) 98 10/14/17 18:00 72 12 127/79 (95) 97 Nasal Cannula 2 10/14/17 18:00 77 10/14/17 17:45 71 19 139/80 (99) 97 Nasal Cannula 2 10/14/17 17:30 69 16 139/86 (103) 98 Nasal Cannula 2 10/14/17 17:12 97.0 72 19 141/84 (103) 98 Nasal Cannula 2 10/14/17 14:10 21 10/14/17 13:00 83 Labs: Laboratory Tests Test 10/15/17 04:45 White Blood Count 14.2 TH/MM3 (4.0-11.0) Red Blood Count 4.75 MIL/MM3 (4.50-5.90) Hemoglobin 14.3 GM/DL (13.0-17.0) Hematocrit 42.6 % (39.0-51.0) Mean Corpuscular Volume 89.8 FL (80.0-100.0) Mean Corpuscular Hemoglobin 30.2 PG (27.0-34.0) Mean Corpuscular Hemoglobin Concent 33.6 % (32.0-36.0) Red Cell Distribution Width 13.4 % (11.6-17.2) Platelet Count 232 TH/MM3 (150-450) Mean Platelet Volume 8.4 FL (7.0-11.0) Neutrophils (%) (Auto) 86.7 % (16.0-70.0) Lymphocytes (%) (Auto) 7.0 % (9.0-44.0) Monocytes (%) (Auto) 6.2 % (0.0-8.0) Eosinophils (%) (Auto) 0.0 % (0.0-4.0) Basophils (%) (Auto) 0.1 % (0.0-2.0) Neutrophils # (Auto) 12.3 TH/MM3 (1.8-7.7) Lymphocytes # (Auto) 1.0 TH/MM3 (1.0-4.8) Monocytes # (Auto) 0.9 TH/MM3 (0-0.9) Eosinophils # (Auto) 0.0 TH/MM3 (0-0.4) Basophils # (Auto) 0.0 TH/MM3 (0-0.2) CBC Comment DIFF FINAL Differential Comment Blood Urea Nitrogen 22 MG/DL (7-18) Creatinine 1.33 MG/DL (0.60-1.30) Random Glucose 226 MG/DL (74-106) Total Protein 7.5 GM/DL (6.4-8.2) Albumin 3.0 GM/DL (3.4-5.0) Calcium Level 7.9 MG/DL (8.5-10.1) Phosphorus Level 1.9 MG/DL (2.5-4.9) Magnesium Level 2.0 MG/DL (1.5-2.5) Alkaline Phosphatase 167 U/L (45-117) Aspartate Amino Transf (AST/SGOT) 24 U/L (15-37) Alanine Aminotransferase (ALT/SGPT) 31 U/L (12-78) Total Bilirubin 0.8 MG/DL (0.2-1.0) Sodium Level 127 MEQ/L (136-145) Potassium Level 6.6 MEQ/L (3.5-5.1) Chloride Level 90 MEQ/L (98-107) Carbon Dioxide Level 26.7 MEQ/L (21.0-32.0) Anion Gap 10 MEQ/L (5-15) Estimat Glomerular Filtration Rate 65 ML/MIN (>89) Result Diagram: 10/15/175 10/15/175 Imaging: Last Impressions Chest X-Ray 10/14/17 0000 Signed Impressions: CONCLUSION: No pneumothorax identified following removal of the patient's pacer. Chest CT 10/08/17 0000 Signed Impressions: CONCLUSION: 1. Trace compressive/dependent atelectasis of both bases and tiny bilateral pl eural effusions. A slight degree of failure is conceivable. No pneumonic infilt rate demonstrated. 2. Mild emphysema and mild chronic interstitial changes are again noted. Stabl e, benign nodule in the right mid lung. 3. Stable diffuse prominent caliber of the thoracic aorta up to 4.1 cm. Lung Scan-VQ Nuclear Medicine 10/04/17 0000 Signed Impressions: CONCLUSION: 1. Low probability for PE. 2. Patchy uptake of tracer activity on the ventilation study suggestive of air space disease. Lower Extremity Ultrasound 10/04/17 0000 Signed Impressions: CONCLUSION: 1. No evidence of DVT. Cardiovascular: RRR Telemetry: NSR Pulmonary: CTA GI/: NABS, NT Incision: dry and intact Plan: No issues with surgical site s/p pacemaker explant and lead extraction Hyperkalemia noted on morning BMP - actively being managed by primary service. (1) Sepsis (2) Polysubstance abuse (3) HTN (hypertension) (4) DKA (diabetic ketoacidoses) (5) COPD (chronic obstructive pulmonary disease) (6) Cocaine abuse (7) Pacemaker Problem Qualifiers (1) Sepsis: Qualified Codes: A41.9 - Sepsis, unspecified organism Dana Melchor MD Oct 15, 2017 12:14
--- NOTE | 2017-10-15 13:55 | HHI.PR ---
Subjective Remarks Pt seen and examined. AFVSS. No acute events overnight. Pacemaker removed yesterday. No issues with pain or bleeding. No acute concerns. Denies CP, SOB, abdominal pain, N/V. Objective Vital Signs Date Time Temp Pulse Resp B/P (MAP) Pulse Ox O2 Delivery O2 Flow Rate FiO2 10/15/17 12:00 90 10/15/17 11:10 98.5 83 16 133/89 (104) 96 10/15/17 11:00 90 10/15/17 10:00 98 10/15/17 09:00 86 10/15/17 08:00 78 10/15/17 07:47 93 21 10/15/17 07:16 98 Nasal Cannula 2.00 10/15/17 07:16 81 10/15/17 07:16 98.2 82 18 144/85 (104) 98 10/15/17 06:00 89 10/15/17 05:00 74 10/15/17 04:00 75 10/15/17 04:00 Nasal Cannula 2.00 10/15/17 04:00 98.3 75 18 126/85 (99) 97 10/15/17 03:00 88 10/15/17 02:00 86 10/15/17 01:00 78 10/15/17 00:00 98.6 75 18 134/88 (103) 97 10/15/17 00:00 75 10/15/17 00:00 Nasal Cannula 2.00 10/14/17 23:00 78 10/14/17 22:00 90 10/14/17 21:32 97 Nasal Cannula 2.00 10/14/17 21:00 88 10/14/17 20:00 98.3 84 20 128/81 (97) 96 10/14/17 20:00 Nasal Cannula 2.00 10/14/17 20:00 84 10/14/17 18:00 98.1 77 18 135/81 (99) 98 10/14/17 18:00 72 12 127/79 (95) 97 Nasal Cannula 2 10/14/17 18:00 77 10/14/17 17:45 71 19 139/80 (99) 97 Nasal Cannula 2 10/14/17 17:30 69 16 139/86 (103) 98 Nasal Cannula 2 10/14/17 17:12 97.0 72 19 141/84 (103) 98 Nasal Cannula 2 10/14/17 14:10 21 I/O 10/14/17 10/14/17 10/14/17 10/15/17 10/15/17 10/15/17 07:00 15:00 23:00 07:00 15:00 23:00 Intake Total 330 ml 1640 ml 480 ml 360 ml Output Total 1675 ml 675 ml 1300 ml Balance -1345 ml 965 ml -820 ml 360 ml Intake Oral 330 ml 240 ml 480 ml IV Total 360 ml Other 1400 ml Output Urine Total 1675 ml 650 ml 1300 ml Estimated Blood Loss 25 ml # Bowel Movements 1 Result Diagram: 10/15/17 0445 10/15/17 0445 Imaging Chest X-Ray 10/14/17 0000 Signed Impressions: CONCLUSION: No pneumothorax identified following removal of the patient's pacer. Chest CT 10/08/17 0000 Signed Impressions: CONCLUSION: 1. Trace compressive/dependent atelectasis of both bases and tiny bilateral pl eural effusions. A slight degree of failure is conceivable. No pneumonic infilt rate demonstrated. 2. Mild emphysema and mild chronic interstitial changes are again noted. Stabl e, benign nodule in the right mid lung. 3. Stable diffuse prominent caliber of the thoracic aorta up to 4.1 cm. Lung Scan-VQ Nuclear Medicine 10/04/17 0000 Signed Impressions: CONCLUSION: 1. Low probability for PE. 2. Patchy uptake of tracer activity on the ventilation study suggestive of air space disease. Lower Extremity Ultrasound 10/04/17 0000 Signed Impressions: CONCLUSION: 1. No evidence of DVT. Procedures Pacemaker removed 10/14 Objective Remarks GENERAL: WN, WD AA male resting in bed in NAD. SKIN: Warm and dry. HEENT: AT/NC. Pupils equal and round. MMM. NECK: R IJ line in place with no surrounding erythema. CHEST: Pressure dressing over L upper chest HEART: RRR with 1/6 FLORIDALMA. LUNGS: CTAB without wheezes or crackles. ABDOMEN: +BS, soft, NT, ND. EXTREMITIES: No LE edema. . NEURO: Awake and alert. PSYCH: Appropriate mood and affect. A/P Assessment and Plan 67 years old AA male with poorly controlled DM, HTN, COPD, and depression admitted on 10/04 for severe sepsis and COPD exacerbation with suspected pneumonia and over his clinical course was found to be bacteremic with AV vegetation. 1. GBS bacteremia - BCtx from 10/04 growing GBS - Repeat BC NGTD - s/p pacemaker removed 10/14 - ID following, recommend Rocephin 2 g daily x 6 weeks - F/U pacemaker culture - PICC line ordered - OP antibiotic infusion to be done by ID 2. Aortic valve endocarditis - 2D echo unremarkable - ANNALISE with small vegetation of aortic valve - ID and cardiology following 3. Leukocytosis - White count up to 14K today - Likely due to systemic steroids patient was on - Afebrile and no signs of new infection - Continue to monitor clinically 4. Hyperkalemia - Early AM labs notable for sodium 127 and potassium 6.6 and overnight provider ordered one time calcium gluconate and insulin with dextrose - Stat repeat today showed potassium 4.7 - Continue to monitor - Avoid John-inhibitors 5. Hyponatremia - Sodium was 127 this morning and repeat was 132 - Continue to monitor 6. COPD exacerbation - Acute exacerbation resolved - Supplemental O2 - DuoNebs - Continue home inhalers 7. HTN - Stable - Clonidine PRN 8. DM - Uncontrolled, A1c 11.7 - Levemir 24 units BID, adjust and monitor - SSI per protocol 9. Depression - Continue home Zoloft 10. Chronic pancreatitis - Continue Creon and Reglan 11. Chronic back pain - Continue home oxycodone PRN DVT prophylaxis: Heparin Discharge Planning Anticipate D/C tomorrow if cleared by CT surgery and ID Ju Pandey MD Oct 15, 2017 13:55
--- NOTE | 2017-10-15 14:43 | HHI.IDPN ---
Subjective Subjective Remarks afebrile ANNALISE showed small vegetation on aortic valve S?p removal of AICD - uneventful WBC up to 14 K Antibiotics CFTX Allergies: Coded Allergies: No Known Drug Allergies (Verified Allergy, Unknown, 10/04/17) MRI PRECAUTION (Verified Adverse Reaction, Severe, PACEMAKER, 10/04/17) PT HAS PACEMAKER PER NURSE JAYLENE/HEMANT *MDRO Multi-Drug Resistant Organism (Verified Adverse Reaction, Unknown, Cleared - 10/07/15, 10/04/17) MRSA PCR (nares) negative - 10/04/15 & 10/07/15 Cleared per Infection Control MRSA (blood and urine) - 06/2012 Objective . Vital Signs Date Time Temp Pulse Resp B/P (MAP) Pulse Ox O2 Delivery O2 Flow Rate FiO2 10/15/17 12:00 90 10/15/17 11:10 98.5 83 16 133/89 (104) 96 10/15/17 11:00 90 10/15/17 10:00 98 10/15/17 09:00 86 10/15/17 08:00 78 10/15/17 07:47 93 21 10/15/17 07:16 98 Nasal Cannula 2.00 10/15/17 07:16 81 10/15/17 07:16 98.2 82 18 144/85 (104) 98 10/15/17 06:00 89 10/15/17 05:00 74 10/15/17 04:00 75 10/15/17 04:00 Nasal Cannula 2.00 10/15/17 04:00 98.3 75 18 126/85 (99) 97 10/15/17 03:00 88 10/15/17 02:00 86 10/15/17 01:00 78 10/15/17 00:00 98.6 75 18 134/88 (103) 97 10/15/17 00:00 75 10/15/17 00:00 Nasal Cannula 2.00 10/14/17 23:00 78 10/14/17 22:00 90 10/14/17 21:32 97 Nasal Cannula 2.00 10/14/17 21:00 88 10/14/17 20:00 98.3 84 20 128/81 (97) 96 10/14/17 20:00 Nasal Cannula 2.00 10/14/17 20:00 84 10/14/17 18:00 98.1 77 18 135/81 (99) 98 10/14/17 18:00 72 12 127/79 (95) 97 Nasal Cannula 2 10/14/17 18:00 77 10/14/17 17:45 71 19 139/80 (99) 97 Nasal Cannula 2 10/14/17 17:30 69 16 139/86 (103) 98 Nasal Cannula 2 10/14/17 17:12 97.0 72 19 141/84 (103) 98 Nasal Cannula 2 10/15/17 10/15/17 10/16/17 15:00 23:00 07:00 Intake Total 360 ml Balance 360 ml IV Total 360 ml . Laboratory Tests Test 10/14/17 05:31 10/15/17 04:45 White Blood Count 6.8 TH/MM3 14.2 TH/MM3 Red Blood Count 5.19 MIL/MM3 4.75 MIL/MM3 Hemoglobin 15.8 GM/DL 14.3 GM/DL Hematocrit 46.3 % 42.6 % Mean Corpuscular Volume 89.2 FL 89.8 FL Mean Corpuscular Hemoglobin 30.4 PG 30.2 PG Mean Corpuscular Hemoglobin Concent 34.1 % 33.6 % Red Cell Distribution Width 13.6 % 13.4 % Platelet Count 257 TH/MM3 232 TH/MM3 Mean Platelet Volume 8.2 FL 8.4 FL Neutrophils (%) (Auto) 64.7 % 86.7 % Lymphocytes (%) (Auto) 19.7 % 7.0 % Monocytes (%) (Auto) 11.9 % 6.2 % Eosinophils (%) (Auto) 3.2 % 0.0 % Basophils (%) (Auto) 0.5 % 0.1 % Neutrophils # (Auto) 4.4 TH/MM3 12.3 TH/MM3 Lymphocytes # (Auto) 1.3 TH/MM3 1.0 TH/MM3 Monocytes # (Auto) 0.8 TH/MM3 0.9 TH/MM3 Eosinophils # (Auto) 0.2 TH/MM3 0.0 TH/MM3 Basophils # (Auto) 0.0 TH/MM3 0.0 TH/MM3 CBC Comment DIFF FINAL DIFF FINAL Differential Comment Laboratory Tests Test 10/14/17 05:36 10/15/17 04:45 10/15/17 14:02 Blood Urea Nitrogen 18 MG/DL 22 MG/DL Creatinine 1.04 MG/DL 1.33 MG/DL Random Glucose 60 MG/DL 226 MG/DL Total Protein 8.1 GM/DL 7.5 GM/DL Albumin 3.2 GM/DL 3.0 GM/DL Calcium Level 8.8 MG/DL 7.9 MG/DL Phosphorus Level 3.6 MG/DL 1.9 MG/DL Magnesium Level 2.1 MG/DL 2.0 MG/DL Alkaline Phosphatase 141 U/L 167 U/L Aspartate Amino Transf (AST/SGOT) 27 U/L 24 U/L Alanine Aminotransferase (ALT/SGPT) 31 U/L 31 U/L Total Bilirubin 0.6 MG/DL 0.8 MG/DL Sodium Level 132 MEQ/L 127 MEQ/L Potassium Level 4.3 MEQ/L 6.6 MEQ/L Chloride Level 94 MEQ/L 90 MEQ/L Carbon Dioxide Level 26.2 MEQ/L 26.7 MEQ/L Anion Gap 12 MEQ/L 10 MEQ/L Estimat Glomerular Filtration Rate 86 ML/MIN 65 ML/MIN Microbiology Date/Time Source Procedure Growth Status 10/14/17 14:50 Wound Chest Gram Stain - Final Resulted 10/14/17 14:50 Wound Chest Wound Culture Pending Resulted 10/14/17 14:50 Other Fungal Smear - Final Resulted 10/14/17 14:50 Other Fungal Culture Pending Resulted 10/14/17 14:50 Other Acid Fast Stain Pending Received 10/14/17 14:50 Other Mycobacterial Culture Pending Received Imaging Last Impressions Chest CT 10/08/17 0000 Signed Impressions: CONCLUSION: 1. Trace compressive/dependent atelectasis of both bases and tiny bilateral pl eural effusions. A slight degree of failure is conceivable. No pneumonic infilt rate demonstrated. 2. Mild emphysema and mild chronic interstitial changes are again noted. Stabl e, benign nodule in the right mid lung. 3. Stable diffuse prominent caliber of the thoracic aorta up to 4.1 cm. Chest X-Ray 10/04/17 0753 Signed Impressions: CONCLUSION: No acute abnormality or significant interval change Lung Scan-VQ Nuclear Medicine 10/04/17 0000 Signed Impressions: CONCLUSION: 1. Low probability for PE. 2. Patchy uptake of tracer activity on the ventilation study suggestive of air space disease. Lower Extremity Ultrasound 10/04/17 0000 Signed Impressions: CONCLUSION: 1. No evidence of DVT. Physical Exam CONSTITUTIONAL/GENERAL: This is an adequately nourished patient, in no apparent distress. TUBES/LINES/DRAINS: SKIN: No jaundice, rashes, or lesions. Skin temperature appropriate. Not diaphoretic. CARDIOVASCULAR: Regular rate and rhythm without murmurs, gallops, or rubs. No JVD. Peripheral pulses symmetric. Dressing intact in place over L chest RESPIRATORY/CHEST: Symmetric, unlabored respirations. Clear to auscultation. Breath sounds equal bilaterally. No wheezes, rales, or rhonchi. GASTROINTESTINAL: Abdomen soft, non-tender, nondistended. No hepato-splenomegaly , or palpable masses. No guarding. Bowel sounds present. MUSCULOSKELETAL: Extremities without clubbing, cyanosis, or edema. No joint tenderness or effusion noted. No calf tenderness. No mottling or clubbing. NEUROLOGICAL: Awake and alert. Motor and sensory grossly within normal limits. Follows commands. Clear speech Moves all extremities. PSYCHIATRIC: No obvious anxiety/depression. no apparent hallucinations or other psychotic thought process. Assessment & Plan Remarks HIgh grade GBS sepsis in the settings of pacemaker sp removal of pacemaker Aortic valve endocarditis, GBS - PCN BOBBI 0.06 No e/o PNA clinically or radiologically - CT with fluid - MRSA in sputum cw colonisation cont CFTX 2 gm daily x 6 weeks fu pacer clx untill final PICC line OPAT filled out Cecilia Slade MD Oct 15, 2017 14:43
--- NOTE | 2017-10-15 14:44 | HHI.FF ---
Infusion Therapy Location of Infusion Therapy: Home Health Care IV Infusion Order Patient Information Patient Weight 73.5 kg Diagnosis: Coded Allergies: No Known Drug Allergies (Verified Allergy, Unknown, 10/04/17) MRI PRECAUTION (Verified Adverse Reaction, Severe, PACEMAKER, 10/04/17) PT HAS PACEMAKER PER NURSE JAYLENE/HEMANT *MDRO Multi-Drug Resistant Organism (Verified Adverse Reaction, Unknown, Cleared - 10/07/15, 10/04/17) MRSA PCR (nares) negative - 10/04/15 & 10/07/15 Cleared per Infection Control MRSA (blood and urine) - 06/2012 Administer Medication Ceftriaxone 2 grams IV q 24 hours Start Treatment: Oct 15, 2017 Stop Treatment: Nov 24, 2017 Additional Information Venous access: PICC Line Additional Instructions [x] Peripheral flush and dressing changes per protocol [x] Implanted port and central receptionist airline lounge: * Implanted port: 10 ml Normal Saline followed by 5 ml Heparin 100 units/ml Heparin flush after each use and monthly to maintain. [] May leave port accessed during therapy. [] May leave peripheral site accessed for duration of therapy. [x] If patient has SOB or respiratory distress, check oxygen saturation. If less than 90% or clinical signs of respiratory distress, administer oxygen at 2 L/min. via nasal cannula and notify physician. [x] Anaphylaxis/Reaction orders: * Stop infusion. * Keep IV line open with saline flush. * Notify physician. * Monitor vital signs every 15 minutes until symptoms resolve. * Check Oxygen saturation; Oxygen at 2 L/min. via nasal cannula if less than 90% or clinical signs of respiratory distress. * Administer diphenhydramine (Benadryl) 25 mg IV STAT, (unless patient has received as pre-med). May repeat once, if necessary. * Solu-Cortef 250 mg IVP over 30-60 seconds, use 100 mg vials for each dissolution. * Epinephrine (1mg/1 ml) 0.3 mg subcutaneously or IVP now with any signs of respiratory distress. * Check with physician for new additional pre-med orders if patient is re- challenged or re-treated. [x] May remove PICC line when treatment complete, after confirming with Physician. [x] If the patient is admitted to the hospital, the ED, or transferred via [facility] , complete transfer form including medication reconciliation order sheet. Laboratory Tests Weekly Labs: CBC w/diff, CMP Cecilia Slade MD Oct 15, 2017 14:44
[2017-10-15] MEDS ORDERED: EPIN1INJ21 IV PUSH (14:47)
[2017-10-15] MEDS ORDERED: EPIN1INJ21 SQ (14:47)
[2017-10-15] MEDS ORDERED: SOLU250I IV PUSH (14:47)
[2017-10-15 14:54] LABS: BICARBONATE 25.2 MEQ/L (21.0-32.0); CALCIUM 7.8 MG/DL (8.5-10.1); CREATININE 1.09 MG/DL (0.60-1.30)
[2017-10-15] MEDS: LORazepam 0.5 MG TAB PO PRN (20:47)
[2017-10-16] VITALS (29 sets, daily range): BP systolic 115–141; BP diastolic 57–91; PULSE 70–95; RESP 16–20; TEMP 97.8–98.8; O2SAT 96–100
[2017-10-16 06:53] LABS: AUTOMATED NEUTROPHIL # 5.8 TH/MM3 (1.8-7.7); BASOPHIL % 0.4 % (0.0-2.0); EOSINOPHIL # 0.2 TH/MM3 (0-0.4); EOSINOPHIL % 2.1 % (0.0-4.0); HEMATOCRIT 36.9 % (39.0-51.0); HEMOGLOBIN 12.7 GM/DL (13.0-17.0); LYMPH % 21.2 % (9.0-44.0); MEAN CELL VOLUME 88.7 FL (80.0-100.0); MEAN CORPUSCULAR HEMOGLOBIN 30.5 PG (27.0-34.0); MEAN CORPUSCULAR HGB CONC 34.4 % (32.0-36.0); MEAN PLATELET VOLUME 8.3 FL (7.0-11.0); MONO % 13.2 % (0.0-8.0); MONOCYTE # 1.2 TH/MM3 (0-0.9); NEUT % 63.1 % (16.0-70.0); PLATELET COUNT 208 TH/MM3 (150-450); RED BLOOD COUNT 4.17 MIL/MM3 (4.50-5.90); RED CELL DISTRIBUTION WIDTH 13.5 % (11.6-17.2); WHITE BLOOD COUNT 9.2 TH/MM3 (4.0-11.0)
[2017-10-16 07:15] LABS: BICARBONATE 28.8 MEQ/L (21.0-32.0); CALCIUM 8.3 MG/DL (8.5-10.1); CREATININE 1.04 MG/DL (0.60-1.30)
[2017-10-16] MEDS: INSULIN NovoLIN REGULAR SUPPLEMENTAL SCALE SQ SCH ×4 (08:00→20:17)
[2017-10-16] MEDS: SODIUM CHLORIDE 0.9% FLUSH 10 ML FLUSH IV FLUSH SCH ×2 (09:00→20:10)
[2017-10-16] MEDS: INSULIN DETEMIR 100 UNITS/ML VIAL SQ SCH ×2 (09:00→20:16)
[2017-10-16] MEDS: ASPIRIN EC 81 MG TABEC PO SCH (09:28)
[2017-10-16] MEDS: LIPASE/PROTEASE/AMYLASE (12,000/38,000/60,000) CAP PO SCH ×3 (09:28→17:43)
[2017-10-16] MEDS: METOCLOPRAMIDE HCL 10 MG TAB PO SCH (09:28)
[2017-10-16] MEDS: SERTRALINE HCL 50 MG TAB PO SCH (09:28)
[2017-10-16] MEDS: PANTOPRAZOLE SOD 20 MG DELAYED RELEASE TAB PO SCH (09:28)
[2017-10-16] MEDS: TIOTROPIUM BROMIDE 18 MCG INH INH SCH (09:29)
[2017-10-16] MEDS: cefTRIAXone INJ 2,000 MG in SODIUM CHLORIDE 0.9% INJ 100 ML IV SCH (09:32)
--- NOTE | 2017-10-16 12:39 | HHI.FF ---
Face to Face Verification Diagnosis: (1) Bacteremia due to group B Streptococcus (2) Endocarditis of aortic valve (3) Pacemaker infection (4) Sepsis Home Health Nursing Order: Wound care and dressing changes Nursing assessment with vital signs IV medication administration I have seen patient Tyrese Whitehead on 10/16/17. My clinical findings support the need for the requested home health care services because: Infection w/ risk of complications Injectable med education/admin I certify that my clinical findings support that this patient is homebound because: Need for psychosocial assistance Poor cardiac reserve Ju Pandey MD Oct 16, 2017 12:39
--- NOTE | 2017-10-16 12:49 | HHI.PR ---
Subjective Remarks Pt seen and examined. AFVSS. No acute events overnight. POD2 from pacemaker removal. No issues with pain or bleeding. Denies CP, SOB, abdominal pain, N/V. Only complaint is hiccups that have occurred periodically the last couple days. Discussed using chlorpromazine at a low dose but advised on possible side effects and he states he doesn't want to take a change. Otherwise feeling ready to go home. Objective Vital Signs Date Time Temp Pulse Resp B/P (MAP) Pulse Ox O2 Delivery O2 Flow Rate FiO2 10/16/17 12:03 98.0 86 16 138/91 (107) 100 10/16/17 12:00 70 10/16/17 11:00 73 10/16/17 10:26 99 Nasal Cannula 2.00 10/16/17 10:00 78 10/16/17 09:00 80 10/16/17 08:00 74 10/16/17 07:15 97.8 81 16 115/57 (76) 100 10/16/17 07:15 100 Room Air 10/16/17 07:00 76 10/16/17 06:00 75 10/16/17 05:00 77 10/16/17 04:00 72 10/16/17 03:52 98.8 72 20 141/84 (103) 96 10/16/17 03:00 80 10/16/17 02:00 81 10/16/17 01:00 79 10/16/17 00:00 98.2 86 17 119/79 (92) 98 10/16/17 00:00 86 10/15/17 23:00 84 10/15/17 22:00 86 10/15/17 21:51 97 Nasal Cannula 2.00 10/15/17 21:00 80 10/15/17 20:00 Nasal Cannula 2.00 10/15/17 20:00 82 10/15/17 20:00 98.8 82 20 125/78 (94) 97 10/15/17 18:00 80 10/15/17 17:00 80 10/15/17 16:00 76 10/15/17 15:00 84 10/15/17 15:00 98.1 87 16 140/88 (105) 98 10/15/17 14:00 76 10/15/17 13:00 88 I/O 10/15/17 10/15/17 10/15/17 10/16/17 10/16/17 10/16/17 07:00 15:00 23:00 07:00 15:00 23:00 Intake Total 480 ml 360 ml 720 ml 480 ml Output Total 1300 ml 1000 ml 1900 ml Balance -820 ml 360 ml -280 ml -1420 ml Intake Oral 480 ml 720 ml 480 ml IV Total 360 ml Output Urine Total 1300 ml 1000 ml 1900 ml # Bowel Movements 1 0 Result Diagram: 10/16/17 0610/16/17 06 Procedures Pacemaker removed 10/14 Objective Remarks GENERAL: WN, WD AA male resting in bed in NAD. SKIN: Warm and dry. HEENT: AT/NC. Pupils equal and round. MMM. NECK: R IJ line in place with no surrounding erythema. CHEST: L chest incision C/D/I. HEART: RRR with 1/6 FLORIDALMA. LUNGS: CTAB without wheezes or crackles. ABDOMEN: +BS, soft, NT, ND. EXTREMITIES: No LE edema. . NEURO: Awake and alert. PSYCH: Appropriate mood and affect. A/P Assessment and Plan 67 years old AA male with poorly controlled DM, HTN, COPD, and depression admitted on 10/04 for severe sepsis and COPD exacerbation with suspected pneumonia and over his clinical course was found to be bacteremic with AV vegetation. 1. GBS bacteremia - BCtx from 10/04 growing GBS - Repeat BC NGTD - s/p pacemaker removed 10/14 - ID following, recommend Rocephin 2 g daily x 6 weeks - Pacemaker culture NG at 48 hours - PICC line ordered to be placed today - OP antibiotic form completed by ID 2. Aortic valve endocarditis - 2D echo unremarkable - ANNALISE with small vegetation of aortic valve - ID and cardiology following 3. Hyperkalemia - Resolved - Early AM labs on 10/15 notable for potassium 6.6 and overnight provider ordered one time calcium gluconate and insulin with dextrose - Stat repeat showed potassium 4.7 and today it is normal at 4.5 - Avoid John-inhibitors 5. Hyponatremia - Sodium up to 132, likely chronic - Asymptomatic - Avoid meds that could further worsen 6. COPD exacerbation - Acute exacerbation resolved - Supplemental O2 - DuoNebsPRN - Continue home inhalers 7. HTN - Stable - Clonidine PRN 8. DM - Uncontrolled, A1c 11.7 - Levemir 24 units BID - SSI per protocol - Resume home Sitagliptin-metformin and Bydureon on discharge but patient will need outpatient follow-up to better regulate his glucose 9. Depression - Continue home Zoloft 10. Chronic pancreatitis - Continue Creon and Reglan 11. Chronic back pain - Continue home oxycodone PRN DVT prophylaxis: Heparin Discharge Planning D/C when OP arrangement for IV infusion made, case management assisting Ju Pandey MD Oct 16, 2017 12:48
[2017-10-16] MEDS ORDERED: SPIRCAP INH (12:51)
[2017-10-16] MEDS ORDERED: SODIUM CHLORIDE 0.9% FLUSH 10 ML FLUSH IV FLUSH PRN (15:30)
[2017-10-16] MEDS: LORazepam 0.5 MG TAB PO PRN (20:08)
[2017-10-16] MEDS: ACETAMINOPHEN/CODEINE 300 MG/30 MG TAB PO PRN (20:09)
[2017-10-16] MEDS: HEPARIN SODIUM - SQ 10,000 UNITS/ML VIAL SQ SCH (22:04)
[2017-10-17] VITALS (19 sets, daily range): BP systolic 120–134; BP diastolic 87–95; PULSE 65–90; RESP 16–22; TEMP 97.9–98.4; O2SAT 95–100
[2017-10-17] MEDS: INSULIN NovoLIN REGULAR SUPPLEMENTAL SCALE SQ SCH ×3 (08:32→16:05)
[2017-10-17] MEDS: INSULIN DETEMIR 100 UNITS/ML VIAL SQ SCH (08:33)
[2017-10-17] MEDS: HEPARIN SODIUM - SQ 10,000 UNITS/ML VIAL SQ SCH (08:34)
[2017-10-17] MEDS: PANTOPRAZOLE SOD 20 MG DELAYED RELEASE TAB PO SCH (08:35)
[2017-10-17] MEDS: LIPASE/PROTEASE/AMYLASE (12,000/38,000/60,000) CAP PO SCH ×3 (08:35→17:53)
[2017-10-17] MEDS: SERTRALINE HCL 50 MG TAB PO SCH (08:35)
[2017-10-17] MEDS: ASPIRIN EC 81 MG TABEC PO SCH (08:35)
[2017-10-17] MEDS: METOCLOPRAMIDE HCL 10 MG TAB PO SCH (08:36)
[2017-10-17] MEDS: TIOTROPIUM BROMIDE 18 MCG INH INH SCH (08:38)
[2017-10-17] MEDS: SODIUM CHLORIDE 0.9% FLUSH 10 ML FLUSH IV FLUSH SCH (08:38)
[2017-10-17] MEDS ORDERED: SODIUM CHLORIDE 0.9% FLUSH 10 ML FLUSH IV FLUSH SCH (09:00)
[2017-10-17] MEDS: cefTRIAXone INJ 2,000 MG in SODIUM CHLORIDE 0.9% INJ 100 ML IV SCH (10:09)
--- NOTE | 2017-10-17 10:13 | PD.CAR.PN ---
CVT Progress Note Subjective/Hospital Course: feels ok , no fevers, on antibiotics discharge instructions in face to face and discharge plan ok to shower has f/u with [facility] for wound check in 2 weeks Objective: GENERAL: A&O x 3 SKIN: Warm and dry. left chest incision intact and well approximated , mild ecchymosis and swelling at site, no drainage or erythema HEAD: Normocephalic. EYES: No scleral icterus. No injection or drainage. NECK: Supple, trachea midline. No JVD or lymphadenopathy. CARDIOVASCULAR: Regular rate and rhythm without murmurs, gallops, or rubs. RESPIRATORY: Breath sounds equal bilaterally. No accessory muscle use. GASTROINTESTINAL: Abdomen soft, non-tender, nondistended. MUSCULOSKELETAL: No cyanosis, or edema. BACK: Nontender without obvious deformity. No CVA tenderness. Vital Signs Date Time Temp Pulse Resp B/P (MAP) Pulse Ox O2 Delivery O2 Flow Rate FiO2 10/17/17 09:21 16 10/17/17 08:00 97.9 68 16 134/90 (105) 98 10/17/17 08:00 72 10/17/17 07:42 Room Air 10/17/17 06:00 70 10/17/17 05:00 74 10/17/17 04:00 71 10/17/17 04:00 Room Air 10/17/17 04:00 98.2 71 18 131/87 (102) 95 10/17/17 03:00 70 10/17/17 02:00 73 10/17/17 01:00 69 10/17/17 00:00 Room Air 10/17/17 00:00 65 10/17/17 00:00 98.4 65 18 129/95 (106) 98 10/16/17 23:00 78 10/16/17 22:00 92 10/16/17 21:28 96 21 10/16/17 21:00 89 10/16/17 20:00 95 10/16/17 20:00 Room Air 10/16/17 20:00 98.1 95 20 130/89 (103) 97 10/16/17 18:00 82 10/16/17 17:00 78 10/16/17 16:00 84 10/16/17 15:05 98.1 86 16 126/76 (93) 96 10/16/17 15:00 84 10/16/17 14:00 84 10/16/17 13:00 80 10/16/17 12:03 98.0 86 16 138/91 (107) 100 10/16/17 12:00 70 10/16/17 11:00 73 10/16/17 10:26 99 Nasal Cannula 2.00 Result Diagram: 10/16/17 0600 10/16/17 0600 (1) Sepsis (2) Polysubstance abuse (3) HTN (hypertension) (4) DKA (diabetic ketoacidoses) (5) COPD (chronic obstructive pulmonary disease) (6) Cocaine abuse (7) Pacemaker Plan: removed continue antibiotics as outpt Problem Qualifiers (1) Sepsis: Qualified Codes: A41.9 - Sepsis, unspecified organism Marge Lynn Oct 17, 2017 10:13
[2017-10-17] MEDS: ACETAMINOPHEN/CODEINE 300 MG/30 MG TAB PO PRN (11:50)
--- NOTE | 2017-10-17 12:02 | PD.CARD.PN ---
Subjective Subjective Remarks No events over the weekend PPM removed on Tuesday Objective Medications Current Medications Medications (Trade) Dose Ordered Sig/Ashanti Route Start Time Stop Time Status Last Admin (NS Flush) 2 ml UNSCH PRN IVF 10/04/17 08:00 10/11/17 09:34 (Ecotrin Ec) 81 mg DAILY PO 10/05/17 09:00 10/17/17 08:35 (Ativan) 0.5 mg Q8H PRN PO 10/04/17 12:30 10/16/17 20:08 (Reglan) 10 mg DAILY PO 10/05/17 09:00 10/17/17 08:36 (Creon 12-38-60) 1 cap TIDPC PO 10/04/17 13:30 10/17/17 11:50 (Protonix) 20 mg DAILY PO 10/05/17 09:00 10/17/17 08:35 (Zoloft) 50 mg DAILY PO 10/05/17 09:00 10/17/17 08:35 (Pill Splitter) 1 ea UNSCH PRN OTHER 10/04/17 12:30 (Roxicodone) 15 mg Q8H PRN PO 10/04/17 12:30 10/17/17 08:35 (Albuterol Neb) 1.25 mg Q2HR NEB PRN NEB 10/04/17 12:45 10/08/17 21:16 (Heparin Inj) 5,000 units Q12HR SQ 10/04/17 21:00 Future hold 10/17/17 08:34 (Robitussin Liq) 200 mg Q4H PRN PO 10/04/17 18:30 10/14/17 20:28 (Morphine Inj) 0.5 mg Q4H PRN IV 10/05/17 10:30 10/13/17 08:43 (Melatonin) 5 mg HS PRN PO 10/05/17 21:00 10/14/17 23:42 (D50w (Vial) Inj) 50 ml UNSCH PRN IV PUSH 10/05/17 13:45 10/14/17 10:05 (Glucagon Inj) 1 mg UNSCH PRN OTHER 10/05/17 13:45 (NovoLIN R SUPPLEMENTAL SCALE) 1 ACHS SLIDING SCALE SQ 10/05/17 17:00 10/17/17 11:49 Ceftriaxone Sodium 2000 mg/ Sodium Chloride 100 ml @ 200 mls/hr Q24H IV 10/06/17 10:00 10/17/17 10:09 (Spiriva Inh) 18 mcg DAILY INH 10/07/17 09:30 10/17/17 08:38 (Catapres) 0.1 mg Q6H PRN PO 10/07/17 08:15 (Levemir Inj) 24 units BID SQ 10/10/17 21:00 10/17/17 08:33 (NS Flush) 2 ml BID IV FLUSH 10/13/17 21:00 10/17/17 08:38 (NS Flush) 2 ml UNSCH PRN IV FLUSH 10/13/17 13:30 Cefazolin Sodium 500 mg/Sodium Chloride 505 ml @ 0 mls/hr [employer] DESIGN CHEMICAL [employer]INEER IRRIGATION 10/13/17 13:30 10/20/17 13:29 10/14/17 14:57 Cefazolin Sodium/ Dextrose 50 ml @ 100 mls/hr [employer] CHEMICAL ENGINEER IV 10/13/17 13:30 10/20/17 13:29 10/14/17 14:35 (Hibiclens 4% Top Soln) 1 applic PROCESS DESIGN CHEMICAL ENGINEER TOPICAL 10/13/17 13:30 10/20/17 13:29 (Milk Of Magnesia Liq) 30 ml Q6H PRN PO 10/14/17 16:45 (Tylenol-Codeine #3) 1 tab Q4H PRN PO 10/14/17 16:45 10/17/17 11:50 (Zofran Odt) 4 mg Q8HR PRN SL 10/15/17 06:30 10/16/17 20:07 (NS Flush) See Protocol DAILY IV FLUSH 10/17/17 09:00 10/17/17 08:38 (NS Flush) See Protocol UNSCH PRN IV FLUSH 10/16/17 15:30 (Heparin Central Flush) See Protocol DAILY IV FLUSH 10/17/17 09:00 10/17/17 08:36 (Heparin Central Flush) See Protocol UNSCH PRN IV FLUSH 10/16/17 15:30 (NS Flush) UNSCH PRN IV FLUSH 10/16/17 15:30 Vital Signs / I&O Vital Signs Date Time Temp Pulse Resp B/P (MAP) Pulse Ox O2 Delivery O2 Flow Rate FiO2 10/17/17 09:21 16 10/17/17 08:00 97.9 68 16 134/90 (105) 98 10/17/17 08:00 72 10/17/17 07:42 Room Air 10/17/17 06:00 70 10/17/17 05:00 74 10/17/17 04:00 71 10/17/17 04:00 Room Air 10/17/17 04:00 98.2 71 18 131/87 (102) 95 10/17/17 03:00 70 10/17/17 02:00 73 10/17/17 01:00 69 10/17/17 00:00 Room Air 10/17/17 00:00 65 10/17/17 00:00 98.4 65 18 129/95 (106) 98 10/16/17 23:00 78 10/16/17 22:00 92 10/16/17 21:28 96 21 10/16/17 21:00 89 10/16/17 20:00 95 10/16/17 20:00 Room Air 10/16/17 20:00 98.1 95 20 130/89 (103) 97 10/16/17 18:00 82 10/16/17 17:00 78 10/16/17 16:00 84 10/16/17 15:05 98.1 86 16 126/76 (93) 96 10/16/17 15:00 84 10/16/17 14:00 84 10/16/17 13:00 80 10/16/17 12:03 98.0 86 16 138/91 (107) 100 I/O 10/16/17 10/16/17 10/16/17 10/17/17 10/17/17 10/17/17 07:00 15:00 23:00 07:00 15:00 23:00 Intake Total 480 ml 1200 ml 720 ml Output Total 1900 ml 1000 ml 1200 ml Balance -1420 ml 200 ml -480 ml Intake Oral 480 ml 1200 ml 720 ml Output Urine Total 1900 ml 1000 ml 1200 ml # Bowel Movements 0 0 Physical Exam GENERAL: NAD, AAOx3 SKIN: Warm and dry. HEAD: Atraumatic. Normocephalic. EYES: Pupils equal and round. No scleral icterus. No injection or drainage. ENT: No nasal bleeding or discharge. Mucous membranes pink and moist. NECK: Trachea midline. No JVD. CARDIOVASCULAR: Regular rate and rhythm. RESPIRATORY: No accessory muscle use. Clear to auscultation. Breath sounds equal bilaterally. GASTROINTESTINAL: Abdomen soft, non-tender, nondistended. Hepatic and splenic margins not palpable. MUSCULOSKELETAL: Extremities without clubbing, cyanosis, or edema. No obvious deformities. NEUROLOGICAL: Awake and alert. No obvious cranial nerve deficits. Motor grossly within normal limits. Five out of 5 muscle strength in the arms and legs. Normal speech. PSYCHIATRIC: Appropriate mood and affect; insight and judgment normal. Assessment and Plan Problem List: (1) Sepsis ICD Codes: A41.9 - Sepsis, unspecified organism Status: Acute (2) Polysubstance abuse ICD Codes: F19.10 - Other psychoactive substance abuse, uncomplicated Status: Acute (3) HTN (hypertension) ICD Codes: I10 - Hypertension Status: Chronic (4) DKA (diabetic ketoacidoses) ICD Codes: E13.10 - Other specified diabetes mellitus with ketoacidosis without coma Status: Acute (5) COPD (chronic obstructive pulmonary disease) ICD Codes: J44.9 - Chronic obstructive pulmonary disease Status: Chronic (6) Cocaine abuse ICD Codes: F14.10 - Cocaine abuse Status: Acute (7) Pacemaker ICD Codes: Z95.0 - Presence of cardiac pacemaker Status: Chronic Assessment and Plan 1) Bacteremia with Group B Strep ANNALISE showing very small vegetation noted on aortic valve No other vegetations noted 2) PPM Interrogation showing intrinsic rhythm sinus 60-70 PPM removed No current need for PPM 3) Atypical CP Trops negative Possible due to his PNA 4) Cocaine cessation 5) Follow up outpatient for further evaluation for future need for PPM, but does not appear to need one Problem Qualifiers (1) Sepsis: Qualified Codes: A41.9 - Sepsis, unspecified organism Praveen Gonzales DO Oct 17, 2017 12:02
--- NOTE | 2017-10-17 13:07 | HHI.IDPN ---
Subjective Subjective Remarks afebrile doing well S?p removal of AICD - uneventful WBC wnl Antibiotics CFTX Allergies: Coded Allergies: No Known Drug Allergies (Verified Allergy, Unknown, 10/04/17) MRI PRECAUTION (Verified Adverse Reaction, Severe, PACEMAKER, 10/04/17) PT HAS PACEMAKER PER NURSE JAYLENE/HEMANT *[facility]DRO Multi-Drug Resistant Organism (Verified Adverse Reaction, Unknown, Cleared - 10/07/15, 10/04/17) MRSA PCR (nares) negative - 10/04/15 & 10/07/15 Cleared per Infection Control MRSA (blood and urine) - 06/2012 Objective . Vital Signs Date Time Temp Pulse Resp B/P (MAP) Pulse Ox O2 Delivery O2 Flow Rate FiO2 10/17/17 11:00 72 10/17/17 10:00 70 10/17/17 09:21 16 10/17/17 09:00 76 10/17/17 08:00 97.9 68 16 134/90 (105) 98 10/17/17 08:00 72 10/17/17 07:42 Room Air 10/17/17 07:00 90 10/17/17 06:00 70 10/17/17 05:00 74 10/17/17 04:00 71 10/17/17 04:00 Room Air 10/17/17 04:00 98.2 71 18 131/87 (102) 95 10/17/17 03:00 70 10/17/17 02:00 73 10/17/17 01:00 69 10/17/17 00:00 Room Air 10/17/17 00:00 65 10/17/17 00:00 98.4 65 18 129/95 (106) 98 10/16/17 23:00 78 10/16/17 22:00 92 10/16/17 21:28 96 21 10/16/17 21:00 89 10/16/17 20:00 95 10/16/17 20:00 Room Air 10/16/17 20:00 98.1 95 20 130/89 (103) 97 10/16/17 18:00 82 10/16/17 17:00 78 10/16/17 16:00 84 10/16/17 15:05 98.1 86 16 126/76 (93) 96 10/16/17 15:00 84 10/16/17 14:00 84 10/16/17 13:00 80 . Laboratory Tests Test 10/16/17 06:00 White Blood Count 9.2 TH/MM3 Red Blood Count 4.17 MIL/MM3 Hemoglobin 12.7 GM/DL Hematocrit 36.9 % Mean Corpuscular Volume 88.7 FL Mean Corpuscular Hemoglobin 30.5 PG Mean Corpuscular Hemoglobin Concent 34.4 % Red Cell Distribution Width 13.5 % Platelet Count 208 TH/MM3 Mean Platelet Volume 8.3 FL Neutrophils (%) (Auto) 63.1 % Lymphocytes (%) (Auto) 21.2 % Monocytes (%) (Auto) 13.2 % Eosinophils (%) (Auto) 2.1 % Basophils (%) (Auto) 0.4 % Neutrophils # (Auto) 5.8 TH/MM3 Lymphocytes # (Auto) 2.0 TH/MM3 Monocytes # (Auto) 1.2 TH/MM3 Eosinophils # (Auto) 0.2 TH/MM3 Basophils # (Auto) 0.0 TH/MM3 CBC Comment DIFF FINAL Differential Comment Laboratory Tests Test 10/15/17 14:02 10/16/17 06:00 Blood Urea Nitrogen 25 MG/DL 20 MG/DL Creatinine 1.09 MG/DL 1.04 MG/DL Random Glucose 145 MG/DL 167 MG/DL Calcium Level 7.8 MG/DL 8.3 MG/DL Sodium Level 132 MEQ/L 132 MEQ/L Potassium Level 4.7 MEQ/L 4.5 MEQ/L Chloride Level 92 MEQ/L 95 MEQ/L Carbon Dioxide Level 25.2 MEQ/L 28.8 MEQ/L Anion Gap 15 MEQ/L 8 MEQ/L Estimat Glomerular Filtration Rate 82 ML/MIN 86 ML/MIN Microbiology Date/Time Source Procedure Growth Status 10/14/17 14:50 Wound Chest Gram Stain - Final Complete 10/14/17 14:50 Wound Chest Wound Culture - Final NO GROWTH IN 72 HRS.--AEROBICALLY OR ... Complete 10/14/17 14:50 Other Fungal Smear - Final Resulted 10/14/17 14:50 Other Fungal Culture Pending Resulted 10/14/17 14:50 Other Acid Fast Stain - Final NO ACID FAST BACILLI SEEN Resulted 10/14/17 14:50 Other Mycobacterial Culture Pending Resulted Imaging Last Impressions Chest X-Ray 10/14/17 0000 Signed Impressions: CONCLUSION: No pneumothorax identified following removal of the patient's pacer. Chest CT 10/08/17 Signed Impressions: CONCLUSION: 1. Trace compressive/dependent atelectasis of both bases and tiny bilateral pl eural effusions. A slight degree of failure is conceivable. No pneumonic infilt rate demonstrated. 2. Mild emphysema and mild chronic interstitial changes are again noted. Stabl e, benign nodule in the right mid lung. 3. Stable diffuse prominent caliber of the thoracic aorta up to 4.1 cm. Lung Scan-VQ Nuclear Medicine 10/04/17 Signed Impressions: CONCLUSION: 1. Low probability for PE. 2. Patchy uptake of tracer activity on the ventilation study suggestive of air space disease. Lower Extremity Ultrasound 10/04/17 Signed Impressions: CONCLUSION: 1. No evidence of DVT. Physical Exam CONSTITUTIONAL/GENERAL: This is an adequately nourished patient, in no apparent distress. TUBES/LINES/DRAINS: PICC RUE SKIN: No jaundice, rashes, or lesions. Skin temperature appropriate. Not diaphoretic. CARDIOVASCULAR: Regular rate and rhythm without murmurs, gallops, or rubs. No JVD. Peripheral pulses symmetric. Dressing intact in place over L chest RESPIRATORY/CHEST: Symmetric, unlabored respirations. Clear to auscultation. Breath sounds equal bilaterally. No wheezes, rales, or rhonchi. MUSCULOSKELETAL: Extremities without clubbing, cyanosis, or edema. No joint tenderness or effusion noted. No calf tenderness. No mottling or clubbing. NEUROLOGICAL: Awake and alert. Motor and sensory grossly within normal limits. Follows commands. Clear speech Moves all extremities. PSYCHIATRIC: No obvious anxiety/depression. no apparent hallucinations or other psychotic thought process. Assessment & Plan Remarks HIgh grade GBS sepsis in the settings of pacemaker sp removal of pacemaker; no need of pacer Aortic valve endocarditis, GBS - PCN BOBBI 0.06 No e/o PNA clinically or radiologically - CT with fluid - MRSA in sputum cw colonisation cont CFTX 2 gm daily x 6 weeks PICC line OPAT filled out OK to d/c Dw Ward Trivedi Alexandra A. MD Oct 17, 2017 13:07
[2017-10-17] MEDS ORDERED: CEFT2INJ2 IV (13:53)
--- NOTE | 2017-10-17 18:11 | HHI.PR ---
Objective Vitals Vital Signs Date Time Temp Pulse Resp B/P (MAP) Pulse Ox O2 Delivery O2 Flow Rate FiO2 10/17/17 17:00 82 10/17/17 16:54 22 10/17/17 16:00 98.2 78 18 128/92 (104) 100 10/17/17 16:00 84 10/17/17 15:00 68 10/17/17 14:00 82 10/17/17 13:06 16 10/17/17 13:00 78 10/17/17 12:00 98.4 79 18 120/89 (99) 95 10/17/17 12:00 74 10/17/17 11:00 72 10/17/17 10:00 70 10/17/17 09:00 76 10/17/17 08:00 97.9 68 16 134/90 (105) 98 10/17/17 08:00 72 10/17/17 07:42 Room Air 10/17/17 07:00 90 10/17/17 06:00 70 10/17/17 05:00 74 10/17/17 04:00 71 10/17/17 04:00 Room Air 10/17/17 04:00 98.2 71 18 131/87 (102) 95 10/17/17 03:00 70 10/17/17 02:00 73 10/17/17 01:00 69 10/17/17 00:00 Room Air 10/17/17 00:00 65 10/17/17 00:00 98.4 65 18 129/95 (106) 98 10/16/17 23:00 78 10/16/17 22:00 92 10/16/17 21:28 96 21 10/16/17 21:00 89 10/16/17 20:00 95 10/16/17 20:00 Room Air 10/16/17 20:00 98.1 95 20 130/89 (103) 97 I/O 10/16/17 10/16/17 10/16/17 10/17/17 10/17/17 10/17/17 07:00 15:00 23:00 07:00 15:00 23:00 Intake Total 480 ml 1200 ml 720 ml Output Total 1900 ml 1000 ml 1200 ml Balance -1420 ml 200 ml -480 ml Intake Oral 480 ml 1200 ml 720 ml Output Urine Total 1900 ml 1000 ml 1200 ml # Bowel Movements 0 0 Result Diagram: 10/16/17 0600 10/16/17 06 Procedures ANNALISE 5-30 SHOWED ENDOCARDITIS A/P Problem List: (1) Sepsis ICD Code: A41.9 - Sepsis, unspecified organism Status: Acute Problem Qualifiers (1) Sepsis: Qualified Codes: A41.9 - Sepsis, unspecified organism Rosario Daley DO Oct 17, 2017 6:11 pm
== END 2017-10-17 18:02 | disposition home health service (06) | DRG 853 ==
LOC: NEPE 07:35 → NEDA 12:03 → HCIS 13:26
PROVIDERS: ADMIT Hospitalist; ATTEND Hospitalist
PROC: B24BZZ4 Ultrasonography of Heart with Aorta, Transesophageal (ICD-10-PCS; 2017-10-13)
PROC: 02PA0MZ Removal of Cardiac Lead from Heart, Open Approach (ICD-10-PCS; principal; 2017-10-14 13:41)
PROC: 0JPT0PZ Removal of Cardiac Rhythm Related Device from Trunk Subcutaneous Tissue and Fascia, Open Approach (ICD-10-PCS; 2017-10-14 13:41)
DX: A40.1 Sepsis due to streptococcus, group B (principal); J96.01 Acute respiratory failure with hypoxia; R65.20 Severe sepsis without septic shock; J15.212 Pneumonia due to Methicillin resistant Staphylococcus aureus; N17.9 Acute kidney failure, unspecified; E11.10 Type 2 diabetes mellitus with ketoacidosis without coma; N18.3 Chronic kidney disease, stage 3 (moderate); J44.0 Chronic obstructive pulmonary disease with (acute) lower respiratory infection; K86.1 Other chronic pancreatitis; T82.7XXA Infection and inflammatory reaction due to other cardiac and vascular devices, implants and grafts, initial encounter; E87.1 Hypo-osmolality and hyponatremia; J44.1 Chronic obstructive pulmonary disease with (acute) exacerbation; E11.22 Type 2 diabetes mellitus with diabetic chronic kidney disease; E78.5 Hyperlipidemia, unspecified; G89.29 Other chronic pain; M54.9 Dorsalgia, unspecified; F14.10 Cocaine abuse, uncomplicated; F19.10 Other psychoactive substance abuse, uncomplicated; E87.5 Hyperkalemia; I35.8 Other nonrheumatic aortic valve disorders; F32.9 Major depressive disorder, single episode, unspecified; I12.9 Hypertensive chronic kidney disease with stage 1 through stage 4 chronic kidney disease, or unspecified chronic kidney disease; K21.9 Gastro-esophageal reflux disease without esophagitis; Y83.1 Surgical operation with implant of artificial internal device as the cause of abnormal reaction of the patient, or of later complication, without mention of misadventure at the time of the procedure; T38.0X5A Adverse effect of glucocorticoids and synthetic analogues, initial encounter; D72.829 Elevated white blood cell count, unspecified; R06.6 Hiccough; Z79.899 Other long term (current) drug therapy; Z87.891 Personal history of nicotine dependence; Z79.4 Long term (current) use of insulin
CPT/HCPCS: 36600; 71045; 71046; 71250; 76937; 78582; 80048; 80053; 80202; 80307; 81001; 82550; 82805; 82948; 83036; 83605; 83690; 83735; 83880; 84100; 84439; 84443; 84484; 85007; 85025; 85027; 85379; 85610; 85730; 86403; 86850; 86900; 86901; 86920; 87015; 87040; 87070; 87102; 87116; 87147; 87184; 87186; 87205; 87206; 87804; 88300; 93005; 93308; 93312; 93318; 93320; 93325; 93970; 94150; 94640; 94664; 96361; 96365; 96367; 96372; A9540; A9567; J0456; J0610; J0690; J0696; J1100; J1642; J1644; J1815; J2250; J2270; J2370; J2405; J2710; J2920; J3010; J3370; J7030; J7040; J7050; J7120; J7512; J7613

== ENCOUNTER 2017-10-24 14:25 | Emergency (ER) | payer MEDICARE, OTHER ==
[~2017-10-24] VITALS: Ht 175.3 cm; Wt 70.0 kg
[~2017-10-24 14:25] MED LIST changes: +CEFT2INJ2 IV; -CLON0.1T PO; +CLON0.2T PO; +CREON12 PO; -DILA8TAB4 PO; +EPIN1INJ21 IV PUSH; +EPIN1INJ21 SQ; +EXEN1INJ SQ; -FLUT1SPR5 EACH NARE; -LANTINJ SQ; -LISI-515 PO; +LORA-392 PO; +PANT20TA2 PO; +REGL10TA5 PO; +ROXI15TA9 PO; +SOLU250I IV PUSH; +SPIRCAP INH; +ZOLO50TA PO
[2017-10-24 14:50] VITALS: BP 105/55; PULSE 98; RESP 16; TEMP 97.3; O2SAT 99
[2017-10-24] MEDS ORDERED: LANTINJ SQ (17:12)
[2017-10-24] MEDS ORDERED: LISI-515 PO (17:12)
[2017-10-24 18:15] LABS: AUTOMATED NEUTROPHIL # 4.3 TH/MM3 (1.8-7.7); BASOPHIL % 0.6 % (0.0-2.0); EOSINOPHIL # 0.2 TH/MM3 (0-0.4); EOSINOPHIL % 3.5 % (0.0-4.0); HEMATOCRIT 32.3 % (39.0-51.0); HEMOGLOBIN 11.3 GM/DL (13.0-17.0); LYMPH % 18.1 % (9.0-44.0); LYMPHOCYTE # 1.2 TH/MM3 (1.0-4.8); MEAN CELL VOLUME 88.6 FL (80.0-100.0); MEAN CORPUSCULAR HEMOGLOBIN 30.9 PG (27.0-34.0); MEAN CORPUSCULAR HGB CONC 34.9 % (32.0-36.0); MEAN PLATELET VOLUME 8.4 FL (7.0-11.0); MONO % 12.2 % (0.0-8.0); MONOCYTE # 0.8 TH/MM3 (0-0.9); NEUT % 65.6 % (16.0-70.0); PLATELET COUNT 193 TH/MM3 (150-450); RED BLOOD COUNT 3.64 MIL/MM3 (4.50-5.90); RED CELL DISTRIBUTION WIDTH 13.3 % (11.6-17.2); WHITE BLOOD COUNT 6.5 TH/MM3 (4.0-11.0)
[2017-10-24 18:20] LABS: ALT (GPT) 27 U/L (12-78); AST (GOT) 18 U/L (15-37); BICARBONATE 30.3 MEQ/L (21.0-32.0); BLOOD UREA NITROGEN 12 MG/DL (7-18); CALCIUM 8.4 MG/DL (8.5-10.1); CHLORIDE 96 MEQ/L (98-107); CREATININE 0.95 MG/DL (0.60-1.30); GLOMERULAR FILTRATION RATE 96 ML/MIN (>89); GLUCOSE,RANDOM 123 MG/DL (74-106); SODIUM (NA) 135 MEQ/L (136-145)
[2017-10-24 18:23] LABS: ALKALINE PHOSPHATASE 128 U/L (45-117); TOTAL BILIRUBIN ADULT 0.5 MG/DL (0.2-1.0); TOTAL PROTEIN 6.9 GM/DL (6.4-8.2)
--- NOTE | 2017-10-24 18:54 | PD ---
HPI Chief Complaint: Skin Problem Time Seen by Provider: 17:11 Travel History International Travel<30 days: No Contact w/Intl Traveler<30days: No Traveled to known affect area: No History of Present Illness HPI Patient is a 67 year old male who comes in because fluid has built up in his pacemaker site. He was just here and discharged on October 21 after being treated for sepsis/endocarditis. He is currently receiving Rocephin IV at home and reports compliance with this. He has noticed the fluid build-up since Tuesday. He says it seems to be getting worse. He denies any pain to the area. He denies fever or chills. He hasn't noticed any discoloration to his skin. He denies leakage from the area. Severity is mild. PFSH Past Medical History Arthritis: Yes (Both legs, all fingers. ) Asthma: Yes Autoimmune Disease: Yes (diabetes) Blood Disorders: No Anxiety: Yes Depression: Yes Heart Rhythm Problems: Yes (bradycardia) Cancer: No Cardiac Catheterization: Yes Cardiovascular Problems: Yes High Cholesterol: Yes Chemotherapy: No Chest Pain: No Congestive Heart Failure: No COPD: Yes Cerebrovascular Accident: No Diabetes: Yes Patient Takes Glucophage: Yes Diminished Hearing: No Endocrine: No Gastrointestinal Disorders: Yes (PANCREATITIS) GERD: Yes Glaucoma: No Genitourinary: Yes Headaches: No Hepatitis: No Hiatal Hernia: No Heparin Induced Thrombocytopen: No Hypertension: Yes Immune Disorder: No Implanted Vascular Access Dvce: Yes Kidney Stones: No Musculoskeletal: No Neurologic: No Psychiatric: No Reproductive: Yes Respiratory: Yes Immunizations Current: Yes Migraines: No Myocardial Infarction: No Pancreatitis: Yes Pneumonia: Yes Radiation Therapy: No Renal Failure: Yes Seizures: No Sickle Cell Disease: No Sleep Apnea: No Thyroid Disease: No Ulcer: No PNEUMOCCOCAL Vaccine (Year): 2 Past Surgical History Abdominal Surgery: No AICD: No Arteriovenous Shunt: No Body Medical Devices: PACEMAKER- [employer] Cardiac Surgery: Yes (pacemaker-REMOVED OCTOBER 2017) Cholecystectomy: Yes Ear Surgery: No Endocrine Surgery: No Eye Surgery: No Genitourinary Surgery: No Gynecologic Surgery: No Insulin Pump: No Joint Replacement: No Neurologic Surgery: Yes (LAMINECTOMY L4/5) Oral Surgery: No Pacemaker: Yes Thoracic Surgery: No Other Surgery: Yes (HAND SURGERY -RIGHT TENDON REPAIR) Social History Alcohol Use: No (STATES QUIT) Tobacco Use: No (QUIT 2011) Substance Use: No (Cocaine "every once in a while": "tuesday or " ) Allergies-Medications (Allergen,Severity, Reaction): Coded Allergies: No Known Drug Allergies (Verified Allergy, Unknown, 10/04/17) MRI PRECAUTION (Verified Adverse Reaction, Severe, PACEMAKER, 10/04/17) PT HAS PACEMAKER PER NURSE JAYLEEN/HEMANT *[facility] Multi-Drug Resistant Organism (Verified Adverse Reaction, Unknown, Cleared - 10/07/15, 10/04/17) MRSA PCR (nares) negative - 10/04/15 & 10/07/15 Cleared per Infection Control MRSA (blood and urine) - 06/2012 Reported Meds & Prescriptions Reported Meds & Active Scripts Active Spiriva Handihaler (Tiotropium Inh) 18 Mcg Cap 18 Mcg INH DAILY 1 capsule = 18 mcg Epinephrine Inj 1 Mg/Ml (1 Ml) Inj 0.3 Mg SQ ONCE PRN Give with any signs of respiratory distress. Reported Lantus Solostar Pen Inj (Insulin Glargine) 300 Unit/3 Ml Pen 25 Units SQ BID Lisinopril 20 Mg Tab 20 Mg PO BID Roxicodone (Oxycodone HCl) 15 Mg Tab 15 Mg PO Q8H PRN Zoloft (Sertraline HCl) 50 Mg Tab 50 Mg PO DAILY Bydureon Pen Inj (Exenatide) 2 Mg Pfpen 2 Mg SQ Q7D Pantoprazole (Pantoprazole Sodium) 20 Mg Tab 20 Mg PO DAILY Proair Hfa 8.5 GM Inh (Albuterol Sulfate) 90 Mcg/Act Aer 1 Puff INH Q4H PRN 108 mcg/actuation Clonidine (Clonidine HCl) 0.2 Mg Tab 0.05 Tab PO DAILY Ativan (Lorazepam) 0.5 Mg Tab 0.5 Mg PO Q8H PRN Reglan (Metoclopramide HCl) 10 Mg Tab 10 Mg PO DAILY Creon (Amylase/Lipase/Protease) 12,000-38,000-60,000 Units Cap 1 Cap PO TIDPC Aspirin EC (Aspirin) 81 Mg Tabdr 81 Mg PO DAILY Duoneb (Ipratropium-Albuterol Neb) 0.5-2.5 Mg/3 Ml Neb 1 Nebule INH Q4HR NEB Janumet (Sitagliptin-Metformin) 50-500 Mg Tab 1 Tab PO BID Cialis (Tadalafil) 5 Mg Tab 5 Mg PO DAILY Do not exceed 1 dose/day. Review of Systems Except as stated in HPI: all other systems reviewed are Neg General / Constitutional: No: Fever, Chills HENT: No: Headaches, Lightheadedness Cardiovascular: No: Chest Pain or Discomfort Respiratory: No: Shortness of Breath Gastrointestinal: No: Nausea, Vomiting Musculoskeletal: No: Myalgias Skin: No Rash, No Change in Pigmentation Neurologic: No: Weakness, Dizziness Physical Exam Narrative GENERAL: Awake and alert, in no acute distress. SKIN: Focused skin assessment warm/dry. 4cm fluid filled sac at site of previous pacemaker. Nonerythematous or warm to the touch. No tenderness to palpation. HEAD: Atraumatic. Normocephalic. EYES: Pupils equal and round. No scleral icterus. No injection or drainage. ENT: Mucous membranes pink and moist. NECK: Trachea midline. No JVD. CARDIOVASCULAR: Regular rate and rhythm. No murmur appreciated. RESPIRATORY: No accessory muscle use. Clear to auscultation. Breath sounds equal bilaterally. GASTROINTESTINAL: Abdomen soft, non-tender, nondistended. MUSCULOSKELETAL: No obvious deformities. No clubbing. No cyanosis. No edema. NEUROLOGICAL: Awake and alert. No obvious cranial nerve deficits. Motor grossly within normal limits. Normal speech. PSYCHIATRIC: Appropriate mood and affect; insight and judgment normal. Data Data Last Documented VS Vital Signs Date Time Temp Pulse Resp B/P (MAP) Pulse Ox O2 Delivery O2 Flow Rate FiO2 10/24/17 19:04 73 18 119/79 (92) 100 Room Air 10/24/17 14:50 97.3 Orders Orders Complete Blood Count With Diff (10/24/17 17:33) Comprehensive Metabolic Panel (10/24/17 17:33) Ct Thorax/ Chest W Iv Contrast (10/24/17 ) Iohexol 350 Inj (Omnipaque 350 Inj) (10/24/17 18:59) Labs Laboratory Tests Test 10/24/17 17:40 White Blood Count 6.5 TH/MM3 Red Blood Count 3.64 MIL/MM3 Hemoglobin 11.3 GM/DL Hematocrit 32.3 % Mean Corpuscular Volume 88.6 FL Mean Corpuscular Hemoglobin 30.9 PG Mean Corpuscular Hemoglobin Concent 34.9 % Red Cell Distribution Width 13.3 % Platelet Count 193 TH/MM3 Mean Platelet Volume 8.4 FL Neutrophils (%) (Auto) 65.6 % Lymphocytes (%) (Auto) 18.1 % Monocytes (%) (Auto) 12.2 % Eosinophils (%) (Auto) 3.5 % Basophils (%) (Auto) 0.6 % Neutrophils # (Auto) 4.3 TH/MM3 Lymphocytes # (Auto) 1.2 TH/MM3 Monocytes # (Auto) 0.8 TH/MM3 Eosinophils # (Auto) 0.2 TH/MM3 Basophils # (Auto) 0.0 TH/MM3 CBC Comment DIFF FINAL Differential Comment Blood Urea Nitrogen 12 MG/DL Creatinine 0.95 MG/DL Random Glucose 123 MG/DL Total Protein 6.9 GM/DL Albumin 3.0 GM/DL Calcium Level 8.4 MG/DL Alkaline Phosphatase 128 U/L Aspartate Amino Transf (AST/SGOT) 18 U/L Alanine Aminotransferase (ALT/SGPT) 27 U/L Total Bilirubin 0.5 MG/DL Sodium Level 135 MEQ/L Potassium Level 3.6 MEQ/L Chloride Level 96 MEQ/L Carbon Dioxide Level 30.3 MEQ/L Anion Gap 9 MEQ/L Estimat Glomerular Filtration Rate 96 ML/MIN [facility] Medical Decision Making Medical Screen Exam Complete: Yes Emergency Medical Condition: Yes Medical Record Reviewed: Yes Differential Diagnosis seroma vs hematoma vs abscess Narrative Course Patient is a 67 year old male who comes in due to fluid build up at his surgical site. Exam shows an area of fluid build up at the old pacemaker site. IV established, labs sent. Labs show no acute abnormalities. CT chest performed shows likely post-operative hematoma. Last [address] 10/24/17 0000 Signed Impressions: CONCLUSION: Interval development of fluid and gas collection anterior to the p soas muscle on left side probably postprocedural hematoma, however focal absces s is difficult to exclude. I spoke with Dr. Melchor who would like to see the patient in the office. Patient given his information and advised to call tomorrow to set up an appointment. Advised to return at any time for any worsening symptoms. Diagnosis Primary Impression: Hematoma Referrals: Dana Melchor MD call for appointment Patient Instructions: General Instructions, Hematoma (ED) Additional Instructions: Follow-up with Dr. Melchor, call the office tomorrow. Return to the ED as needed for any worsening symptoms. Disposition: 01 DISCHARGE HOME Condition: Stable Laurie Kincaid MD Oct 24, 2017 18:54
[2017-10-24] MEDS ORDERED: IOHEXOL 350 MG/ML 10 ML VIAL (for RAD DIAG) IVCONTRAST ONE (18:59)
[2017-10-24 19:04] VITALS: BP 119/79; PULSE 73; RESP 18; O2SAT 100
--- NOTE | 2017-10-24 19:21 | RADRPT ---
EXAM DATE: 10/24/2017 7:00 PM EDT AGE/SEX: 67 years / Male INDICATIONS: Pacemaker removed. Swollen surgical site. CLINICAL DATA: This is the patient's initial encounter. Patient reports that signs and symptoms have been present for 1 day and indicates a pain score of 7/10. MEDICAL/SURGICAL HISTORY: Cardiovascular disease. Chronic obstructive pulmonary disease. Diabetes mellitus type II. . Pacemaker, removal. RADIATION DOSE: 7.26 CTDI (mGy) [place] [facility] [place]08/2017. . TECHNIQUE: Multiple contiguous axial images were obtained through the chest during bolus infusion of 70 ml Omnipaque 350 (iohexol) nonionic water-soluble contrast as a single exam dose. Images were obtained in suspended respiration using multiple row detector helical technique. Using automated exp osure control and adjustment of the mA and/or kV according to patient size, radiation dose was kept a s low as reasonably achievable to obtain optimal diagnostic quality images. FINDINGS: COPD changes are seen with scattered areas of pleural thickening with an approximate 1 cm right middl e lobe nodule. Pleural plaque calcifications are seen in the right chest anteriorly and there is a se parate 4 to 5 mm nodule in right lower lobe anterolateral. Scattered areas of scarring and chronic in terstitial process is seen in both lung bases and bilateral apices. There is no pleural effusion. No appreciable pathological adenopathy is seen within the mediastinum. There is pneumobilia within the left hepatic lobe. Chronic vascular atherosclerotic calcifications are seen involving the aorta. Cor onary artery calcifications are seen typically seen with coronary artery disease and clinical correla tion and evaluation is suggested. Approximate 4.1 cm fluid collection is present mixed with gas adjac ent to the upper margins of the left psoas muscle probably the insertion site of the prior pacemaker most likely hematoma, however infectious process is difficult to exclude at this time. CONCLUSION: Interval development of fluid and gas collection anterior to the psoas muscle on left si de probably postprocedural hematoma, however focal abscess is difficult to exclude. Electronically signed by: Ayla Frank MD 10/24/2017 7:20 PM EDT
== END 2017-10-24 20:07 | disposition home or self-care (01) ==
LOC: NEPD 14:25
DX: M96.841 Postprocedural hematoma of a musculoskeletal structure following other procedure (principal); E11.9 Type 2 diabetes mellitus without complications; E78.00 Pure hypercholesterolemia, unspecified; I10 Essential (primary) hypertension; K21.9 Gastro-esophageal reflux disease without esophagitis; J44.9 Chronic obstructive pulmonary disease, unspecified; Z79.4 Long term (current) use of insulin; Z87.891 Personal history of nicotine dependence; Z95.0 Presence of cardiac pacemaker
CPT/HCPCS: 71260; 80053; 85025; 99284; Q9967